=== PATIENT | female | born 1940 | race Caucasian/White ===

== ENCOUNTER → 2019-02-06 09:37 | Outpatient (CLI) | payer MEDICARE, OTHER, SELFPAY ==
--- NOTE | 2019-02-06 09:50 | CA_ITS ---
PROCEDURE: 2-D M-mode and color Doppler study INDICATIONS FOR THE TEST: Chest pain COPD Heart Murmur Tobacco Smoking Palpitations Fatigue Syncope Edema+ Hypertension+Diabetes Mellitus Rheumatic Fever SOB REY Obesity Hyperlipidemia Family History HD Additional History PATIENT INFORMATION HEIGHT: 67 WEIGHT:173 GENDER: Female B/P:134/74 2-D/M-MODE INTERPRETATION: 2-D MEASUREMENTS OBSERVED VALUES IN CMS Right Ventricular Dimension (RVDd) 2.5 Interventricular Septum (Thickness)(IVsd) 1.1 Left Ventricular Internal Dimensions(LVIDd) 4.8 Left Ventricular Posterior Wall (Thickness)(LVPWd) 0.8 Aortic Root 2.6 Aortic Cusp Separation 1.8 Left Atrial Dimensions (LAD) 3.5 2D 1. Left atrium is mildly enlarged, left ventricle is normal size, mild concentric left ventricular hypertrophy, visually estimated ejection fraction 55% with no regional wall motion abnormality. 2. The right atrium and right ventricle are normal size and contractility. 3. The aortic valve is thickened and calcified difficult to display mobility. 4. The mitral and tricuspid valve are grossly normal. 5. The pulmonic valve is poorly visualized 6. No significant pericardial effusion noted. DOPPLER INTERROGATION: Doppler interrogation of the aortic, mitral and tricuspid valvular presence of mild mitral, mild aortic and tricuspid regurgitation, tricuspid regurgitation jet velocity is inadequate for calculation of the right ventricular systolic pressure, grade 1 diastolic dysfunction seen with tissue Doppler evidence of raised left atrial pressure. Inferior vena cava is normal size with normal inspiratory collapse. CONCLUSION: 1. Mildly enlarged left atrium, normal left ventricular size, mild concentric left ventricular hypertrophy, visually estimated ejection fraction 55% with no regional wall motion abnormality, grade 1 diastolic dysfunction seen with tissue Doppler evidence of raised left atrial pressure. Inferior vena cava is normal size with normal inspiratory collapse. 2. Mild aortic, mild mitral and tricuspid regurgitation 3. No significant pericardial effusion noted.
== END ==
PROVIDERS: PCP Internal Medicine; Visit Provider Internal Medicine
DX: R60.1 Generalized edema (principal); I10 Essential (primary) hypertension
CPT/HCPCS: 93306

== ENCOUNTER → 2020-08-20 15:35 | Outpatient (CLI) | payer MEDICARE, OTHER, SELFPAY ==
--- NOTE | 2020-08-20 15:45 | CT_ITS ---
PROCEDURE: CT ABDOMEN PELVIS WO CON CLINICAL INDICATION: ABD PAIN, DIARRHEA There area x1 week COMPARISON: CT ABDPELW CT ABD PELVIS WITH CONTRAST from 10/31/2012 TECHNIQUE: Axial images obtained with sagittal and coronal reformats. All CT scans at the facility use one or more dose reduction, viz: automated exposure control, ma/kV adjustment per patient size (including targeted exams where dose is matched to indication, i.e. head), or iterative reconstruction technique. FINDINGS: LOWER THORAX: No acute finding ABDOMEN & PELVIS: There is no intraperitoneal free air or free fluid. There is a 7 millimeter by 4 millimeter nonobstructing left renal stone. There is an adjacent smaller nonobstructing left renal stone. There are no additional renal, ureteral, or urinary bladder calcifications. There is no right or left hydronephrosis or hydroureter. There is a large gallstone. The remaining solid abdominal organs have a normal unenhanced appearance. Pelvic organs are unremarkable for patient age. There is extensive sigmoid diverticulosis. There is no CT evidence of acute diverticulitis. There is a large amount of soft stool throughout the entire colon. There is no bowel obstruction. There are no distended loops of small bowel. There is no abdominal or pelvic adenopathy. There is scattered atherosclerotic calcification in the abdominal aorta. There is no abdominal aortic aneurysm. There is a moderate lumbar scoliosis. There is grade 1/2 lateral subluxation of L3 on L4. There is extensive lumbar spinal degenerative change and right-sided foraminal narrowing. IMPRESSION: 1. Cholelithiasis, correlate clinically to exclude cholecystitis. 2. Left nonobstructive nephrolithiasis without hydronephrosis or hydroureter. Next number extensive sigmoid diverticulosis without CT evidence of diverticulitis. 3. Large amount of soft stool throughout the entire colon. 4. Skeletal findings as described above. Dictated by: Abby Paul MD 08/20/2020 16:20 Abby Paul MD in [place] 08/20/2020 16:20
[2020-08-20 15:51] LABS: Basophils % 0.5 % (0.1-2.0); Eosinophils # 0.2 K/mm3 (0.0-0.4); Eosinophils % 2.3 % (0.1-12.0); Hematocrit 34.4 % (37.0-47.0); Hemoglobin 10.6 g/dL (12.2-16.2); Lymphocytes # 1.4 K/mm3 (0.7-4.5); Lymphocytes % 16.5 % (10-50); Mean Corpuscular HGB Conc 30.9 g/dL (31.8-35.4); Mean Corpuscular Hemoglobin 24.7 pg (27.0-31.2); Mean Corpuscular Volume 79.8 fl (81-99); Mean Platelet Volume 9.4 fl (7.4-10.4); Monocytes # 0.8 K/mm3 (0.1-1.0); Monocytes % 9.4 % (1.7-9.3); Neutrophils # 6.1 K/mm3 (1.8-7.8); Neutrophils % 71.4 % (37.0-80.0); Platelet Count 251 K/mm3 (142-424); Red Blood Count 4.31 M/mm3 (4.20-5.40); Red Cell Distribution Width 14.7 % (11.5-17.5); White Blood Count 8.6 K/mm3 (4.8-10.8)
[2020-08-20 15:55] LABS: Chloride 106 mmol/L (98-107); Potassium 3.2 mmoL/L (3.5-5.1); Sodium 142 mmol/L (136-145)
[2020-08-20 15:58] LABS: Anion Gap 9.2 mEq/L (5-15); Blood Urea Nitrogen 9 mg/dl (7-17); Calcium 9.6 mg/dl (8.4-10.2); Carbon Dioxide 30 mmol/L (22.0-30.0); Estimated Glomerular Filt Rate 81 ml/min (>60); GFR (African American) 97 ML/MIN (>60); Glucose 124 mg/dl (74-100)
== END ==
PROVIDERS: Visit Provider Internal Medicine
DX: R10.9 Unspecified abdominal pain (principal); R19.7 Diarrhea, unspecified; R50.9 Fever, unspecified
CPT/HCPCS: 36415; 74176; 80048; 85025

== ENCOUNTER → 2020-08-21 11:19 | Outpatient (CLI) | payer MEDICARE, OTHER, SELFPAY ==
[2020-08-21 11:22] LABS: Adenovirus F 40/41, stool Not Detected (NotDetected); Astrovirus Not Detected (NotDetected); Campylobacter Not Detected (NotDetected); Clostridium Difficile A/B, PCR Not Detected (NotDetected); Cryptosporidium Not Detected (NotDetected); Cyclospora Cayetanesis Not Detected (NotDetected); Entamoeba histolytica Not Detected (NotDetected); Enteroaggregative E coli Not Detected (NotDetected); Enteropathogenic E coli Not Detected (NotDetected); Enterotoxigenic E coli Not Detected (NotDetected); Giardia lamblia Not Detected (NotDetected); Norovirus Not Detected (NotDetected); Plesimonas Shigalloides, PCR Not Detected (NotDetected); Rotavirus A Not Detected (NotDetected); Salmonella, PCR Not Detected (NotDetected); Sapovirus Not Detected (NotDetected); Shiga-like toxin E coli Not Detected (NotDetected); Shigella Enterovasive E coli Not Detected (NotDetected); Vibrio Cholerae Not Detected (NotDetected); Vibrio, PCR Not Detected (NotDetected); Yersinia Entercolitica, PCR Not Detected (NotDetected)
== END ==
PROVIDERS: Visit Provider Internal Medicine
DX: R19.7 Diarrhea, unspecified
CPT/HCPCS: 87506

== ENCOUNTER → 2020-10-14 11:00 | Outpatient (CLI) | payer MEDICARE, OTHER, SELFPAY ==
--- NOTE | 2020-10-14 | CA_ITS ---
APPROVED REPORT Strap Buckler Machine: [facility], S Laterality: Bilateral Study Quality: Excellent Indications: Right carotid bruit Risk Factors Hyperlipidemia Smoking Doppler Spectral Velocity Analysis ECA (R) 113.10/11.10 cm/s ECA (L) 138.70/8.70 cm/s dICA (R) 169.90/42.80 cm/s dICA (L) 93.40/18.80 cm/s Car (R) 149.00/64.10 cm/s Car (L) 129.40/33.10 cm/s pICA (R) 68.50/17.10 cm/s pICA (L) 81.60/14.20 cm/s dCCA (R) 78.00/18.00 cm/s dCCA (L) 73.70/15.40 cm/s pCCA (R) 81.40/18.00 cm/s pCCA (L) 91.70/17.10 cm/s Vert (R) 72.00/7.70 cm/s Vert (L) 53.10/11.10 cm/s ICA/CCA 2.30 ICA/CCA 1.41 Findings Duplex evaluation demonstrates stenosis of the right proximal internal carotid artery in the range of 50-69% with PSV =140 cm/sec, EDV <100 cm/sec, and IC/CC Ratio <4.0.Duplex evaluation demonstrates stenosis of the left proximal internal carotid artery in the range of 50-69% with PSV =140 cm/sec, EDV <100 cm/sec, and IC/CC Ratio <4.0. Right Internal carotid artery is extremely tortuous. Duplex evaluation demonstrates antegrade flow of the bilateral Vertebral Arteries. Conclusion Duplex evaluation demonstrates stenosis of the right proximal internal carotid artery in the range of 50-69% with PSV =140 cm/sec, EDV <100 cm/sec, and IC/CC Ratio <4.0.Duplex evaluation demonstrates stenosis of the left proximal internal carotid artery in the range of 50-69% with PSV =140 cm/sec, EDV <100 cm/sec, and IC/CC Ratio <4.0. Right Internal carotid artery is extremely tortuous. Duplex evaluation demonstrates antegrade flow of the bilateral Vertebral Arteries. Electronically signed by : Jose Daniel Connolly MD 10/14/2020 15:21:32
== END ==
PROVIDERS: PCP Internal Medicine; Visit Provider Internal Medicine
DX: R09.89 Other specified symptoms and signs involving the circulatory and respiratory systems (principal)
CPT/HCPCS: 93880

== ENCOUNTER → 2021-04-12 10:40 | Outpatient (CLI) | payer MEDICARE, OTHER, SELFPAY ==
[2021-04-12 11:08] LABS: Basophils # 0.1 K/mm3 (0-0.2); Basophils % 0.7 % (0.1-2.0); Eosinophils # 0.3 K/mm3 (0.0-0.4); Eosinophils % 4.1 % (0.1-12.0); Hematocrit 37.1 % (37.0-47.0); Hemoglobin 11.9 g/dL (12.2-16.2); Lymphocytes # 1.1 K/mm3 (0.7-4.5); Lymphocytes % 14.4 % (10-50); Mean Corpuscular HGB Conc 32.1 g/dL (31.8-35.4); Mean Corpuscular Hemoglobin 28.3 pg (27.0-31.2); Mean Corpuscular Volume 88.1 fl (81-99); Mean Platelet Volume 9.4 fl (7.4-10.4); Monocytes # 0.6 K/mm3 (0.1-1.0); Neutrophils # 5.6 K/mm3 (1.8-7.8); Neutrophils % 72.8 % (37.0-80.0); Platelet Count 190 K/mm3 (142-424); Red Blood Count 4.21 M/mm3 (4.20-5.40); Red Cell Distribution Width 14.7 % (11.5-17.5); White Blood Count 7.6 K/mm3 (4.8-10.8)
[2021-04-12 11:50] LABS: Alanine Aminotransferase 14 U/L (12-78); Albumin Level 3.9 g/dl (3.5-5.0); Albumin/Globulin Ratio 1.4 (1.1-1.8); Alkaline Phosphatase 76 U/L (38-126); Anion Gap 10.2 mEq/L (5-15); Aspartate Amino Transferase 39 U/L (14-36); Bilirubin,Total 0.5 mg/dl (0.2-1.3); Blood Urea Nitrogen 16 mg/dl (7-17); Calcium 9.1 mg/dl (8.4-10.2); Carbon Dioxide 30 mmol/L (22.0-30.0); Chloride 105 mmol/L (98-107); Chol/HDL Ratio 2.5 (1-3.5); Cholesterol 153 mg/dl (140-200); Estimated Glomerular Filt Rate 96 ml/min (>60); GFR (African American) 116 ML/MIN (>60); Globulin 2.8 g/dL (1.3-3.2); Glucose 95 mg/dl (74-100); HDL Cholesterol 62 mg/dl (40-60); Potassium 4.2 mmoL/L (3.5-5.1); Sodium 141 mmol/L (136-145); Total Protein,Serum 6.7 g/dl (6.3-8.2); Triglycerides 88 mg/dl (30-150); VLDL Cholesterol 18 mg/dL (0-40)
[2021-04-12 12:01] LABS: Direct LDL Cholesterol 68.91 mg/dL (100-129)
[2021-04-12 12:21] LABS: Thyroid Stimulating Hormone 2.16 uIU/mL (0.465-4.68)
[2021-04-12 12:39] LABS: Vitamin B12 531 pg/mL (239-931)
== END ==
PROVIDERS: Visit Provider Internal Medicine
DX: I87.2 Venous insufficiency (chronic) (peripheral) (principal); M17.0 Bilateral primary osteoarthritis of knee; D64.9 Anemia, unspecified; E78.5 Hyperlipidemia, unspecified
CPT/HCPCS: 80053; 80061; 82607; 84443; 85025

== ENCOUNTER → 2021-07-04 10:26 | Outpatient (CLI) | payer MEDICARE, OTHER, SELFPAY ==
[2021-07-04 10:31] LABS: Microscopic, Urine URINE MICROSCOPIC (MICROSCOPIC)
--- NOTE | 2021-07-04 10:42 | XR_ITS ---
FINAL REPORT CLINICAL HISTORY: LT LOWER QUAD PAIN, n/v FINDINGS: Chest: A single view of the chest demonstrates no acute cardiopulmonary process. Abdomen: Flat and upright views of the abdomen demonstrates gaseous stool throughout the colon. There is no free air. There is 25? of lumbar scoliosis convex to the right. IMPRESSION: No acute process. Reviewed, Interpreted and Dictated by Pepito Aldana MD Transcribed by Nya Tong Authenticated by Pepito Aldana MD on 07/04/2021 12:06:34 PM [facility]
[2021-07-04 10:45] LABS: Basophils # 0.1 K/mm3 (0-0.2); Basophils % 0.5 % (0.1-2.0); Eosinophils # 0.1 K/mm3 (0.0-0.4); Eosinophils % 1.4 % (0.1-12.0); Hematocrit 34.1 % (37.0-47.0); Lymphocytes # 0.9 K/mm3 (0.7-4.5); Lymphocytes % 9.4 % (10-50); Mean Corpuscular HGB Conc 32.4 g/dL (31.8-35.4); Mean Corpuscular Hemoglobin 27.9 pg (27.0-31.2); Mean Corpuscular Volume 86.2 fl (81-99); Mean Platelet Volume 8.5 fl (7.4-10.4); Monocytes # 0.8 K/mm3 (0.1-1.0); Monocytes % 8.2 % (1.7-9.3); Neutrophils # 7.8 K/mm3 (1.8-7.8); Neutrophils % 80.4 % (37.0-80.0); Platelet Count 265 K/mm3 (142-424); Red Blood Count 3.96 M/mm3 (4.20-5.40); Red Cell Distribution Width 13.9 % (11.5-17.5); White Blood Count 9.7 K/mm3 (4.8-10.8)
[2021-07-04 10:59] LABS: Alanine Aminotransferase 27 U/L (12-78); Albumin/Globulin Ratio 1.2 (1.1-1.8); Alkaline Phosphatase 70 U/L (38-126); Anion Gap 7.2 mEq/L (5-15); Aspartate Amino Transferase 52 U/L (14-36); Bilirubin,Total 0.6 mg/dl (0.2-1.3); Blood Urea Nitrogen 14 mg/dl (7-17); Calcium 9.3 mg/dl (8.4-10.2); Carbon Dioxide 33 mmol/L (22.0-30.0); Chloride 100 mmol/L (98-107); Estimated Glomerular Filt Rate 60 ml/min (>60); GFR (African American) 73 ML/MIN (>60); Globulin 3.3 g/dL (1.3-3.2); Glucose 113 mg/dl (74-100); Potassium 3.2 mmoL/L (3.5-5.1); Sodium 137 mmol/L (136-145); Total Protein,Serum 7.3 g/dl (6.3-8.2)
[2021-07-04 11:03] LABS: Appearance,Urine CLOUDY (Clear); Blood, Urine 3+ (Negative); Color,Urine YELLOW (Yellow); Glucose,Urine (UA) Negative (Negative); Ketones,Urine 1+ (Negative); Leukocyte Esterase,Urine TRACE (Negative); Nitrate,Urine Negative (Negative); PH,Urine 5.5 (5.0-8.5); Protein,Urine 2+ (Negative); Specific Gravity, Urine >= 1.030 (1.005-1.030); Urobilinogen,Urine 0.2 EU/dl (0.2)
[2021-07-04 11:08] LABS: Bilirubin,Urine 1+ (Negative)
[2021-07-04 11:17] LABS: Bacteria,Urine Trace /lpf; Squamous Epithelial Cell,Urine Occasional #/hpf (0-5); WBC,Urine Occasional #/hpf (0-3)
== END ==
PROVIDERS: Visit Provider Internal Medicine
DX: R10.32 Left lower quadrant pain (principal); R11.2 Nausea with vomiting, unspecified
CPT/HCPCS: 36415; 74021; 80053; 81001; 85025

== ENCOUNTER → 2021-07-08 07:37 | Outpatient (CLI) | payer MEDICARE, OTHER, SELFPAY ==
--- NOTE | 2021-07-08 07:40 | CT_ITS ---
FINAL REPORT TECHNIQUE: Thin section axial images were obtained from the lung bases to the pubic symphysis without IV contrast. CLINICAL HISTORY: LLQ PAIN,DIARRHEA FINDINGS: There is left hydronephrosis and hydroureter to the level of 2 distal ureteral stones. The first measuring 4 mm and the second measuring 8 mm. There are nonobstructing left renal stones. There are no right renal or ureteral stones. There is abnormal attenuation surrounding the tail of pancreas. This could be reactive from the adjacent renal inflammation however pancreatitis is not excluded. There is a large gallstone in the gallbladder. The remaining unenhanced solid abdominal organs are unremarkable. There is no evidence of small bowel obstruction. The appendix is normal. There is diverticulosis without diverticulitis. There are mildly prominent left periaortic lymph nodes. Otherwise there is no lymphadenopathy or ascites. No acute osseous abnormality is identified. IMPRESSION: 2 obstructing distal left ureteral stones. Nonobstructing left renal stones. Abnormal attenuation surrounding the tail of the pancreas. Possibly related to adjacent left kidney however mild pancreatitis is not excluded. Gallstone in the gallbladder. Reviewed, Interpreted and Dictated by Hannah Madrigal MD Transcribed by Nya Tong Authenticated by Hannah Madrigal MD on 07/08/2021 09:34:42 AM [facility]
== END ==
PROVIDERS: PCP Internal Medicine; Visit Provider Internal Medicine
DX: R10.32 Left lower quadrant pain (principal); R19.7 Diarrhea, unspecified
CPT/HCPCS: 74176

== ENCOUNTER → 2021-10-11 13:22 | Outpatient (CLI) | payer MEDICARE, OTHER, SELFPAY ==
[2021-10-11 15:08] LABS: Basophils # 0.1 K/mm3 (0-0.2); Basophils % 0.7 % (0.1-2.0); Eosinophils # 0.2 K/mm3 (0.0-0.4); Eosinophils % 2.7 % (0.1-12.0); Hematocrit 37.5 % (37.0-47.0); Lymphocytes # 0.8 K/mm3 (0.7-4.5); Lymphocytes % 12.3 % (10-50); Mean Corpuscular Hemoglobin 27.9 pg (27.0-31.2); Mean Corpuscular Volume 86.9 fl (81-99); Mean Platelet Volume 10.6 fl (7.4-10.4); Monocytes # 0.5 K/mm3 (0.1-1.0); Monocytes % 7.8 % (1.7-9.3); Neutrophils # 4.8 K/mm3 (1.8-7.8); Neutrophils % 76.4 % (37.0-80.0); Platelet Count 180 K/mm3 (142-424); Red Blood Count 4.31 M/mm3 (4.20-5.40); Reticulocyte % (Auto) 0.9 % (0.9-3.2); White Blood Count 6.3 K/mm3 (4.8-10.8)
[2021-10-11 17:27] LABS: Alanine Aminotransferase 16 U/L (12-78); Albumin Level 4.1 g/dl (3.5-5.0); Albumin/Globulin Ratio 1.6 (1.1-1.8); Alkaline Phosphatase 77 U/L (38-126); Aspartate Amino Transferase 35 U/L (14-36); Bilirubin,Total 0.7 mg/dl (0.2-1.3); Blood Urea Nitrogen 15 mg/dl (7-17); Calcium 9.2 mg/dl (8.4-10.2); Carbon Dioxide 28 mmol/L (22.0-30.0); Chloride 105 mmol/L (98-107); Chol/HDL Ratio 2.4 (1-3.5); Cholesterol 130 mg/dl (140-200); Estimated Glomerular Filt Rate 96 ml/min (>60); GFR (African American) 116 ML/MIN (>60); Globulin 2.6 g/dL (1.3-3.2); Glucose 88 mg/dl (74-100); HDL Cholesterol 54 mg/dl (40-60); Sodium 141 mmol/L (136-145); Total Protein,Serum 6.7 g/dl (6.3-8.2); Triglycerides 94 mg/dl (30-150); VLDL Cholesterol 19 mg/dL (0-40)
[2021-10-11 17:39] LABS: Direct LDL Cholesterol 48.54 mg/dL (100-129)
[2021-10-11 18:20] LABS: Vitamin B12 348 pg/mL (239-931)
[2021-10-11 22:19] LABS: 25-OH Vitamin D, Total 26.7 ng/mL (30-100)
== END ==
PROVIDERS: PCP Internal Medicine; Visit Provider Internal Medicine
DX: I87.2 Venous insufficiency (chronic) (peripheral) (principal); E78.5 Hyperlipidemia, unspecified; E55.9 Vitamin D deficiency, unspecified; M17.0 Bilateral primary osteoarthritis of knee; Z85.3 Personal history of malignant neoplasm of breast
CPT/HCPCS: 80053; 80061; 82306; 82607; 85025; 85044

== ENCOUNTER → 2021-10-17 16:20 | Outpatient (CLI) | payer MEDICARE, OTHER, SELFPAY ==
--- NOTE | 2021-10-17 16:23 | MR_ITS ---
PROCEDURE INFORMATION: Exam: MR Lumbar Spine Without Contrast Exam date and time: 10/17/2021 4:29 PM Age: 81 years old Clinical indication: Low back pain TECHNIQUE: Imaging protocol: Multiplanar magnetic resonance images of the lumbar spine without intravenous contrast. COMPARISON: CT ABDOMEN PELVIS WO CON 07/08/2021 7:47 AM FINDINGS: alignment is grossly normal. signal intensity within the bone marrow is normal. conus terminates at the mid aspect of L1. Soft tissues are unremarkable. Severe neural foraminal narrowing L3-L4 L2-L3 and L1-L2. Severe narrowing of the L4-L5 neural foramina on the right Multilevel reactive endplate changes T12-L1: Broad-based annular disc bulge. Central canal and neural foramina normal. L1-L2: Severe narrowing of the central canal secondary to facet hypertrophic changes, ligamentum flavum hypertrophic changes, and a broad-based annular bulge. L2-L3: Moderate degree of central canal narrowing secondary to facet hypertrophic changes, ligamentum flavum hypertrophic changes, and a broad-based annular bulge. L3-L4: Severe narrowing of the central canal secondary to facet hypertrophic changes, ligamentum flavum hypertrophic changes, and a broad-based annular bulge. L4-L5: Disc and or osteophytic complex anteriorly mildly effaces the anterior aspect of the thecal sac. Disc lateralizes to the right greater than left. Small central disc protrusion. Central canal is normal. L5-S1: Central canal and neural foramina are widely patent. IMPRESSION: Rather severe degenerative disc disease including severe narrowing at L1-L2, L3-L4 and moderate narrowing of the central canal L2-L3
== END ==
PROVIDERS: PCP Internal Medicine; Visit Provider Internal Medicine
DX: M54.50 Low back pain, unspecified (principal)
CPT/HCPCS: 72148; 76376

== ENCOUNTER → 2021-10-21 10:49 | Outpatient (CLI) | payer MEDICARE, OTHER, SELFPAY ==
--- NOTE | 2021-10-21 10:52 | CT_ITS ---
FINAL REPORT CLINICAL HISTORY: LOW BACK PAIN,? KIDNEY STONE,BLOOD IN URINE COMPARISON: July 08, 2021 FINDINGS: Axial CT images of the abdomen and pelvis were obtained without intravenous contrast. Coronal reformatted images were also obtained.This study was performed with techniques to keep radiation doses as low as reasonably achievable (ALARA). Individualized dose reduction techniques using automated exposure control or adjustment of mA and/or kV according to the patient's size were employed. Abdomen: There is mild scarring in the lung bases. There is no evidence of right renal stone. There is a less than 3 mm nonobstructing left renal stone. There is no hydronephrosis. There is a large gallstone within the gallbladder. The liver, spleen and pancreas have an unremarkable, unenhanced appearance. No mass or adenopathy is seen. No inflammatory process is identified. There are moderate vascular calcifications. Pelvis: The previously seen distal left ureteral stones are no longer visualized. There is a large amount of retained stool. There is sigmoid colon diverticulosis without evidence of diverticulitis. No mass or abnormal fluid collection is identified. IMPRESSION: A less than 3 mm nonobstructing left renal stone. No ureteral stone, or hydronephrosis. Sigmoid diverticulosis without evidence of diverticulitis. Large gallstone in the gallbladder. Reviewed, Interpreted and Dictated by Henri Gomez III, MD Transcribed by Nya Tong Authenticated by Henri Gomez III, MD on 10/21/2021 12:49:[address] [facility]
== END ==
PROVIDERS: PCP Internal Medicine; Visit Provider Internal Medicine
DX: R31.9 Hematuria, unspecified (principal)
CPT/HCPCS: 74176

== ENCOUNTER → 2022-04-12 13:43 | Outpatient (CLI) | payer MEDICARE, OTHER, SELFPAY ==
[2022-04-12 17:43] LABS: Basophils # 0.1 K/mm3 (0-0.2); Basophils % 0.6 % (0.1-2.0); Eosinophils # 0.2 K/mm3 (0.0-0.4); Eosinophils % 2.4 % (0.1-12.0); Hematocrit 36.3 % (37.0-47.0); Hemoglobin 11.6 g/dL (12.2-16.2); Lymphocytes % 12.9 % (10-50); Mean Corpuscular HGB Conc 31.9 g/dL (31.8-35.4); Mean Corpuscular Volume 87.9 fl (81-99); Mean Platelet Volume 9.9 fl (7.4-10.4); Monocytes # 0.7 K/mm3 (0.1-1.0); Monocytes % 8.2 % (1.7-9.3); Neutrophils # 6.1 K/mm3 (1.8-7.8); Neutrophils % 75.9 % (37.0-80.0); Platelet Count 188 K/mm3 (142-424); Red Blood Count 4.12 M/mm3 (4.20-5.40); Red Cell Distribution Width 14.1 % (11.5-17.5)
[2022-04-12 18:28] LABS: Alanine Aminotransferase 15 U/L (12-78); Albumin Level 3.9 g/dl (3.5-5.0); Albumin/Globulin Ratio 1.5 (1.1-1.8); Alkaline Phosphatase 89 U/L (38-126); Aspartate Amino Transferase 35 U/L (14-36); Bilirubin,Total 0.5 mg/dl (0.2-1.3); Blood Urea Nitrogen 17 mg/dl (7-17); Calcium 8.9 mg/dl (8.4-10.2); Carbon Dioxide 30 mmol/L (22.0-30.0); Chloride 101 mmol/L (98-107); Chol/HDL Ratio 2.3 (1-3.5); Cholesterol 136 mg/dl (140-200); Estimated Glomerular Filt Rate 96 ml/min (>60); GFR (African American) 116 ML/MIN (>60); Globulin 2.6 g/dL (1.3-3.2); Glucose 80 mg/dl (74-100); HDL Cholesterol 59 mg/dl (40-60); Potassium 4.2 mmoL/L (3.5-5.1); Total Protein,Serum 6.5 g/dl (6.3-8.2); Triglycerides 75 mg/dl (30-150); VLDL Cholesterol 15 mg/dL (0-40)
[2022-04-12 18:38] LABS: Direct LDL Cholesterol 59.42 mg/dL (100-129)
[2022-04-12 19:21] LABS: Anion Gap 14.2 mEq/L (5-15); Sodium 141 mmol/L (136-145)
== END ==
PROVIDERS: PCP Internal Medicine; Visit Provider Internal Medicine
DX: E78.5 Hyperlipidemia, unspecified (principal); I87.2 Venous insufficiency (chronic) (peripheral); D64.9 Anemia, unspecified
CPT/HCPCS: 80053; 80061; 85025

== ENCOUNTER 2022-08-26 11:41 | Emergency (ER) | payer MEDICARE, OTHER, SELFPAY ==
[2022-08-26 11:42] VITALS: BP 179/88; PULSE 85; RESP 17; TEMP 37.1; O2SAT 98; BMI 24.3
--- NOTE | 2022-08-26 12:02 | PC.NURSE ---
DR HORN AT BEDSIDE
--- NOTE | 2022-08-26 12:13 | CT_ITS ---
PROCEDURE INFORMATION: Exam: CT Abdomen And Pelvis With Contrast Exam date and time: 08/26/2022 1:05 PM Age: 82 years old Clinical indication: Nausea and vomiting and other: Diarrhea; Additional info: Rlq and R flank pain, diarrhea and vomitnig TECHNIQUE: Imaging protocol: Computed tomography of the abdomen and pelvis with contrast. Radiation optimization: All CT scans at this facility use at least one of these dose optimization techniques: automated exposure control; mA and/or kV adjustment per patient size (includes targeted exams where dose is matched to clinical indication); or iterative reconstruction. Contrast material: ISOVUE; Contrast volume: 75 ml; Contrast route: IV; REPORTING DATA: Count of CT and Cardiac NM exams in prior 12 months: This patient has received [address] and 0 known cardiac nuclear medicine studies in the 12 months prior to the current study. COMPARISON: CT ABDOMEN PELVIS WO CON 10/21/2021 10:52 AM FINDINGS: Lungs: Interstitial and mild airspace disease. Asymmetric elevation of the right hemidiaphragm. Liver: Fatty infiltration of the liver. Gallbladder and bile ducts: Cholelithiasis. Pancreas: Normal. No ductal dilation. Spleen: No splenomegaly. Adrenal glands: Subtle left adrenal nodularity. Kidneys and ureters: Moderate left hydronephrosis without associated ureteral calculus. 1 mm nonobstructing left renal calculus. Stomach and bowel: Questionable wall thickening in the nondistended stomach. Small bowel dilatation without a focal transition zone. Prominent stool and diverticula, without pericolonic inflammation. Appendix: Nonvisualization of the appendix. Intraperitoneal space: No significant intraperitoneal fluid. Vasculature: Vascular calcification and ectasia. Lymph nodes: Subcentimeter lymph nodes. Urinary bladder: Bladder wall thickening, disproportionately involving the anterior bladder wall. Reproductive: Unremarkable as visualized. Bones/joints: Degenerative change, disc bulging, vacuum discs, and scoliosis. Soft tissues: Unremarkable. IMPRESSION: 1. Moderate left hydronephrosis without associated ureteral calculus. 2. 1 mm nonobstructing left renal calculus. 3. Cholelithiasis. 4. Bladder wall thickening, disproportionately involving the anterior bladder wall. 5. Additional findings as described above.
[2022-08-26 12:20] LABS: Basophils % 0.3 % (0.1-2.0); Eosinophils # 0.2 K/mm3 (0.0-0.4); Eosinophils % 1.2 % (0.1-12.0); Hemoglobin 11.5 g/dL (12.2-16.2); Lymphocytes # 0.9 K/mm3 (0.7-4.5); Lymphocytes % 7.1 % (10-50); Mean Corpuscular HGB Conc 32.7 g/dL (31.8-35.4); Mean Corpuscular Hemoglobin 26.5 pg (27.0-31.2); Mean Corpuscular Volume 81.1 fl (81-99); Mean Platelet Volume 9.3 fl (7.4-10.4); Monocytes # 1.6 K/mm3 (0.1-1.0); Monocytes % 12.1 % (1.7-9.3); Neutrophils # 10.2 K/mm3 (1.8-7.8); Neutrophils % 79.4 % (37.0-80.0); Platelet Count 226 K/mm3 (142-424); Red Blood Count 4.31 M/mm3 (4.20-5.40); Red Cell Distribution Width 15.5 % (11.5-17.5); White Blood Count 12.8 K/mm3 (4.8-10.8)
[2022-08-26 12:22] LABS: Chloride 100 mmol/L (98-107); Potassium 3.1 mmoL/L (3.5-5.1); Sodium 136 mmol/L (136-145)
--- NOTE | 2022-08-26 12:24 | HMH.EDGENADL ---
Discharge Plan Disposition Patient Disposition: Home, Self-Care Condition: Good Prescriptions Prescriptions: New cefadroxil 500 mg capsule 500 mg PO BID 10 Days Qty: 20 0RF Adult 50 Plus Probiotic 4 billion cell capsule 4,000 mmu cells PO DAILY Qty: 30 0RF Rx Instructions: administer with a meal No Action atorvastatin [Lipitor] 20 mg Tablet 20 mg PO HS Referrals Follow up/Referrals: Ozzie Garibay MD [Primary Care Provider] - See instructions Clinical Impressions Clinical Impression: Acute pyelonephritis Instructions Patient Instructions: DI for Acute Abdominal Pain Discharge ED Provider: Emmanuel Crook General Adult HPI General Chief complaint: Abdominal Pain Stated complaint: diarrhea,right back side pain, no accident Time Seen by Provider: 08/26/22 11:50 Mode of Arrival: Ambulatory Source of Information: Patient and Relative Limitations: No Limitations Description of Symptoms (Recalled from ER Triage Doc. by RN): PT WITH 2 YEARS OF DIARRHEA. PRESENTS WITH LOWER ABDOMINAL PAIN AND RIGHT SIDED LOW BACK PAIN X 1 WEEK. History of Present Illness HPI narrative: This is an 82-year-old female with history of breast cancer in remission, chronic diarrhea, hyperlipidemia presenting with concern for fever, diarrhea, vomiting. Patient states that she began having diarrhea today, 08/26 that was nonbloody, non-mucousy. She has had associated right-sided flank pain that is mild to moderate in intensity and does not radiate. She has had associated nonbloody, nonbilious vomiting x2 episodes. She took her temperature and it was 101 ?F and because of this, called her daughter to have her brought to the emergency department. Patient denies chest pain, shortness of breath, cough, sore throat, congestion, abdominal pain, dysuria, hematuria, abnormal vaginal discharge or bleeding, night sweats, weight loss. Last bowel movement was today and she is still passing flatus without issue. Per daughter, patient has been complaining of sick symptoms, for about 1 week including fevers, chills, vomiting and diarrhea. Related Data Home Medications Medication Instructions Recorded Confirmed atorvastatin 20 mg tablet (Lipitor) 20 mg PO HS Cholesterol 08/26/22 08/26/22 Previous Rx's Medication Instructions Recorded cefadroxil 500 mg capsule 500 mg PO BID 10 days #20 caps 08/26/22 lactobacillus combination no.9 4 4,000 mmu cells PO DAILY #30 caps 08/26/22 billion cell capsule (Adult 50 Plus Probiotic) Allergies Allergy/AdvReac Type Severity Reaction Status Date / Time Sulfa (Sulfonamide Allergy Mild Verified 08/26/22 12:17 Antibiotics) [SULFA (SULFONAMIDE ANTIBIOTICS)] [facility] Disclaimer: The information contained in this section may have been updated after the patient was seen, as this information can be updated by other users. Social History Smoking Status: Former smoker alcohol intake: never current occupational status: retired Travel in the last 8 weeks: None ROS Obtained: Yes All systems reviewed & no additional complaints except as documented Physical Exam General General appearance: alert and in no apparent distress Head Head exam: atraumatic, normocephalic and normal inspection Eye Eye exam: Present normal appearance, PERRL and EOMI ENT ENT exam: Present normal exam, normal oropharynx, mucous membranes moist, TM's normal bilaterally and normal external ear exam Neck Neck exam: Present normal inspection, full ROM and trachea midline; Absent meningismus or lymphadenopathy Chest Chest inspection: Present normal inspection and symmetric chest wall rise; Absent tenderness Respiratory Respiratory exam: Present normal lung sounds bilaterally; Absent respiratory distress Cardiovascular Cardiovascular exam: Present regular rate and normal rhythm; Absent JVD Abdominal Exam Abdominal exam: Present soft and normal bowel sounds; Absent distention, tenderness, g
[2022-08-26 12:25] LABS: Alanine Aminotransferase 45 U/L (12-78); Albumin Level 3.9 g/dl (3.5-5.0); Albumin/Globulin Ratio 1.1 (1.1-1.8); Alkaline Phosphatase 109 U/L (38-126); Anion Gap 7.1 mEq/L (5-15); Aspartate Amino Transferase 81 U/L (14-36); Bilirubin,Total 0.6 mg/dl (0.2-1.3); Blood Urea Nitrogen 15 mg/dl (7-17); Calcium 8.5 mg/dl (8.4-10.2); Carbon Dioxide 32 mmol/L (22.0-30.0); Creatinine Clearance Estimated 48 mL/min (50-200); Estimated Glomerular Filt Rate 69 ml/min (>60); GFR (African American) 83 ML/MIN (>60); Globulin 3.4 g/dL (1.3-3.2); Glucose 119 mg/dl (74-100); Lipase 76 U/L (23-300); Total Protein,Serum 7.3 g/dl (6.3-8.2)
[2022-08-26 12:30] VITALS: BP 159/68; PULSE 77; RESP 16; O2SAT 96
--- NOTE | 2022-08-26 13:05 | PC.NURSE ---
[address]
[2022-08-26 13:12] LABS: Lactic Acid 0.9 mmol/L (0.7-2.1)
--- NOTE | 2022-08-26 13:25 | PC.NURSE ---
PT RETURNED FROM CT
[2022-08-26 13:31] VITALS: BP 145/55; PULSE 70; O2SAT 97
--- NOTE | 2022-08-26 13:31 | PC.NURSE ---
covid swab sent to lab at this time pt aware a urine specimen is ordered, states unable to urinate at this time
[2022-08-26 13:32] LABS: Coronavirus 19, PCR Not Detected (NotDetected); Influenza A, PCR Not Detected (NotDetected); Influenza B, PCR Not Detected (NotDetected)
[2022-08-26 14:00] VITALS: BP 143/53; PULSE 67; O2SAT 95
[2022-08-26 14:02] LABS: Microscopic, Urine URINE MICROSCOPIC (MICROSCOPIC)
[2022-08-26 14:10] LABS: Appearance,Urine CLOUDY (Clear); Blood, Urine 3+ (Negative); Color,Urine YELLOW (Yellow); Glucose,Urine (UA) Negative (Negative); Ketones,Urine TRACE (Negative); Leukocyte Esterase,Urine 2+ (Negative); Nitrate,Urine POSITIVE (Negative); Protein,Urine TRACE (Negative); Specific Gravity, Urine 1.015 (1.005-1.030); Urobilinogen,Urine 0.2 EU/dl (0.2)
[2022-08-26 14:12] LABS: Bilirubin,Urine 1+ (Negative)
[2022-08-26 14:16] LABS: Bacteria,Urine 3+ /lpf; Squamous Epithelial Cell,Urine Occasional #/hpf (0-5); WBC,Urine 50-100 #/hpf (0-3)
[2022-08-26 14:31] VITALS: BP 139/48; PULSE 65; O2SAT 96
[2022-08-26 14:50] VITALS: BP 139/48; PULSE 63; RESP 18; TEMP 36.9; O2SAT 97
== END 2022-08-26 14:50 | disposition home or self-care (01) ==
PROVIDERS: Emergency Provider Emergency Medicine; PCP Internal Medicine
DX: N10 Acute pyelonephritis (principal); E78.5 Hyperlipidemia, unspecified; R19.15 Other abnormal bowel sounds; Z85.3 Personal history of malignant neoplasm of breast; Z87.891 Personal history of nicotine dependence; Z20.822 Contact with and (suspected) exposure to COVID-19
CPT/HCPCS: 74177; 80053; 81001; 83605; 83690; 85025; 87086; 87186; 96361; 96374; 96375; 99285; C9803; Q9967; U0003; U0005

== ENCOUNTER → 2022-09-08 12:06 | Outpatient (CLI) | payer MEDICARE, OTHER, SELFPAY | PROVIDERS: PCP Internal Medicine; Visit Provider Internal Medicine | DX: N39.0 Urinary tract infection, site not specified (principal); B96.29 Other Escherichia coli [E. coli] as the cause of diseases classified elsewhere | CPT/HCPCS: 87086; 87088; 87186 ==

== ENCOUNTER → 2022-10-09 13:40 | Outpatient (CLI) | payer MEDICARE, OTHER, SELFPAY ==
--- NOTE | 2022-10-09 | US_ITS ---
FINAL REPORT TECHNIQUE: Ultrasound images of the kidneys and bladder were obtained. CLINICAL HISTORY: .UTI FINDINGS: The right kidney measures 11.1 cm in length. It is normal in echogenicity. There is no hydronephrosis. The left kidney measures 11.1 cm in length. It is normal in echogenicity. There is mild left hydronephrosis. IMPRESSION: Mild left hydronephrosis. Otherwise, unremarkable exam. Reviewed, Interpreted and Dictated by Henri Gomez III, MD Transcribed by Gabrielle Carlton Authenticated and . [facility]
--- NOTE | 2022-10-09 | US_ITS ---
FINAL REPORT CLINICAL HISTORY: .UTI FINDINGS: Limited ultrasound imaging of the urinary bladder was obtained. The urinary bladder is unremarkable. Bladder volume is 43 mL. Ureteral jets are noted bilaterally. IMPRESSION: Unremarkable ultrasound of the urinary bladder. Reviewed, Interpreted and Dictated by Henri Gomez III, MD Transcribed by Gabrielle Carlton Authenticated and . [facility]
== END ==
PROVIDERS: PCP Internal Medicine; Visit Provider Internal Medicine
DX: N39.0 Urinary tract infection, site not specified (principal)
CPT/HCPCS: 76770; 76857

== ENCOUNTER → 2022-10-11 12:31 | Outpatient (CLI) | payer MEDICARE, OTHER, SELFPAY ==
[2022-10-11 14:15] LABS: Basophils # 0.1 K/mm3 (0-0.2); Basophils % 0.5 % (0.1-2.0); Eosinophils # 0.2 K/mm3 (0.0-0.4); Hematocrit 35.2 % (37.0-47.0); Hemoglobin 10.8 g/dL (12.2-16.2); Lymphocytes % 8.7 % (10-50); Mean Corpuscular HGB Conc 30.8 g/dL (31.8-35.4); Mean Corpuscular Hemoglobin 25.3 pg (27.0-31.2); Mean Corpuscular Volume 82.1 fl (81-99); Monocytes # 1.1 K/mm3 (0.1-1.0); Monocytes % 10.1 % (1.7-9.3); Neutrophils # 8.9 K/mm3 (1.8-7.8); Neutrophils % 78.6 % (37.0-80.0); Platelet Count 242 K/mm3 (142-424); Red Blood Count 4.29 M/mm3 (4.20-5.40); Red Cell Distribution Width 16.2 % (11.5-17.5); White Blood Count 11.3 K/mm3 (4.8-10.8)
[2022-10-11 15:15] LABS: Alanine Aminotransferase 11 U/L (12-78); Albumin Level 3.8 g/dl (3.5-5.0); Albumin/Globulin Ratio 1.2 (1.1-1.8); Alkaline Phosphatase 92 U/L (38-126); Anion Gap 10.8 mEq/L (5-15); Aspartate Amino Transferase 26 U/L (14-36); Bilirubin,Total 0.5 mg/dl (0.2-1.3); Blood Urea Nitrogen 15 mg/dl (7-17); Calcium 8.6 mg/dl (8.4-10.2); Carbon Dioxide 26 mmol/L (22.0-30.0); Chloride 103 mmol/L (98-107); Chol/HDL Ratio 2.9 (1-3.5); Cholesterol 122 mg/dl (140-200); Estimated Glomerular Filt Rate 80 ml/min (>60); GFR (African American) 97 ML/MIN (>60); Globulin 3.1 g/dL (1.3-3.2); Glucose 82 mg/dl (74-100); HDL Cholesterol 42 mg/dl (40-60); Potassium 3.8 mmoL/L (3.5-5.1); Sodium 136 mmol/L (136-145); Total Protein,Serum 6.9 g/dl (6.3-8.2); Triglycerides 83 mg/dl (30-150); VLDL Cholesterol 17 mg/dL (0-40)
[2022-10-11 15:26] LABS: Direct LDL Cholesterol 60.59 mg/dL (100-129)
[2022-10-13 17:27] LABS: Iron 31 ug/dL (37-170)
[2022-10-13 17:36] LABS: Total Iron Binding Capacity 324 ug/dL (265-497)
== END ==
PROVIDERS: PCP Internal Medicine; Visit Provider Internal Medicine
DX: D64.9 Anemia, unspecified (principal); E78.5 Hyperlipidemia, unspecified; M15.0 Primary generalized (osteo)arthritis; I87.2 Venous insufficiency (chronic) (peripheral); N13.30 Unspecified hydronephrosis; Z85.41 Personal history of malignant neoplasm of cervix uteri; Z85.44 Personal history of malignant neoplasm of other female genital organs
CPT/HCPCS: 80053; 80061; 83540; 83550; 85025

== ENCOUNTER → 2022-11-24 14:22 | Outpatient (CLI) | payer MEDICARE, OTHER, SELFPAY | PROVIDERS: PCP Internal Medicine; Visit Provider Internal Medicine | DX: N39.0 Urinary tract infection, site not specified (principal); B96.29 Other Escherichia coli [E. coli] as the cause of diseases classified elsewhere | CPT/HCPCS: 87086; 87088; 87186 ==

== ENCOUNTER → 2023-01-29 16:38 | Outpatient (CLI) | payer MEDICARE, OTHER, SELFPAY | PROVIDERS: PCP Internal Medicine; Visit Provider Internal Medicine | DX: N39.0 Urinary tract infection, site not specified (principal); B96.29 Other Escherichia coli [E. coli] as the cause of diseases classified elsewhere | CPT/HCPCS: 87086; 87088; 87186 ==

== ENCOUNTER → 2023-03-14 14:14 | Outpatient (CLI) | payer MEDICARE, OTHER, SELFPAY ==
--- NOTE | 2023-03-14 14:20 | XR_ITS ---
FINAL REPORT CLINICAL HISTORY: SHOULDER PAIN FINDINGS: Left shoulder Three views were obtained. There is no acute fracture or dislocation. There is mild AC joint and glenohumeral joint degenerative change. No soft tissue abnormality is identified. IMPRESSION: Mild degenerative changes. Reviewed, Interpreted and Dictated by Henri Gomez III, MD Transcribed by yN Allison Authenticated and [facility]
== END ==
PROVIDERS: PCP Internal Medicine; Visit Provider Internal Medicine
DX: M25.512 Pain in left shoulder (principal)
CPT/HCPCS: 73030

== ENCOUNTER 2023-04-07 11:19 | Emergency (ER) | payer MEDICARE, OTHER, SELFPAY ==
[2023-04-07 11:20] VITALS: BP 189/102; PULSE 92; RESP 19; TEMP 36.8; O2SAT 97; BMI 24.2
--- NOTE | 2023-04-07 11:22 | HMH.EDGENADL ---
Discharge Plan Disposition Patient Disposition: Home, Self-Care Condition: Good Prescriptions Prescriptions: New acetaminophen 500 mg capsule 500 mg PO Q6H PRN (Reason: pain) Qty: 20 0RF ibuprofen 400 mg tablet 400 mg PO Q6H PRN (Reason: pain) Qty: 20 0RF Rx Instructions: Do not take while you are taking diclofenac No Action gemfibrozil [Lopid] 600 mg Tablet 600 mg PO DAILY cholecalciferol (vitamin D3) [Vitamin D3] 50 mcg (2,000 unit) Capsule 50 mcg PO DAILY atorvastatin 10 mg tablet 10 mg PO HS famotidine 20 mg tablet 20 mg PO DAILY diclofenac sodium 75 mg tablet,delayed release (DR/EC) 75 mg PO BID Referrals Follow up/Referrals: Ozzie Garibay MD [Primary Care Provider] - See instructions Gino Delgado DO [Staff Physician] - See instructions (Right medial malleolus fracture) Activity Restrictions/Add. Instructions Additional Instructions/Restrictions: Please follow-up with your primary care provider. Please return to the emergency department if you develop any new or worsening symptoms or become concerned for your health. You have been given Tylenol, ibuprofen prescriptions. If you are taking the ibuprofen, do not take your diclofenac. Additionally, you have been given follow-up with orthopedic surgery, please follow-up with them in clinic. Clinical Impressions Clinical Impression: Acute pain of right knee Fall from standing Qualifiers: Encounter type: initial encounter Qualified Code(s): W19.XXXA - Unspecified fall, initial encounter Fracture of medial malleolus Qualifiers: Encounter type: initial encounter Fracture type: closed Fracture alignment: nondisplaced Laterality: right Qualified Code(s): S82.54XA - Nondisplaced fracture of medial malleolus of right tibia, initial encounter for closed fracture Discharge ED Provider: Scooter Ma I General Adult HPI General Chief complaint: Fall Stated complaint: [id number] hit head,r foot home fall Time Seen by Provider: 04/07/23 11:22 History of Present Illness HPI narrative: Patient is an 83-year-old female with history of breast cancer in remission, HLD presenting to the emergency department after a fall. History was conducted with the patient at bedside. Patient reports that she was feeding her cats, was going back outside and walking down the steps, was going to grab her walking cane when she tripped and fell down the steps, believe that she tripped down 4-6 steps. She does believe that she hit her head but she did not lose consciousness. Patient does not take any blood thinners. Patient was able to ambulate following this fall, reports that this happened earlier this morning. She has had swelling of the right ankle, right knee as well as some scattered abrasions of the extremities. Denies any chest pain, shortness of breath, difficulty breathing, dizziness, lightheadedness, paresthesias, focal weakness. Patient reports that prior to this, had otherwise been in her normal state of health. Related Data Home Medications Medication Instructions Recorded Confirmed atorvastatin 10 mg tablet 10 mg PO HS Cholesterol 04/07/23 04/07/23 cholecalciferol (vitamin D3) 50 50 mcg PO DAILY Supplement 04/07/23 04/07/23 mcg (2,000 unit) capsule (Vitamin D3) diclofenac sodium 75 mg 75 mg PO BID Arthritis 04/07/23 04/07/23 tablet,delayed release famotidine 20 mg tablet 20 mg PO DAILY gerd 04/07/23 04/07/23 gemfibrozil 600 mg tablet (Lopid) 600 mg PO DAILY cholesterol/BP 04/07/23 04/07/23 Previous Rx's Medication Instructions Recorded acetaminophen 500 mg capsule 500 mg PO Q6H PRN pain #20 caps 04/07/23 ibuprofen 400 mg tablet 400 mg PO Q6H PRN pain #20 tabs 04/07/23 Allergies Allergy/AdvReac Type Severity Reaction Status Date / Time Sulfa (Sulfonamide Allergy Severe facial Verified 04/07/23 11:42 Antibiotics) swelling [SULFA (SULFONAMIDE ANTIBIOTICS)] PFSH PFSH Disc
--- NOTE | 2023-04-07 11:28 | CT_ITS ---
PROCEDURE INFORMATION: Exam: CT Head Without Contrast Exam date and time: 04/07/2023 12:00 PM Age: 83 years old Clinical indication: Injury or trauma; Fall; Wound, open; Head, generalized; Without residual foreign body; Additional info: Fall from standing TECHNIQUE: Imaging protocol: Computed tomography of the head without contrast. Radiation optimization: All CT scans at this facility use at least one of these dose optimization techniques: automated exposure control; mA and/or kV adjustment per patient size (includes targeted exams where dose is matched to clinical indication); or iterative reconstruction. REPORTING DATA: Count of CT and Cardiac NM exams in prior 12 months: This patient has received [address] and 0 known cardiac nuclear medicine studies in the 12 months prior to the current study. COMPARISON: US CA CAROTID DUPLEX BI 10/14/2020 11:14 AM FINDINGS: Brain: Within the left parieto-occipital sulcus there is focal widening with fluid measuring 15 x 17 x 24 mm likely representing an arachnoid cyst. There may be and 18 x 11 x 16 mm arachnoid cyst within the left parafalcine posterior frontal region near the vertex. There is no evidence for mass effect, midline shift, acute hemorrhage, extra-axial fluid collection or acute lobar infarct. Cerebral ventricles: No ventriculomegaly. Paranasal sinuses: Visualized sinuses are unremarkable. No fluid levels. Mastoid air cells: Visualized mastoid air cells are well aerated. Orbital cavities: The patient is post bilateral cataract surgery. Bones/joints: Unremarkable. No acute fracture. Soft tissues: Unremarkable. IMPRESSION: No acute intracranial process.
--- NOTE | 2023-04-07 11:28 | CT_ITS ---
PROCEDURE INFORMATION: Exam: CT Cervical Spine Without Contrast Exam date and time: 04/07/2023 12:00 PM Age: 83 years old Clinical indication: Pain and injury or trauma; Fall; Sprain or strain, cervical ligaments; Neck pain; Additional info: Fall from standing TECHNIQUE: Imaging protocol: Computed tomography of the cervical spine without contrast. Radiation optimization: All CT scans at this facility use at least one of these dose optimization techniques: automated exposure control; mA and/or kV adjustment per patient size (includes targeted exams where dose is matched to clinical indication); or iterative reconstruction. REPORTING DATA: Count of CT and Cardiac NM exams in prior 12 months: This patient has received [address] and 0 known cardiac nuclear medicine studies in the 12 months prior to the current study. COMPARISON: US CA CAROTID DUPLEX BI 10/14/2020 11:14 AM FINDINGS: Bones/joints: There is no evidence for acute cervical fracture. Overall bone mineralization is within normal limits. There is multilevel cervical spondylosis worst at C4-C5, C5-C6 and C6-C7 with disc osteophyte, facet arthropathy and uncovertebral spurring. There is degenerative stepwise anterior positioning of C7 relative to T1, T1 relative to T2 and T2 relative to T3 measuring 3-4 mm at each level. Lungs: Lung apices are normal. Soft tissues: Unremarkable. IMPRESSION: No evidence for acute cervical fracture.
--- NOTE | 2023-04-07 11:43 | XR_ITS ---
PROCEDURE INFORMATION: Exam: XR Right Tibia and Fibula Exam date and time: 04/07/2023 12:24 PM Age: 83 years old Clinical indication: Pain and injury or trauma; Fall; Blunt trauma; Lower leg; Right; Additional info: Fall from standing TECHNIQUE: Imaging protocol: Radiologic exam of the right tibia and fibula. Views: 2 views. COMPARISON: VENOUS LOWER EXT MARK 11/20/2016 3:31 PM FINDINGS: Bones/joints: The bones are osteopenic. Degenerative change is incidentally noted about the right knee. There is no evidence for acute fracture or dislocation. Soft tissues: Normal. IMPRESSION: Osteopenia and degenerative change in the right tibia and fibula.
--- NOTE | 2023-04-07 11:43 | XR_ITS ---
PROCEDURE INFORMATION: Exam: XR Right Knee Exam date and time: 04/07/2023 12:24 PM Age: 83 years old Clinical indication: Pain and injury or trauma; Fall; Blunt trauma; Knee; Right; Additional info: Fall from standing TECHNIQUE: Imaging protocol: Radiologic exam of the right knee. Views: 3 views. COMPARISON: CR [id number] [id number]-RT 02/23/2017 2:25 PM FINDINGS: Bones/joints: The bones are osteopenic. There is no evidence for acute fracture. Osteoarthritis is noted worst in the patellofemoral compartment with narrowing, endplate sclerosis and osteophytosis. Soft tissues: Normal. IMPRESSION: Osteopenia and degenerative change in the right knee.
--- NOTE | 2023-04-07 11:43 | XR_ITS ---
PROCEDURE INFORMATION: Exam: XR Right Ankle Exam date and time: 04/07/2023 12:24 PM Age: 83 years old Clinical indication: Pain and injury or trauma; Fall; Blunt trauma; Ankle; Right; Additional info: Fall from standing TECHNIQUE: Imaging protocol: Radiologic exam of the right ankle. Views: 3 or more views. COMPARISON: VENOUS LOWER EXT MARK 11/20/2016 3:31 PM FINDINGS: Bones/joints: The bones are osteopenic. There is suspected to be a nondisplaced fracture of the medial malleolus. Soft tissues: There is overlying medial soft tissue swelling. IMPRESSION: Osteopenia in the right ankle. Suspect a fracture of the medial malleolus.
--- NOTE | 2023-04-07 11:56 | PC.NURSE ---
Pt gone to RAD via wheelchair
--- NOTE | 2023-04-07 12:14 | PC.NURSE ---
Pt returned from RAD
--- NOTE | 2023-04-07 12:19 | PC.NURSE ---
Pt ambulatory to bathroom and back to bed
[2023-04-07 12:31] VITALS: BP 187/79; PULSE 74; O2SAT 99
--- NOTE | 2023-04-07 12:38 | PC.NURSE ---
Dr. Toure at BS to update pt on results and POC
--- NOTE | 2023-04-07 13:00 | PC.NURSE ---
pt concerned about the bulkiness and weight of the CAM boot. S/W regarding alternative to CAM boot. States she would need to doa short leg ortho-glass splint. Pt elected to choose CAM boot at this time.
--- NOTE | 2023-04-07 13:12 | PC.NURSE ---
CAM boot placed on pt right foot/leg. Pt wounds cleaned with hibiclens and sterile water, and bandages applied.
--- NOTE | 2023-04-07 13:15 | PC.NURSE ---
Pt/visitor concerned about pt BP. Manual BP obtained: 180/92.
[2023-04-07 13:24] VITALS: BP 180/92; PULSE 79; O2SAT 98
[2023-04-07 13:32] VITALS: BP 206/97; PULSE 73; RESP 16; TEMP 36.8; O2SAT 98
== END 2023-04-07 13:35 | disposition home or self-care (01) ==
PROVIDERS: Emergency Provider Emergency Medicine; PCP Internal Medicine
DX: S82.54XA Nondisplaced fracture of medial malleolus of right tibia, initial encounter for closed fracture (principal); S00.03XA Contusion of scalp, initial encounter; K21.9 Gastro-esophageal reflux disease without esophagitis; E78.5 Hyperlipidemia, unspecified; E55.9 Vitamin D deficiency, unspecified; M19.09 Primary osteoarthritis, other specified site; Z87.891 Personal history of nicotine dependence; W10.8XXA Fall (on) (from) other stairs and steps, initial encounter
CPT/HCPCS: 70450; 72125; 73562; 73590; 73610; 99285

== ENCOUNTER → 2023-04-13 12:46 | Outpatient (CLI) | payer MEDICARE, OTHER, SELFPAY ==
[2023-04-13 14:33] LABS: Basophils % 0.3 % (0.1-2.0); Eosinophils # 0.2 K/mm3 (0.0-0.4); Eosinophils % 2.5 % (0.1-12.0); Hematocrit 35.2 % (37.0-47.0); Hemoglobin 11.4 g/dL (12.2-16.2); Lymphocytes # 1.2 K/mm3 (0.7-4.5); Lymphocytes % 15.6 % (10-50); Mean Corpuscular HGB Conc 32.4 g/dL (31.8-35.4); Mean Corpuscular Hemoglobin 27.8 pg (27.0-31.2); Mean Corpuscular Volume 85.7 fl (81-99); Mean Platelet Volume 10.3 fl (7.4-10.4); Monocytes # 0.7 K/mm3 (0.1-1.0); Monocytes % 9.2 % (1.7-9.3); Neutrophils # 5.6 K/mm3 (1.8-7.8); Neutrophils % 72.4 % (37.0-80.0); Platelet Count 171 K/mm3 (142-424); Red Blood Count 4.11 M/mm3 (4.20-5.40); Red Cell Distribution Width 17.5 % (11.5-17.5); White Blood Count 7.8 K/mm3 (4.8-10.8)
[2023-04-13 15:00] LABS: Alanine Aminotransferase 17 U/L (12-78); Albumin Level 4.3 g/dl (3.5-5.0); Albumin/Globulin Ratio 1.3 (1.1-1.8); Alkaline Phosphatase 80 U/L (38-126); Anion Gap 11.4 mEq/L (5-15); Aspartate Amino Transferase 34 U/L (14-36); Bilirubin,Total 0.7 mg/dl (0.2-1.3); Blood Urea Nitrogen 14 mg/dl (7-17); Calcium 9.3 mg/dl (8.4-10.2); Carbon Dioxide 31 mmol/L (22.0-30.0); Chloride 102 mmol/L (98-107); Chol/HDL Ratio 1.9 (1-3.5); Cholesterol 136 mg/dl (140-200); Estimated Glomerular Filt Rate 69 ml/min (>60); GFR (African American) 83 ML/MIN (>60); Globulin 3.4 g/dL (1.3-3.2); Glucose 91 mg/dl (74-100); HDL Cholesterol 73 mg/dl (40-60); Potassium 4.4 mmoL/L (3.5-5.1); Sodium 140 mmol/L (136-145); Total Protein,Serum 7.7 g/dl (6.3-8.2); Triglycerides 66 mg/dl (30-150); VLDL Cholesterol 13 mg/dL (0-40)
== END ==
PROVIDERS: PCP Internal Medicine; Visit Provider Internal Medicine
DX: E78.5 Hyperlipidemia, unspecified (principal); M15.0 Primary generalized (osteo)arthritis; I87.2 Venous insufficiency (chronic) (peripheral); Z85.3 Personal history of malignant neoplasm of breast; Z85.41 Personal history of malignant neoplasm of cervix uteri; Z85.44 Personal history of malignant neoplasm of other female genital organs; Z87.891 Personal history of nicotine dependence
CPT/HCPCS: 80053; 80061; 85025

== ENCOUNTER 2023-10-12 12:24 | Outpatient (CLI) | payer MEDICARE, OTHER, SELFPAY ==
[2023-10-12 14:40] LABS: Basophils # 0.1 K/mm3 (0-0.2); Basophils % 0.7 % (0.1-2.0); Eosinophils # 0.2 K/mm3 (0.0-0.4); Eosinophils % 1.9 % (0.1-12.0); Hematocrit 33.3 % (37.0-47.0); Hemoglobin 10.3 g/dL (12.2-16.2); Lymphocytes # 0.9 K/mm3 (0.7-4.5); Lymphocytes % 11.1 % (10-50); Mean Corpuscular HGB Conc 30.8 g/dL (31.8-35.4); Mean Corpuscular Volume 87.7 fl (81-99); Monocytes # 0.7 K/mm3 (0.1-1.0); Monocytes % 9.4 % (1.7-9.3); Neutrophils # 6.1 K/mm3 (1.8-7.8); Platelet Count 189 K/mm3 (142-424); White Blood Count 7.9 K/mm3 (4.8-10.8)
[2023-10-12 15:59] LABS: Chloride 104 mmol/L (98-107); Sodium 140 mmol/L (136-145)
[2023-10-12 16:00] LABS: Potassium 3.7 mmoL/L (3.5-5.1)
[2023-10-12 16:02] LABS: Alanine Aminotransferase 17 U/L (12-78); Albumin Level 3.9 g/dl (3.5-5.0); Albumin/Globulin Ratio 1.4 (1.1-1.8); Alkaline Phosphatase 78 U/L (38-126); Anion Gap 9.7 mEq/L (5-15); Aspartate Amino Transferase 37 U/L (14-36); Bilirubin,Total 0.6 mg/dl (0.2-1.3); Blood Urea Nitrogen 18 mg/dl (7-17); Carbon Dioxide 30 mmol/L (22.0-30.0); Cholesterol 143 mg/dl (140-200); Estimated Glomerular Filt Rate 69 ml/min (>60); GFR (African American) 83 ML/MIN (>60); Globulin 2.7 g/dL (1.3-3.2); Total Protein,Serum 6.6 g/dl (6.3-8.2); Triglycerides 81 mg/dl (30-150); VLDL Cholesterol 16 mg/dL (0-40)
[2023-10-12 16:03] LABS: Calcium 9.2 mg/dl (8.4-10.2); Chol/HDL Ratio 2.8 (1-3.5); Glucose 91 mg/dl (74-100); HDL Cholesterol 52 mg/dl (40-60)
[2023-10-12 16:14] LABS: Direct LDL Cholesterol 56.95 mg/dL (100-129)
[2023-10-12 16:34] LABS: Thyroid Stimulating Hormone 2.01 uIU/mL (0.465-4.68)
[2023-10-17 13:15] LABS: Vitamin B12 472 pg/mL (239-931)
[2023-10-17 21:32] LABS: Iron 47 ug/dL (37-170)
[2023-10-17 21:41] LABS: Total Iron Binding Capacity 387 ug/dL (265-497)
== END 2023-10-12 23:59 | disposition home or self-care (01) ==
LOC: LAB.DROPOF 12:25
PROVIDERS: PCP Internal Medicine; Visit Provider Internal Medicine
DX: D64.9 Anemia, unspecified (principal); E78.5 Hyperlipidemia, unspecified; M15.0 Primary generalized (osteo)arthritis; R68.89 Other general symptoms and signs; Z68.23 Body mass index [BMI] 23.0-23.9, adult; Z85.44 Personal history of malignant neoplasm of other female genital organs; Z85.3 Personal history of malignant neoplasm of breast; Z85.41 Personal history of malignant neoplasm of cervix uteri
CPT/HCPCS: 80053; 80061; 82607; 83540; 83550; 84443; 85025

== ENCOUNTER 2024-04-10 11:18 | Outpatient (CLI) | payer MEDICARE, OTHER, SELFPAY ==
[2024-04-10 11:20] LABS: Basophils # 0.1 K/mm3 (0-0.2); Basophils % 0.5 % (0.1-2.0); Eosinophils # 0.2 K/mm3 (0.0-0.4); Eosinophils % 2.6 % (0.1-12.0); Hematocrit 34.7 % (37.0-47.0); Lymphocytes # 0.8 K/mm3 (0.7-4.5); Lymphocytes % 9.6 % (10-50); Mean Corpuscular HGB Conc 31.7 g/dL (31.8-35.4); Mean Corpuscular Hemoglobin 26.7 pg (27.0-31.2); Mean Corpuscular Volume 84.1 fl (81-99); Mean Platelet Volume 9.5 fl (7.4-10.4); Monocytes # 0.6 K/mm3 (0.1-1.0); Monocytes % 7.4 % (1.7-9.3); Neutrophils # 6.6 K/mm3 (1.8-7.8); Neutrophils % 79.8 % (37.0-80.0); Platelet Count 171 K/mm3 (142-424); Red Blood Count 4.13 M/mm3 (4.20-5.40); Red Cell Distribution Width 15.7 % (11.5-17.5); Reticulocyte % (Auto) 1.6 % (0.9-3.2); White Blood Count 8.3 K/mm3 (4.8-10.8)
[2024-04-10 11:45] LABS: Alanine Aminotransferase 15 U/L (12-78); Albumin/Globulin Ratio 1.5 (1.1-1.8); Alkaline Phosphatase 87 U/L (38-126); Aspartate Amino Transferase 33 U/L (14-36); Bilirubin,Total 0.6 mg/dl (0.2-1.3); Blood Urea Nitrogen 15 mg/dl (7-17); Calcium 9.3 mg/dl (8.4-10.2); Carbon Dioxide 29 mmol/L (22.0-30.0); Chloride 107 mmol/L (98-107); Chol/HDL Ratio 2.1 (1-3.5); Cholesterol 132 mg/dl (140-200); Estimated Glomerular Filt Rate 68 ml/min (>60); GFR (African American) 83 ML/MIN (>60); Globulin 2.7 g/dL (1.3-3.2); Glucose 95 mg/dl (74-100); HDL Cholesterol 63 mg/dl (40-60); Sodium 138 mmol/L (136-145); Total Protein,Serum 6.7 g/dl (6.3-8.2); Triglycerides 83 mg/dl (30-150); VLDL Cholesterol 17 mg/dL (0-40)
[2024-04-10 11:56] LABS: Direct LDL Cholesterol 45.99 mg/dL (100-129)
[2024-04-10 13:22] LABS: Ferritin 11.8 ng/ml (11.1-264)
[2024-04-10 13:48] LABS: Anion Gap 5.8 mEq/L (5-15); Potassium 3.8 mmoL/L (3.5-5.1)
== END 2024-04-10 23:59 | disposition home or self-care (01) ==
LOC: LAB.DROPOF 11:19
PROVIDERS: PCP Internal Medicine; Visit Provider Internal Medicine
DX: E78.5 Hyperlipidemia, unspecified (principal); D64.9 Anemia, unspecified; I10 Essential (primary) hypertension
CPT/HCPCS: 80053; 80061; 82728; 85025; 85044

== ENCOUNTER 2024-05-15 17:14 | Outpatient (CLI) | payer MEDICARE, OTHER, SELFPAY ==
[2024-05-15 17:06] LABS: Anion Gap 13.9 mEq/L (5-15); Blood Urea Nitrogen 16 mg/dl (7-17); Calcium 9.2 mg/dl (8.4-10.2); Carbon Dioxide 27 mmol/L (22.0-30.0); Chloride 103 mmol/L (98-107); Estimated Glomerular Filt Rate 60 ml/min (>60); GFR (African American) 72 ML/MIN (>60); Glucose 84 mg/dl (74-100); Potassium 3.9 mmoL/L (3.5-5.1); Sodium 140 mmol/L (136-145)
== END 2024-05-15 23:59 | disposition home or self-care (01) ==
LOC: LAB.DROPOF 17:16
PROVIDERS: PCP Internal Medicine; Visit Provider Internal Medicine
DX: I10 Essential (primary) hypertension (principal)
CPT/HCPCS: 80048

== ENCOUNTER 2024-05-19 16:58 | Outpatient (CLI) | payer MEDICARE, OTHER, SELFPAY | END 2024-05-19 23:59 | disposition home or self-care (01) | LOC: LAB.DROPOF 16:59 | PROVIDERS: PCP Internal Medicine; Visit Provider Internal Medicine | DX: A09 Infectious gastroenteritis and colitis, unspecified (principal) ==

== ENCOUNTER 2024-08-11 08:57 | Day surgery (SDC) | payer MEDICARE, OTHER, SELFPAY ==
[2024-08-08 09:30] VITALS: BMI 22.6
[2024-08-11 10:10] VITALS: BP 183/68; PULSE 72; RESP 16; TEMP 37.1; O2SAT 100
[2024-08-11] MEDS: LACTATED RINGERS 1000ML 1,000 ML 50 ML IV (10:22)
--- NOTE | 2024-08-11 10:37 | P.HP_ITS ---
History of Present Illness *Admission Date: 08/11/24 *Reason for visit:: Change in bowel habits *History of present illness: Mrs. Aguayo is an 84-year-old female who is here for change in bowel habits. The examination is deemed medically necessary for [default value]. The patient has been seen, interviewed and examined prior to the procedure by both myself and the anesthesia provider. [facility] Disclaimer: The information contained in this section may have been updated after the patient was seen, as this information can be updated by other users. Medical History Hx of radiation therapy Urinary tract infection History of COVID-19 Breast cancer GERD (gastroesophageal reflux disease) Vitamin D deficiency Arthritis High cholesterol Surgical History History of surgery H/O lumpectomy Hx of colonoscopy Family History Other COPD (chronic obstructive pulmonary disease) Diabetes Social History (Updated 08/11/24 @ 10:40 by Darnell Michael CRNA) Smoking Status: Former smoker alcohol intake: never substance use type: denies use current occupational status: retired Travel in the last 8 weeks: None caffeine: Yes Have you lived/traveled outside [place] in past 30 days?: No Contact w/someone who lives/traveled outside US past 30 days?: No Exposure to someone with infectious disease in past 14 days?: No Do you have a fever (greater than 100.4 F or 38 C)?: No Have you tested positive for COVID-19: Yes Exposed to someone with COVID-19 in past 14 days?: No Do you have a sore throat?: No Do you have a cough?: No Do you have any weakness?: No Are you experiencing any nausea/vomitting?: No Do you have any diarrhea?: No Are you experiencing any unusual bleeding?: No Do you have any muscle aches/pain?: No Do you have any abdominal pain?: No Are you experiencing loss of taste or smell?: No Other Medical History Have you received the Pneumonia Vaccine: Yes Review of Systems Review of Systems Review of systems (narrative): Negative *Cardiovascular Comments: Negative *Gastrointestinal Comments: Negative *Genitourinary Comments: Negative *Musculoskeletal Comments: Negative *Neurologic Comments: Negative Meds Home Medications and Allergies Home Medications ?Medication ?Instructions ?Recorded ?Confirmed ?Type acetaminophen 500 mg capsule 500 mg PO Q6H PRN pain #20 caps 04/07/23 08/11/24 Rx diclofenac sodium 75 mg 75 mg PO BID Arthritis 04/07/23 08/11/24 History tablet,delayed release ibuprofen 400 mg tablet 400 mg PO Q6H PRN pain #20 tabs 04/07/23 08/11/24 Rx atorvastatin 10 mg tablet 10 mg PO HS Cholesterol #90 tabs 02/26/24 08/11/24 Rx hydrochlorothiazide 12.5 mg tablet 12.5 mg PO DAILY #90 tabs 04/10/24 08/11/24 Rx triamcinolone acetonide 0.1 % 1 applic topical TID PRN rash #80 04/10/24 08/11/24 Rx topical cream grams terbinafine HCl 1 % topical cream 1 applic topical BID Apply to rash 05/15/24 08/11/24 Rx (Antifungal (terbinafine)) on back #30 grams diphenoxylate-atropine 2.5 1 tab PO HS PRN . 05/28/24 08/11/24 History mg-0.025 mg tablet (Lomotil) gemfibrozil 600 mg tablet (Lopid) 600 mg PO DAILY cholesterol/BP #90 05/28/24 08/11/24 Rx tabs sodium,potassium,mag sulfates 17.5 See Rx Instructions PO .COMPLEX 07/30/24 08/11/24 Rx gram-3.13 gram-1.6 gram oral soln #354 mL (Suprep Bowel Prep Kit) cholecalciferol (vitamin D3) 50 2,000 unit PO DAILY 08/08/24 08/11/24 History mcg (2,000 unit) capsule famotidine 20 mg tablet 20 mg PO DAILY 08/08/24 08/11/24 History jougzsgbmpjv-qhnxtxvl-drgvuu tablet 1 tab PO DAILY 08/08/24 08/11/24 History New Prescriptions to Start Prescriptions: Allergies Allergy/AdvReac Type Severity Reaction Status Date / Time Sulfa (Sulfonamide Allergy Severe facial Verified 08/11/24 10:05 Antibiotics) (SULFA swelling (SULFONAMIDE ANTIBIOTICS)) Exam Data for Last 24 hours Vital signs and Labs for Last 24 Hours: Temp Pulse Resp BP Pulse Ox O2 Del Method 98.8 F 72 16 183/68 H 100 Room Air 08/11/24 10:10 08/11/24 10:10 08/11/24 10:10 08/11/24 10:10 08/11/24 10:10 08/11/24 10:10 I & O for Last 24 hours: Intake & Output 08/08/24 08/09/24 08/10/24 08/11/24 23:59 23:59 23:59 23:59 Weight 140 lb *Routine HEENT Exam Head: Present normocephalic Eye: Present EOMI and PERRL ENT: Present mucous membranes moist *Routine Neck Exam Neck: Present supple *Routine Respiratory Exam Respiratory: Present CTA bilaterally *Routine Cardiovascular Exam Cardiovascular: Present RRR *Routine Abdominal Exam Abdominal: Present soft and normoactive bowel sounds; Absent tenderness *Routine Rectal Exam Rectal:: deferred *Routine Genitalia Exam Genitalia:: deferred *Routine Extremities Exam Extremities: Absent cyanosis, clubbing or edema *Routine Skin Exam Skin: Present warm; Absent rash *Routine Neurological Exam Neurological: Present alert and oriented X3 Assessment and Plan *Assessment and plan (1) Diarrhea: Status: Acute Category: Medical Code(s): R19.7 - Diarrhea, unspecified (2) Incontinence of feces: Status: Acute Category: Medical Code(s): R15.9 - Full incontinence of feces (3) Fecal urgency: Status: Acute Category: Medical Code(s): R15.2 - Fecal urgency (4) Change in bowel habits: Status: Acute Category: Medical Code(s): R19.4 - Change in bowel habit Plan A/P: 1. Diarrhea with bowel urgency and fecal incontinence is the preprocedural diagnosis. The patient will be anesthetized/sedated using MAC sedation. The patient has been seen and examined. Cardiac and lung assessment prior to the examination is stable. Proceed with planned colonoscopy
--- NOTE | 2024-08-11 10:38 | P.PNANES_ITS ---
[facility] Disclaimer: The information contained in this section may have been updated after the patient was seen, as this information can be updated by other users. Medical History Hx of radiation therapy Urinary tract infection History of COVID-19 Breast cancer GERD (gastroesophageal reflux disease) Vitamin D deficiency Arthritis High cholesterol Surgical History History of surgery H/O lumpectomy Hx of colonoscopy Family History Other COPD (chronic obstructive pulmonary disease) Diabetes Social History Smoking Status: Former smoker alcohol intake: never substance use type: denies use current occupational status: retired Travel in the last 8 weeks: None caffeine: Yes [facility] Anesthesia Checklist Patient Identification Patient Identification: Arm Band Structural Data Admitted From: Home Planned Operative Procedure/s: Colonoscopy Consent for Planned Operative Procedure(s) Verified: Yes Verified Documents: Surgical Consent and History and Physical NPO Status Verified Time NPO: 00:00 Additional verifications Anesthesia Reactions: No Airway Assessment Mallampati Score:: Class II C-Spine Mobility Assessed: Yes TMJ Mobility Assessed: Yes Dentition: Dentures-good fit (upper dentures + lower partial removed) Neurological Assessment Level of Consciousness: Awake, Alert and Appropriate Anesthesia Plan Anesthesia Risk discussed: Yes Anesthesia Plan: Verified ASA Class: II Anesthesia Type: MAC
[2024-08-11 11:35] VITALS: O2SAT 98
--- NOTE | 2024-08-11 11:57 | HMH.PROCNOTE ---
[facility] Procedure Note Date: 08/11/24 Time: 11:57 Procedure Note:: Colonoscopy Procedure Report: Colonoscopy with cold snare polypectomy and cold biopsies Endoscopist: Rinku Figueroa II, MD Referring physician: Ozzie Garibay MD Date of Procedure: August 11, 2024 Equipment: Olympus 190 variable stiffness pediatric colonoscope Sedation: MAC sedation Indication: Ms. Aguayo is an 84-year-old female who is here for diagnostic colonoscopy secondary to diarrhea that is intermittent. She has had this for the last 2 to 3 years. She will have fecal urgency and intermittent frequency with fecal incontinence. This was occurring once or twice a week. She has been taking Benefiber twice daily for a couple of months without improvement. She does take Lomotil which may help but then she will develop constipation. Her last colonoscopy was about 10 years ago. The patient has never had gallbladder surgery. She does get some occasional urinary urgency with urinary incontinence. The patient reports a 35 pound weight loss in the last couple of years. She reports no rectal bleeding, abdominal pain or family history of colon cancer. She reports no gassiness or bloating. She has had no mucus with her bowel movements. She did have pelvic radiation (David Arellano MD) sometime ago. Procedure: Prior to the procedure, a history and physical exam was performed, and patient's medications and allergies were reviewed. The risks, benefits and alternatives of the sedation and procedure were discussed with the patient. All questions were answered and informed consent was obtained. The patient was brought to the procedure room. Patient identification and proposed procedure were verified by the physician and the nurse. The patient was placed in a left lateral decubitus position and the scope was passed under direct vision. Throughout the procedure, the patient's blood pressure, pulse, and oxygen saturations were monitored continuously. The colonoscopy was accomplished without difficulty. The patient tolerated the procedure well. Findings: On digital rectal examination there was normal to slightly diminished rectal tone. There were no external hemorrhoids. The colonoscope was introduced through the anal canal to the rectum and advanced to the cecum. The ileocecal valve and appendiceal orifice were identified. The scope was advanced a short distance into the ileum which appeared grossly normal. The scope was then withdrawn into the colon. There was a single 8 to 9 mm polyp in the cecum with a mucous (probable serrated adenoma) which was removed via cold snare polypectomy. The remaining cecum, ascending and transverse colon and mucosa were grossly normal. Random cold biopsies were taken from both the right and left colon to rule out microscopic colitis. There were scattered diverticuli throughout the descending and sigmoid colon (LEFT colon). The rectum itself was normal but there was a smaller rectal vault. Upon retroflexion within the rectum there were grade 1 internal hemorrhoids. The preparation was excellent throughout with [place] Preparation Score of 9. The cecal time was 12 minutes. Impression: 1. 8 to 9 mm cecal polyp 2. Left-sided diverticulosis 3. Grade 1 internal hemorrhoids Plan: The patient is developing bowel control difficulties as well as bladder control difficulties intermittently. Both bowel function and bladder function are a delicate balance between the nerves and muscles. The nerves that arise from the sacral spine are very closely tied to bowel and bladder evacuation. This sacral nervous system allows you to recognize when your rectum and bladder are full and allows you to correctly contract muscles and hold on to stool and urine appropriately before or until you get to the bathroom. It also allows your bowel and bladder to evacuate fully. When this balance is upset there is incorrect communication between the brain and the nervous system. This can result in the inability to control the passage of liquid and/or solid stool, involuntary leakage and sometimes loss of bowel control. Initially conservative therapy such as dietary measures, fiber bulk, antidiarrheals and anti-spasmodic are utilized. However, when this is not providing the relief and affecting [id number], we do consider sacral neuromodulation with PNE trial for InterStim. Presently, I am going to recommend improved fiber bulk with FiberCon 2 tablets twice daily. I would consider adding colestipol nightly.
[2024-08-11 12:00] VITALS: BP 108/46; PULSE 58; RESP 16; TEMP 36.3; O2SAT 100
--- NOTE | 2024-08-11 12:07 | ECG_ITS ---
APPROVED REPORT Exam: Resting ECG HR:66 bpm ECG Measurements Heart Rate 66 AXES DC 209 P 94 QRSd 155 QRS -18 QT 442 T 32 QTc 456 Conclusion SINUS RHYTHM Borderline LAD RIGHT BUNDLE BRANCH BLOCK [120+ ms QRS DURATION, UPRIGHT V1, 40+ ms S IN I/aVL/V4/V5/V6] MODERATE T-WAVE ABNORMALITY, CONSIDER ANTEROLATERAL ISCHEMIA [-0.1+ mV T-WAVE IN V3-V6] ABNORMAL ECG UNCONFIRMED REPORT Electronically signed by : Eren Grimes MD 08/12/2024 15:30:44
[2024-08-11 12:10] VITALS: BP 139/60; PULSE 68; RESP 16; O2SAT 98
[2024-08-11 12:20] VITALS: BP 152/72; PULSE 57; RESP 16; O2SAT 99
[2024-08-11 12:30] VITALS: BP 161/82; PULSE 67; RESP 16; O2SAT 99
== END 2024-08-11 12:42 | disposition home or self-care (01) ==
PROVIDERS: PCP Internal Medicine; Visit Provider Internal Medicine Gastroenterology
PROC: 0DJD8ZZ Inspection of Lower Intestinal Tract, Via Natural or Artificial Opening Endoscopic (ICD-10-PCS; CPT 45378; principal; 2024-08-11 10:30)
DX: R19.7 Diarrhea, unspecified (principal); R15.9 Full incontinence of feces; R15.2 Fecal urgency; R19.4 Change in bowel habit; K63.5 Polyp of colon; K57.30 Diverticulosis of large intestine without perforation or abscess without bleeding; K64.0 First degree hemorrhoids
CPT/HCPCS: 45380; 45385; 93005; J7120

== ENCOUNTER 2024-08-28 16:27 | Outpatient (CLI) | payer MEDICARE, OTHER, SELFPAY ==
--- NOTE | 2024-08-28 16:33 | XR_ITS ---
PROCEDURE INFORMATION: Exam: XR Lumbosacral Spine Exam date and time: 08/28/2024 4:40 PM Age: 84 years old Clinical indication: Low back pain; Additional info: Left sciatica TECHNIQUE: Imaging protocol: Radiologic exam of the lumbosacral spine. Views: 2 or 3 views. COMPARISON: MR LUMBAR SPINE WO CON 10/17/2021 4:29 PM FINDINGS: Bones/joints: Advanced multilevel severe degenerative disc disease noted at the L1-L2 through L5-S1 levels. Vertebral body heights intact. Associated mild dextroscoliosis of the mid to upper lumbar spine. No acute fracture identified. Soft tissues: Unremarkable. IMPRESSION: Advanced degenerative changes. No acute abnormality.
--- NOTE | 2024-08-28 16:33 | XR_ITS ---
PROCEDURE INFORMATION: Exam: XR Pelvis Exam date and time: 08/28/2024 4:36 PM Age: 84 years old Clinical indication: Pelvic pain; Additional info: Left hip pain TECHNIQUE: Imaging protocol: Radiologic exam of the pelvis. Views: 1 or 2 view. COMPARISON: CT ABDOMEN PELVIS W CON 08/26/2022 1:05 PM FINDINGS: Bones/joints: Unremarkable. No acute fracture. Soft tissues: Unremarkable. IMPRESSION: No acute findings.
== END 2024-08-28 23:59 | disposition home or self-care (01) ==
LOC: RAD 16:29
PROVIDERS: PCP Internal Medicine; Visit Provider Internal Medicine
DX: M54.32 Sciatica, left side (principal); M25.552 Pain in left hip
CPT/HCPCS: 72100; 72170

== ENCOUNTER 2024-10-14 09:47 | Outpatient (CLI) | payer MEDICARE, OTHER, SELFPAY ==
--- NOTE | 2024-10-14 09:49 | XR_ITS ---
FINAL REPORT CLINICAL HISTORY: Chronic mid back pain FINDINGS: AP, lateral, and swimmer''s views of the thoracic spine were obtained. There is no prior exam for comparison. There is no acute fracture or malalignment. There is multilevel degenerative disc disease. Vertebral body height is preserved. Paraspinal soft tissues are within normal limits. IMPRESSION: Multilevel degenerative disc disease. Reviewed, Interpreted and Dictated by Hannah Madrigal MD Transcribed by Ny Allison Authenticated and [facility]
[2024-10-14 17:42] LABS: Basophils # 0.1 K/mm3 (0-0.2); Eosinophils # 0.3 K/mm3 (0.0-0.4); Hematocrit 30.5 % (37.0-47.0); Hemoglobin 9.6 g/dL (12.2-16.2); Lymphocytes # 0.8 K/mm3 (0.7-4.5); Lymphocytes % 10.4 % (10-50); Mean Corpuscular HGB Conc 31.5 g/dL (31.8-35.4); Mean Corpuscular Hemoglobin 26.4 pg (27.0-31.2); Mean Corpuscular Volume 83.8 fl (81-99); Mean Platelet Volume 12.8 fl (7.4-10.4); Monocytes % 13.4 % (1.7-9.3); Neutrophils # 5.2 K/mm3 (1.8-7.8); Neutrophils % 70.9 % (37.0-80.0); Nucleated Red Blood Cells # 0 10^3/uL; Nucleated Red Blood Cells % 0 %; Platelet Count 192 K/mm3 (142-424); Red Blood Count 3.64 M/mm3 (4.20-5.40); Red Cell Distribution Width 16.2 % (11.5-17.5); Red Cell Distribution Width-SD 49.3 fL; White Blood Count 7.3 K/mm3 (4.8-10.8)
[2024-10-14 19:15] LABS: Alanine Aminotransferase 13 U/L (12-78); Albumin Level 3.8 g/dl (3.5-5.0); Albumin/Globulin Ratio 1.3 (1.1-1.8); Alkaline Phosphatase 77 U/L (38-126); Anion Gap 11.6 mEq/L (5-15); Aspartate Amino Transferase 33 U/L (14-36); Bilirubin,Total 0.5 mg/dl (0.2-1.3); Blood Urea Nitrogen 16 mg/dl (7-17); Calcium 8.8 mg/dl (8.4-10.2); Carbon Dioxide 31 mmol/L (22.0-30.0); Chloride 101 mmol/L (98-107); Chol/HDL Ratio 2.4 (1-3.5); Cholesterol 136 mg/dl (140-200); Estimated Glomerular Filt Rate 53 ml/min (>60); GFR (African American) 64 ML/MIN (>60); Globulin 2.9 g/dL (1.3-3.2); Glucose 80 mg/dl (74-100); HDL Cholesterol 57 mg/dl (40-60); Potassium 3.6 mmoL/L (3.5-5.1); Sodium 140 mmol/L (136-145); Total Protein,Serum 6.7 g/dl (6.3-8.2); Triglycerides 88 mg/dl (30-150); VLDL Cholesterol 18 mg/dL (0-40)
[2024-10-14 19:22] LABS: Iron 64 ug/dL (37-170)
[2024-10-14 19:27] LABS: Direct LDL Cholesterol 45.44 mg/dL (100-129)
[2024-10-14 19:35] LABS: Total Iron Binding Capacity 421 ug/dL (265-497)
[2024-10-14 20:00] LABS: Vitamin B12 578 pg/mL (239-931)
== END 2024-10-14 23:59 | disposition home or self-care (01) ==
LOC: RAD 09:47
PROVIDERS: PCP Internal Medicine; Visit Provider Internal Medicine
DX: M54.6 Pain in thoracic spine (principal); I10 Essential (primary) hypertension; E78.5 Hyperlipidemia, unspecified; D64.9 Anemia, unspecified; Z85.3 Personal history of malignant neoplasm of breast
CPT/HCPCS: 72072; 80053; 80061; 82607; 83540; 83550; 85025

== ENCOUNTER 2024-11-26 13:12 | Outpatient (CLI) | payer MEDICARE, OTHER, SELFPAY ==
--- OUTSIDE RECORDS SUMMARY | 2024-11-26 13:20 | XMS_ITS | Data Portability ---
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 She has recovered well from her surgery. I reviewed the national conference of cancer network guidelines that recommend adjuvant radiation for local control of disease. I explained that radiation does not offer a survival benefit but it does reduce the risk of local recurrence of DCIS 50% of which can be invasive at the time of diagnosis of recurrence. I discussed the course of adjuvant radiation in addition to the potential acute side effects and chronic complications of radiation. 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 I explained that the side effects are quite different and much better tolerated. I again reviewed the side effects. At this time she would like to decline adjuvant radiation in light of the fact that he does not offer any survival benefit and states that she will continue with her annual mammograms with regards to monitoring for local recurrence. She was given my card and asked to call with any further questions or concerns or should she change her mind. [email or web address] Not available 09/07/2016 14:02:12 Plan of Treatment Reminders Order Date Submit Date Provider Last Modified By Organization Details Last Modified Time Details Appointments None record ed. Lab None record ed. Referral None record ed. Procedures None record ed. Surgeries None record ed. Imaging None record ed. Medication Orders None record ed. Patient TargetsNo targets recorded. Patient InstructionsNo instructions recorded. Reason for Referral None Reported. Problems Name Problem SNOMED Code Status Onset Date Resolution Date Notes Provider Name and Address Organization Details Recorded Time Ductal carcinoma in situ of left breast 991329458928 9104 Active 2016 RICK FIGUEROA MD [address] [place], [address], [facility] 7 14:00:27 Estrogen receptor positive tumor 333707923 Active 2016 RICK FIGUEROA MD [address] [place], [place], [address], [facility] 7 14:00:28 Problem Notes None recorded. Procedures Surgical History Date Name Laterality Status Provider Name and Address Organization Details Recorded Time Lumpectomy completed [facility] 09/07/2016 13:16:47 Xcapsl ctrc rmvl cplx wo ecp completed [facility] 09/07/2016 13:17:21 Vulvectomy simple complete completed [facility] 09/07/2016 13:17:55 Unlisted procedure breast completed [facility] 09/07/2016 13:18:49 Imaging Results None recorded. Procedure Notes None recorded. Medical Equipment None Reported. Allergies Allergen ID Allergen Name Allergen Category Reaction Reaction Severity Criticality Documentation Date Start Date Code Code System Note Provider Name and Address Organization Details Recorded Time 664613 Substance with sulfonami de structure and antibacte rial mechanism of action (substanc e) medicatio n Not available Not available Not available 09/07/2016 40985 8003 SNOMED [facility] 13:09:43 Medications Name Sig Start Date Stop Date Status Note LastModified by Organization Details LastModified Time amoxicilli n 500 mg capsule Take 1 capsule every 12 hours by oral route. active post op head congestion Not Available Not Available Not Available atorvastat in 10 mg tablet Take 1 tablet every day by oral route at bedtime. active Not Available Not Available No t Available hydrocodon e 5 mg-acetami nophen 325 mg tablet Take 1 tablet every 6 hours by oral route. active Not Available Not Available No t Available Citracal 950 mg effervesce nt tablet Take 1 tablet twice a day by oral route. active Not Available Not Available No t Available gemfibrozi l 600 mg tablet Take 1 tablet every day by oral route. active Not Available Not Available No t Available Fish Oil 1 tab po q d active Not Available Not Available No t Available Aspir-81 1 tab po q d active Not Available Not Available No t Available Osteo Bi-Flex 1 tab po q d active Not Available Not Available No t Available Centrum Silver 0.4 mg-300 mcg-250 mcg tablet Take 1 tablet every day by oral route. active Not Available Not Available No t Available Vitals Date Recorded Body height Body weight Body mass index (BMI) Body temperature Heart rate Oxygen saturation Oxygen saturation in Arterial blood by Pulse oximetry Respiratory rate Systolic blood pressure Diastolic blood pressure Provider Name and Address Organization Details Last Updated DateTime 7 170.18 cm 60658.8 1 g 28.5 kg/m2 97.4 [degF] 71 /min 98 % 98 % 18 /min 118 mm[Hg] 64 mm[Hg] Brenda Madrigal [facility] 7 13:37:48 Social History Question Answer Notes LastModified by Organizat ion Details LastModified Time Tobacco Smoking Status Former Smoker Brenda Madrigal [facility] 09/07/2016 13:14:48 When Did You Quit Smoking? 16+yearssin celastcigar ette Quit 1984 [email or web address] Information not available 09/07/2016 How Much Tobacco Do You Smoke? 1 PPD [email or web address] Information not available 09/07/2016 Sex: Unknown Functional Status None recorded. Mental Status None recorded. Family History Relationship Description Onset Age of this Age Resolved Age Notes LastModified by Organization Details LastModified Time Unspecified Relation Malignant tumor of breast 2 mat. cousin s [email or web address] Not available 09/07/2016 13:39:34 Unspecified Relation Family history of malignant neoplasm cousin with pancre atic cancer [email or web address] Not available 09/07/2016 13:40:39 Maternal Aunt Family history of malignant neoplasm ovaria n cancer [email or web address] Not available 09/07/2016 13:41:13 Medical History Condition Response Breast Cancer Cancer Previous Radiation Therapy? Y Gynecological History Statement/Question Response # of Pregnancies 0 Age at Menarche 12 Obstetrics History GPAL:G 0 P 0 0 0 0 Past Encounters Encounter ID Performer Location Encounter Start Date Encounter Closed Date Diagnosis/Indication Diagnosis SNOMED-CT Code Diagnosis ICD10 Code Diagnosis Note [id number] DEEPIKA WATSON MD HEM/[facility] [address],[facility] [address] [place] [address] 07/27/2016 12:03:02 07/27/2016 12:58:21 [id number] PATRICE KANG JR, MD GENERAL SURGERY [address] [place] [address] 07/27/2016 13:55:06 07/31/2016 13:11:01 [id number] PATRICE KANG JR, MD SURGERY SCHEDULE [address] [place] [address] 08/11/2016 09:55:09 08/11/2016 09:57:56 [id number] PATRICE KANG JR, [place] [address] 08/24/2016 11:47:06 08/24/2016 13:26:25 [id number] DEEPIKA WATSON MD HEM/[facility] [address],[facility] [address] [place] [address] 6 09/07/2016 11:50:00 09/07/2016 12:51:55 [id number] RICK CARBAJAL MD [facility] [place] [address] [place], [place] [address] 09/07/2016 13:15:18 09/08/2016 12:36:49 Ductal carcinoma in situ of left breast [id number] 581617 D05.12 Estrogen r eceptor positive tumor 806267325 Z17.0 [id number] DEEPIKA WATSON MD HEM/[facility] [address],[facility] [address] 6 10/12/2016 13:12:42 10/12/2016 14:54:08 [id number] DEEPIKA WATSON MD HEM/[facility] [place] [facility] [address],[place] [address] 6 12/07/2016 10:38:27 12/07/2016 11:38:56 [id number] DEEPIKA WATSON MD HEM/[facility] [facility] [address],[place] [address] [place] [address] 06/27/2017 10:59:25 06/27/2017 11:37:54 [id number] DEEPIKA WATSON MD HEM/[facility] [facility] [address],[place] [address] [place] [address] 12/26/2017 10:48:36 12/26/2017 12:36:29 [id number] DEEPIKA WATSON MD HEM/[facility] [facility] [address],[place] [address] [place] [address] 06/21/2018 11:39:38 06/21/2018 12:14:48 [id number] DEEPIKA WATSON MD HEM/ONC [place] [facility] [address] [place] [address] 07/03/2019 12:23:13 07/03/2019 13:23:47 Health Concerns Section Related Observation LastModified by Organization Detai ls LastModified Time None Recorded Concern Status LastModified by Organization Details LastModified Time None Recorded Advance Directives Directive None Recorded Payers Insurance Date Sequence Insurance Name Policy Number Policy Cariln Covered Member ID Carlin Member ID Guarantor Name 01/15/2024 2 [employer] (MEDICARE SUPPLEMENT) Maty Aguayo [id number] Maty Aguayo 01/15/2024 2 [employer] (PPO) [id number] Maty Aguayo [id number] Maty Aguayo 01/15/2024 1 [place] Maty Aguayo [id number] Maty Ghada Aguayo 01/15/2024 2 [employer] (MEDICARE SUPPLEMENT) Maty R Olivier [id number] [place] R Olivier 01/15/2024 3 [employer] (MEDICARE SUPPLEMENT) Maty Ghada Aguayo [id number] Maty R Olivier 01/15/2024 2 [employer] (MEDICARE SUPPLEMENT) [id number] Maty Aguayo [id number] Maty Aguayo 01/15/2024 2 [employer] (MEDICARE SUPPLEMENT) PLAN 5 Maty Aguayo [id number] Maty Aguayo Notes Date Note Type Note Provider Name and Address Organization Details Recorded Time 7 text/html Maty is a 76 year old woman who was found to have an abnormality on screening mammogram, which led to the following subsequent workup and surgery:EXAM DATE: 06/16/2016 EXAM: SCREENING MAMMOGRAM INDICATION: Routine screening. PROCEDURE: Digital mammograms were performed. The current study was evaluated with a Computer Aided Detection (CAD) system. COMPARISON: This was compared with previous mammograms dated 06/15/2015, 06/11/2014, 06/09/2013 FINDINGS: The breasts are heterogeneously dense. This may lower the sensitivity of mammography. The right breast is negative. On the left, there is a new 5 mm cluster of microcalcifications in the upper outer quadrant at middle depth. This is located 7 cm from the nipple on the craniocaudal view. IMPRESSION: BI-RADS category 0, Incomplete. Needs additional imaging evaluation. Indeterminate group of microcalcifications in the left breast. Recommend further evaluation with mediolateral and magnified images. EXAM DATE: 06/16/2016 EXAM: LT DIAG CALLBACK INDICATION: This is a 76-year-old woman who is recalled for further evaluation of clustered calcifications in the left breast. PROCEDURE: Mediolateral and magnified images of the left breast. COMPARISON: This is compared with screening mammograms from the same day and older mammograms dated June 15, 2015, June 11, 2014, June 09, 2013 and June 06, 2012. FINDINGS: Magnified images were performed in the area of concern and demonstrate an 8 mm group of amorphous microcalcifications developing in the lateral breast around the 2 to 3:00 position. There is no associated mass or architectural distortion. IMPRESSION: BI-RADS category 4, Suspicious. A new cluster of amorphous microcalcifications in the lateral left breast is suspicious. Recommend further evaluation with stereotactic guided core needle biopsy to rule out malignancy. EXAM DATE: 07/27/2016 EXAM: MR MARK BREAST W/WO CONTRAST HISTORY: This is a 76-year-old woman who was recently diagnosed with left breast cancer. She is referred for staging MRI of the breasts prior to treatment. PROCEDURE: MRI of the breasts. COMPARISON: This is compared with previous mammograms dated July 05, 2016, June 16, 2016, June 15, 2015, June 11, 2014 and June 09, 2013. TECHNIQUE: MRI of the breasts was performed with standard departmental protocol including imaging before and after administration of 16 cc of Magnevist intravenous gadolinium contrast according to the seismic computer's weight-based algorithm for contrast dosage. 4 cc of contrast from the single-use vial was discarded. Maximum intensity projection images and 3-D reformatted images were created for further evaluation. Additionally dynamic contrast enhancement was evaluated with the help of [employer] postprocessing software. FINDINGS: After administration of intravenous gadolinium contrast there is minimal physiologic background parenchymal enhancement throughout the breasts. The biopsy site in the upper outer left breast is identified with a biopsy marker in expected position. There is an associated 12 mm hematoma. There is moderate nonmasslike enhancement immediately surrounding the biopsy site that may represent residual disease or reactive changes from the recent core biopsy procedure. The total extent of nonmasslike enhancement in this area spans 19 mm. There is no other mass or suspicious pattern of enhancement in the left breast. There is no evidence of left axillary lymphadenopathy. No lymph nodes are visible along the internal mammary vessels. On the right, there is focal rapid enhancement in a linear pattern in the upper breast around the 12:00 position at middle depth spanning 10 x 7 x 3 mm. This demonstrates some contrast washout on delayed sequences. There is associated high signal on the STIR sequence in this area. IMPRESSION: LEFT BREAST: BI-RADS category 6, Known Biopsy-Proven Malignancy. There is a small amount of nonmasslike enhancement around the biopsy site in the lateral left breast where ductal carcinoma in situ was confirmed after recent core needle biopsy. This may represent residual disease or reactive changes from the recent procedure. RIGHT BREAST: BI-RADS category 4, Suspicious. Focal rapid enhancement and contrast washout in a linear pattern in the upper right breast is suspicious. Further evaluation of this area is recommended with targeted breast ultrasound. 07/05/16: MG stereotactic breast biopsy left at the 2 o'clock position: -Intermediate grade ductal carcinoma in situ (DCIS), cribriform and micropapillary types with microcalcifications and focal necrosis. -DCIS measures 0.5 cm in greatest linear dimension within the biopsy. -ER: Positive. Strong staining in greater than 90% of tumor cells. -NM: Positive. Strong staining in greater than 90% of tumor cells. 08/11/16: A) Left axillary sentinel node: Reactive hyperplasia, no tumor seen, one lymph node. B) Left breast lumpectomy: Biopsy site with few surrounding ducts showing papillary/cribriform ductal carcinoma in situ and atypical ductal hyperplasia, see microscopic. C) Biopsy cavity: Scattered ducts showing clear such performed ductal carcinoma in situ and atypical ductal hyperplasia, see microscopic. She has discussed hormone therapy with Dr. Watson. She is here to discuss the role of adjuvant RT in her care. RICK ONEIL MD [address], [place], [address], [facility] 09/07/2016 14:02:42 OBGyn Episode No OBEpisode recorded.
--- OUTSIDE RECORDS SUMMARY | 2024-11-26 13:20 | XMS_ITS | Data Portability ---
Author Organization [facility] Address [address] [place] [address] Care Team Providers Care Stamp Classifier Name Role Phone DEEPIKA WATSON Hematology/Oncology Unavailable FAITH GARIBAY Primary Care Provider Assessment Encounter Date Assessment Date Assessment LastModified by Organization Details LastModified Time 07/03/2019 07/03/2019 This is a 79-year-old female, now three years out from an early stage ER positive DCIS. She is on no specific adjuvant therapy. She says that she does not wish to continue to follow with oncology, but she will continue to getting her mammograms done here within the [facility]. I think that is agreeable and we have scheduled her mammogram for next year. She can follow with her primary care provider, Dr. Garibay, who can likely do her breast exams at that time. She seems very satisfied with this as moving forward. [id number] Not available 07/05/2019 02:56:39 Plan of Treatment Reminders Order Date Submit Date Provider Last Modified By Organization Details Last Modified Time Details Appointments None record ed. Lab None record ed. Referral None record ed. Procedures None record ed. Surgeries None record ed. Imaging None record ed. Medication Orders None record ed. Patient TargetsNo targets recorded. Patient InstructionsNo instructions recorded. Reason for Referral None Reported. Results Created Date Observation Date Name Description Value Unit Range Abnormal Flag Note LastModifiedBy Organization Detail LastModifiedTime 06/27/20 19 06/27/2019 MAMMO , scree juan, tomos ynthe sis, bilat eral, w/ CAD [facility] [address] [place] [address], [place] [address] Rain t Name: MATY saravia : 940 Age: 79 years Rain saravia 1 Orderi ng Provid er: MAR WATSON EXAM DATE: 2018 EXAM: MG SCREEN ING RANDOLPH MAMMOG CHEMA INDICA TION: Screen ing. Histor y of breast cancer treate d with breast conser ving therap y. PROCED URE: Multis lice imagin g of both breast s was perfor med in standa rd projec tions using Hologi c Seleni a Dimens ions tomosy nthesi s equipm ent (3D mammog jocelyn) . 2D images were create d from the 3D datase t using C-View softwa re. The study was read with the assist ance of Comput er Aided Detect ion (CAD) softwa re. COMPAR BRIANNA: This was compar ed with previo us mammog makenzie dated , , FINDIN GS: The breast s are hetero geneou sly dense. This may lower the sensit ivity of mammog jocelyn. There is no mass or cluste r of calcif icatio ns. There is stable scarri ng in the left breast . There is no suspic ious change . IMPRES HARLAN: BI-RAD S catego ry 2, Benign . There is no eviden ce of malign du. Screen ing mammog makenzie are recomm ended in one year. Result s were mailed or given to the rain saravia. Interp reted By: Ayo briscoe MD Electr onical ly Signed By: Ayo briscoe MD on 2018 11:[address] Radiology [facility] [address] [place], [address], 06/30/2019 08:13:51 Result Notes None recorded. Problems Name Problem SNOMED Code Status Onset Date Resolution Date Notes Provider Name and Address Organization Details Recorded Time History of malignant neoplasm of breast 570252540 Active 020 DEEPIKA WATSON MD [address] [place], [address], [facility] 0 13:22:37 Problem Notes None recorded. Medical Equipment None Reported. Allergies No known drug allergies Medications Name Sig Start Date Stop Date Status Note LastModified by Organization Details LastModified Time aspirin 81 mg capsule Take 1 capsule every day by oral route. active Not Available Not Available No t Available ibuprofen 800 mg tablet Take 1 tablet every day by oral route. active Not Available Not Available No t Available gemfibrozil 600 mg tablet Take 1 tablet twice a day by oral route. active Not Available Not Available No t Available Lipitor 10 mg tablet Take 1 tablet every day by oral route. active Not Available Not Available No t Available Vitals Date Recorded Body weight Body mass index (BMI) Body height Heart rate Oxygen saturation Oxygen saturation in Arterial blood by Pulse oximetry Body temperature Systolic blood pressure Diastolic blood pressure Provider Name and Address Organization Details Last Updated DateTime 0 [address]456.6 2 g 29.3 kg/m2 167.64 cm 81 /min 98 % 98 % 98.2 [degF] 142 mm[Hg] 90 mm[Hg] Senia Nemesio [facility] 0 12:39:03 Social History Question Answer Notes LastModified by [employer] Details LastModified Time Tobacco Smoking Status Former Smoker Senia Herr [facility] 07/03/2019 12:37:07 How Much Tobacco Do You Chew? None Information not available 07/03/2019 Live Alone Or With Others? Alone Information not available 07/03/2019 Marital Status Informatio n not available 07/03/2019 What Was The Date Of Your Most Recent Tobacco Screening? 07/03/2019 Information not available 07/03/2019 How Much Tobacco Do You Smoke? 1 PPD Information not available 07/03/2019 Sex: Unknown Functional Status Question Answer Note LastModified by [employer] Details LastModified Time What is your level of alcohol consumption? None Information not available 07/03/2019 Do you or have you ever used smokeless tobacco? Never used smokeless tobacco Information not available 07/03/2019 Do you or have you ever used e-cigarettes or vape? Never used electronic cigarettes Information not available 07/03/2019 Mental Status None recorded. Family History Nothing Reported. Medical History No medical history recorded. Gynecological HistoryNo gynecological history recorded. Obstetrics History GPAL:G 0 P 0 0 0 0 Immunizations Vaccine Type Date Status Note Provider Nam e and Address Organization Details Recorded Time Influenza, split virus, quadrivalent, preservative 9 completed Senia Matthewsjuan carlos [facility] 07/03/2019 12:36:42 pneumococcal, unspecified formulation 9 completed Senia Matthewsjuan carlos [facility] 07/03/2019 12:36:50 zoster, unspecified formulation 9 completed Senia Matthewsjuan carlos [facility] 07/03/2019 12:36:59 Past Encounters Encounter ID Performer Location Encounter Start Date Encounter Closed Date Diagnosis/Indication Diagnosis SNOMED-CT Code Diagnosis ICD10 Code Diagnosis Note [id number] DEEPIKA WATSON MD [facility] [address],[facility] [address] [place], [place] [id number] 07/27/2016 12:03:02 07/27/2016 12:58:21 [id number] PATRICE KANG JR, MD GENERAL SURGERY [place] [id number] 1 07/27/2016 13:55:06 07/31/2016 13:11:01 [id number] PATRICE KANG JR, MD SURGERY SCHEDULE [address] [place] [address] 08/11/2016 09:55:09 08/11/2016 09:57:56 [id number] PATRICE KANG JR, MD GENERAL SURGERY [address] [address] 08/24/2016 11:47:06 08/24/2016 13:26:25 [id number] DEEPIKA WATSON MD [facility] [address],[facility] [address] [place] [address] 09/07/2016 11:50:00 09/07/2016 12:51:55 [id number] RICK CARBAJAL MD RADIATION THERAPY [place] [address] [place] [address] 09/07/2016 13:15:18 09/08/2016 12:36:49 [id number] DEEPIKA WATSON MD [facility] [address],[facility] [address] 6 10/12/2016 13:12:42 10/12/2016 14:54:08 [id number] DEEPIKA WATSON MD [facility] [address] [address] [place] [address] 12/07/2016 10:38:27 12/07/2016 11:38:56 [id number] DEEPIKA WATSON MD [facility] [address] [address] [place] [address] 06/27/2017 10:59:25 06/27/2017 11:37:54 [id number] DEEPIKA WATSON MD [facility] [address] [address] [place] [address] 12/26/2017 10:48:36 12/26/2017 12:36:29 [id number] DEEPIKA WATSON MD [facility] [address] [address] [place] [address] 06/21/2018 11:39:38 06/21/2018 12:14:48 [id number] DEEPIKA WATSON MD [facility] [address] [place] [address] 07/03/2019 12:23:13 07/03/2019 13:23:47 History of malignant neoplasm of breast 549020310 Z85.3 Health Concerns Section Related Observation LastModified by Organization Detai ls LastModified Time None Recorded Concern Status LastModified by Organization Details LastModified Time None Recorded Advance Directives Directive None Recorded Payers Insurance Date Sequence Insurance Name Policy Number Policy Carlin Covered Member ID Carlin Member ID Guarantor Name 01/15/2024 2 [employer] (MEDICARE SUPPLEMENT) Maty Aguayo [id number] Maty Aguayo 01/15/2024 2 [employer] (PPO) [id number] Maty Aguayo [id number] Maty Aguayo 01/15/2024 1 [place] Maty Aguayo [id number] Maty Aguayo 01/15/2024 2 [employer] (MEDICARE SUPPLEMENT) Maty Aguayo [id number] Maty Aguayo 01/15/2024 2 [employer] (MEDICARE SUPPLEMENT) [id number] Maty Aguayo [id number] Maty Aguayo 01/15/2024 2 [employer] (MEDICARE SUPPLEMENT) PLAN 5 Maty Aguayo [id number] Maty Aguayo 01/15/2024 3 [employer] (MEDICARE SUPPLEMENT) Maty Aguayo [id number] Maty Aguayo Notes Date Note Type Note Provider Name and Address Organization Details Recorded Time 0 text/html HPIReported bypatient.Advanced Directives / [employer] AuthorizationsAdvanced Directives? NO Dischargedischarge disposition stable INTERVAL HISTORY: This is a 79-year-old female diagnosed with DCIS in July 2016. It was on the left and she had a partial mastectomy. Given the small area of disease, we did not recommend radiation. We discussed possibly tamoxifen and she elected not to do this and she has been off all therapy and doing well. She had a mammogram done today that is unremarkable. On today's discussion, the patient was very agitated with me. She did not get the letter saying that we had moved. She also had said that she had a recent friend who took tamoxifen and she had and was just very unhappy with her follow up today. DEEPIKA WATSON MD [facility] [place], [address], [facility] 07/07/2019 08:01:31 OBGyn Episode No OBEpisode recorded.
--- OUTSIDE RECORDS SUMMARY | 2024-11-26 13:21 | XMS_ITS | Data Portability ---
Author Organization BRITTA Cohen LUCAS CLOSED Address [address] [place] [address] Care Team Providers Care Nitrocellulose Maker Name Role Phone EMLII FAITH E Primary Care Provider DEEPIKA WATSON Hematology/Oncology Assessment Encounter Date Assessment Date Assessment LastModified by Organization Details LastModified Time 10/12/2016 10/12/2016 This is a 76-year-old with the above history of a small area of DCIS. She does not wish to move forward with radiation oncology. We have had a lengthy discussion about the risks, benefits of drug tamoxifen. I discussed the side effect profile, etc. She has talked to multiple friends, family members and at this point, I was a bit undecided, but at this point, she says that we will go ahead and write the prescription. She will try the medication. I will see her back in two months. I told her that if she has any specific difficulties with it, she is to stop and call us. She says that she will try. Given her family history, there is also some preventative aspect. I think it would be reasonable for her to try this, but if she has significant difficulty, then I suggest that we stop. [id number] Not available 10/13/2016 13:05:25 12/07/2016 12/07/2016 This is a 76-year-old female with small area of DCIS. Did not wish to pursue radiation at this point. She and I had a long discussion about the risks, benefits of tamoxifen which we had previously and given the fact that she has had significant arthritis that she feels is directly appreciable to the tamoxifen, so we just recommended to just discontinue this. We will see her back in 6 months. We will repeat labs, exam, and mammogram at that time. [email or web address] Not available 12/08/2016 16:18:42 06/27/2017 06/27/2017 This is a 77-year-old female with a history of ER positive DCIS, status post partial mastectomy, no evidence of recurrent disease at this point in time by exam or mammogram. At this point, we will plan to just see her back in 6 months with no labs and just do physical exam and then probably space her further out. She did not wish to do radiation or pursue tamoxifen, which is reasonable. [email or web address] Not available 06/28/2017 04:49:06 12/26/2017 12/26/2017 This is a 77-year-old female status post partial mastectomy, no radiation, no hormonal therapy. We plan on seeing her back in 6 months. I would like to go ahead and get a CBC and CMP and a mammogram the same day we see her. If she continues to do well from that standpoint, we will just see her on a yearly basis and follow up for a full 5 years. [email or web address] Not available 12/27/2017 12:16:06 06/21/2018 06/21/2018 This is a 78-year-old female, now almost two years out from DCIS. At this point, we will just simply see her back now in other year. We will repeat just a mammogram and breast exam at that time, no laboratory studies and just probably continue to monitor for full five years out. [email or web address] Not available 07/05/2018 10:59:12 Plan of Treatment Reminders Order Date Submit Date Provider Last Modified By Organization Details Last Modified Time Details Appointments None recorded. Lab None recorded. Referral None recorded. Procedures None recorded. Surgeries None recorded. Imaging None recorded. Medication Orders tamoxifen 20 mg tablet 2016 017 [facility], [address], [address], [place], [address], 7 11:30:53 Patient TargetsNo targets recorded. Patient InstructionsNo instructions recorded. Reason for Referral None Reported. Results Created Date Observation Date Name Description Value Unit Range Abnormal Flag Note LastModifiedBy Organization Detail LastModifiedTime 06/20/20 17 06/20/2017 CBC w/ auto diff white blood cells 7.1 K/uL 3.8-10 .8 normal Not Available [facility] [address] [place] [address], [phone], 06/20/2017 10:56:04 06/20/20 17 06/20/2017 CBC w/ auto diff red blood cells 4.26 M/uL 3.80-5 .20 normal Not Available [facility] [address] [place] [address], [phone], 06/20/2017 10:56:04 06/20/20 17 06/20/2017 CBC w/ auto diff hemoglobin 11.9 g/dL 12.0-1 6.0 low Not Available [facility] [address] [place] [address], [phone], 06/20/2017 10:56:04 06/20/20 17 06/20/2017 CBC w/ auto diff hematocrit 35.6 % 35.0-4 7.0 normal Not Available [facility] [address] [place] [address], [phone], 06/20/2017 10:56:04 06/20/20 17 06/20/2017 CBC w/ auto diff MCV 84 fL 80-100 normal Not Available [facility] [address] [place] [address], [phone], 06/20/2017 10:56:04 06/20/20 17 06/20/2017 CBC w/ auto diff MCH 28 pg 26-35 normal Not Available [facility] [address] [place] [address], [address], 06/20/2017 10:56:04 06/20/20 17 06/20/2017 CBC w/ auto diff MCHC 33 g/dL 32-36 normal Not Available [facility] [address] [place] [address], [address], 06/20/2017 10:56:04 06/20/20 17 06/20/2017 CBC w/ auto diff RDW 14.8 % 11.0-1 5.0 normal Not Available [facility] [address] [place] [address], [phone], 06/20/2017 10:56:04 06/20/20 17 06/20/2017 CBC w/ auto diff MPV 9.2 fL 6.2-10 .5 normal Not Available [facility] [address] [place] [address], [address], 06/20/2017 10:56:04 06/20/20 17 06/20/2017 CBC w/ auto diff platelet count 165 K/uL 130-40 0 normal Not Available [facility] [address] [place] [address], [address], 06/20/2017 10:56:04 06/20/20 17 06/20/2017 CBC w/ auto diff neutrophil,a bsolute 5.2 K/uL 1.6-8. 4 normal Not Available [facility] [address] [place] [address], [address], 06/20/2017 10:56:04 06/20/20 17 06/20/2017 CBC w/ auto diff lymphocyte,a bsolute 0.9 K/uL 0.4-5. 1 normal Not Available [facility] [address] [place] [address], [address], 06/20/2017 10:56:04 06/20/20 17 06/20/2017 CBC w/ auto diff monocyte,abs olute 0.7 K/uL 0.0-1. 2 normal Not Available [facility] [address] [place] [address], [phone], 06/20/2017 10:56:04 06/20/20 17 06/20/2017 CBC w/ auto diff eosinophil,a bsolute 0.2 K/uL 0.0-0. 8 normal Not Available [facility] [address] [place] [address], [phone], 06/20/2017 10:56:04 06/20/20 17 06/20/2017 CBC w/ auto diff basophil,abs olute 0.1 K/uL 0.0-0. 3 normal Not Available [facility] [address] [place] [address], [address], 06/20/2017 10:56:04 06/20/20 17 06/20/2017 CBC w/ auto diff % neutrophils 72.3 % 42.0-7 8.0 normal Not Available [facility] [address] [place] [address], [address], 06/20/2017 10:56:04 06/20/20 17 06/20/2017 CBC w/ auto diff % lymphocytes 13.2 % 11.0-4 7.0 normal Not Available [facility] [address] [place] [address], [address], 06/20/2017 10:56:04 06/20/20 17 06/20/2017 CBC w/ auto diff % monocytes 10.4 % 0.0-11 .0 normal Not Available [facility] [address] [place] [address], [phone], 06/20/2017 10:56:04 06/20/20 17 06/20/2017 CBC w/ auto diff % eosinophils 3.3 % 0.0-7. 0 normal Not Available [facility] [address] [place] [address], [address], 06/20/2017 10:56:04 06/20/20 17 06/20/2017 CBC w/ auto diff % basophils 0.8 % 0.0-3. 0 normal Not Available [facility] [address] [place] [address], [phone], 06/20/2017 10:56:04 06/20/20 17 06/20/2017 CBC w/ auto diff nucleated red cells 0.0 % 0.0-0. 9 normal Not Available [facility] [address] [place] [address], [address], 06/20/2017 10:56:04 06/20/20 17 06/20/2017 CBC w/ auto diff nucleated RBCs, absolute 0.00 K/uL not estab. normal Not Available [facility] [address] [place], [address], 06/20/2017 10:56:04 06/20/20 17 06/20/2017 CMP, serum or plasm a glucose 117 mg/dL 74-100 high Not Available [facility] [address] [place] [address], [address], 06/20/2017 11:23:49 06/20/20 17 06/20/2017 CMP, serum or plasm a blood urea nitrogen 18 mg/dL 6-20 normal Not Available [facility] [address] [place] [address], [address], 06/20/2017 11:23:49 06/20/20 17 06/20/2017 CMP, serum or plasm a creatinine 0.79 mg/dL 0.50-0 .95 normal Not Available [facility] [address] [place] [address], [address], 06/20/2017 11:23:49 06/20/20 17 06/20/2017 CMP, serum or plasm a BUN/creatini ne ratio 23 (calc ) 10-20 high Not Available [facility] [address] [place] [address], [address], 06/20/2017 11:23:49 06/20/20 17 06/20/2017 CMP, serum or plasm a GFR 83 >= 60 normal Not Available [facility] [address] [place] [address], [address], 06/20/2017 11:23:49 06/20/20 17 06/20/2017 CMP, serum or plasm a GFR non- 72 >= 60 normal NOT E NEW calcu latio n for GFR is based on the Natio nal Kidne y Found ation CKD-E PI equat ion and allow s for repor ting GFR value s great er than 60 mL/mi n/1.7 3 m2. This calcu latio n has not been valid ated for patie nts less than 18 yrs., pregn ant women and Hispa nics. Chron ic kidne y disea se is defin ed as kidne y damag e or GFR less than 60 mL/mi n/1.7 3 m2 for 3 month s or longe r. . Not Available [facility] [address] [place] [address], [address], 06/20/2017 11:23:49 06/20/20 17 06/20/2017 CMP, serum or plasm a sodium 143 mmol/ L 136-14 5 normal Not Available [facility] [address] [place] [address], [phone], 06/20/2017 11:23:49 06/20/20 17 06/20/2017 CMP, serum or plasm a potassium 4.0 mmol/ L 3.4-5. 0 normal Not Available [facility] [address] [place] [address], [address], 06/20/2017 11:23:49 06/20/20 17 06/20/2017 CMP, serum or plasm a chloride 103 mmol/ L 98-107 normal Not Available [facility] [address] [place] [address], [address], 06/20/2017 11:23:49 06/20/20 17 06/20/2017 CMP, serum or plasm a carbon dioxide 28 mmol/ L 20-32 normal Not Available [facility] [address] [place] [address], [address], 06/20/2017 11:23:49 06/20/20 17 06/20/2017 CMP, serum or plasm a anion gap 12 (calc ) 7-25 normal Not Available [facility] [address] [place] [address], [address], 06/20/2017 11:23:49 06/20/20 17 06/20/2017 CMP, serum or plasm a calcium 9.5 mg/dL 8.6-10 .2 normal Not Available [facility] [address] [place], [address], 06/20/2017 11:23:49 06/20/20 17 06/20/2017 CMP, serum or plasm a total protein 7.5 g/dL 6.4-8. 3 normal Not Available [facility] [address] [place] [address], [address], 06/20/2017 11:23:49 06/20/20 17 06/20/2017 CMP, serum or plasm a albumin 4.3 g/dL 3.5-5. 2 normal Not Available [facility] [address] [place] [address], [address], 06/20/2017 11:23:49 06/20/20 17 06/20/2017 CMP, serum or plasm a globulin 3.2 g/dL_ (calc ) 1.5-4. 5 normal Not Available [facility] [address] [place] [address], [address], 06/20/2017 11:23:49 06/20/20 17 06/20/2017 CMP, serum or plasm a albumin/glob ulin ratio 1.3 (calc ) 1.1-2. 5 normal Not Available [facility] [address] [place] [address], [address], 06/20/2017 11:23:49 06/20/20 17 06/20/2017 CMP, serum or plasm a bilirubin, total 0.4 mg/dL 0.1-1. 2 normal Not Available [facility] [address] [place] [address], [address], 06/20/2017 11:23:49 06/20/20 17 06/20/2017 CMP, serum or plasm a alkaline phosphatase 65 U/L 35-105 normal Not Available [facility] [address] [place] [address], [address], 06/20/2017 11:23:49 06/20/20 17 06/20/2017 CMP, serum or plasm a AST 27 U/L 0-32 normal Not Available [facility] [address] [place], [address], 06/20/2017 11:23:49 06/20/20 17 06/20/2017 CMP, serum or plasm a ALT 16 U/L 0-33 normal Not Available [facility] [address] [place] [address], [phone], 06/20/2017 11:23:49 06/20/20 17 06/20/2017 MAMMO , scree juan, tomos ynthe sis, bilat eral, w/ CAD [facility] [address] [place] [address] Rain saravia Name: MATY saravia : 940 Age: 77 years Patijason saravia 1 Orderi ng Provid er: MAR WATSON EXAM DATE: 2016 EXAM: MG SCREEN ING RANDOLPH MAMMOG CHEMA [...] ed with previo us mammog makenzie dated 2015, 2014, 2013 FINDIN GS: The breast s are hetero geneou sly dense. This may lower the sensit ivity of mammog jocelyn. There is no suspic ious mass or cluste r of calcif icatio ns. No jade ectura l distor tion. Lumpec franck scarri ng sequel a outer left breast . IMPRES HARLAN: BI-RAD S catego ry 2, Benign . There is no eviden ce of malign du. Screen ing mammog makenzie are recomm ended in one year. Result s were mailed or given to the rain saravia. Interp reted By: Patrice Mora MD Electr onical ly Signed By: Patrice Mora MD on 2016 10:23 AM [facility] [address] [place] [address], [phone], 06/20/2017 10:34:00 06/20/20 17 06/20/2017 MAMMO , scree juan, tomos ynthe sis, bilat eral, w/ CAD [facility] [address] [place] [address] Rain saravia Name: MATY saravia : 940 Age: 77 years Rain saravia 1 Orderi ng Provid er: MAR WATSON EXAM DATE: 2016 EXAM: MG SCREEN ING RANDOLPH MAMMOG CHEMA [...] ed with previo us mammog makenzie dated 2015, 2014, 2013 FINDIN GS: The breast s are hetero geneou sly dense. This may lower the sensit ivity of mammog jocelyn. There is no suspic ious mass or cluste r of calcif icatio ns. No jade ectura l distor tion. Lumpec franck scarri ng sequel a outer left breast . IMPRES HARLAN: BI-RAD S catego ry 2, Benign . There is no eviden ce of malign du. Screen ing mammog makenzie are recomm ended in one year. Result s were mailed or given to the lunajason manjitLauri Interp reted By: Patrice Mora MD Electr onical ly Signed By: Patrice Mora MD on 2016 10:23 AM [facility] [address], [phone], 06/20/2017 10:34:00 06/21/20 18 06/21/2018 MAMMO , scree juan, tomos ynthe sis, bilat eral, w/ CAD [address] [address] Patijason saravia Name: MATY saravia : 940 Age: 78 years Patijason t 1 Orderi ng Provid er: MAR Johansen CAMP EXAM DATE: 2017 EXAM: MG SCREEN ING RANDOLPH MAMMOG CHEMA [...] ivity of mammog jocelyn. There is no suspic ious mass or cluste r of calcif icatio ns. No jade ectura l distor tion. Bilate ral areas of nodula r asymme try, stable patter n IMPRES HARLAN: BI-RAD S catego ry 2, Benign . There is no eviden ce of malign du. Screen ing mammog makenzie are recomm ended in one year. Result s were mailed or given to the patien t. Interp reted By: Patrice Mora MD Electr onical ly Signed By: Patrice Mora MD on 2017 11:20 AM [facility] [address], [phone], 06/21/2018 11:42:25 06/27/20 19 06/27/2019 MAMMO , scree juan, tomos ynthe sis, bilat eral, w/ CAD [address] [place] [address] Rain saravia Name: MATY saravia : 940 Age: 79 years Rain saravia 1 Orderi ng Provid er: MAR Johansen CAMP EXAM DATE: 2018 EXAM: MG SCREEN ING [...] Ayo briscoe MD on 2018 11:11 AM [email or web address] [facility] [address] [place] [address], [address], 11/12/2019 02:38:19 08/25/1908/25/2020 MAMMO , scree juan, tomos ynthe sis, bilat eral, w/ CAD [address] [address] Rain saravia Name: MATY saravia : 940 Age: 80 years Rain saravia 1 Orderi ng Provid er: FAITH MOCK JR EXAM DATE: 2020 EXAM: MG SCREEN ING RANDOLPH MAMMOG CHEMA [...] ivity of mammog jocelyn. There is no suspic ious mass or cluste r of calcif icatio ns. No jade ectura l distor tion. Lumpec franck sequel a left breast . Severa l benign coarse calcif icatio ns noted in the breast s bilate rally. IMPRES HARLAN: BI-RAD S catego ry 2, Benign . There is no eviden ce of malign du. Screen ing mammog makenzie are recomm ended in one year. Result s were mailed or given to the rain saravia. Interp reted By: Patrice Mora MD Electr onical ly Signed By: Patrice Mora MD on 11:33 AM [email or web address] [facility] [address] [place] [address], [phone], 08/25/2020 11:53:32 11/18/19 22 11/17/2021 MAMMO , scree juan, tomos ynthe sis, bilat eral, w/ CAD [address] [address] Rain saravia Name: MATY saravia : 940 Age: 81 years Rain saravia 1 Orderi ng Provid er: FAITH MOCK JR EXAM DATE: 2021 EXAM: MG SCREEN ING RANDOLPH MAMMOG CHEMA [...] ed with previo us mammog makenzie dated 2020, 2018, 2017 FINDIN GS: The breast s are hetero geneou sly dense. This may lower the sensit ivity of mammog jocelyn. There is no suspic ious mass or cluste r of calcif icatio ns. No jade ectura l distor tion. Again noted is scarri ng in the left breast IMPRES HARLAN: BI-RAD S catego ry 2, Benign . There is no eviden ce of malign du. Screen ing mammog makenzie are recomm ended in one year. Result s were mailed or given to the rain saravia. Interp reted By: Patrice Mora MD Electr onical ly Signed By: Patrice Mora MD on 022 1:22 PM [email or web address] [facility] [address], [phone], 11/17/2021 13:31:45 12/16/19 23 12/15/2022 MAMMO , scree juan, tomos ynthe sis, bilat eral, w/ CAD [address] [address] Rain saravia Name: MATY saravia : 940 Age: 82 years Rain saravia 1 Orderi ng Provid er: FAITH MOCK JR EXAM DATE: 2022 EXAM: MG SCREEN ING RANDOLPH MAMMOG CHEMA INDICA TION: Routin e screen ing. PROCED URE: Multis lice imagin g of [...] ed with previo us mammog makenzie dated 2, 1, FINDIN GS: The breast s are hetero geneou sly dense. This may lower the sensit ivity of mammog jocelyn. There is no suspic ious mass or cluste r of calcif icatio ns. No jade ectura l distor tion. There is stable scarri ng in the left breast . There is no suspic ious change . Scatte red areas of nodula r asymme try are noted. The patter n is unchan ged. IMPRES HARLAN: BI-RAD S catego ry 2, Benign . There is no eviden ce of malign du. Screen ing mammog makenzie are recomm ended in one year. Result s were mailed or given to the rain saravia. Interp reted By: Patrice Mora MD Electr onical ly Signed By: Patrice Mora MD on 023 1:02 PM [email or web address] [facility] [address] [place] [address], [phone], 12/15/2022 14:26:37 01/15/20 24 01/15/2024 MAMMO , scree juan, tomos ynthe sis, bilat eral, w/ CAD [address] [place] [address] Rain saravia Name: MATY saravia : 940 Age: 83 years Rain saravia 1 Orderi ng Provid er: FAITH MOCK JR EXAM DATE: 2023 EXAM: MG SCREEN ING RANDOLPH MAMMOG CHEMA [...] ed with previo us mammog makenzie dated 2022, 2021, 2020 FINDIN GS: The breast s are hetero geneou sly dense. This may lower the sensit ivity of mammog jocelyn. There is no suspic ious mass or cluste r of calcif icatio ns. No jade ectura l distor tion. There is stable scarri ng in the left breast . Surgic al clips are noted in the left axilla . There is no suspic ious change . A nodula r tissue s in the retroa reolar region bilate rally, grossl y unchan ged IMPRES HARLAN: BI-RAD S catego ry 2, Benign . There is no eviden ce of malign du. Screen ing mammog makenzie are recomm ended in one year. Result s were mailed or given to the rain saravia. Interp reted By: Patrice Mora MD Electr onical ly Signed By: Patrice Mora MD on 024 1:46 PM [email or web address] [facility] [address] [place] [address], [place], [address], 01/15/2024 16:31:21 Result Notes None recorded. 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 Procedures Surgical History Date Name Laterality Status Provider Name and Address Organization Details Recorded Time Breast Surgery completed Iris Faulkner [facility] 07/27/2016 15:10:54 Eye Surgery completed Iris Carrillo [facility] 07/27/2016 15:12:42 [facility] Phys[facility] Surgery completed Iris Carrillo [facility] 07/27/2016 15:13:04 Imaging Results None recorded. Procedure Notes None recorded. Medical Equipment None Reported. Allergies Allergen ID Allergen Name Allergen Category Reaction Reaction Severity Criticality Documentation Date Start Date Code Code System Note Provider Name and Address Organization Details Recorded Time [id number] Substance with sulfonami de structure and antibacte rial mechanism of action (substanc e) medicatio n Not available Not available Not available 05/26/20162005 23837 8003 SNOMED Comme nt: SHRAVAN ORBIT AL EDEMA ;Crea scott By: Tyrell Simmons ;Wojciech chavez Date: 2005 1:02: 23 PM; Not Available [facility] 6 04:16:55 Medications Name Sig Start Date Stop Date Status Note LastModified by Organization Details LastModified Time amoxicill in 500 mg capsule post op head congesti on 06/27 completed Not Available Not Available Not Available furosemid e 40 mg tablet active Not Available Not Available Not Available atorvasta tin 10 mg tablet Every night at bedtime active Not Available Not Available No t Available ibuprofen 800 mg tablet active Not Available Not Available Not Available hydrocodo ne 5 mg-acetam inophen 325 mg tablet Take 1 tablet every 6 hours by oral route as needed. 06/27 completed Not Available Not Available Not Available Citracal 950 mg effervesc ent tablet Two times a day active Duration : 10 days;Maximo quency: daily Medicati on Descript ion: calcium citrate; Route:or al; refills: 0; Quantity :14 tablet Not Available Not Available Not Available lidocaine -prilocai ne 2.5 %-2.5 % topical cream Apply 1 applicat ion by topical route for 1 day. 08/24 completed Not Available Not Available Not Available potassium chloride ER 20 mEq tablet,ex tended release(p art/cryst ) active Not Available Not Available Not Available famotidin e 20 mg tablet 06/27 completed Not Available Not Available Not Available gemfibroz il 600 mg tablet Daily active Not Available Not Available Not Available cephalexi n 500 mg capsule active Not Available Not Available Not Available omeprazol e 20 mg capsule,d elayed release 07/27 completed Not Available Not Available Not Available aspirin 81 mg tablet Daily active Duration : 30 days;Maximo quency: daily;Me dication Descript ion: aspirin; Dosage:1 ; refills: 0; Quantity :30 Not Available Not Available Not Available tamoxifen 20 mg tablet Take 1 tablet every day by oral route. 12/07 completed Not Available Not Available Not Available naproxen 500 mg tablet 07/27 completed Not Available Not Available Not Available Fish Oil Daily active Frequenc y: daily;Me dication Descript ion: omega-3 polyunsa turated fatty acids; Dosage:1 ; Route:or al; refills: 0 Not Available Not Available Not Available Osteo Bi-Flex Daily active Frequenc y: daily;Me dication Descript ion: miscella neous; Dosage:1 ; refills: 0 Not Available Not Available Not Available Centrum Silver 0.4 mg-300 mcg-250 mcg tablet Daily active Duration : 10 days;Maximo quency: daily;Me dication Descript ion: multivit peter with minerals ; Dosage:1 ; Route:or al; refills: 0; Quantity :30 tablet Not Available Not Available Not Available Vitals Date Recorded Body height Body weight Body mass index (BMI) Heart rate Body temperature Systolic blood pressure Diastolic blood pressure Provider Name and Address Organization Details Last Updated DateTime 7 170.18 cm 25625.4 g 28.7 kg/m2 71 /min 97.1 [degF] 152 mm[Hg] 63 mm[Hg] Charline [facility] 7 14:15:58 Date Recorded Body height Body weight Body mass index (BMI) Body temperature Heart rate Systolic blood pressure Diastolic blood pressure Provider Name and Address Organization Details Last Updated DateTime 7 170.18 cm 16919.4 g 28.7 kg/m2 97 [degF] 69 /min 135 mm[Hg] 68 mm[Hg] Charline Roberson [facility] 7 11:12:21 Date Recorded Body height Body mass index (BMI) Body weight Heart rate Systolic blood pressure Diastolic blood pressure Provider Name and Address Organization Details Last Updated DateTime 8 170.18 cm 28.2 kg/m2 79927.3 3 g 76 /min 169 mm[Hg] 75 mm[Hg] Simi Romero [facility] 8 12:09:00 Date Recorded Body height Body temperature Body mass index (BMI) Body weight Heart rate Systolic blood pressure Diastolic blood pressure Provider Name and Address Organization Details Last Updated DateTime 8 170.18 cm 97.4 [degF] 28 kg/m2 05887.2 4 g 66 /min 158 mm[Hg] 66 mm[Hg] Esau Drew [facility] 8 11:50:58 Date Recorded Body height Body mass index (BMI) Body weight Body temperature Heart rate Systolic blood pressure Diastolic blood pressure Provider Name and Address Organization Details Last Updated DateTime 7 170.18 cm 28.5 kg/m2 98148.8 1 g 98.2 [degF] 77 /min 162 mm[Hg] 72 mm[Hg] Stephanie Cho [facility] 7 11:16:53 Social History Question Answer Notes LastModified by Organizat ion Details LastModified Time Tobacco Smoking Status Former Smoker quit 1983 Iris Faulkner [facility] 07/27/2016 15:10:34 What Was The Date Of Your Most Recent Tobacco Screening? 06/21/2018 Information not available 08/19/2019 How Much Tobacco Do You Smoke? 1 PPD Information not available 07/27/2016 Has Tobacco Cessation Counseling Been Provided? No [email or web address] Information not available 06/27/2017 Sex: Unknown Functional Status None recorded. Mental Status None recorded. Family History Relationship Description Onset Age of this Age Resolved Age Notes LastModified by Organization Details LastModified Time Unspecified Relation Malignant tumor of breast 40 matern al cousin x1 Not available 07/27/2016 15:30:29 Unspecified Relation Malignant tumor of breast matern al cousin x2 Not available 07/27/2016 15:30:23 Unspecified Relation Neoplasm of pancreas cousin - deceas ed Not available 07/27/2016 15:31:09 Maternal Aunt Neoplasm of ovary she is alive and doing well at age 91 Not available 07/27/2016 15:31:49 Medical History Condition Response Other Y Gynecological HistoryNo gynecological history recorded. Obstetrics History GPAL:G 0 P 0 0 0 0 Past Encounters Encounter ID Performer Location Encounter Start Date Encounter Closed Date Diagnosis/Indication Diagnosis SNOMED-CT Code Diagnosis ICD10 Code Diagnosis Note [id number] DEEPIKA WATSON MD HEM/ONC [place] CLOSED [address],[facility] [address] [place] [address] 07/27/2016 12:03:02 07/27/2016 12:58:21 Ductal carcinoma in situ of breast 112227145 D05.12 [id number] PATRICE KANG JR, MD GENERAL SURGERY [address] [address] 07/27/2016 13:55:06 07/31/2016 13:11:01 Ductal carcinoma in situ of breast 754972595 D05.12 she chooses left needle localized lumpectomy and sentinel lymph node biopsy. I told her there is a 1% chance of catastroph ic complicati on, 5% chance of positive margin requiring second surgery, less than 5% chance of long-term arm swelling. [id number] PATRICE KANG JR, MD SURGERY SCHEDULE [address] [place] [address] 08/11/2016 09:55:09 08/11/2016 09:57:56 [id number] PATRICE KANG JR, MD GENERAL SURGERY [address] [address] 08/24/2016 11:47:06 08/24/2016 13:26:25 Ductal carcinoma in situ of breast 940477667 D05.12 she will follow-up with Dr. Watson for adjuvant hormonal therapy and radiation therapy. She can follow up with me as needed. [id number] DEEPIKA WATSON MD HEM/ONC KOH[place] CLOSED [address] [place] [address] 09/07/2016 11:50:00 09/07/2016 12:51:55 Ductal carcinoma in situ of breast [id number] D05.12 [id number] RICK CARBAJAL MD RADIATION THERAPY [facility] [address] [place] [address] 09/07/2016 13:15:18 09/08/2016 12:36:49 [id number] DEEPIKA WATSON MD HEM/ONC [place] CLOSED [address] [place] [address] 10/12/2016 13:12:42 10/12/2016 14:54:08 Ductal carcinoma in situ of breast 556842593 D05.12 [id number] DEEPIKA WATSON MD HEM/ONC [place] CLOSED [address] [place] [address] 12/07/2016 10:38:27 12/07/2016 11:38:56 Ductal carcinoma in situ of breast [id number] D05.12 [id number] DEEPIKA WATSON MD HEM/ONC [place] CLOSED [address] [place] [address] 06/27/2017 10:59:25 06/27/2017 11:37:54 Ductal carcinoma in situ of breast [id number] D05.12 [id number] DEEPIKA WATSON MD HEM/ONC [place] CLOSED [address] [place] [address] 12/26/2017 10:48:36 12/26/2017 12:36:29 Ductal carcinoma in situ of breast [id number] D05.12 [id number] DEEPIKA WATSON MD HEM/ONC [place] CLOSED [address] [place] [address] 06/21/2018 11:39:38 06/21/2018 12:14:48 Ductal carcinoma in situ of breast [id number] D05.12 [id number] DEEPIKA WATSON MD HEM/ONC SB CLOSED [address] [place] [address] 07/03/2019 12:23:13 07/03/2019 13:23:47 Health Concerns Section Related Observation LastModified by Organization Detai ls LastModified Time None Recorded Concern Status LastModified by Organization Details LastModified Time None Recorded Advance Directives Directive None Recorded Payers Insurance Date Sequence Insurance Name Policy Number Policy Carlin Covered Member ID Carlin Member ID Guarantor Name 01/15/2024 2 AARP (MEDICARE SUPPLEMENT) Maty R Olivier [id number] Maty R Olivier 01/15/2024 2 [employer] (PPO) [id number] Osceola R Olivier [id number] Maty R Olivier 01/15/2024 1 [place] Osceola R Olivier [id number] Osceola R Olivier 01/15/2024 2 AARP (MEDICARE SUPPLEMENT) Osceola R Olivier [id number] Osceola R Olivier 01/15/2024 3 AARP (MEDICARE SUPPLEMENT) Maty R Olivier [id number] Osceola R Olivier 01/15/2024 2 [employer] (MEDICARE SUPPLEMENT) [id number] Osceola C Olivier [id number] Osceola R Olivier 01/15/2024 2 AARP (MEDICARE SUPPLEMENT) PLAN 5 Osceola R Olivier [id number] Maty R Olivier Notes Date Note Type Note Provider Name and Address Organization Details Recorded Time 10/12/2016 text/html INTERVAL HISTORY : 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 She underwent partial mastectomy for this. Fortunately, there was no evidence of any invasive component and only a small amount of low grade ER positive DCIS was seen. She has recovered from surgery and here today for discussion of the agent tamoxifen. DEEPIKA WATSON MD [address] [place] [address], [address], [facility] 10/16/2016 09:44:13 12/07/2016 text/html This is a 76-year-old female with a small area of DCIS. We had a lengthy discussion about risks, benefits moving forward with the patient. She is very aware. She did not wish to do radiation and we had a discussion of the drug tamoxifen. She eventually has now taken tamoxifen now for several months. She says that she has had few hot flashes but has done otherwise well, but she does report that she has really had significant arthralgia and arthritis in her knees that are out of proportion where they had been prior to beginning the tamoxifen. She says she really has a lot of knee pain and has to use a cane to kind of get around and that has been a significant change moving forward. DEEPIKA WATSON MD [address] [place], [address], [facility] 12/12/2016 14:05:02 06/27/2017 text/html This is a 77-year-old female, originally seen by me in July 2016. She had an abnormal mammogram with small area of DCIS. She underwent a partial mastectomy. Given the fact that it is a very small area, she declined radiation as well as tamoxifen. She returns today doing well. She had recently adopted a cat and 3 kittens and says that has been keeping her very active. She had a mammogram done last week that is a BI-RADS 2, just a 1-year followup. Her recent laboratory studies, CBC and CMP done last week are unremarkable. Clinically, she is doing well. DEEPIKA WATSON MD [address] [place], [address], [facility] 06/28/2017 08:17:52 12/26/2017 text/html INTERVAL HISTORY : This is a 77-year-old female originally seen by me in July of 2016. She had abnormal mammogram, small area of DCIS. She had a partial mastectomy. Given the fact that it is a small area, she did not wish any form of radiation which is reasonable. Also, we discussed the use of tamoxifen and she elected to not do tamoxifen as well. She just returns today in followup of her breast exam. She has no new changes in the breast and no problems to report today. DEEPIKA WATSON MD [address] [place], [address], [facility] 12/28/2017 13:42:59 06/21/2018 text/html A 78-year-old female diagnosed with DCIS in July 2016, partial mastectomy. Given her small area, we did not recommend radiation. We also discussed tamoxifen. She elected not to do tamoxifen, which I think is reasonable. She follows up today. She has had a recent mammogram today that is BIRADs 2. CBC and CMP are largely unremarkable. Clinically, she states she is doing well. DEEPIKA WATSON MD [address] [facility] [place], [address], [facility] 07/05/2018 18:27:16 OBGyn Episode No OBEpisode recorded.
[2024-11-28 10:35] LABS: Occult Blood,Stool Negative (Negative)
== END 2024-11-26 23:59 | disposition home or self-care (01) ==
LOC: LAB.DROPOF 13:18
PROVIDERS: PCP Internal Medicine; Visit Provider Internal Medicine
DX: D64.9 Anemia, unspecified (principal)
CPT/HCPCS: 82272; G0328

== ENCOUNTER 2025-02-16 15:50 | Outpatient (CLI) | payer MEDICARE, OTHER, SELFPAY ==
[2025-02-16 16:04] LABS: Hemoglobin 7.4 g/dL (12.2-16.2); Immature Granulocytes % 0.9 %; Mean Corpuscular HGB Conc 31.4 g/dL (31.8-35.4); Mean Corpuscular Hemoglobin 23.9 pg (27.0-31.2); Mean Corpuscular Volume 76.4 fl (81-99); Nucleated Red Blood Cells % 0 %; Platelet Count 486 K/mm3 (142-424); Red Blood Count 3.09 M/mm3 (4.20-5.40); Red Cell Distribution Width-SD 46.4 fL; White Blood Count 15.8 K/mm3 (4.8-10.8)
[2025-02-16 16:15] LABS: Hematocrit 23.6 % (37.0-47.0)
[2025-02-16 16:16] LABS: Chloride 107 mmol/L (98-107)
[2025-02-16 16:17] LABS: Albumin Level 3.6 g/dl (3.5-5.0); Potassium 4.5 mmoL/L (3.5-5.1); Sodium 139 mmol/L (136-145)
[2025-02-16 16:19] LABS: Blood Urea Nitrogen 20 mg/dl (7-17); Creatinine,Serum 1.10 mg/dl (0.52-1.04); Estimated Glomerular Filt Rate 47 ml/min (>60); GFR (African American) 57 ML/MIN (>60)
[2025-02-16 16:20] LABS: Alanine Aminotransferase 20 U/L (12-78); Albumin/Globulin Ratio 1.2 (1.1-1.8); Alkaline Phosphatase 110 U/L (38-126); Anion Gap 14.5 mEq/L (5-15); Aspartate Amino Transferase 29 U/L (14-36); Bilirubin,Total 0.4 mg/dl (0.2-1.3); Calcium 9.3 mg/dl (8.4-10.2); Carbon Dioxide 22 mmol/L (22.0-30.0); Globulin 3.1 g/dL (1.3-3.2); Glucose 121 mg/dl (74-100); Total Protein,Serum 6.7 g/dl (6.3-8.2)
[2025-02-16 17:19] LABS: Thyroid Stimulating Hormone 1.20 uIU/mL (0.465-4.68)
[2025-02-16 20:49] LABS: Free T4 (Free Thyroxine) 1.24 ng/dl (0.78-2.19)
--- OUTSIDE RECORDS SUMMARY | 2025-02-18 09:39 | XMS_ITS | Encounter Summary ---
Author Organization [facility] Address [address] [place] [address] Care Team Providers Care County Home Demonstrator Name Role Phone Ozzie Garibay MD Primary Care Provider [phone] Encounter Details Date Type Department Care Team (Late st Contact Info) Description 02/07/2013 Conversion Encounter [facility] HISTORICAL CONV [address] [place] [address] Interface, See Report Social History Tobacco Use Types Packs/Day Years Used Date Smoking Tobacco: Never Assessed Comments Unknown Sex and Gender Information Value Date Recorded Sex Assigned at Female 10/26/2024 3:36 PM EDT Legal Sex Female 10:07 AM EDT Gender Identity Not on file Sexual Orientation Not on file documented as of this encounter Progress Notes * Interface, See Report - 02/07/2013 12:00 AM EDT [facility] [address] [place], [place] [id number] Patient: MATY AGUAYO. 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 PT. C/O PAIN AT PREVIOUS DRAIN SITE AND STILL HAS DAILY BLEEDING FROM INCISION SITE. CONCERNED ABOUT HARDLESION WITHIN THE VAGINA PRESENT SINCE SURGERY. AMBULATING AND VOIDING WITHOUT DIFFICULTY. Past medical history: Medical: VULVAR CANCER; HYPERLIPIDEMIA, ARTHRITIS, H/O CATARACTS Surgical: VULVAR EXCISION; CATARACT SURGERY, TEETH PULLED, CX PROCEDURE(UNSURE WHAT) FOR ABNORMAL PAP Health maintenance: Mammogram: 06/2012 Colonoscopy: Never Pap smear: 12/2011 Tumor Marker: CT Scan: 11/01/12 BMD: Never Ultrasound: Review of systems: Constitutional: No change in weight, no excessive fatigue Psychiatric: No history of anxiety, depression, bipolar disorder, or insomnia Respiratory: No shortness of breath, cough, asthma, wheezing Cardiovascular: +HYERLIPIDEMIA. No angina, orthopnea, edema, hypertension, murmur Gastrointestinal: No constipation or diarrhea, no reflux, nausea, or vomiting Genitourinary: No dysuria, hematuria, urgency, or frequency Neurologic: No numbness, weakness, syncope, seizures, or headaches Gynecologic: +H/O VULVAR CA. No abnormal bleeding, vaginal discharge, pelvic pain, of h/o abnml papsmears LMP: P: 0 Vag Deliveries: 0 C-sec: 0 Misc: 0 Additional notes: +ARTHRITIS; +DENTURES; +H/O CATARACTS Medications: Medication Reconciliation for the patient has been reviewed in the EMR. Physical exam: Constitutional: Weight 175.6 Height BP 148/72 Pulse Temp Neurological/Psychiatric: HEENT: Neck: Respiratory: Cardiovascular: Breasts: Gastrointestinal: Lymphatic: Extremities: Gynecologic: External Genitalia: WELL HEALING LESION OF RIGHT LABIA. MILD ERYTHEMA. Vagina: 2CM HEALING LESION ON LOWER 1/3 VAGINA. SCAR TISSUE APPROXIMATELY 2 CM DIAMETER PALPATED ONR VAGINA. MINIMAL TTP. Cervix: Uterus: Ovaries: Parametria: Smooth. Rectovaginal: Hemoccult: Procedure note: Assessment: 73 Y/O POST-OP 2 MONTHS S/P MODIFIED RADICAL VULVECTOMY. WELL HEALING VULVA/VAGINA. Plan: 1) CT CHEST/ABDOMEN/PELVIS 2) CONSULT RADIATION ONCOLOGY FOR RADIATION THERAPY WILL SCHEDULE Approved by: Brigid Zhong 02/07/2013, 12:28 PM cc: documented in this encounter Plan of Treatment Upcoming Encounters Date Type Department Care Team (Late st Contact Info) Description 10/28/2025 1:30 PM EDT Office Visit [facility] GYNECOLOGIC ONCOLOGY [address] [place], [place] [id number] Cyndi De La Rosa APRN [address] [place] [address] documented as of this encounter Visit Diagnoses Not on filedocumented in this encounter Care Teams County Home Demonstrator Relationship Specialty Start Date End Date Ozzie Garibay MD [address] [facility] [address] [place] [address] PCP - General Internal Medicine 04/02/18 documented as of this encounter
--- OUTSIDE RECORDS SUMMARY | 2025-02-18 09:39 | XMS_ITS | Encounter Summary ---
Author Organization [facility] Address [address] [place] [address] Care Team Providers Care Insulation Packer Name Role Phone Ozzie Garibay MD Primary Care Provider [phone] Encounter Details Date Type Department Care Team (Late st Contact Info) Description 12/23/2012 Conversion Encounter [facility] HISTORICAL CONV [address] [place] [address] Interface, See Report Social History Tobacco Use Types Packs/Day Years Used Date Smoking Tobacco: Never Assessed Comments Unknown Sex and Gender Information Value Date Recorded Sex Assigned at Female 10/26/2024 3:36 PM EDT Legal Sex Female 10:07 AM EDT Gender Identity Not on file Sexual Orientation Not on file documented as of this encounter Consult Notes * Interface, See Report - 12/23/2012 12:00 AM EDT [facility] [address] [place], [place] [phone] Patient: MATY AGUAYO. MR #: : 1940 Date of Visit: 12/23/2012 Attending Physician: Brigid Zhong Dictated By: BRIGID ZHONG Referring Physician: NOLVIA COOMBS Diagnosis: PERINEAL MASS Allergies: SULFA History of present illness: CYSTIC APPEARING LESION IN THE RIGHT SIDE OF THE PERINEUM ANTERIOR TO THE ANUS AND TO THE RIGHT LATERAL REGION OF THE VAGINA SEEN ON CT SCAN 10/31/2012 HAS NEVER HAD A COLONOSCOPY OR BMD. H/O ABNORMAL PAP, HAD AN OUTPT PROCEDURE FOR IT. F/U PAPS HAVE ALL BEEN NEGATIVE SINCE.OCC BLOOD WITH WIPING Past family and/or social history: Family history: MAUNT-OVARIAN CANCER> 50, MCOUSIN X2- BREAST CANCER IN THEIR 50'S, MCOUSIN-PANCREATIC CANCER IN HER 70'S, JUST FINISHED CHEMO AND RADIATION AT . DAD- DIABETES. Social history: Tobacco Y N quit PPD ETOH Y N # Drinks Marital Status Occupation RETIRED Past medical history: Medical: HYPERLIPIDEMIA, ARTHRITIS , H/O CATARACTS Surgical: CATARACT SURGERY, TEETH PULLED, CX PROCEDURE(UNSURE WHAT) FOR ABNORMAL PAP Health maintenance: Mammogram: 06/01/12 Colonoscopy: Pap smear: 12/31/11 Tumor Marker: CT Scan: 10/31/12BMD: Review of systems: Constitutional: No change in weight, no excessive fatigue. Psychiatric: No history of anxiety, depression, bipolar disorder, or insomnia. Eyes: + H/O CATARACTS. Vision unchanged Ears, Nose, Mouth, Throat: + DENTURES, PARTIALS. Hearing normal, no swallowing difficulties, no sore throat Endocrine: No history of diabetes, thyroid disease, heat/cold intolerance Lymphatic: No enlarged lymph nodes Respiratory: No shortness of breath, cough, asthma, wheezing Cardiovascular: +HYPERLIPIDEMIA . No angina, orthopnea, edema, hypertension, murmur Gastrointestinal: No constipation or diarrhea, no reflux, nausea, or vomiting Genitourinary: No dysuria, hematuria, urgency, or frequency Neurologic: No numbness, weakness, syncope, seizures, or headaches Musculoskeletal: +ARTHRITIS. No muscle weakness, or joint pain Integumentary: No new skin lesions Gynecologic: + H/O ABN PAP. No abnormal bleeding, vaginal discharge, pelvic pain LMP: P: 0 Vag Deliveries: 0 C-sec: 0 Misc: 0 Hematologic: NEGATIVE Medications: Medication Reconciliation for the patient has been reviewed in the EMR. Physical exam: Constitutional: Weight 177 [place] 65 [place] [address] Pulse Temp Neurological/Psychiatric: HEENT: Neck: Respiratory: Cardiovascular: Breasts: Gastrointestinal: ;GROIN NEGATIVE Lymphatic: Extremities: Skin: Gynecologic: External Genitalia: ; MASS PALPABLE SUBCUTANEOUS,SUB VAGINAL MUCOSA,NODULAR UNDER UNDER DISTAL RECTUM R ANT AT 10 O'CLOCK; DIMENSIONS 4.5-5X4.OX3.5 CM Vagina: ; VERY NARROW Cervix: Uterus: ; SMALL POST MENOPAUSAL Ovaries: Parametria: Smooth. Rectovaginal: SEE ABOVE ; APPROX. 1.0 CM EXTENSION OF MASS JUST PROXIMAL TO SPHINTER AT ABOUT 10 O'CLO0CK Hemoccult: Procedure note: Assessment: SUBCUTANEOUS, SUBMUCOSAL HARD IRREGULAR MASS R VULVAR, PERINEAL ,PARA VAGINAL MASS NEOPLASTIC CHARACTER Plan: COLONOSCOPY EXCISION 23HR PATIENT COUNCILED EXTENSIVELY RE. MALIGNANT POTENTIAL PROPOSED SURGERY RISKS BENEFITS PT HAS NOT HAD COLONOSCOPY;SINCE LESION IS VERY TIGHT SUBMUCOSALLY THINK WOULD BE INDICATED Approved by: , cc: NOLVIA COOMBS JERRY documented in this encounter Plan of Treatment Upcoming Encounters Date Type Department Care Team (Late st Contact Info) Description 10/28/2025 1:30 PM EDT Office Visit [facility] GYNECOLOGIC ONCOLOGY [address] [facility] [address] [place] [address] Cynid De La Rosa APRN [address] [facility] [address] [place], [place] [id number] documented as of this encounter Visit Diagnoses Not on filedocumented in this encounter Care Teams Insulation Packer Relationship Specialty Start Date End Date Ozzie Garibay MD [address] [facility] [address] [facility] [address] [place] [address] PCP - General Internal Medicine 04/02/18 documented as of this encounter
--- OUTSIDE RECORDS SUMMARY | 2025-02-18 09:39 | XMS_ITS | Clinical Summary ---
Author Organization [facility] Address [address] [place] [address] Care Team Providers Care Chief Technician X Ray Name Role Phone Ozzie Garibay MD Primary Care Provider [phone] Allergies Active Allergy Reactions Criticality Noted Date Comments Sulfa Antibiotics Swelling High 12/21/2015 Medications gemfibrozil (LOPID) 600 MG tablet Take 1 tablet by mouth 2 (Two) Times a Day. Active atorvastatin (LIPITOR) 10 MG tablet Take 1 tablet by mouth Daily. Active Glucosamine-Cho ndroitin (OSTEO BI-FLEX REGULAR STRENGTH PO) Take 1 capsule by mouth daily. Active Furosemide (LASIX PO) Take by mouth As Needed. Active diclofenac (VOLTAREN) 75 MG EC tablet 04/12/2022 Active BABY ASPIRIN PO Take by mouth. 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 Vulvar cancer 02/09/2016 Cancer Staging:Clinical stage from 01/03/2013:Stage III(T3, N0, M0) - Signed by Nori Ibanez APRN on 02/09/2016 Well female exam with routine gynecological exam 02/09/2016 Family History Medical History Relation Name Comments Cancer Cousin breast; pancrea tic Diabetes Father Cancer Maternal Aunt ovarian Relation Name Status Comments Cousin Father Maternal Aunt Social History Tobacco Use Types Packs/Day Years Used Date Smoking Tobacco: Former Tobacco Cessation:Counseling Given: Not Answered Alcohol Use Standard Drinks/Week Comments No 0 (1 standard drink = 0.6 oz pur e alcohol) PHQ-2 Answer Date Recorded Retired PHQ-9: Brief Depression Severity Measure Score 0 03/27/2023 PHQ-2 Answer Date Recorded Retired PHQ-9: Brief Depression Severity Measure Score 0 10/15/2023 Comments No Sex and Gender Information Value Date Recorded Sex Assigned at Female 10/26/2024 3:36 PM EDT Legal Sex Female 10:07 AM EDT Gender Identity Not on file Sexual Orientation Not on file Occupation Industry Job Start Date Job End Date retired Not on file Not on file Not on file Last Filed Vital Signs Vital Sign Reading Time Taken Comments Blood Pressure 150/78 10/27/2024 12:58 PM EDT Pulse 86 10/27/2024 12:58 PM EDT Temperature 36.5 C (97.7 F) 10/27/2024 12:58 PM EDT Respiratory Rate 17 10/27/2024 12:58 PM EDT Oxygen Saturation 98% 10/27/2024 12:58 PM EDT Inhaled Oxygen Concentration - - Weight 65.1 kg (143 lb 9.6 oz) 10/27/2024 12:58 PM EDT Height 162.6 cm (5' 4.02 ) 10/27/2024 12:58 PM E DT Body Mass Index 24.64 10/27/2024 12:58 PM EDT Plan of Treatment Upcoming Encounters Date Type Department Care Team (Late st Contact Info) Description 10/28/2025 1:30 PM EDT Office Visit [facility] GYNECOLOGIC ONCOLOGY [address] [facility] [address] [place] [address] Cyndi De La Rosa, TELETYPESETTER OPERATOR [address] [facility] [address] [place], [place] [id number] Health Maintenance Due Date Last Done Comments DXA SCAN 1940 TDAP/TD VACCINES (1 - Tdap) 01/23/1959 COLOGUARD 01/23/1985 COLON CANCER SCREENING 5 YEA R SIGMOIDOSCOPY 01/23/1985 CT COLONOGRAPHY 01/23/1985 FIT Testing (1 year) 01/23/1985 ZOSTER VACCINE (1 of 2) 01/23/1990 06/01/2019 RSV Vaccine - Adults (1 - 1- dose 75+ series) 01/23/2015 FECAL OCCULT BLOOD TEST 02/08/2017 02/09/2016 ANNUAL WELLNESS VISIT 02/26/2017 COLONOSCOPY 07/02/2017 07/02/2012 COLORECTAL CANCER SCREENING 07/02/2017 Pneumococcal Vaccine 50+ (2 of 2 - PCV) 06/16/2021 06/16/2020, 06/01/2019 COVID-19 Vaccine (4 - 2023-2 5 season) 2024 05/11/2021, 09/01/2020, 08/04/2020 INFLUENZA VACCINE 04/01/2025 04/14/2024, 05/02/2019 MAMMOGRAM 01/14/2026 01/15/2024, 12/30, 12/15/2022, Additional history exists Procedures Procedure Name Priority Date/Time Associated Diagnosis Comments POCT OCCULT BLOOD STOOL Routine 02/09/2016 1:49 PM EDT Well female exam with routine gynecological exam from Last 3 Months or Most Recently Relevant to Health Maintenance Results * POCT occult blood stool (02/09/2016 1:49 PM EDT) Fecal Occult Blood Normal [facility] Stool 02/09/2016 1:49 PM EDT Nori Ibanez APRN POINT OF CARE TEST ORDERABLE S Final Result [facility]
[address] [place] [address], from Last 3 Months or Most Recently Relevant to Health Maintenance Insurance MEDICARE A & B [facility] Care Teams Chief Technician X Ray Relationship Specialty Start Date End Date Ozzie Garibay MD [address] [facility] [place] [facility] [address] [place] [address] PCP - General Internal Medicine 04/02/18
--- OUTSIDE RECORDS SUMMARY | 2025-02-18 09:39 | XMS_ITS | Encounter Summary ---
Author Organization [facility]: [address] Address [address] [place] [address] Care Team Providers Care Loss Prevention Agent Name Role Phone Ozzie Garibay MD Primary Care Provider [phone] Encounter Details Date Type Department Care Team (Late st Contact Info) Description 01/10/2013 Conversion Encounter [facility] HISTORICAL CONV [address] [place] [address] Interface, See Report Social History Tobacco Use Types Packs/Day Years Used Date Smoking Tobacco: Never Assessed Comments Unknown Sex and Gender Information Value Date Recorded Sex Assigned at Female 10/26/2024 3:36 PM EDT Legal Sex Female 10:07 AM EDT Gender Identity Not on file Sexual Orientation Not on file documented as of this encounter Progress Notes * Interface, See Report - 2013 12:00 AM EDT MILLER DISTILLERY-Oncology Services [address] [place], [place] [id number] Patient: MATY AGUAYO. 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 NO OTHER PROBLEMS. NOTED SOME INCREASE IN VAG DRAINAGE Past medical history: Medical: VULVAR CANCER; HYPERLIPIDEMIA, ARTHRITIS, H/O CATARACTS Surgical: VULVAR EXCISION; CATARACT SURGERY, TEETH PULLED, CX PROCEDURE(UNSURE WHAT) FOR ABNORMAL PAP Health maintenance: Mammogram: 06/2012 Colonoscopy: Pap smear: 12/31/11 Tumor Marker: CT Scan: 11/01/12 BMD: Ultrasound: Review of systems: Constitutional: No change in weight, no excessive fatigue Psychiatric: No history of anxiety, depression, bipolar disorder, or insomnia Respiratory: No shortness of breath, cough, asthma, wheezing Cardiovascular: +HYPERLIPIDEMIA. No angina, orthopnea, edema, hypertension, murmur Gastrointestinal: No constipation or diarrhea, no reflux, nausea, or vomiting Genitourinary: No dysuria, hematuria, urgency, or frequency Neurologic: No numbness, weakness, syncope, seizures, or headaches Gynecologic: +VULVAR CA. No abnormal bleeding, vaginal discharge, pelvic pain, of h/o abnml pap smears LMP: P: 0 Vag Deliveries: 0 C-sec: 0 Misc: 0 Additional notes: +ARTHRITIS; +DENTURES; +H/O CATARACTS Medications: Medication Reconciliation for the patient has been reviewed in the EMR. Physical exam: Constitutional: Weight 174.4 Height BP 138/80 Pulse Temp Neurological/Psychiatric: HEENT: Neck: Respiratory: Cardiovascular: Breasts: Gastrointestinal: Lymphatic: Extremities: Gynecologic: External Genitalia: Vagina: ;SMALL DISRUPTION OF INCISION SITE JUST INSIDE VAG ON RT Cervix: Uterus: Ovaries: Parametria: Rectovaginal: Hemoccult: Procedure note: Assessment: SMALL WOUND DEHISCENCE AT SUB PUBIC EXCISION SITE OVERALL SATISFACTORY POST OP RECOVERY ST 2 VULVAR CA Plan: RT 2WKS ?? ST H2O2 IRRIGATION EVENTUAL RADIATION Approved by: Priscilla Chen 2013, 11:13 AM cc: * Interface, See Report - 01/10/2013 12:00 AM EDT MILLER DISTILLERY-Oncology Services [address] [place], [place] [id number] Patient: MATY AGUAYO MR #: : 1940 Date of Visit: 01/10/2013 Attending Physician: Tejal Hilliard Dictated By: TEJAL HILLIARD Referring Physician: NOLVIA COOMBS Diagnosis: VULVAR CANCER Allergies: SULFA History of present illness: 72 yo with newly dx VULVAR CA; POST-OP: VULVAR EXC 01/03/13. PT. DENIESANY PAIN AND IS AFEBRILE. VERY LITTLE DRAINAGE TO GEORGES DRAIN BUT IT WILL NOT STAY COMPRESSED. SMALL AMOUNT OF DRAINAGE FROM INCISION SITE. Bowel and bladder habits have returned to baseline. No leakingof urine or stool. Past medical history: Medical: VULVAR CANCER; HYPERLIPIDEMIA, ARTHRITIS, H/O CATARACTS Surgical: VULVAR EXCISION; CATARACT SURGERY, TEETH PULLED, CX PROCEDURE(UNSURE WHAT) FOR ABNORMAL PAP Health maintenance: Mammogram: Colonoscopy: Pap smear: 12/31/11 Tumor Marker: CT Scan: BMD: Review of systems: Constitutional: No change in weight, no excessive fatigue Psychiatric: No history of anxiety, depression, bipolar disorder, or insomnia Respiratory: No shortness of breath, cough, asthma, wheezing Cardiovascular: +HYPERLIPIDEMIA. No angina, orthopnea, edema, hypertension, murmur Gastrointestinal: No constipation or diarrhea, no reflux, nausea, or vomiting Genitourinary: No dysuria, hematuria, urgency, or frequency Neurologic: No numbness, weakness, syncope, seizures, or headaches Gynecologic: +VULVAR CA. No abnormal bleeding, vaginal discharge, pelvic pain, of h/o abnml pap smears LMP: P: 0 Vag Deliveries: 0 C-sec: 0 Misc: 0 Additional notes: +ARTHRITIS; +DENTURES; +H/O CATARACTS Medications: Medication Reconciliation for the patient has been reviewed in the EMR. Physical exam: Constitutional: Weight 175 Height BP 140/74 Pulse Temp Neurological/Psychiatric: HEENT: Neck: Respiratory: Cardiovascular: Breasts: Gastrointestinal: Lymphatic: right GEORGES partially out - no suction. removed s/difficulty. Ecchymosis around drain site. Extremities: Gynecologic: External Genitalia: Well healing right lateral incision Vagina: ; rectocele, well healing vaginal margin, sutures intact Cervix: Uterus: Ovaries: Parametria: Smooth. Rectovaginal: Hemoccult: Procedure note: Assessment: 72 yo with newly dx Stage IB vulvar cancer (T1B,NX,M0) who presents for post op follow up - incisions healing well, GEORGES removed Plan: Plan for Radiation after completely healed discussed with patient Possiblity of chemo (CDDP?) briefly discussed, but I will leave this to Dr. Zhong for further consideration of pros/cons Rad Onc consult for EBRT after follow up Approved by: Tejal Hilliard 01/10/2013, 12:44 PM cc: documented in this encounter Plan of Treatment Upcoming Encounters Date Type Department Care Team (Late st Contact Info) Description 10/28/2025 1:30 PM EDT Office Visit [facility] GYNECOLOGIC ONCOLOGY [address] [place] [address] Cyndi De La Rosa, SOMMELIER [address] [facility] [address] [place], [place] [address] documented as of this encounter Visit Diagnoses Not on filedocumented in this encounter Care Teams Loss Prevention Agent Relationship Specialty Start Date End Date Ozzie Garibay MD [address] [facility] [address] [place] [address] PCP - General Internal Medicine 04/02/18 documented as of this encounter
--- OUTSIDE RECORDS SUMMARY | 2025-02-18 09:39 | XMS_ITS | Encounter Summary ---
Author Organization [facility] Address [address] [place] [address] Care Team Providers Care Evening Sitter Name Role Phone Ozzie Garibay MD Primary Care Provider [phone] Encounter Details Date Type Department Care Team (Late st Contact Info) Description 05/19/[address] [facility] HISTORICAL CONV [address] [place] [address] Interface, See Report Social History Tobacco Use Types Packs/Day Years Used Date Smoking Tobacco: Never Assessed Comments Unknown Sex and Gender Information Value Date Recorded Sex Assigned at Female 10/26/2024 3:36 PM EDT Legal Sex Female 10:07 AM EDT Gender Identity Not on file Sexual Orientation Not on file documented as of this encounter Progress Notes * Interface, See Report - 05/19/2013 12:00 AM EST COMPANY DRIVER-Oncology Services [address] [place], [place] [address] Patient: MATY AGUAYO MR #: [id number] : 1940 Date of Visit: 05/19/2013 Referring Physician: NOLVIA COOMBS Dictated By: David Arellano MD 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 PT. DENIES ANY CURRENT COMPANY DRIVER PROBLEMS. PT /'S WHAT THE BULGE IS IN VAG. STATES STILL HAS SORENESS Past medical history: Medical: VULVAR CANCER; HYPERLIPIDEMIA, [...] +H/O CATARACTS Medications: Medication Reconciliation for the luna ent has been reviewed in the EMR. Physical exam: Constitutional: Weight 174 Height BP 132/68 Pulse Temp Neurological/Psychiatric: HEENT: Neck: Respiratory: Cardiovascular: Breasts: Gastrointestinal: ; GROINS B9 Lymphatic: Extremities: Gynecologic: External Genitalia: ;RT EXCISION SITE HEALED; NO SUBCUT TISS OVER BONE; NO CUTANEOUS LESION; INTEGUMENT INTACT Vagina: ; GR 2 RECTOCOEL; MORE PRONOUNCED ON RT AT EXCISION SITE Cervix: Uterus: Ovaries: Parametria: Smooth. Rectovaginal: Hemoccult: Procedure note: Assessment: JOHN AT 3M AFTER COMPLETION OF THERAPY MULTIPLE /'S RE ALTERED ANATOMY ( ACTUALLY NO CHANGE; RECTOCOEL WAS THERE PREOP JUST UNDER LABIA) ?'S RE NUMBNESS; EXPLAINED SOME MAY RESOLVE WITH TIME Plan: PAP IN 3M 3M Electronically Signed By: David Arellano MD cc: documented in this encounter Plan of Treatment Upcoming Encounters Date Type Department Care Team (Late st Contact Info) Description 10/28/2025 1:30 PM EDT Office Visit [facility] GYNECOLOGIC ONCOLOGY [address] [facility] [address] [place] [address] Cyndi De La Rosa, SECURITY ROVER [address] [place] [address] documented as of this encounter Visit Diagnoses Not on filedocumented in this encounter Care Teams Evening Sitter Relationship Specialty Start Date End Date Ozzie Garibay MD [address]10 [facility] [address] [place] [address] PCP - General Internal Medicine 04/02/18 documented as of this encounter
--- OUTSIDE RECORDS SUMMARY | 2025-02-18 09:39 | XMS_ITS | Clinical Summary ---
Author Organization [facility] Address [address] [place] [address] Care Team Providers Care Document Review Specialist Name Role Phone Unavailable Primary Care Provider Unavailabl e Social History Tobacco Use Types Packs/Day Years Used Date Smoking Tobacco: Never Assessed Comments Unknown Sex and Gender Information Value Date Recorded Sex Assigned at Not on file Legal Sex Female 6:47 PM EDT Gender Identity Not on file Sexual Orientation Not on file Plan of Treatment Not on file
== END 2025-02-16 23:59 | disposition home or self-care (01) ==
LOC: LAB.DROPOF 02-18 09:37
PROVIDERS: PCP Internal Medicine; Visit Provider Internal Medicine
DX: I48.91 Unspecified atrial fibrillation (principal); I48.92 Unspecified atrial flutter; I10 Essential (primary) hypertension; R60.9 Edema, unspecified; D64.9 Anemia, unspecified
CPT/HCPCS: 80053; 84439; 84443; 85025

== ENCOUNTER 2025-02-19 10:24 | Outpatient (CLI) | payer MEDICARE, OTHER, SELFPAY ==
[2025-02-19 17:53] LABS: Hematocrit 23.5 % (37.0-47.0); Hemoglobin 7.4 g/dL (12.2-16.2)
[2025-02-19 19:00] LABS: Chloride 104 mmol/L (98-107); Potassium 4.4 mmoL/L (3.5-5.1); Sodium 141 mmol/L (136-145)
[2025-02-19 19:01] LABS: Anion Gap 17.4 mEq/L (5-15); Blood Urea Nitrogen 33 mg/dl (7-17); Carbon Dioxide 24 mmol/L (22.0-30.0); Creatinine,Serum 1.30 mg/dl (0.52-1.04); Estimated Glomerular Filt Rate 39 ml/min (>60); GFR (African American) 47 ML/MIN (>60)
[2025-02-19 19:02] LABS: Calcium 9.1 mg/dl (8.4-10.2); Glucose 100 mg/dl (74-100)
--- OUTSIDE RECORDS SUMMARY | 2025-02-23 11:06 | XMS_ITS | Encounter Summary ---
[facility] Organization [facility] Address [address] [place] [address] Care Team Providers Care Aed Trainer Name Role Phone Ozzie Garibay MD Primary Care Provider Encounter Details Date Type Department Care Team (Late st Contact Info) Description 02/07/2013 Conversion Encounter [facility] HISTORICAL CONV [address] [place] [address] Interface, See Report Social History [...] See Report - 02/07/2013 12:00 AM EDT PLUG ASSEMBLER-Oncology Services [address] [place], [place] [address] Patient: MATY AGUAYO. MR #: : 1940 [...] PM EDT Office Visit [facility] GYNECOLOGIC ONCOLOGY [address] [place], [place] [address] Cyndi De La Rosa APRN [address] [place] [address] documented as of this encounter Visit Diagnoses Not on filedocumented in this encounter Care Teams Aed Trainer Relationship Specialty Start Date End Date Ozzie Garibay MD [address] [facility] [address] [place] [address] PCP - General Internal Medicine 04/02/18 documented as of this encounter
--- OUTSIDE RECORDS SUMMARY | 2025-02-23 11:06 | XMS_ITS | Encounter Summary ---
[facility] Address [address] [place] [address] Care Team Providers Care Policewoman Name Role Phone Ozzie Garibay MD Primary Care Provider [phone] Encounter Details Date Type Department Care Team (Late st Contact Info) Description 05/19/2013 Conversion Encounter [facility] HISTORICAL CONV [address] [place] [address] Interface, See Report Social History [...] See Report - 05/19/2013 12:00 AM EST CONTENT EDITOR-Oncology Services [address] [place], [place] [address] Patient: MATY AGUAYO MR #: [id number] : 1940 Date of Visit: 05/19/2013 Referring Physician: NOLVIA COOMBS Dictated By: David Arellano MD 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 PT. DENIES ANY CURRENT CONTENT EDITOR PROBLEMS. PT /'S WHAT THE BULGE IS [...] Description 10/28/2025 1:30 PM EDT Office Visit [facility] GYNECOLOGIC ONCOLOGY [address] [facility] [address] [place] [address] Cyndi De La Rosa, CONFERENCE SPECIALIST [address] [place] [address] documented as of this encounter Visit Diagnoses Not on filedocumented in this encounter Care Teams Policewoman Relationship Specialty Start Date End Date Ozzie Garibay MD [address] [facility] [address] [place] [address] PCP - General Internal Medicine 04/02/18 documented as of this encounter
--- OUTSIDE RECORDS SUMMARY | 2025-02-23 11:06 | XMS_ITS | Encounter Summary ---
Author [facility] Address [address] [place] [address] Care Team Providers Care Computer Hardware Developer Name Role Phone Ozzie Garibay MD Primary Care Provider [phone] Encounter Details Date Type Department Care Team (Late st Contact Info) Description 01/10/2013 Conversion Encounter [facility] HISTORICAL CONV [address] [place] [address] Interface, See Report Social History [...] See Report - 2013 12:00 AM EDT HEADING MACHINE OPERATOR-Oncology Services [address] [place], [place] [address] Patient: MATY AGUAYO. MR #: : 1940 [...] See Report - 01/10/2013 12:00 AM EDT HEADING MACHINE OPERATOR-Oncology Services [address] [place], [place] [address] Patient: MATY AGUAYO MR #: : 1940 [...] Description 10/28/2025 1:30 PM EDT Office Visit [facility] GYNECOLOGIC ONCOLOGY [address] [place] [address] Cyndi De La Rosa, SENIOR TRAINER [address] [facility] [address] [place], [place] [address] documented as of this encounter Visit Diagnoses Not on filedocumented in this encounter Care Teams Computer Hardware Developer Relationship Specialty Start Date End Date Ozzie Garibay MD [address] [facility] [address] [place] [address] PCP - General Internal Medicine 04/02/18 documented as of this encounter
--- OUTSIDE RECORDS SUMMARY | 2025-02-23 11:06 | XMS_ITS | Encounter Summary ---
[facility] Address [address] [place] [address] Care Team Providers Care Can Coverer Name Role Phone Ozzie Garibay MD Primary Care Provider [phone] Encounter Details Date Type Department Care Team (Late st Contact Info) Description 12/23/2012 Conversion Encounter [facility] HISTORICAL CONV [address] [place] [address] Interface, See Report Social History [...] See Report - 12/23/2012 12:00 AM EDT TOPPER PRESS OPERATOR-Oncology Services [address] [place], [place] [address] Patient: MATY AGUAYO. MR #: : 1940 [...] exam: Constitutional: Weight 177 [place] [address] Pulse Temp Neurological/Psychiatric: HEENT: Neck: Respiratory: Cardiovascular: [...] 10/28/2025 1:30 PM EDT Office Visit [facility] GYNECOLOGIC ONCOLOGY [address] [facility] [address] [place] [address] Cyndi De La Rosa APRN [address] [facility] [address] [place], [place] [address] documented as of this encounter Visit Diagnoses Not on filedocumented in this encounter Care Teams Can Coverer Relationship Specialty Start Date End Date Ozzie Garibay MD 1210 [facility] [address] [facility] [address] [place] [address] PCP - General Internal Medicine 04/02/18 documented as of this encounter
--- OUTSIDE RECORDS SUMMARY | 2025-02-23 11:07 | XMS_ITS | Clinical Summary ---
Author Organization [facility] Address [address] [place] [address] Care Team Providers Care Elevator Erector Helper Name Role Phone Unavailable Primary Care Provider [...]
--- OUTSIDE RECORDS SUMMARY | 2025-02-23 11:07 | XMS_ITS | Clinical Summary ---
Author Organization [facility] Address [address] [place] [address] Care Team Providers Care Septic Tank Cleaner Name Role Phone Ozzie Garibay MD Primary Care Provider [phone] Allergies Active Allergy Reactions Criticality Noted Date [...] Description 10/28/2025 1:30 PM EDT Office Visit [facility] GYNECOLOG[facility] ONCOLOGY [address] [facility] [address] [place] [address] Cyndi De La Rosa, GUN MECHANIC [address] [facility] [address] [place], [place] [id number] Health Maintenance Due Date Last Done Comments [...] 1:49 PM EDT) Fecal Occult Blood Normal [facility] Stool 02/09/2016 1:49 PM EDT Nori Ibanez APRN POINT OF CARE TEST ORDERABLE S Final Result [facility]
[address] [place] [address], from Last 3 Months or Most Recently Relevant to Health Maintenance Insurance MEDICARE A & B [facility] CARE [facility] Care Teams Septic Tank Cleaner Relationship Specialty Start Date End Date Ozzie Garibay MD [address]10 [facility] [address] [place] [address] PCP - General Internal Medicine 04/02/18
== END 2025-02-19 23:59 ==
LOC: LAB.DROPOF 02-23 10:25
PROVIDERS: PCP Internal Medicine; Visit Provider Internal Medicine
DX: I50.9 Heart failure, unspecified (principal); R60.9 Edema, unspecified; D50.9 Iron deficiency anemia, unspecified
CPT/HCPCS: 80048; 85014; 85018

== ENCOUNTER 2025-02-24 14:17 | Outpatient (CLI) | payer MEDICARE, OTHER, SELFPAY ==
--- OUTSIDE RECORDS SUMMARY | 2025-02-24 14:34 | XMS_ITS | Encounter Summary ---
[facility] [address] [place] [address] Care Team Providers Care Wig Stylist Name Role Phone Ozzie Garibay MD Primary Care Provider [phone] Encounter Details Date Type Department Care Team (Late st Contact Info) Description 02/07/2013 Conversion Encounter [facility] HISTORICAL CONV [address] [place] [address] Interface, See Report Social History [...] See Report - 02/07/2013 12:00 AM EDT UNIT CONTROL CLERK-Oncology Services [address] [place], [place] [address] Patient: MATY AGUAYO. MR #: : 1940 [...] Description 10/28/2025 1:30 PM EDT Office Visit [facility] GYNECOLOGIC ONCOLOGY [address] [place], [place] [address] Cyndi De La Rosa APRN [address] [place] [address] documented as of this encounter Visit Diagnoses Not on filedocumented in this encounter Care Teams Wig Stylist Relationship Specialty Start Date End Date Ozzie Garibay MD 1210 [facility] [address] [place] [address] PCP - General Internal Medicine 04/02/18 documented as of this encounter
--- OUTSIDE RECORDS SUMMARY | 2025-02-24 14:34 | XMS_ITS | Encounter Summary ---
[facility] Address [address] [place] [address] Care Team Providers Care Electrocardiograph Repairer Name Role Phone Ozzie Garibay MD Primary Care Provider [phone] Encounter Details Date Type Department Care Team (Late st Contact Info) Description 01/10/2013 Conversion Encounter [facility] HISTORICAL CONV [address] [place] [address] Interface, See Report Social History [...] See Report - 2013 12:00 AM EDT SYSTEM SUPPORT ADMINISTRATOR-Oncology Services [address] [place], [place] [address] Patient: MATY AGUAYO. MR #: : 1940 [...] See Report - 01/10/2013 12:00 AM EDT SYSTEM SUPPORT ADMINISTRATOR-Oncology Services [address] [place], [place] [address] Patient: MATY AGUAYO MR #: : 1940 [...] Description 10/28/2025 1:30 PM EDT Office Visit [facility] GYNECOLOGIC ONCOLOGY [address] [place] [address] Cyndi De La Rosa, NONDESTRUCTIVE TESTER [address] [facility] [address] [place], [place] [address] documented as of this encounter Visit Diagnoses Not on filedocumented in this encounter Care Teams Electrocardiograph Repairer Relationship Specialty Start Date End Date Ozzie Garibay MD 1210 [facility] [address] [place] [address] PCP - General Internal Medicine 04/02/18 documented as of this encounter
--- OUTSIDE RECORDS SUMMARY | 2025-02-24 14:34 | XMS_ITS | Clinical Summary ---
Author Organization [facility] Address [address] [place] [address] Care Team Providers Care Brim Presser Name Role Phone Unavailable Primary Care Provider [...]
--- OUTSIDE RECORDS SUMMARY | 2025-02-24 14:34 | XMS_ITS | Encounter Summary ---
[facility] Address [address] [place] [address] Care Team Providers Care Product/Device Technologist Name Role Phone Ozzie Garibay MD Primary Care Provider [phone] Encounter Details Date Type Department Care Team (Late st Contact Info) Description 12/23/2012 Conversion Encounter [facility] HISTORICAL CONV [address] [place] [address] Interface, See Report Social History [...] See Report - 12/23/2012 12:00 AM EDT FUR SCRAPER-Oncology Services [address] [place], [place] [address] Patient: MATY AGUAYO. MR #: : 1940 [...] exam: Constitutional: Weight 177 [place] [address] Pulse Temp Neurological/Psychiatric: HEENT: Neck: Respiratory: Cardiovascular: [...] Description 10/28/2025 1:30 PM EDT Office Visit [facility] GYNECOLOGIC ONCOLOGY [address] [facility] [address] [place] [address] Cyndi De La Rosa APRN [address] [facility] [address] [place], [place] [address] documented as of this encounter Visit Diagnoses Not on filedocumented in this encounter Care Teams Product/Device Technologist Relationship Specialty Start Date End Date Ozzie Garibay MD 1210 [facility] [address] [facility] [address] [place] [address] PCP - General Internal Medicine 04/02/18 documented as of this encounter
--- OUTSIDE RECORDS SUMMARY | 2025-02-24 14:34 | XMS_ITS | Clinical Summary ---
Author Organization [facility] Address [address] [place] [address] Care Team Providers Care Microwave Radio Technician Name Role Phone Ozzie Garibay MD Primary Care Provider [phone] Allergies Active Allergy Reactions Criticality Noted Date [...] 10/28/2025 1:30 PM EDT Office Visit [facility] GYNECOLOGIC ONCOLOGY [address] [facility] [address] [place] [address] Cyndi De La Rosa, TURKEY FARMER [address] [facility] [address] [place], [place] [address] Health Maintenance Due Date Last Done Comments [...] 1:49 PM EDT) Fecal Occult Blood Normal [facility] Stool 02/09/2016 1:49 PM EDT Nori Ibanez APRN POINT OF CARE TEST ORDERABLE S Final Result [facility]
[address] [place] [address], from Last 3 Months or Most Recently Relevant to Health Maintenance Insurance MEDICARE A & B [facility] C[facility] Care Teams Microwave Radio Technician Relationship Specialty Start Date End Date Ozzie Garibay MD 1210 [facility] [address] [place] [address] PCP - General Internal Medicine 04/02/18
--- OUTSIDE RECORDS SUMMARY | 2025-02-24 14:34 | XMS_ITS | Encounter Summary ---
[facility] Address [address] [place] [address] Care Team Providers Care Rn Patient Care Name Role Phone Ozzie Garibay MD Primary Care Provider [phone] Encounter Details Date Type Department Care Team (Late st Contact Info) Description 05/19/2013 Conversion Encounter [facility] HISTORICAL CONV [address] [place] [address] Interface, See Report Social History [...] See Report - 05/19/2013 12:00 AM EST AUTOMOTIVE MANUFACTURER-Oncology Services [address] [place], [place] [address] Patient: MATY AGAUYO MR #: [id number] : 1940 Date of Visit: 05/19/2013 Referring Physician: NOLVIA COOMBS Dictated By: David Arellano MD 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 PT. DENIES ANY CURRENT AUTOMOTIVE MANUFACTURER PROBLEMS. PT /'S WHAT THE BULGE IS [...] Description 10/28/2025 1:30 PM EDT Office Visit [facility] GYNECOLOGIC ONCOLOGY [address] [facility] [address] [place] [address] Cyndi De La Rosa, RECRUITMENT COORDINATOR [address] [place] [address] documented as of this encounter Visit Diagnoses Not on filedocumented in this encounter Care Teams Rn Patient Care Relationship Specialty Start Date End Date Ozzie Garibay MD [address] [facility] [address] [place] [address] PCP - General Internal Medicine 04/02/18 documented as of this encounter
[2025-02-24 15:22] LABS: Hematocrit 25.6 % (37.0-47.0); Hemoglobin 7.7 g/dL (12.2-16.2); Immature Granulocytes % 0.4 %; Mean Corpuscular HGB Conc 30.1 g/dL (31.8-35.4); Mean Corpuscular Hemoglobin 22.4 pg (27.0-31.2); Mean Corpuscular Volume 74.4 fl (81-99); Nucleated Red Blood Cells % 0 %; Platelet Count 396 K/mm3 (142-424); Red Blood Count 3.44 M/mm3 (4.20-5.40); Red Cell Distribution Width-SD 46.0 fL; White Blood Count 11.9 K/mm3 (4.8-10.8)
[2025-02-24 16:10] LABS: Iron 27 ug/dL (37-170)
[2025-02-24 16:15] LABS: Alanine Aminotransferase 14 U/L (12-78); Albumin Level 4.0 g/dl (3.5-5.0); Alkaline Phosphatase 105 U/L (38-126); Anion Gap 17.4 mEq/L (5-15); Aspartate Amino Transferase 28 U/L (14-36); Bilirubin,Direct 0.3 mg/dl (0.0-0.4); Bilirubin,Indirect 0.4 mg/dL (0.0-0.9); Bilirubin,Total 0.7 mg/dl (0.2-1.3); Bilirubin,Unconjugated 0.4 mg/dL (0.0-1.1); Blood Urea Nitrogen 33 mg/dl (7-17); Calcium 9.5 mg/dl (8.4-10.2); Carbon Dioxide 30 mmol/L (22.0-30.0); Chloride 95 mmol/L (98-107); Cholesterol 113 mg/dl (140-200); Creatinine,Serum 1.40 mg/dl (0.52-1.04); Estimated Glomerular Filt Rate 36 ml/min (>60); GFR (African American) 43 ML/MIN (>60); Glucose 108 mg/dl (74-100); HDL Cholesterol 35 mg/dl (40-60); Magnesium 1.9 mg/dl (1.6-2.3); Potassium 3.4 mmoL/L (3.5-5.1); Sodium 139 mmol/L (136-145); Total Protein,Serum 7.2 g/dl (6.3-8.2); Triglycerides 68 mg/dl (30-150)
[2025-02-24 16:20] LABS: Total Iron Binding Capacity 361 ug/dL (265-497)
[2025-02-24 16:34] LABS: Free T4 (Free Thyroxine) 1.46 ng/dl (0.78-2.19)
[2025-02-24 16:47] LABS: Thyroid Stimulating Hormone 1.10 uIU/mL (0.465-4.68)
[2025-02-25 13:52] LABS: NT Pro Brain Natriuretic Pep. 2610 pg/mL (0-450)
== END 2025-02-24 23:59 | disposition home or self-care (01) ==
LOC: LAB 14:18
PROVIDERS: Physician Assistant; PCP Internal Medicine; Visit Provider Internal Medicine
DX: I11.0 Hypertensive heart disease with heart failure (principal); D50.9 Iron deficiency anemia, unspecified; R60.9 Edema, unspecified; I50.9 Heart failure, unspecified; I48.91 Unspecified atrial fibrillation; E78.5 Hyperlipidemia, unspecified
CPT/HCPCS: 36415; 80048; 80061; 80076; 83540; 83550; 83735; 83880; 84439; 84443; 85025; 93270

== ENCOUNTER 2025-02-26 08:15 | Outpatient (CLI) | payer MEDICARE, OTHER, SELFPAY ==
--- NOTE | 2025-02-26 08:22 | XR_ITS ---
FINAL REPORT CLINICAL HISTORY: dyspnea, FINDINGS: PA and lateral views of the chest were obtained. There is no prior exam for comparison. The heart is mildly enlarged. The mediastinum is unremarkable. The lungs are hyperinflated. There is no pleural effusion or pneumothorax. No acute osseous abnormality is identified. IMPRESSION: Cardiomegaly. Reviewed, Interpreted and Dictated by Hannah Madrigal MD Transcribed by Ny Allison Authenticated and . [facility]
--- OUTSIDE RECORDS SUMMARY | 2025-02-26 08:32 | XMS_ITS | Encounter Summary ---
[facility] Address [address] [place] [address] Care Team Providers Care Beader Tender Name Role Phone Ozzie Garibay MD Primary Care Provider [phone] Encounter Details Date Type Department Care Team (Late st Contact Info) Description 01/10/2013 Conversion Encounter [facility] HISTORICAL CONV [address] [place] [address] Interface, See Report Social History [...] See Report - 2013 12:00 AM EDT PROGRAM MANAGER TRANSPORTATION-Oncology Services [address] [place], [place] [address] Patient: MATY AGUAYO. MR #: : 1940 [...] See Report - 01/10/2013 12:00 AM EDT PROGRAM MANAGER TRANSPORTATION-Oncology Services [address] [place], [place] [address] Patient: MATY AGUAYO MR #: : 1940 [...] Description 10/28/2025 1:30 PM EDT Office Visit [facility] GYNECOLOGIC ONCOLOGY [address] [place] [address] Cyndi De La Rosa, PARER [address] [facility] [address] [place], [place] [address] documented as of this encounter Visit Diagnoses Not on filedocumented in this encounter Care Teams Beader Tender Relationship Specialty Start Date End Date Ozzie Garibay MD 1210 [facility] [address] [place] [address] PCP - General Internal Medicine 04/02/18 documented as of this encounter
--- OUTSIDE RECORDS SUMMARY | 2025-02-26 08:32 | XMS_ITS | Clinical Summary ---
Author Organization [facility] Address [address] [place] [address] Care Team Providers Care Addictions Recovery Specialist Name Role Phone Ozzie Garibay MD Primary Care Provider [phone] Allergies Active Allergy Reactions Criticality Noted Date [...] Description 10/28/2025 1:30 PM EDT Office Visit [facility] GYNECOLOGIC ONCOLOGY [address] [facility] [address] [place] [address] Cyndi De La Rosa, MODULAR HOME CREW MEMBER [address] [facility] [address] [place], [place] [address] Health Maintenance Due Date Last Done Comments [...] 1:49 PM EDT) Fecal Occult Blood Normal [facility] Stool 02/09/2016 1:49 PM EDT Nori Ibanez APRN POINT OF CARE TEST ORDERABLE S Final Result [facility]
[address] [place] [address], from Last 3 Months or Most Recently Relevant to Health Maintenance Insurance MEDICARE A & B [facility] Care Teams Addictions Recovery Specialist Relationship Specialty Start Date End Date Ozzie Garibay MD 1210 [facility] [address] [place] [address] PCP - General Internal Medicine 04/02/18
--- OUTSIDE RECORDS SUMMARY | 2025-02-26 08:32 | XMS_ITS | Encounter Summary ---
[facility] Address [address] [place] [address] Care Team Providers Care Manager Pacu Name Role Phone Ozzie Garibay MD Primary Care Provider [phone] Encounter Details Date Type Department Care Team (Late st Contact Info) Description 12/23/2012 Conversion Encounter [facility] HISTORICAL CONV [address] [place] [address] Interface, See Report Social History [...] See Report - 12/23/2012 12:00 AM EDT CRYPTOZOOLOGIST-Oncology Services [address] [place], [place] [address] Patient: MATY AGUAYO. MR #: : 1940 [...] exam: Constitutional: Weight 177 Height 65 [place] [address] Pulse Temp Neurological/Psychiatric: HEENT: Neck: Respiratory: Cardiovascular: [...] Visit [facility] GYNECOLOGIC ONCOLOGY [address] [facility] [address] [place] [address] Cyndi De La Rosa APRN [address] [facility] [address] [place], [place] [address] documented as of this encounter Visit Diagnoses Not on filedocumented in this encounter Care Teams Manager Pacu Relationship Specialty Start Date End Date Ozzie Garibay MD 1210 [facility] [address] [facility] [address] [place] [address] PCP - General Internal Medicine 04/02/18 documented as of this encounter
--- OUTSIDE RECORDS SUMMARY | 2025-02-26 08:32 | XMS_ITS | Encounter Summary ---
[facility] Address [address] [place] [address] Care Team Providers Care Medical Front Desk Coordinator Name Role Phone Ozzie Garibay MD Primary Care Provider [phone] Encounter Details Date Type Department Care Team (Late st Contact Info) Description 02/07/2013 Conversion Encounter [facility] HISTORICAL CONV [address] [place] [address] Interface, See Report Social History [...] See Report - 02/07/2013 12:00 AM EDT BRIDGE CONSTRUCTION INSPECTOR-Oncology Services [address] [place], [place] [address] Patient: MATY AGUAYO. MR #: : 1940 [...] 1:30 PM EDT Office Visit [facility] GYNECOLOGIC ONCOLOGY [address] [place], [place] [id number] Cyndi De La Rosa APRN [address] [place] [address] documented as of this encounter Visit Diagnoses Not on filedocumented in this encounter Care Teams Medical Front Desk Coordinator Relationship Specialty Start Date End Date Ozzie Garibay MD 1210 [facility] [address] [place] [address] PCP - General Internal Medicine 04/02/18 documented as of this encounter
--- OUTSIDE RECORDS SUMMARY | 2025-02-26 08:32 | XMS_ITS | Clinical Summary ---
Author Organization Healthcare Address [address] [place] [address] Care Team Providers Care Barrel Plater Name Role Phone Unavailable Primary Care Provider [...]
--- OUTSIDE RECORDS SUMMARY | 2025-02-26 08:32 | XMS_ITS | Encounter Summary ---
[facility] [address] [place] [address] Care Team Providers Care Special Events Director Name Role Phone Ozzie Garibay MD Primary Care Provider [phone] Encounter Details Date Type Department Care Team (Late st Contact Info) Description 05/19/[address] 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 PT. DENIES ANY CURRENT SPECTROGRAPHER PROBLEMS. PT /'S WHAT THE BULGE IS [...] [facility] GYNECOLOGIC ONCOLOGY [address] [facility] [address] [place] [address] Cyndi De La Rosa, POWER GENERATING PLANT OPERATOR [address] [place] [address] documented as of this encounter Visit Diagnoses Not on filedocumented in this encounter Care Teams Special Events Director Relationship Specialty Start Date End Date Ozzie Garibay MD [address]10 [facility] [address] [place] [address] PCP - General Internal Medicine 04/02/18 documented as of this encounter
== END 2025-02-26 23:59 | disposition home or self-care (01) ==
LOC: RAD 08:17
PROVIDERS: PCP Internal Medicine; Visit Provider Physician Assistant
DX: I51.7 Cardiomegaly (principal); D50.9 Iron deficiency anemia, unspecified
CPT/HCPCS: 71046

== ENCOUNTER 2025-03-04 14:20 | Outpatient (CLI) | payer MEDICARE, OTHER, SELFPAY ==
[2025-03-04 18:10] LABS: Hematocrit 24.5 % (37.0-47.0); Hemoglobin 7.1 g/dL (12.2-16.2); Immature Granulocytes % 0.4 %; Mean Corpuscular HGB Conc 29.0 g/dL (31.8-35.4); Mean Corpuscular Hemoglobin 21.6 pg (27.0-31.2); Mean Corpuscular Volume 74.5 fl (81-99); Nucleated Red Blood Cells % 0 %; Platelet Count 291 K/mm3 (142-424); Red Blood Count 3.29 M/mm3 (4.20-5.40); Red Cell Distribution Width-SD 46.6 fL; White Blood Count 10.1 K/mm3 (4.8-10.8)
--- OUTSIDE RECORDS SUMMARY | 2025-03-06 09:22 | XMS_ITS | Clinical Summary ---
Author Organization [facility] Address [address] [place] [address] Care Team Providers Care Procurement Buyer Name Role Phone Ozzie Garibay MD Primary Care Provider [phone] Allergies Active Allergy Reactions Criticality Noted Date [...] Description 10/28/2025 1:30 PM EDT Office Visit [facility] GYNECOLOGIC ONCOLOGY [address] [facility] [address] [place] [address] Cyndi De La Rosa, FINANCIAL SALES ADVISOR [address] [facility] [address] [place], [place] [address] Health Maintenance Due Date Last Done Comments [...] 1:49 PM EDT) Fecal Occult Blood Normal [facility] Stool 02/09/2016 1:49 PM EDT Nori Ibanez APRN POINT OF CARE TEST ORDERABLE S Final Result [facility]
[address] [place] [address], from Last 3 Months or Most Recently Relevant to Health Maintenance Insurance MEDICARE A & B [facility] Care Teams Procurement Buyer Relationship Specialty Start Date End Date Ozzie Garibay MD [address] [place] [address] [address] [place] [address] PCP - General Internal Medicine 04/02/18
--- OUTSIDE RECORDS SUMMARY | 2025-03-06 09:22 | XMS_ITS | Encounter Summary ---
[facility] [address] [place] [address] Care Team Providers Care Sourcing Associate Name Role Phone Ozzie Garibay MD Primary Care Provider [phone] Encounter Details Date Type Department Care Team (Late st Contact Info) Description 02/07/2013 Conversion Encounter [facility] HISTORICAL CONV [address] [place] [address] Interface, See Report Social History [...] See Report - 02/07/2013 12:00 AM EDT ADVERTISING JOB TITLES-Oncology Services [address] [place], [place] [address] Patient: MATY AGUAYO. MR #: : 1940 [...] 1:30 PM EDT Office Visit [facility] GYNECOLOGIC ONCOLOGY [address] [place], [place] [address] Cyndi De La Rosa APRN [address] [place] [address] documented as of this encounter Visit Diagnoses Not on filedocumented in this encounter Care Teams Sourcing Associate Relationship Specialty Start Date End Date Ozzie Garibay MD 1210 [facility] [address] [place] [address] PCP - General Internal Medicine 04/02/18 documented as of this encounter
--- OUTSIDE RECORDS SUMMARY | 2025-03-06 09:22 | XMS_ITS | Encounter Summary ---
[facility] Organization [facility] Address [address] [place] [address] Care Team Providers Care Laborer Filter Plant Name Role Phone Ozzie Garibay MD Primary Care Provider [phone] Encounter Details Date Type Department Care Team (Late st Contact Info) Description 05/19/2013 Conversion Encounter [facility] HISTORICAL CONV [address] [place] [address] Interface, See Report Social History [...] See Report - 05/19/2013 12:00 AM EST SUSTAINABLE DESIGN CONSULTANT-Oncology Services [address] [place], [place] [address] Patient: MATY AGUAYO MR #: [id number] : 1940 Date of Visit: 05/19/2013 Referring Physician: NOLVIA COOMBS Dictated By: David Arellano MD 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 PT. DENIES ANY CURRENT SUSTAINABLE DESIGN CONSULTANT PROBLEMS. PT /'S WHAT THE BULGE IS [...] Description 10/28/2025 1:30 PM EDT Office Visit [facility] GYNECOLOGIC ONCOLOGY [address] [facility] [address] [place] [address] Cyndi De La Rosa, FELT CHECKER [address] [place] [address] documented as of this encounter Visit Diagnoses Not on filedocumented in this encounter Care Teams Laborer Filter Plant Relationship Specialty Start Date End Date Ozzie Garibay MD [address] [facility] [address] [place] [address] PCP - General Internal Medicine 04/02/18 documented as of this encounter
--- OUTSIDE RECORDS SUMMARY | 2025-03-06 09:22 | XMS_ITS | Encounter Summary ---
[facility] Address [address] [place] [address] Care Team Providers Care Bowling Alley Manager Name Role Phone Ozzie Garibay MD Primary Care Provider [phone] Encounter Details Date Type Department Care Team (Late st Contact Info) Description 01/10/2013 Conversion Encounter [facility] HISTORICAL CONV [address] [place] [address] Interface, See Report Social History [...] See Report - 2013 12:00 AM EDT TARIFF INSPECTOR-Oncology Services [address] [place], [place] [address] Patient: MATY AGUAYO. MR #: : 1940 [...] See Report - 01/10/2013 12:00 AM EDT TARIFF INSPECTOR-Oncology Services [address] [place], [place] [address] Patient: MATY AGUAYO MR #: : 1940 [...] 1:30 PM EDT Office Visit [facility] GYNECOLOGIC ONCOLOGY [address] [place] [address] Cyndi De La Rosa, VARIETY SAW OPERATOR 1700 [facility] [address] [place], [place] [address] documented as of this encounter Visit Diagnoses Not on filedocumented in this encounter Care Teams Bowling Alley Manager Relationship Specialty Start Date End Date Ozzie Garibay MD 1210 [facility] [address] [place] [address] PCP - General Internal Medicine 04/02/18 documented as of this encounter
--- OUTSIDE RECORDS SUMMARY | 2025-03-06 09:22 | XMS_ITS | Encounter Summary ---
[facility] Address [address] [place] [address] Care Team Providers Care Welfare Eligibility Worker Name Role Phone Ozzie Garibay MD Primary Care Provider Encounter Details Date Type Department Care Team (Late st Contact Info) Description 12/23/2012 Conversion Encounter [facility] HISTORICAL CONV [address] [place] [address] Interface, See Report Social History [...] See Report - 12/23/2012 12:00 AM EDT HEALTH SCIENCE SPECIALIST-Oncology Services [address] [place], [place] [address] Patient: MATY AGUAYO MR #: : 1940 [...] exam: Constitutional: Weight 177 [place] 65 [place] [address] Pulse Temp Neurological/Psychiatric: HEENT: Neck: Respiratory: Cardiovascular: [...] Description 10/28/2025 1:30 PM EDT Office Visit [facility] GYNECOLOGIC ONCOLOGY [address] [facility] [address] [place] [address] Cyndi De La Rosa APRN 1700 [facility] [address] [place], [place] [address] documented as of this encounter Visit Diagnoses Not on filedocumented in this encounter Care Teams Welfare Eligibility Worker Relationship Specialty Start Date End Date Ozzie Garibay MD 1210 [facility] [address] [place] [address] PCP - General Internal Medicine 04/02/18 documented as of this encounter
--- OUTSIDE RECORDS SUMMARY | 2025-03-06 09:22 | XMS_ITS | Clinical Summary ---
Author Organization Healthcare Address [address] [place] [address] Care Team Providers Care Integrated Marketing Specialist Name Role Phone Unavailable Primary Care [...]
== END 2025-03-04 23:59 ==
LOC: LAB.DROPOF 03-06 09:20
PROVIDERS: PCP Internal Medicine; Visit Provider Internal Medicine
DX: D64.9 Anemia, unspecified (principal)
CPT/HCPCS: 85025

== ENCOUNTER 2025-03-05 11:48 | Outpatient (CLI) | payer MEDICARE, OTHER, SELFPAY ==
--- NOTE | 2025-03-05 | CA_ITS ---
APPROVED REPORT Exam: Pharmacologic Technologist: Imelda Street Ht: 5 ft 6 in Wt: 139 lbs BSA: 1.71 m2 HR: 68 bpm BP: 152/40 mmHg Rhythm: NSR Medical History Medications: Tylenol, Atorvastatin, Bisoprolol Fumarate, Vitamin D3, Lomotil, Lasix, Lopid, Percocet, Lorsartan-HCTZ, Pantoprazole, Ferres, Potassium Chloride ER, Terbinafine. Stress Test Details Test: Lexiscan Reason for pharmacologic stress test: physical limitation. HR Resting HR: 68 bpm Max Heart Rate (APMHR): 135 bpm Max HR Achieved: 75 bpm Target HR (85% APMHR): 115 bpm % of APMHR: 56 Recovery HR: 71 bpm BP Resting BP: 152.0/40.0 mmHg Max BP: 152.0/40.0 mmHg Recovery BP: 142.0/57.0 mmHg ECG Resting ECG: NSR, 1st degree AVB, PACs, PVCs Stress ECG Conclusion Symptoms: None. Arrhythmias/Ectopy: PVC ST-T Changes: less than 0.5mm upsloping ST segment changes. Conclusion: Nondiagnostic ECG/Lexiscan. Electronically signed by : Lorena De Guzman MD 03/06/2025 23:29:19
--- OUTSIDE RECORDS SUMMARY | 2025-03-05 11:51 | XMS_ITS | Encounter Summary ---
[facility] Address [address] [place] [address] Care Team Providers Care Cryptologic Technician Technical Name Role Phone Ozzie Garibay MD Primary Care Provider [phone] Encounter Details Date Type Department Care Team (Late st Contact Info) Description 02/07/2013 Conversion Encounter [facility] HISTORICAL CONV [address] [place] [address] Interface, See Report Social History [...] See Report - 02/07/2013 12:00 AM EDT TINSMITH APPRENTICE-Oncology Services [address] [place], [place] [address] Patient: MATY AGUAYO. MR #: : 1940 [...] Description 10/28/2025 1:30 PM EDT Office Visit [facility] GYNECOLOGIC ONCOLOGY [address] [place], [place] [address] Cyndi De La Rosa APRN [address] [place] [address] documented as of this encounter Visit Diagnoses Not on filedocumented in this encounter Care Teams Cryptologic Technician Technical Relationship Specialty Start Date End Date Ozzie Garibay MD 1210 [facility] [address] [place] [address] PCP - General Internal Medicine 04/02/18 documented as of this encounter
--- OUTSIDE RECORDS SUMMARY | 2025-03-05 11:51 | XMS_ITS | Encounter Summary ---
[facility] Address [address] [place] [address] Care Team Providers Care Supervisor Powder And Primer Canning Name Role Phone Ozzie Garibay MD Primary Care Provider [phone] Encounter Details Date Type Department Care Team (Late st Contact Info) Description 01/10/[address] [facility] HISTORICAL CONV [address] [place] [address] Interface, See Report Social History [...] See Report - 2013 12:00 AM EDT RECEIVING AND PROCESSING SUPERVISOR-Oncology Services [address] [place], [place] [address] Patient: MATY AGUAYO. MR #: : 1940 [...] See Report - 01/10/2013 12:00 AM EDT RECEIVING AND PROCESSING SUPERVISOR-Oncology Services [address] [place], [place] [address] Patient: MATY AGUAYO MR #: : 1940 [...] Description 10/28/2025 1:30 PM EDT Office Visit [facility] GYNECOLOGIC ONCOLOGY [address] [place] [address] Cyndi De La Rosa, VP COMPLIANCE [address] [facility] [address] [place], [place] [address] documented as of this encounter Visit Diagnoses Not on filedocumented in this encounter Care Teams Supervisor Powder And Primer Canning Relationship Specialty Start Date End Date Ozzie Garibay MD 1210 [facility] [address] [place] [address] PCP - General Internal Medicine 04/02/18 documented as of this encounter
--- OUTSIDE RECORDS SUMMARY | 2025-03-05 11:51 | XMS_ITS | Encounter Summary ---
[facility] Address [address] [place] [address] Care Team Providers Care Etch Operator Semiconductor Wafers Name Role Phone Ozzie Garibay MD Primary Care Provider [phone] Encounter Details Date Type Department Care Team (Late st Contact Info) Description 12/23/2012 Conversion Encounter [facility] HISTORICAL CONV [address] [place] [address] Interface, See Report Social History [...] See Report - 12/23/2012 12:00 AM EDT INTEGRITY CONSULTANT-Oncology Services [address] [place], [place] [address] Patient: MATY AGUAYO MR #: : 1940 [...] exam: Constitutional: Weight 177 [place] 65 [place] [address] Pulse Temp Neurological/Psychiatric: HEENT: Neck: Respiratory: Cardiovascular: [...] [facility] GYNECOLOGIC ONCOLOGY [address] [facility] [address] [place] [address] Cyndi De La Rosa APRN 1700 [facility] [address] [place], [place] [address] documented as of this encounter Visit Diagnoses Not on filedocumented in this encounter Care Teams Etch Operator Semiconductor Wafers Relationship Specialty Start Date End Date Ozzie Garibay MD 1210 [facility] [address] [place] [address] PCP - General Internal Medicine 04/02/18 documented as of this encounter
--- OUTSIDE RECORDS SUMMARY | 2025-03-05 11:51 | XMS_ITS | Clinical Summary ---
Author Organization [facility] Address [address] [place] [address] Care Team Providers Care Blunger Loader Name Role Phone Unavailable Primary Care Provider [...]
--- OUTSIDE RECORDS SUMMARY | 2025-03-05 11:51 | XMS_ITS | Clinical Summary ---
Author Organization [facility] Address [address] [place] [address] Care Team Providers Care Stave Block Splitter Name Role Phone Ozzie Garibay MD Primary Care Provider [phone] Allergies Active Allergy Reactions Criticality Noted Date [...] Office Visit [facility] GYNECOLOGIC ONCOLOGY [address] [facility] [address] [place] [address] Cyndi De La Rosa, TRIAL JUDGE [address] [facility] [address] [place], [place] [address] Health Maintenance Due Date Last Done Comments [...] 06/16/2021 06/16/2020, 06/01/2019 COVID-19 Vaccine (4 - 2024-2 6 season) 2025 05/11/2021, 09/01/2020, 08/04/2020 INFLUENZA VACCINE 04/01/2025 04/14/2024, [...] 1:49 PM EDT) Fecal Occult Blood Normal [facility] Stool 02/09/2016 1:49 PM EDT Nori Ibanez APRN POINT OF CARE TEST ORDERABLE S Final Result [facility]
[address] [place] [address], from Last 3 Months or Most Recently Relevant to Health Maintenance Insurance MEDICARE A & B [facility] [facility] OPTIONS [facility] Care Teams Stave Block Splitter Relationship Specialty Start Date End Date Ozzie Garibay MD [address] [place] [address] [address] [place] [address] PCP - General Internal Medicine 04/02/18
--- OUTSIDE RECORDS SUMMARY | 2025-03-05 11:51 | XMS_ITS | Encounter Summary ---
[facility] Address [address] [place] [address] Care Team Providers Care Horse Groomer Name Role Phone Ozzie Garibay MD Primary Care Provider [phone] Encounter Details Date Type Department Care Team (Late st Contact Info) Description 05/19/2013 Conversion Encounter [facility] HISTORICAL CONV [address] [place] [address] Interface, See Report Social History [...] See Report - 05/19/2013 12:00 AM EST INGOT WEIGHER-Oncology Services [address] [place], [place] [address] Patient: MATY AGUAYO MR #: [id number] : 1940 Date of Visit: 05/19/2013 Referring Physician: NOLVIA COOMBS Dictated By: David Arellano MD 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 PT. DENIES ANY CURRENT INGOT WEIGHER PROBLEMS. PT /'S WHAT THE BULGE IS [...] Description 10/28/2025 1:30 PM EDT Office Visit [facility] GYNECOLOGIC ONCOLOGY [address] [facility] [address] [place] [address] Cyndi De La Rosa, CABLE TENDER [address] [place] [address] documented as of this encounter Visit Diagnoses Not on filedocumented in this encounter Care Teams Horse Groomer Relationship Specialty Start Date End Date Ozzie Garibay MD 1210 [facility] [address] [place] [address] PCP - General Internal Medicine 04/02/18 documented as of this encounter
--- NOTE | 2025-03-05 13:00 | NM_ITS ---
APPROVED REPORT Exam: Nuclear Stress Test Indication: htn, hyperlipidemia, sob Patient Location: Outpatient Stress Tech: Imelda Crowell [place] Tech:Stephanie Chapman JASONSmith RT(R)(N) Ht: 5 ft 5 in Wt: 142 lbs Bra Size: c HR: 66 bpm BP: 152/40 mmHg BSA: 1.71 m2 TID: 1.08 BMI: 23.6 History: htn, hyperlipidemia, sob Procedure: Patient received 0.4 mg of intravenous Lexiscan, resting heart rate 66 bpm, resting blood pressure 152/40 mmHg, with Lexiscan maximum heart rate achieved was 73 bpm which is % of the maximum predicted heart rate and blood pressure was 138/57 mmHg. With Lexiscan, patient denied any complaint of chest pain. Cardiac Stress and Resting SPECT Images: Cardiac Stress and Resting SPECT images were obtained using technetium 99m Myoview 30.8 mCi stress and 10.47 mCi at rest. Resting and stress imaging in supine and prone positions demonstrate a medium sized, moderate, partially reversible perfusion defect in the basal to mid inferior LV wall. Gated imaging demonstrates normal global LV systolic function. LVEF estimated at 59%. Conclusion: Medium sized, moderate, partially reversible perfusion defect in the basal to mid inferior LV wall. Findings are suggestive of partial reversible ischemia. Gated imaging demonstrates normal global LV systolic function. LVEF estimated at 59%. Electronically signed by : Lorena De Guzman MD 03/06/2025 23:23:55
[2025-03-05] MEDS: ISOTOPE MYOVIEW (PER STUDY) 1 DOSE IV (13:28)
[2025-03-05] MEDS: SODIUM CHLORIDE 0.9% 10ML SYR (RAD ONLY) 10 ML IV ×2 (13:28)
--- NOTE | 2025-03-05 13:30 | CA_ITS ---
APPROVED REPORT EXAM: Comprehensive 2D, Doppler, and color-flow Echocardiogram Mold Forms Builder: Carolyn Muhammad RDCS Ht: 127 ft 6 in Wt: 139lbs BSA: 16.74 BP: 127/36 mmHg Indications: SOA AF 2D Dimensions LA Volume 82.30 mL LA Volume Index 4.91 mL/m2 (M/F) 16-34 M-Mode Dimensions RVDd 2.49 cm (0.9-2.6) LA Diam 3.90 cm (1.9-4.0) LVDd 5.18 cm (3.5-5.7) LVDs 3.46 cm (3.5-5.7) IVSd 0.71 cm (0.6-1.1) PWd 1.01 cm (0.6-1.1) EF (Teich) 61.40% FS 33.20% EDV (Teich) 128.40 mL ESV (Teich) 49.50 mL LV Diastology E Decel Time 210 (160-240 msec) E/A Ratio 1.9 Aortic Valve AI PHT 600.00 ms Mitral Valve MV E Max Jh. 134.0 (40-130 cm/s) MV A Velocity 72.0 (40-130 cm/s) E/A Ratio 1.86 MV PHT 62.0 ms Tricuspid Valve TR P. Velocity 323.00 cm/s RAP Estimate 10.00 mmHg RVSP 51.70 mmHg Left Ventricle The left ventricle is normal size. Left ventricular systolic function is normal. The left ventricular ejection fraction is within the normal range. There is increased left ventricular wall thickness. There is normal LV segmental wall motion. The left ventricular diastolic function is indeterminate. LVEF is 60%. Right Ventricle The right ventricle is normal size. The right ventricular systolic function is normal. Atria The left atrium is severely dilated. The right atrium is severely dilated. There is no color Doppler evidence of interatrial shunt. Aortic Valve The aortic valve is mildly thickened. There is no hemodynamically significant aortic valvular stenosis. Mild aortic regurgitation is present. Mitral Valve The mitral valve is mildly thickened. No evidence of mitral valve stenosis. Moderate mitral regurgitation is present. Tricuspid Valve The tricuspid valve leaflets are thin and pliable. Moderate tricuspid regurgitation. RVSP is 40-45 mmHg. Pulmonic Valve The pulmonary valve is grossly normal in structure. Mild pulmonic valve regurgitation is present. Great Vessels The aortic root is normal in size. IVC is normal in size and collapses >50% with inspiration. Pericardium There is no pericardial effusion. Other Information Study Quality: Fair Conclusion Normal biventricular systolic function. Severe biatrial dilation. Moderate MR, moderate TR. Mild AI, mild PI. Electronically signed by : Lorena De Guzman MD 03/07/2025 01:04:51
[2025-03-05 13:42] VITALS: BP 152/40; PULSE 68; RESP 14
== END 2025-03-05 23:59 | disposition home or self-care (01) ==
LOC: RAD 11:49
PROVIDERS: PCP Internal Medicine; Visit Provider Internal Medicine
DX: I08.8 Other rheumatic multiple valve diseases (principal); I44.0 Atrioventricular block, first degree; I49.1 Atrial premature depolarization; I49.3 Ventricular premature depolarization; I11.0 Hypertensive heart disease with heart failure; I50.9 Heart failure, unspecified; E78.5 Hyperlipidemia, unspecified; I48.91 Unspecified atrial fibrillation; R06.00 Dyspnea, unspecified
CPT/HCPCS: 78452; 93017; 93018; 93306; A9502; J2785

== ENCOUNTER 2025-03-18 12:03 | Outpatient (CLI) | payer MEDICARE, OTHER, SELFPAY ==
--- OUTSIDE RECORDS SUMMARY | 2025-03-18 12:06 | XMS_ITS | Encounter Summary ---
[facility] Address [address] [place] [address] Care Team Providers Care Emergency Medical Technician/Driver Name Role Phone Ozzie Garbiay MD Primary Care Provider [phone] Encounter Details Date Type Department Care Team (Late st Contact Info) Description 01/10/2013 Conversion Encounter [facility] HISTORICAL CONV [address] [place] [address] Interface, See Report Social History [...] See Report - 2013 12:00 AM EDT INSTRUMENT ASSEMBLER-Oncology Services [address] [place], [place] [address] Patient: MATY AGUAYO. MR #: : 1940 [...] See Report - 01/10/2013 12:00 AM EDT INSTRUMENT ASSEMBLER-Oncology Services [address] [place], [place] [address] Patient: MATY AGUAYO MR #: : 1940 [...] Office Visit [facility] GYNECOLOGIC ONCOLOGY [address] [place] [address] Cyndi De La Rosa, BILLING REPRESENTATIVE 1700 [facility] [address] [place], [place] [address] documented as of this encounter Visit Diagnoses Not on filedocumented in this encounter Care Teams Emergency Medical Technician/Driver Relationship Specialty Start Date End Date Ozzie Garibay MD 1210 [facility] [address] [place] [address] PCP - General Internal Medicine 04/02/18 documented as of this encounter
--- OUTSIDE RECORDS SUMMARY | 2025-03-18 12:06 | XMS_ITS | Encounter Summary ---
[facility] Address [address] [place] [address] Care Team Providers Care Embedded Case Manager Name Role Phone Ozzie Garibay MD Primary Care Provider [phone] Encounter Details Date Type Department Care Team (Late st Contact Info) Description 02/07/2013 Conversion Encounter [facility] HISTORICAL CONV [address] [place] [address] Interface, See Report Social History [...] See Report - 02/07/2013 12:00 AM EDT CAGE/VAULT SUPERVISOR-Oncology Services [address] [place], [place] [address] Patient: MATY AGUAYO. MR #: : 1940 [...] Description 10/28/2025 1:30 PM EDT Office Visit [facility] GYNECOLOGIC ONCOLOGY [address] [place], [place] [address] Cyndi De La Rosa APRN [address] [place] [address] documented as of this encounter Visit Diagnoses Not on filedocumented in this encounter Care Teams Embedded Case Manager Relationship Specialty Start Date End Date Ozzie Garibay MD 1210 [facility] [address] [place] [address] PCP - General Internal Medicine 04/02/18 documented as of this encounter
--- OUTSIDE RECORDS SUMMARY | 2025-03-18 12:06 | XMS_ITS | Encounter Summary ---
[facility] Address [address] [place] [address] Care Team Providers Care Dampener Name Role Phone Ozzie Garibay MD Primary Care Provider [phone] Encounter Details Date Type Department Care Team (Late st Contact Info) Description 12/23/2012 Conversion Encounter [facility] HISTORICAL CONV [address] [place] [address] Interface, See Report Social History [...] See Report - 12/23/2012 12:00 AM EDT REGIONAL SALES LEADER-Oncology Services [address] [place], [place] [address] Patient: MATY AGUAYO MR #: : 1940 [...] exam: Constitutional: Weight 177 [place] [address] Pulse Temp Neurological/Psychiatric: HEENT: Neck: Respiratory: Cardiovascular: [...] Description 10/28/2025 1:30 PM EDT Office Visit [facility] GYNECOLOGIC ONCOLOGY [address] [facility] [address] [place] [address] Cyndi De La Rosa APRN [address] [facility] [address] [place], [place] [address] documented as of this encounter Visit Diagnoses Not on filedocumented in this encounter Care Teams Dampener Relationship Specialty Start Date End Date Ozzie Garibay MD 1210 [facility] [address] [facility] [address] [place] [address] PCP - General Internal Medicine 04/02/18 documented as of this encounter
--- OUTSIDE RECORDS SUMMARY | 2025-03-18 12:06 | XMS_ITS | Clinical Summary ---
Author Organization [facility] Address [address] [place] [address] Care Team Providers Care Mva Still Operator Name Role Phone Ozzie Garibay MD Primary Care Provider [phone] Allergies Active Allergy Reactions Criticality Noted Date [...] Description 10/28/2025 1:30 PM EDT Office Visit [facility] GYNECOLOGIC ONCOLOGY [address] [facility] [address] [place] [address] Cyndi De La Rosa, FELLER HAND [address] [facility] [address] [place], [place] [address] Health Maintenance Due Date Last Done Comments [...] EDT) Fecal Occult Blood Normal [facility] Stool 02/09/2016 1:49 PM EDT Nori Ibanez APRN POINT OF CARE TEST ORDERABLE S Final Result [facility]
[address] [place] [address], from Last 3 Months or Most Recently Relevant to Health Maintenance Insurance MEDICARE A & B [facility] [employer] [facility] Care Teams Mva Still Operator Relationship Specialty Start Date End Date Ozzie Garibay MD [address] [place] [address] [address] [place] [address] PCP - General Internal Medicine 04/02/18
--- OUTSIDE RECORDS SUMMARY | 2025-03-18 12:06 | XMS_ITS | Clinical Summary ---
Author Organization Healthcare Address [address] [place] [address] Care Team Providers Care Director Long Term Care Name Role Phone Unavailable Primary Care Provider [...]
--- OUTSIDE RECORDS SUMMARY | 2025-03-18 12:06 | XMS_ITS | Encounter Summary ---
[facility] Address [address] [place] [address] Care Team Providers Care Plant Maintenance Manager Name Role Phone Ozzie Garibay MD Primary Care Provider [phone] Encounter Details Date Type Department Care Team (Late st Contact Info) Description 05/19/2013 Conversion Encounter [facility] HISTORICAL CONV [address] [place] [address] Interface, See Report Social [...] See Report - 05/19/2013 12:00 AM EST NETWORK SYSTEMS ENGINEER-Oncology Services [address] [place], [place] [address] Patient: MATY AGUAYO MR #: [id number] : 1940 Date of Visit: 05/19/2013 Referring Physician: NOLVIA COOMBS Dictated By: David Arellano MD 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 PT. DENIES ANY CURRENT NETWORK SYSTEMS ENGINEER PROBLEMS. PT /'S WHAT THE BULGE IS [...] [facility] GYNECOLOGIC ONCOLOGY [address] [facility] [address] [place] [address] Cyndi De La Rosa, TIP CUTTER [address] [place] [address] documented as of this encounter Visit Diagnoses Not on filedocumented in this encounter Care Teams Plant Maintenance Manager Relationship Specialty Start Date End Date Ozzie Garibay MD 1210 [facility] [address] [place] [address] PCP - General Internal Medicine 04/02/18 documented as of this encounter
[2025-03-18 12:34] LABS: Hematocrit 26.2 % (37.0-47.0); Hemoglobin 8.0 g/dL (12.2-16.2); Immature Granulocytes % 0.4 %; Mean Corpuscular HGB Conc 30.5 g/dL (31.8-35.4); Mean Corpuscular Hemoglobin 22.0 pg (27.0-31.2); Mean Corpuscular Volume 72.2 fl (81-99); Nucleated Red Blood Cells % 0 %; Platelet Count 295 K/mm3 (142-424); Red Blood Count 3.63 M/mm3 (4.20-5.40); Red Cell Distribution Width-SD 45.9 fL; White Blood Count 9.6 K/mm3 (4.8-10.8)
[2025-03-18 13:22] LABS: Anion Gap 12.7 mEq/L (5-15); Blood Urea Nitrogen 21 mg/dl (7-17); Calcium 9.3 mg/dl (8.4-10.2); Carbon Dioxide 30 mmol/L (22.0-30.0); Chloride 100 mmol/L (98-107); Creatinine,Serum 1.00 mg/dl (0.52-1.04); Estimated Glomerular Filt Rate 53 ml/min (>60); GFR (African American) 64 ML/MIN (>60); Glucose 106 mg/dl (74-100); Potassium 3.7 mmoL/L (3.5-5.1); Sodium 139 mmol/L (136-145)
== END 2025-03-18 23:59 | disposition home or self-care (01) ==
LOC: LAB 12:04
PROVIDERS: PCP Internal Medicine; Visit Provider Internal Medicine
DX: E78.5 Hyperlipidemia, unspecified (principal); I10 Essential (primary) hypertension
CPT/HCPCS: 36415; 80048; 85025

== ENCOUNTER 2025-04-02 14:10 | Outpatient (CLI) | payer MEDICARE, OTHER, SELFPAY ==
[2025-04-02 17:31] LABS: Anion Gap 16.9 mEq/L (5-15); Blood Urea Nitrogen 34 mg/dl (7-17); Calcium 9.3 mg/dl (8.4-10.2); Carbon Dioxide 26 mmol/L (22.0-30.0); Chloride 97 mmol/L (98-107); Creatinine,Serum 1.50 mg/dl (0.52-1.04); Estimated Glomerular Filt Rate 33 ml/min (>60); GFR (African American) 40 ML/MIN (>60); Glucose 100 mg/dl (74-100); Hematocrit 26.8 % (37.0-47.0); Hemoglobin 8.2 g/dL (12.2-16.2); Immature Granulocytes % 0.3 %; Mean Corpuscular HGB Conc 30.6 g/dL (31.8-35.4); Mean Corpuscular Hemoglobin 21.8 pg (27.0-31.2); Mean Corpuscular Volume 71.3 fl (81-99); Nucleated Red Blood Cells % 0 %; Platelet Count 249 K/mm3 (142-424); Potassium 3.9 mmoL/L (3.5-5.1); Red Blood Count 3.76 M/mm3 (4.20-5.40); Red Cell Distribution Width-SD 46.2 fL; Sodium 136 mmol/L (136-145); White Blood Count 7.5 K/mm3 (4.8-10.8)
--- OUTSIDE RECORDS SUMMARY | 2025-04-03 11:09 | XMS_ITS | Encounter Summary ---
[facility] Address [address] [place] [address] Care Team Providers Care Acid Dipper Name Role Phone Ozzie Garibay MD Primary Care Provider [phone] Encounter Details Date Type Department Care Team (Late st Contact Info) Description 01/10/2013 Conversion Encounter [facility] HISTORICAL CONV [address] [place] [address] Interface, See Report Social History [...] See Report - 2013 12:00 AM EDT PRESALES ENGINEER-Oncology Services [address] [place], [place] [address] Patient: MATY AGUAYO. MR #: : 1940 [...] See Report - 01/10/2013 12:00 AM EDT PRESALES ENGINEER-Oncology Services [address] [place], [place] [address] Patient: MATY AGUAYO MR #: : 1940 [...] [facility] GYNECOLOGIC ONCOLOGY [address] [place] [address] Cyndi De La Rosa, PLANT TECHNICIAN/CONTROL ROOM OPERATOR [address] [facility] [address] [place], [place] [address] documented as of this encounter Visit Diagnoses Not on filedocumented in this encounter Care Teams Acid Dipper Relationship Specialty Start Date End Date Ozzie Garibay MD 1210 [facility] [address] [place] [address] PCP - General Internal Medicine 04/02/18 documented as of this encounter
--- OUTSIDE RECORDS SUMMARY | 2025-04-03 11:09 | XMS_ITS | Encounter Summary ---
Author [facility] Address [address] [place] [address] Care Team Providers Care Spotter Driver Name Role Phone Ozzie Garibay MD Primary Care Provider [phone] Encounter Details Date Type Department Care Team (Late st Contact Info) Description 12/23/2012 Conversion Encounter [facility] HISTORICAL CONV [address] [place] [address] Interface, See Report Social History [...] See Report - 12/23/2012 12:00 AM EDT GRE TUTOR-Oncology Services [address] [place], [place] [address] Patient: MATY AGUAYO. MR #: : 1940 Date of Visit: 12/23/2012 Attending Physician: Brigid Zhong Dictated By: BRIGID ZHONG Referring Physician: NOLIVA COOMBS Diagnosis: PERINEAL MASS Allergies: SULFA History [...] exam: Constitutional: Weight 177 [place] [address] Pulse Temp Neurological/Psychiatric: HEENT: Neck: Respiratory: Cardiovascular: [...] 1:30 PM EDT Office Visit [facility] GYNECOLOGIC ONCOLOGY [address] [facility] [address] [place] [address] Cyndi De La Rosa APRN 1700 [facility] [address] [place], [place] [address] documented as of this encounter Visit Diagnoses Not on filedocumented in this encounter Care Teams Spotter Driver Relationship Specialty Start Date End Date Ozzie Garibay MD 1210 [facility] [address] [facility] [address] [place] [address] PCP - General Internal Medicine 04/02/18 documented as of this encounter
--- OUTSIDE RECORDS SUMMARY | 2025-04-03 11:09 | XMS_ITS | Encounter Summary ---
[facility] Address [address] [place] [address] Care Team Providers Care Corrections Officer Name Role Phone Ozzie Garibay MD Primary Care Provider [phone] Encounter Details Date Type Department Care Team (Late st Contact Info) Description 02/07/2013 Conversion Encounter [facility] HISTORICAL CONV [address] [place] [address] Interface, See Report Social History [...] See Report - 02/07/2013 12:00 AM EDT ORCHARDIST-Oncology Services [address] [place], [place] [address] Patient: MATY AGUAYO. MR #: : 1940 [...] [facility] GYNECOLOGIC ONCOLOGY [address] [place], [place] [address] Cyndi De La Rosa APRN [address] [place] [address] documented as of this encounter Visit Diagnoses Not on filedocumented in this encounter Care Teams Corrections Officer Relationship Specialty Start Date End Date Ozzie Garibay MD 1210 [facility] [address] [place] [address] PCP - General Internal Medicine 04/02/18 documented as of this encounter
--- OUTSIDE RECORDS SUMMARY | 2025-04-03 11:09 | XMS_ITS | Clinical Summary ---
Author Organization [facility] Address [address] [place] [address] Care Team Providers Care [employer] Lieutenant Name Role Phone Ozzie Garibay MD Primary Care Provider [phone] Allergies Active Allergy Reactions Criticality Noted Date [...] Description 10/28/2025 1:30 PM EDT Office Visit [facility] GYNEC[facility] ONCOLOGY [address] [facility] [address] [place] [address] Cyndi De La Rosa, INSPECTOR PROCESS 1700 [facility] [address] [place], [place] [address] Health Maintenance Due Date Last Done Comments [...] of 2 - PCV) 06/16/2021 06/16/2020, 06/01/2019 INFLUENZA VACCINE 01/30/2025 04/14/2024, 05/02/2019 COVID-19 Vaccine (4 - 2024-2 6 season) 2025 05/11/2021, 09/01/2020, 08/04/2020 MAMMOGRAM 01/14/2026 01/15/2024, 12/30, 12/15/2022, Additional history exists Procedures Procedure Name Priority Date/Time Associated Diagnosis Comments POCT OCCULT BLOOD STOOL Routine 02/09/2016 1:49 PM EDT Well female exam with routine gynecological exam from Last 3 Months or Most Recently Relevant to Health Maintenance Results * POCT occult blood stool (02/09/2016 1:49 PM EDT) Fecal Occult Blood Normal [facility] Stool 02/09/2016 1:49 PM EDT Nori Ibanez APRN POINT OF CARE TEST ORDERABLE S Final Result [facility]
[address] [place] [address], from Last 3 Months or Most Recently Relevant to Health Maintenance Insurance MEDICARE A & B AAR HE[employer] CARE OPTIONS [facility] Care Teams [employer] Lieutenant Relationship Specialty Start Date End Date Ozzie Garibay MD [address] [place] [address] [address] [place] [address] PCP - General Internal Medicine 04/02/18
--- OUTSIDE RECORDS SUMMARY | 2025-04-03 11:09 | XMS_ITS | Encounter Summary ---
[facility] Address [address] [place] [address] Care Team Providers Care Injection Press Operator Name Role Phone Ozzie Garibay MD Primary Care Provider [phone] Encounter Details Date Type Department Care Team (Late st Contact Info) Description 05/19/2013 Conversion Encounter [facility] HISTORICAL CONV [address] [place] [address] Interface, See Report Social History [...] See Report - 05/19/2013 12:00 AM EST PROPERTY CLAIM REP-Oncology Services [address] [place], [place] [address] Patient: MATY AGUAYO MR #: [id number] : 1940 Date of Visit: 05/19/2013 Referring Physician: NOLVIA COOMBS Dictated By: David Arellano MD 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 PT. DENIES ANY CURRENT PROPERTY CLAIM REP PROBLEMS. PT /'S WHAT THE BULGE IS [...] Description 10/28/2025 1:30 PM EDT Office Visit [facility] GYNECOLOGIC ONCOLOGY [address] [facility] [address] [place] [address] Cyndi De La Rosa, LOTTERY SALES CLERK [address] [place] [address] documented as of this encounter Visit Diagnoses Not on filedocumented in this encounter Care Teams Injection Press Operator Relationship Specialty Start Date End Date Ozzie Garibay MD 1210 [facility] [address] [place] [address] PCP - General Internal Medicine 04/02/18 documented as of this encounter
== END 2025-04-02 23:59 ==
LOC: LAB.DROPOF 04-03 11:06
PROVIDERS: PCP Internal Medicine; Visit Provider Internal Medicine
DX: D50.9 Iron deficiency anemia, unspecified (principal); R60.9 Edema, unspecified; I10 Essential (primary) hypertension
CPT/HCPCS: 80048; 85025

== ENCOUNTER 2025-04-08 07:50 | Outpatient (CLI) | payer MEDICARE, OTHER, SELFPAY ==
--- OUTSIDE RECORDS SUMMARY | 2025-04-08 07:52 | XMS_ITS | Encounter Summary ---
Author Organization [facility] Address [address] [place] [address] Care Team Providers Care Vehicle Maintenance Technician Name Role Phone Ozzie Garibay MD Primary Care Provider [phone] Encounter Details Date Type Department Care Team (Late st Contact Info) Description 01/10/2013 Conversion Encounter [facility] HISTORICAL CONV [address] [place] [address] Interface, See Report Social History [...] See Report - 2013 12:00 AM EDT LIFE INSURANCE SALES-Oncology Services [address] [place], [place] [address] Patient: MATY AGUAYO. MR #: : 1940 [...] See Report - 01/10/2013 12:00 AM EDT LIFE INSURANCE SALES-Oncology Services [address] [place], [place] [address] Patient: MATY AGUAYO MR #: : 1940 [...] Description 10/28/2025 1:30 PM EDT Office Visit [facility] GYNECOLOGIC ONCOLOGY [address] [place] [address] Cyndi De La Rosa, RETAIL AGENT 1700 [facility] [address] [place], [place] [address] documented as of this encounter Visit Diagnoses Not on filedocumented in this encounter Care Teams Vehicle Maintenance Technician Relationship Specialty Start Date End Date Ozzie Garibay MD 1210 [facility] [address] [place] [address] PCP - General Internal Medicine 04/02/18 documented as of this encounter
--- OUTSIDE RECORDS SUMMARY | 2025-04-08 07:52 | XMS_ITS | Encounter Summary ---
[facility] [address] [place] [address] Care Team Providers Care Anode Machine Operator Name Role Phone Ozzie Garibay MD Primary Care Provider [phone] Encounter Details Date Type Department Care Team (Late st Contact Info) Description 12/23/2012 Conversion Encounter [facility] HISTORICAL CONV [address] [place] [address] Interface, See Report Social History [...] See Report - 12/23/2012 12:00 AM EDT FOLDER GLUER OPERATOR-Oncology Services [address] [place], [place] [address] Patient: MATY AGUAYO. MR #: : 1940 [...] exam: Constitutional: Weight 177 Height 65 [place] [address] Pulse Temp Neurological/Psychiatric: HEENT: Neck: Respiratory: Cardiovascular: [...] [facility] GYNECOLOGIC ONCOLOGY [address] [facility] [address] [place] [address] Cyndi De La Rosa APRN 1700 [facility] [address] [place], [place] [address] documented as of this encounter Visit Diagnoses Not on filedocumented in this encounter Care Teams Anode Machine Operator Relationship Specialty Start Date End Date Ozzie Garibay MD 1210 [facility] [address] [facility] [address] [place] [address] PCP - General Internal Medicine 04/02/18 documented as of this encounter
--- OUTSIDE RECORDS SUMMARY | 2025-04-08 07:52 | XMS_ITS | Clinical Summary ---
Author Organization Healthcare Address [address] [place] [address] Care Team Providers Care Facilities Officer Name Role Phone Unavailable Primary Care Provider [...]
--- OUTSIDE RECORDS SUMMARY | 2025-04-08 07:52 | XMS_ITS | Encounter Summary ---
[facility] Address [address] [place] [address] Care Team Providers Care Legal Intern Name Role Phone Ozzie Garibay MD Primary Care Provider [phone] Encounter Details Date Type Department Care Team (Late st Contact Info) Description 02/07/2013 Conversion Encounter [facility] HISTORICAL CONV [address] [place] [address] Interface, See Report Social History [...] See Report - 02/07/2013 12:00 AM EDT CORE OVEN TENDER-Oncology Services [address] [place], [place] [address] Patient: MATY AGUAYO. MR #: : 1940 [...] [facility] GYNECOLOG[facility] ONCOLOGY [address] [place], [place] [address] Cyndi De La Rosa APRN [address] [place] [address] documented as of this encounter Visit Diagnoses Not on filedocumented in this encounter Care Teams Legal Intern Relationship Specialty Start Date End Date Ozzie Garibay MD 1210 [facility] [address] [place] [address] PCP - General Internal Medicine 04/02/18 documented as of this encounter
--- OUTSIDE RECORDS SUMMARY | 2025-04-08 07:52 | XMS_ITS | Clinical Summary ---
Author Organization [facility] Address [address] [place] [address] Care Team Providers Care Systems Navigator Name Role Phone Ozzie Garibay MD Primary Care Provider [phone] Allergies Active Allergy Reactions Criticality Noted Date [...] Description 10/28/2025 1:30 PM EDT Office Visit [facility] GYN[facility] ONCOLOGY [address] [facility] [address] [place] [address] Cyndi De La Rosa, STOCK TRACER [address] [facility] [address] [place], [place] [address] Health Maintenance Due Date Last Done Comments [...] 1:49 PM EDT) Fecal Occult Blood Normal [facility] Stool 02/09/2016 1:49 PM EDT Nori Ibanez APRN POINT OF CARE TEST ORDERABLE S Final Result [facility]
[address] [place] [address], from Last 3 Months or Most Recently Relevant to Health Maintenance Insurance MEDICARE A & B [employer] [facility] Care Teams Systems Navigator Relationship Specialty Start Date End Date Ozzie Garibay MD [address] [place] [address] [address] [place] [address] PCP - General Internal Medicine 04/02/18
--- OUTSIDE RECORDS SUMMARY | 2025-04-08 07:52 | XMS_ITS | Encounter Summary ---
[facility] Organization [facility] Address [address] [place] [address] Care Team Providers Care Demolition Worker Name Role Phone Ozzie Garibay MD Primary Care Provider [phone] Encounter Details Date Type Department Care Team (Late st Contact Info) Description 05/19/2013 Conversion Encounter [facility] HISTORICAL CONV [address] [place] [address] Interface, See Report Social History [...] See Report - 05/19/2013 12:00 AM EST CAMPGROUND MANAGER-Oncology Services [address] [place], [place] [address] Patient: MATY AGUAYO MR #: [id number] : 1940 Date of Visit: 05/19/2013 Referring Physician: NOLVIA COOMBS Dictated By: David Arellano MD 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 PT. DENIES ANY CURRENT CAMPGROUND MANAGER PROBLEMS. PT /'S WHAT THE BULGE IS [...] Description 10/28/2025 1:30 PM EDT Office Visit [facility] GYNECOLOGIC ONCOLOGY [address] [facility] [address] [place] [address] Cyndi De La Rosa, BROKER [address] [place] [address] documented as of this encounter Visit Diagnoses Not on filedocumented in this encounter Care Teams Demolition Worker Relationship Specialty Start Date End Date Ozzie Garibay MD [address] [facility] [address] [place] [address] PCP - General Internal Medicine 04/02/18 documented as of this encounter
--- NOTE | 2025-04-08 08:00 | MR_ITS ---
FINAL REPORT TECHNIQUE: Multiplanar and multisequence MR imaging was obtained through the thoracic spine. CLINICAL HISTORY: increasing mid back pain history of breast, cervical, and vulvar cancer FINDINGS: There is prominent kyphosis. Anterolisthesis is seen of several levels of the upper thoracic spine which is likely degenerative. Alignment is otherwise normal. Vertebral body height is preserved. There is a T2 hyperintense lesion in upper thoracic vertebral body which is not well-seen on T1-weighted imaging. No T1 hypointensity is seen as would be expected for metastasis. Findings may represent atypical hemangioma. There is no bone marrow edema or pathologic marrow replacement. Signal intensity within the substance of the spinal cord is normal. No acute paraspinal abnormality. There is multilevel disc space narrowing and disc desiccation. Annular disc bulges are seen at multiple levels. There is central canal stenosis at L1-2. IMPRESSION: No acute abnormality. Multilevel degenerative disc disease. 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 [facility]
== END 2025-04-08 23:59 | disposition home or self-care (01) ==
LOC: RAD 07:51
PROVIDERS: PCP Internal Medicine; Visit Provider Internal Medicine
DX: M51.34 Other intervertebral disc degeneration, thoracic region (principal); R93.7 Abnormal findings on diagnostic imaging of other parts of musculoskeletal system; Z85.3 Personal history of malignant neoplasm of breast; Z85.41 Personal history of malignant neoplasm of cervix uteri; Z85.44 Personal history of malignant neoplasm of other female genital organs
CPT/HCPCS: 72146

== ENCOUNTER 2025-05-04 17:08 | Outpatient (CLI) | payer MEDICARE, OTHER, SELFPAY ==
--- OUTSIDE RECORDS SUMMARY | 2025-05-04 17:10 | XMS_ITS | Encounter Summary ---
[facility] Organization [facility] Address [address] [place] [address] Care Team Providers Care Returned Telephone Equipment Appraiser Name Role Phone Ozzie Garibay MD Primary Care Provider [phone] Encounter Details Date Type Department Care Team (Late st Contact Info) Description 01/10/2013 Conversion Encounter [facility] HISTORICAL CONV [address] [place] [address] Interface, See Report Social History [...] See Report - 2013 12:00 AM EDT INTERNAL SALES-Oncology Services [address] [place], [place] [address] Patient: MATY AGUAYO. MR #: : 1940 [...] See Report - 01/10/2013 12:00 AM EDT INTERNAL SALES-Oncology Services [address] [place], [place] [address] Patient: MATY AGUAYO MR #: : 1940 [...] Description 10/28/2025 1:30 PM EDT Office Visit [facility] GYNECOLOGIC ONCOLOGY [address] [place] [address] Cyndi De La Rosa, SECOND COOK AND BAKER [address] [facility] [address] [place], [place] [address] documented as of this encounter Visit Diagnoses Not on filedocumented in this encounter Care Teams Returned Telephone Equipment Appraiser Relationship Specialty Start Date End Date Ozzie Garibay MD [address] [facility] [address] [place] [address] PCP - General Internal Medicine 04/02/18 documented as of this encounter
--- OUTSIDE RECORDS SUMMARY | 2025-05-04 17:10 | XMS_ITS | Encounter Summary ---
[facility] Organization [facility] Address [address] [place] [address] Care Team Providers Care Wet Pan Mixer Name Role Phone Ozzie Garibay MD Primary Care Provider [phone] Encounter Details Date Type Department Care Team (Late st Contact Info) Description 02/07/2013 Conversion Encounter [facility] HISTORICAL CONV [address] [place] [address] Interface, See Report Social [...] See Report - 02/07/2013 12:00 AM EDT DISTRICT MANAGER PRIMARY CARE SALES-Oncology Services [address] [place], [place] [address] Patient: MATY AGUAYO. MR #: : 1940 [...] Visit [facility] GYNECOLOGIC ONCOLOGY [address] [place], [place] [phone] Cyndi De La Rosa APRN [address] [place] [address] documented as of this encounter Visit Diagnoses Not on filedocumented in this encounter Care Teams Wet Pan Mixer Relationship Specialty Start Date End Date Ozzie Garibay MD [address] [facility] [address] [place] [address] PCP - General Internal Medicine 04/02/18 documented as of this encounter
--- OUTSIDE RECORDS SUMMARY | 2025-05-04 17:10 | XMS_ITS | Clinical Summary ---
Author Organization [facility] Address [address] [place] [address] Care Team Providers Care Telehealth Nurse Educator Name Role Phone Unavailable Primary Care Provider Unavailabl e Encounters Date Type Department Care Team Description 04/13/2025 Ancillary Procedure [facility] at [address] [address] Ozzie Garibay MD from Last 3 Months Social History Tobacco Use Types Packs/Day Years Used Date Smoking Tobacco: Never Assessed Comments Unknown Sex and Gender Information Value Date Recorded Sex Assigned at Not on file Legal Sex Female 6:47 PM EDT Gender Identity Not on file Sexual Orientation Not on file Plan of Treatment Not on file Procedures Procedure Name Priority Date/Time Associated Diagnosis Comments MAMMOGRAPHY BREAST SCREENING TOMOSYNTHESIS BILATERAL 04/13/2025 11:00 AM EDT from Last 3 Months Results * Mammography Breast Screening Tomosynthesis Bilateral (04/13/2025 11:00 AM EDT) Anatomical Region Laterality Modality Breast Bilateral Mammography 04/13/2025 11:0 0 AM EDT Narrative 04/13/2025 2:49 PM EDT [facility] [address] [place] [address] Patient Name: MATY AGUAYO Patient : 1940 Age: 85 years Patient Ordering Provider: OZZIE GARIBAY JR EXAM DATE: 04/13/2025 EXAM: MG SCREENING RANDOLPH MAMMOGRAM INDICATION: Screening. History of breast cancer treated with breast conservation surgery PROCEDURE: 2D and multislice imaging of both breasts was performed in standard projections using [employer] tomosynthesis equipment (3D mammography). The study was read with the assistance of Computer Aided Detection (CAD) software. COMPARISON: This was compared with previous mammograms dated back to 08/25/2020. DENSITY: The breasts are heterogeneously dense, which may obscure small masses. FINDINGS: The bilateral fibroglandular pattern is stable in appearance including postoperative changes in the left breast. There are bilateral scattered benign-appearing calcifications. No new mass, suspicious calcifications, or nonsurgical areas of architectural distortion are seen in either breast. IMPRESSION: Benign bilateral mammographic findings.. BI-RADS Category 2, Benign finding, routine follow-up. The patient has been entered into an automated reminder system. RECOMMENDATION: Yearly mammogram, yearly clinical breast exam, and encourage self breast awareness. The standard false negative rate of mammography is between 10% and 25%. Complex patterns or increased breast density will markedly elevate the false negative rate of mammography. If there is a palpable area of concern, biopsy should be considered regardless of imaging findings. A letter, in lay terminology, with the results of this exam will be mailed to the patient. Interpreted By: Didi Bautista MD Procedure Note Didi Bautista MD - 04/13/2025 [place] [address] Patient Name: MATY AGUAYO Patient : 1940 Age: 85 years Patient Ordering Provider: OZZIE GARIBAY JR EXAM DATE: 04/13/2025 EXAM: MG SCREENING RANDOLPH MAMMOGRAM INDICATION: Screening. History of breast cancer treated with breast conservation surgery PROCEDURE: 2D and multislice imaging of both breasts was performed in standard projections using [employer] tomosynthesis equipment (3D mammography). The study was read with the assistance of Computer Aided Detection (CAD) software. COMPARISON: This was compared with previous mammograms dated back to 08/25/2020. DENSITY: The breasts are heterogeneously dense, which may obscure small masses. FINDINGS: The bilateral fibroglandular pattern is stable in appearance including postoperative changes in the left breast. There are bilateral scattered benign-appearing calcifications. No new mass, suspicious calcifications, or nonsurgical areas of architectural distortion are seen in either breast. IMPRESSION: Benign bilateral mammographic findings.. BI-RADS Category 2, Benign finding, routine follow-up. The patient has been entered into an automated reminder system. RECOMMENDATION: Yearly mammogram, yearly clinical breast exam, and encourage self breast awareness. The standard false negative rate of mammography is between 10% and 25%. Complex patterns or increased breast density will markedly elevate the false negative rate of mammography. If there is a palpable area of concern, biopsy should be considered regardless of imaging findings. A letter, in lay terminology, with the results of this exam will be mailed to the patient. Interpreted By: Didi Bautista MD Ozzie Garibay MD IMG BI PROCEDURES Final Result from Last 3 Months
--- OUTSIDE RECORDS SUMMARY | 2025-05-04 17:10 | XMS_ITS | Encounter Summary ---
[facility] Address [address] [place] [address] Care Team Providers Care Wire Stripping Machine Operator Name Role Phone Ozzie Garibay MD Primary Care Provider [phone] Encounter Details Date Type Department Care Team (Late st Contact Info) Description 05/19/[address] 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 PT. DENIES ANY CURRENT OIL SEAL ASSEMBLER PROBLEMS. PT /'S WHAT THE BULGE IS [...] [facility] G[facility] [address] [facility] [address] [place] [address] Cyndi De La Rosa, ELECTRICAL MANUFACTURING ENGINEER [address] [place] [address] documented as of this encounter Visit Diagnoses Not on filedocumented in this encounter Care Teams Wire Stripping Machine Operator Relationship Specialty Start Date End Date Ozzie Garibay MD [address] [facility] [address] [place] [address] PCP - General Internal Medicine 04/02/18 documented as of this encounter
--- OUTSIDE RECORDS SUMMARY | 2025-05-04 17:10 | XMS_ITS | Encounter Summary ---
[facility] Address [address] [place] [address] Care Team Providers Care Hearing Dog Trainer Name Role Phone Ozzie Garibay MD Primary Care Provider [phone] Encounter Details Date Type Department Care Team (Late st Contact Info) Description 12/23/2012 Conversion Encounter [facility] HISTORICAL CONV [address] [place] [address] Interface, See Report Social History [...] See Report - 12/23/2012 12:00 AM EDT EDUCATIONAL AUDIOLOGIST-Oncology Services [address] [place], [place] [address] Patient: MATY AGUAYO. MR #: : 1940 [...] exam: Constitutional: Weight 177 [place] 65 [place] [address] Pulse Temp Neurological/Psychiatric: HEENT: Neck: Respiratory: Cardiovascular: [...] [facility] GYNECOLOGIC ONCOLOGY [address] [facility] [address] [place] [address] Cyndi De La Rosa APRN [address] [facility] [address] [place], [place] [address] documented as of this encounter Visit Diagnoses Not on filedocumented in this encounter Care Teams Hearing Dog Trainer Relationship Specialty Start Date End Date Ozzie Garibay MD [address] [facility] [address] [place] [address] PCP - General Internal Medicine 04/02/18 documented as of this encounter
--- OUTSIDE RECORDS SUMMARY | 2025-05-04 17:10 | XMS_ITS | Encounter Summary ---
Author Organization [facility] Address [address] [place] [address] Care Team Providers Care Automatic Pattern Edger Name Role Phone Unavailable Primary Care Provider Unavailabl e Encounter Details Date Type Department Care Team (Late st Contact Info) Description 04/13/2025 Ancillary Procedure [facility] at [facility] [address] [place] [address] Ozzie Garibay MD [address] [place] [id number] Social History Tobacco Use Types Packs/Day Years Used Date Smoking Tobacco: Never Assessed Comments Unknown Sex and Gender Information Value Date Recorded Sex Assigned at Not on file Legal Sex Female 6:47 PM EDT Gender Identity Not on file Sexual Orientation Not on file documented as of this encounter Plan of Treatment Not on file documented as of this encounter Procedures Procedure Name Priority Date/Time Associated Diagnosis Comments MAMMOGRAPHY BREAST SCREENING TOMOSYNTHESIS BILATERAL 04/13/2025 11:00 AM EDT documented in this encounter Results * Mammography Breast Screening Tomosynthesis Bilateral (04/13/2025 11:00 AM EDT) Anatomical Region Laterality Modality Breast Bilateral Mammography 04/13/2025 11:0 0 AM EDT Narrative 04/13/2025 2:49 PM EDT [facility] [address] [place] [address] Patient Name: MATY AGUAYO Patient : 1940 Age: 85 years Patient Ordering Provider: OZZIE GARIBAY JR EXAM DATE: 04/13/2025 EXAM: MG SCREENING RANDOLPH MAMMOGRAM INDICATION: Screening. History of breast cancer treated with breast conservation surgery PROCEDURE: 2D and multislice imaging of both breasts was performed in standard projections using [employer] tomosynthesis equipment (3D mammography). The study [...] Procedure Note Didi Bautista MD - 04/13/2025 [place] [id number] Patient Name: MATY AGUAYO Patient : 1940 Age: 85 years Patient Ordering Provider: OZZIE GARIBAY JR EXAM DATE: 04/13/2025 EXAM: MG SCREENING RANDOLPH MAMMOGRAM INDICATION: Screening. History of breast cancer treated with breast conservation surgery PROCEDURE: 2D and multislice imaging of both breasts was performed in standard projections using [employer] tomosynthesis equipment (3D mammography). The study [...] Garibay MD IMG BI PROCEDURES Final Result documented in this encounter Visit Diagnoses Not on filedocumented in this encounter
--- OUTSIDE RECORDS SUMMARY | 2025-05-04 17:10 | XMS_ITS | Clinical Summary ---
Author Organization [facility] Address [address] [place] [address] Care Team Providers Care Wallboard Worker Name Role Phone Ozzie Garibay MD Primary Care Provider [phone] Allergies Active Allergy Reactions Criticality Noted Date [...] EDT Office Visit [facility] GYN[facility] ONCOLOGY [address] [facility] [address] [place] [address] Cyndi De La Rosa, LOZENGE MAKER HELPER [address] [facility] [address] [place], [place] [id number] Health Maintenance Due Date Last Done Comments [...] COLONOSCOPY 07/02/2017 07/02/2012 COLORECTAL CANCER SCREENING 07/02/2017 COVID-19 Vaccine (3 - Modern a risk series) 06/08/2021 05/11/2021, 09/01/2020, 08/04/2020 Pneumococcal Vaccine 50+ (2 of 2 - PCV) 06/16/2021 06/16/2020, 06/01/2019 INFLUENZA VACCINE 01/30/2025 04/14/2024, 05/02/2019 MAMMOGRAM 01/14/2026 01/15/2024, 12/30, 12/15/2022, Additional history exists Procedures Procedure Name Priority Date/Time Associated Diagnosis Comments POCT OCCULT BLOOD STOOL Routine 02/09/2016 1:49 PM EDT Well female exam with routine gynecological exam from Last 3 Months or Most Recently Relevant to Health Maintenance Results * POCT occult blood stool (02/09/2016 1:49 PM EDT) Fecal Occult Blood Normal [facility] Stool 02/09/2016 1:49 PM EDT us Nori Ibanez APRN POINT OF CARE TEST ORDERABLE S Final Result [facility]
[address] [place] [id number], [place] [phone] from Last 3 Months or Most Recently Relevant to Health Maintenance Insurance MEDICARE A & B [employer] [facility] [facility] Care Teams Wallboard Worker Relationship Specialty Start Date End Date Ozzie Garibay MD [address] [facility] [address] [place] [address] PCP - General Internal Medicine 04/02/18
[2025-05-04 18:49] LABS: Hematocrit 25.9 % (37.0-47.0); Hemoglobin 7.7 g/dL (12.2-16.2); Immature Granulocytes % 0.3 %; Mean Corpuscular HGB Conc 29.7 g/dL (31.8-35.4); Mean Corpuscular Hemoglobin 21.0 pg (27.0-31.2); Mean Corpuscular Volume 70.6 fl (81-99); Nucleated Red Blood Cells % 0 %; Platelet Count 218 K/mm3 (142-424); Red Blood Count 3.67 M/mm3 (4.20-5.40); Red Cell Distribution Width-SD 49.2 fL; White Blood Count 6.9 K/mm3 (4.8-10.8)
== END 2025-05-04 23:59 | disposition home or self-care (01) ==
LOC: LAB.DROPOF 17:09
PROVIDERS: PCP Internal Medicine; Visit Provider Internal Medicine
DX: D50.9 Iron deficiency anemia, unspecified (principal)
CPT/HCPCS: 85025

== ENCOUNTER 2025-05-11 13:22 | Outpatient (CLI) | payer MEDICARE, OTHER, SELFPAY ==
--- OUTSIDE RECORDS SUMMARY | 2025-05-11 13:26 | XMS_ITS | Data Portability ---
Author Organization [facility], [facility] Address [address] [place] [address] Care Team Providers Care Harvest Supervisor Name Role DEEPIKA Recio Hematology/Oncology Unavailable FAITH GARIBAY Primary Care Provider [...] getting her mammograms done here within the [facility]. I think that is agreeable and we [...] tomos ynthe sis, bilat eral, w/ CAD [address] [address] Rain saravia Name: MATY saravia : [phone] [...] Ayo briscoe MD on 2018 11:[address] Radiology [address], [address], 06/30/2019 08:13:51 Result Notes None recorded. Problems Name Problem SNOMED Code Status Onset Date Resolution Date Notes Provider Name and Address Organization Details Recorded Time History of malignant neoplasm of breast 967354719 Active 020 DEEPIKA WATSON MD [address] [place] [address], [id number], [facility] 0 13:22:37 Problem Notes None recorded. [...] blood by Pulse oximetry Body temperature Systolic And Diastolic Provider Name and Address Organization Details Last Updated DateTime 0 53088.6 2 g 29.3 kg/m2 167.64 cm 81 /min 98 % 98 % 98.2 [degF] 142/90 mm[Hg] Senia Nemesio [facility] 0 12:39:03 Social History Question Answer Notes LastModified by Hoseanna Details LastModified Time Tobacco Smoking Status Former Smoker Senia Batjuan carlos [facility] 07/03/2019 12:37:07 How Much Tobacco Do You [...] Functional Status Question Answer Note LastModified by Hoseanna Details LastModified Time What is your level [...] quadrivalent, preservative 9 completed Senia Matthewsjuan carlos [facility] 07/03/2019 12:36:42 pneumococcal, unspecified formulation 9 completed Senia Matthewsjuan carlos [facility] 07/03/2019 12:36:50 zoster, unspecified formulation 9 completed Senia Matthewsjuan carlos [facility] 07/03/2019 12:36:59 Past Encounters Encounter ID Performer Location Encounter Start Date Encounter Closed Date Diagnosis/Indication Diagnosis SNOMED-CT Code Diagnosis ICD10 Code Diagnosis IMO Codes Diagnosis Note [id number] DEEPIKA WATSON MD [facility] [address],[facility] [address] [place], [place] [id number] 6 07/27/2016 12:03:02 07/27/2016 12:58:21 [id number] PATRICE KANG JR, MD GENERAL SURGERY [address] [place] [address] 07/27/2016 13:55:06 07/31/2016 13:11:01 [id number] PATRICE KANG JR, MD SURGERY SCHEDULE [address] [place], [place] [address] 08/11/2016 09:55:09 08/11/2016 09:57:56 [id number] PATRICE KANG JR[place] [address] 08/24/2016 11:47:06 08/24/2016 13:26:25 [id number] DEEPIKA WATSON MD [facility] [address],[facility] [address] [place], [place] [id number] 6 09/07/2016 11:50:00 09/07/2016 12:51:55 [id number] RICK CARBAJAL MD RADIATION THERAPY [place] [address] [place] [address] 09/07/2016 13:15:18 09/08/2016 12:36:49 [id number] DEEPIKA WATSON MD [facility] [address],[facility] [address] [place], [place] [id number] 6 10/12/2016 13:12:42 10/12/2016 14:54:08 [id number] DEEPIKA WATSON MD [facility] [address] [place] [address] 12/07/2016 10:38:27 12/07/2016 11:38:56 [id number] DEEPIKA WATSON MD [facility] [place] [facility] [address] [place] [address] 06/27/2017 10:59:25 06/27/2017 11:37:54 [id number] DEEPIKA WATSON MD [facility] [place] [facility] [address] [place] [address] 12/26/2017 10:48:36 12/26/2017 12:36:29 [id number] DEEPIKA WATSON MD [facility] [place] [facility] [address] [place] [address] 06/21/2018 11:39:38 06/21/2018 12:14:48 [id number] DEEPIKA WATSON MD HEM/ONC [place] [facility] [address] [place] [address] 07/03/2019 12:23:13 07/03/2019 13:23:47 History of malignant neoplasm of breast 201257061 Z85.3 Health Concerns Section Related Observation LastModified by Organization Detai ls LastModified Time None Recorded Concern Status LastModified by Organization Details LastModified Time None Recorded Advance Directives Directive None Recorded Payers Insurance Date Sequence Insurance Name Policy Number Policy Carlin Covered Member ID Carlin Member ID Guarantor Name 01/15/2024 2 AARP (MEDICARE SUPPLEMENT) Maty Aguayo [id number] Maty Aguayo 01/15/2024 2 [employer] (PPO) [id number] Maty Aguayo [id number] Maty Aguayo 04/13/2025 1 [place] Maty Aguayo [id number] Maty Aguayo 01/15/2024 2 AARP (MEDICARE SUPPLEMENT) Maty Aguayo [id number] Maty Aguayo 04/10/2025 3 AARP (MEDICARE SUPPLEMENT) Maty Aguayo [id number] Maty Aguayo 04/13/2025 2 [employer] (MEDICARE SUPPLEMENT) [id number] Maty Aguayo [id number] Maty Aguayo 01/15/2024 2 AARP (MEDICARE SUPPLEMENT) PLAN 5 Maty Aguayo [id number] Maty Aguayo 04/13/2025 2 [employer] Maty Aguayo [id number] Maty Aguayo Notes Date Note Type Note Provider Name and Address Organization Details Recorded Time 07/03/2019 text/html [place] HPIReported b y PatientVisit DetailsFor advanced directives / biobank authorizations, patient reportsadvanced directives? no. For discharge, patient reportsdischarge disposition stable. INTERVAL HISTORY: This is a 79-year-old female [...] her follow up today. DEEPIKA WATSON MD [address] [place] [address], [address], [facility] 07/07/2019 08:01:31 OBGyn Episode No OBEpisode recorded.
--- OUTSIDE RECORDS SUMMARY | 2025-05-11 13:26 | XMS_ITS | Encounter Summary ---
[facility] Organization [facility] Address [address] [place] [address] Care Team Providers Care Youth Career Specialist Name Role Phone Ozzie Garibay MD Primary Care Provider [phone] Encounter Details Date Type Department Care Team (Late st Contact Info) Description 01/10/2013 Conversion Encounter [facility] HISTORICAL CONV [address] [place] [address] Interface, See Report Social History [...] See Report - 2013 12:00 AM EDT EQUIPMENT ENGINEER-Oncology [facility] [address] [place], [place] [phone] Patient: MATY AGUAYO. MR #: : 1940 [...] See Report - 01/10/2013 12:00 AM EDT [facility] [address] [place], [place] [phone] Patient: MATY AGUAYO MR #: : 1940 [...] [facility] GYNECOLOGIC ONCOLOGY [address] [place] [address] Cyndi De La Rosa, SOLE STITCHER HAND [address] [facility] [address] [place], [place] [id number] documented as of this encounter Visit Diagnoses Not on filedocumented in this encounter Care Teams Youth Career Specialist Relationship Specialty Start Date End Date Ozzie Garibay MD [address] [facility] [address] [place] [address] PCP - General Internal Medicine 04/02/18 documented as of this encounter
--- OUTSIDE RECORDS SUMMARY | 2025-05-11 13:26 | XMS_ITS | Data Portability ---
Author Organization [facility], RADIATION THERAPY [place] Address [address] [facility] [address] [place] [address] Care Team Providers Care Client Account Representative Name Role Phone DEEPIKA WATSON Referring Provider PATRICE KANG JR General Surgeon [...] Ductal carcinoma in situ of left breast [id number] 9104 Active [address] [facility], [place], [address], [facility] 7 14:00:27 Estrogen receptor positive tumor 602920599 Active [address] [facility], [place], [address], [facility] 14:00:28 Problem Notes None recorded. Procedures Surgical History Date Name Laterality Status Provider Name and Address Organization Details Recorded Time Lumpectomy completed [facility] 09/07/2016 13:16:47 Xcapsl ctrc rmvl cplx wo ecp completed [facility] 09/07/2016 13:17:21 Vulvectomy simple complete completed [facility] 09/07/2016 13:17:55 Unlisted procedure breast completed [facility] 09/07/2016 13:18:49 Imaging Results None recorded. Procedure Notes None recorded. Medical Equipment None Reported. Allergies Allergen ID Allergen Name Allergen Category Reaction Reaction Severity Criticality Documentation Date Start Date Code Code System Note Provider Name and Address Organization Details Recorded Time 823912 Substance with sulfonami de structure and antibacte rial mechanism of action (substanc e) medicatio n Not available Not available Not available 09/07/2016 12972 8003 SNOMED [facility] 13:09:43 Medications Name Sig Start Date Stop [...] blood by Pulse oximetry Respiratory rate Systolic And Diastolic Provider Name and Address Organization Details Last Updated DateTime 7 170.18 cm 46088.8 1 g 28.5 kg/m2 97.4 [degF] 71 /min 98 % 98 % 18 /min 118/64 mm[Hg] Brenda Madrigal [facility] 7 13:37:48 Social History Question Answer Notes LastModified by Organizat ion Details LastModified Time Tobacco Smoking Status Former Smoker Brenda Madrigal [facility] 09/07/2016 13:14:48 When Did You Quit Smoking? 16+yearssin celastcigar ette Quit 1984 [email or web address] Information not available 09/07/2016 How Much Tobacco Do You Smoke? 1 PPD [email or web address] Information not available 09/07/2016 Sex: Unknown Functional Status None recorded. Mental Status None recorded. Family History Relationship Description Onset Age of this Age Resolved Age Notes LastModified by Organization Details LastModified Time Unspecified Relation Malignant neoplasm of breast 2 mat. cousin s [email or web address] Not available 09/07/2016 13:39:34 Unspecified Relation Family history of malignant neoplasm cousin with pancre atic cancer [email or web address] Not available 09/07/2016 13:40:39 Maternal Aunt Family history of malignant neoplasm ovaria n cancer [email or web address] Not available 09/07/2016 13:41:13 Medical History Condition Response Previous Radiation Therapy? Y Cancer Breast Cancer Gynecological History Statement/Question Response # of Pregnancies 0 Age at Menarche 12 Obstetrics History GPAL:G 0 P 0 0 0 0 Past Encounters Encounter ID Performer Location Encounter Start Date Encounter Closed Date Diagnosis/Indication Diagnosis SNOMED-CT Code Diagnosis ICD10 Code Diagnosis IMO Codes Diagnosis Note [id number] DEEPIKA WATSON MD [facility] [address],[place] [address] [place], [place] [id number] 07/27/2016 12:03:02 07/27/2016 12:58:21 [id number] PATRICE KANG JR, MD GENERAL SURGERY [address] 1 07/27/2016 13:55:06 07/31/2016 13:11:01 [id number] PATRICE KANG JR, MD SURGERY SCHEDULE [address] [place] [address] 08/11/2016 09:55:09 08/11/2016 09:57:56 [id number] PATRICE KANG JR, MD GENERAL SURGERY [address] 1 08/24/2016 11:47:06 08/24/2016 13:26:25 [id number] DEEPIKA WATSON MD [facility] [facility] [address],[place] [address] 09/07/2016 11:50:00 09/07/2016 12:51:55 [id number] RICK CARBAJAL MD RADIATION THERAPY [place] [address],[facility] [address] [place] [address] 6 09/07/2016 13:15:18 09/08/2016 12:36:49 Ductal carcinoma in situ of left breast 3734069543 107452 D05.12 Estrogen r eceptor positive tumor 140299495 Z17.0 [id number] DEEPIKA WATSON MD [facility] [place] [facility] [address],[place] [address] [place] [address] 6 10/12/2016 13:12:42 10/12/2016 14:54:08 [id number] DEEPIKA WATSON MD [facility] [place] [facility] [address] [address] 6 12/07/2016 10:38:27 12/07/2016 11:38:56 [id number] DEEPIKA WATSON MD [facility] [place] [facility] [address] [place] [address] 06/27/2017 10:59:25 06/27/2017 11:37:54 [id number] DEEPIKA WATSON MD [facility] [place] [facility] [address] [place] [address] 12/26/2017 10:48:36 12/26/2017 12:36:29 [id number] DEEPIKA WATSON MD [facility] [place] [facility] [address] [place] [address] 06/21/2018 11:39:38 06/21/2018 12:14:48 [id number] DEEPIKA WATSON MD HEM/ONC [facility] [address] [place] [address] 07/03/2019 12:23:13 07/03/2019 13:23:47 Health Concerns Section Related Observation LastModified by Organization Detai ls LastModified Time None Recorded Concern Status LastModified by Organization Details LastModified Time None Recorded Advance Directives Directive None Recorded Payers Insurance Date Sequence Insurance Name Policy Number Policy Carlin Covered Member ID Carlin Member ID Guarantor Name 01/15/2024 2 AARP (MEDICARE SUPPLEMENT) Brewster R Olivier [id number] Maty R Olivier 01/15/2024 2 [employer] (PPO) [id number] Brewsterdelisa Aguayo [id number] Maty R Olivier 04/13/2025 1 [place] Maty R Olivier [id number] Brewster R Olivier 01/15/2024 2 AARP (MEDICARE SUPPLEMENT) Maty R Olivier [id number] Maty R Olivier 04/10/2025 3 AARP (MEDICARE SUPPLEMENT) Maty R Olivier [id number] Brewster R Olivier 04/13/2025 2 [employer] (MEDICARE SUPPLEMENT) [id number] Maty C Olivier [id number] Maty R Olivier 01/15/2024 2 AARP (MEDICARE SUPPLEMENT) PLAN 5 Brewster R Olivier [id number] Maty Aguayo 04/13/2025 2 [facility] Maty Aguayo [id number] Maty Aguayo Notes Date Note Type Note Provider Name and Address Organization Details Recorded Time 7 text/html Maty is a 76 year old woman who was found to have an abnormality on screening mammogram, which led to the following subsequent workup and surgery:EXAM DATE: 06/16/2016 EXAM: MG SCREENING MAMMOGRAM INDICATION: Routine screening. PROCEDURE: Digital [...] out malignancy. EXAM DATE: 07/27/2016 EXAM: MR FLORES BREAST W/WO CONTRAST HISTORY: This is a [...] Magnevist intravenous gadolinium contrast according to the hydraulic tester's weight-based algorithm for contrast dosage. 4 cc of contrast from the single-use vial was discarded. Maximum intensity projection images and 3-D reformatted images were created for further evaluation. Additionally dynamic contrast enhancement was evaluated with the help of Pinshape postprocessing software. FINDINGS: After administration of intravenous [...] in greater than 90% of tumor cells. -ID: Positive. Strong staining in greater than 90% [...] RT in her care. RICK ONEIL MD [address], [place], [address], [facility] 09/07/2016 14:02:42 OBGyn Episode No OBEpisode recorded.
--- OUTSIDE RECORDS SUMMARY | 2025-05-11 13:26 | XMS_ITS | Clinical Summary ---
Author Organization Healthcare Address [address] [place] [address] Care Team Providers Care Emergency Department Rn Name Role Phone Unavailable Primary Care Provider Unavailabl e Encounters Date Type Department Care Team Description 04/13/2025 Ancillary Procedure [facility] at [address] [address] Ozzie Garibay MD from Last 3 Months [...] AM EDT Narrative 04/13/2025 2:49 PM EDT [facility] [address] [place] [address] Patient Name: MATY AGUAYO Patient : 1940 Age: 85 years Patient Ordering Provider: OZZIE GARIBAY JR EXAM DATE: 04/13/2025 EXAM: MG SCREENING RANDOLPH MAMMOGRAM INDICATION: Screening. History of breast cancer treated with breast conservation surgery PROCEDURE: 2D and multislice imaging of both breasts was performed in standard projections using [employer] tomosynthesis equipment (3D mammography). The study [...] Procedure Note Didi Bautista MD - 04/13/2025 [place] [address] Patient Name: MATY AGUAYO Patient : 1940 Age: 85 years Patient Ordering Provider: OZZIE GARIBAY JR EXAM DATE: 04/13/2025 EXAM: MG SCREENING RANDOLPH MAMMOGRAM INDICATION: Screening. History of breast cancer treated with breast conservation surgery PROCEDURE: 2D and multislice imaging of both breasts was performed in standard projections using [employer] tomosynthesis equipment (3D mammography). The study [...]
--- OUTSIDE RECORDS SUMMARY | 2025-05-11 13:26 | XMS_ITS | Data Portability ---
Author Organization JUVENAL BRITTA Cormier [place] CLOSED Address [address] [facility] [address] [place] [address] Care Team Providers Care Cook Italian Style Food Name Role Phone FAITH MOCK Primary Care Provider DEEPIKA WATSON Hematology/Oncology Assessment [...] difficulty, then I suggest that we stop. [id number] Not available 10/13/2016 13:05:25 12/07/2016 12/07/2016 [...] Orders tamoxifen 20 mg tablet 2016 017 [facility] [address], [address], 7 11:30:53 Patient TargetsNo targets recorded. Patient InstructionsNo instructions recorded. Reason for Referral None Reported. Results Created Date Observation Date Name Description Value Unit Range Abnormal Flag Note LastModifiedBy Organization Detail LastModifiedTime 06/20/20 17 06/20/2017 CBC w/ auto diff white blood cells 7.1 K/uL 3.8-10 .8 normal Not Available [facility] [address] [place] [address], [address], 06/20/2017 10:56:04 06/20/20 17 06/20/2017 CBC w/ auto diff red blood cells 4.26 M/uL 3.80-5 .20 normal Not Available [facility] [address] [place] [address], [address], 06/20/2017 10:56:04 06/20/20 17 06/20/2017 CBC w/ auto diff hemoglobin 11.9 g/dL 12.0-1 6.0 low Not Available [facility] [address] [place] [address], [address], 06/20/2017 10:56:04 06/20/20 17 06/20/2017 CBC w/ auto diff hematocrit 35.6 % 35.0-4 7.0 normal Not Available [facility] [address] [place] [address], [address], 06/20/2017 10:56:04 06/20/20 17 06/20/2017 CBC w/ auto diff MCV 84 fL 80-100 normal Not Available [facility] [address] [place] [address], [address], 06/20/2017 10:56:04 06/20/20 17 06/20/2017 CBC w/ auto diff MCH 28 pg 26-35 normal Not Available [facility] [address] [place] [address], [address], 06/20/2017 10:56:04 06/20/20 17 06/20/2017 CBC w/ auto diff MCHC 33 g/dL 32-36 normal Not Available [facility] [address] [place] [address], [address], 06/20/2017 10:56:04 06/20/20 17 06/20/2017 CBC w/ auto diff RDW 14.8 % 11.0-1 5.0 normal Not Available [facility] [address] [place] [address], [address], 06/20/2017 10:56:04 06/20/20 17 06/20/2017 CBC w/ auto diff MPV 9.2 fL 6.2-10 .5 normal Not Available [facility] [address] [place] [address], [address], 06/20/2017 10:56:04 06/20/20 17 06/20/2017 CBC w/ auto diff platelet count 165 K/uL 130-40 0 normal Not Available [facility] [address] [place] [address], [address], 06/20/2017 10:56:04 06/20/20 17 06/20/2017 CBC w/ auto diff neutrophil,a bsolute 5.2 K/uL 1.6-8. 4 normal Not Available [facility] [address] [place] [address], [address], 06/20/2017 10:56:04 06/20/20 17 06/20/2017 CBC w/ auto diff lymphocyte,a bsolute 0.9 K/uL 0.4-5. 1 normal Not Available [facility] [address] [place] [address], [address], 06/20/2017 10:56:04 06/20/20 17 06/20/2017 CBC w/ auto diff monocyte,abs olute 0.7 K/uL 0.0-1. 2 normal Not Available [facility] [address] [place] [address], [address], 06/20/2017 10:56:04 06/20/20 17 06/20/2017 CBC w/ auto diff eosinophil,a bsolute 0.2 K/uL 0.0-0. 8 normal Not Available [facility] [address] [place] [address], [address], 06/20/2017 10:56:04 06/20/20 17 06/20/2017 CBC w/ auto diff basophil,abs olute 0.1 K/uL 0.0-0. 3 normal Not Available [facility] [address] [place] [address], [address], 06/20/2017 10:56:04 06/20/20 17 06/20/2017 CBC w/ auto diff % neutrophils 72.3 % 42.0-7 8.0 normal Not Available [facility] [address] [place] [address], [address], 06/20/2017 10:56:04 06/20/20 17 06/20/2017 CBC w/ auto diff % lymphocytes 13.2 % 11.0-4 7.0 normal Not Available [facility] [address] [place] [address], [address], 06/20/2017 10:56:04 06/20/20 17 06/20/2017 CBC w/ auto diff % monocytes 10.4 % 0.0-11 .0 normal Not Available [facility] [address] [place] [address], [address], 06/20/2017 10:56:04 06/20/20 17 06/20/2017 CBC w/ auto diff % eosinophils 3.3 % 0.0-7. 0 normal Not Available [facility] [address] [place] [address], [address], 06/20/2017 10:56:04 06/20/20 17 06/20/2017 CBC w/ auto diff % basophils 0.8 % 0.0-3. 0 normal Not Available [facility] [address] [place] [address], [address], 06/20/2017 10:56:04 06/20/20 17 06/20/2017 CBC w/ auto diff nucleated red cells 0.0 % 0.0-0. 9 normal Not Available [facility] [address] [place] [address], [address], 06/20/2017 10:56:04 06/20/20 17 06/20/2017 CBC w/ auto diff nucleated RBCs, absolute 0.00 K/uL not estab. normal Not Available [facility] [address] [place], [address], 06/20/2017 10:56:04 06/20/20 17 06/20/2017 CMP, serum or plasm a glucose 117 mg/dL 74-100 high Not Available [facility] [address] [place] [address], [address], 06/20/2017 11:23:49 06/20/20 17 06/20/2017 CMP, serum or plasm a blood urea nitrogen 18 mg/dL 6-20 normal Not Available [facility] [address] [place] [address], [address], 06/20/2017 11:23:49 06/20/20 17 06/20/2017 CMP, serum or plasm a creatinine 0.79 mg/dL 0.50-0 .95 normal Not Available [facility] [address] [place] [address], [address], 06/20/2017 11:23:49 06/20/20 17 06/20/2017 CMP, serum or plasm a BUN/creatini ne ratio 23 (calc ) 10-20 high Not Available [facility] [address] [place] [address], [address], 06/20/2017 11:23:49 06/20/20 17 06/20/2017 CMP, serum or plasm a GFR 83 >= 60 normal Not Available [facility] [address] [place], [address], 06/20/2017 11:23:49 06/20/20 17 06/20/2017 CMP, serum [...] ant women and Hispa nics. Chron ic consuelo greer se is defin ed as kidne y saminaag e or GFR less than 60 mL/mi n/1.7 3 m2 for 3 month s or longe r. . Not Available [facility] [address] [place] [address], [address], 06/20/2017 11:23:49 06/20/20 17 06/20/2017 CMP, serum or plasm a sodium 143 mmol/ L 136-14 5 normal Not Available [facility] [address] [place] [address], [address], 06/20/2017 11:23:49 06/20/20 17 06/20/2017 CMP, serum or plasm a potassium 4.0 mmol/ L 3.4-5. 0 normal Not Available [facility] [address] [place] [address], [address], 06/20/2017 11:23:49 06/20/20 17 06/20/2017 CMP, serum or plasm a chloride 103 mmol/ L 98-107 normal Not Available [facility] [address] [place] [address], [address], 06/20/2017 11:23:49 06/20/20 17 06/20/2017 CMP, serum or plasm a carbon dioxide 28 mmol/ L 20-32 normal Not Available [facility] [address] [place] [address], [address], 06/20/2017 11:23:49 06/20/20 17 06/20/2017 CMP, serum or plasm a anion gap 12 (calc ) 7-25 normal Not Available [facility] [address] [place] [address], [address], 06/20/2017 11:23:49 06/20/20 17 06/20/2017 CMP, serum or plasm a calcium 9.5 mg/dL 8.6-10 .2 normal Not Available [facility] [address] [place], [address], 06/20/2017 11:23:49 06/20/20 17 06/20/2017 CMP, serum or plasm a total protein 7.5 g/dL 6.4-8. 3 normal Not Available [facility] [address] [place] [address], [address], 06/20/2017 11:23:49 06/20/20 17 06/20/2017 CMP, serum or plasm a albumin 4.3 g/dL 3.5-5. 2 normal Not Available [facility] [address] [place] [address], [address], 06/20/2017 11:23:49 06/20/20 17 06/20/2017 CMP, serum or plasm a globulin 3.2 g/dL_ (calc ) 1.5-4. 5 normal Not Available [facility] [address] [place] [address], [address], 06/20/2017 11:23:49 06/20/20 17 06/20/2017 CMP, serum or plasm a albumin/glob ulin ratio 1.3 (calc ) 1.1-2. 5 normal Not Available [facility] [address] [place] [address], [address], 06/20/2017 11:23:49 06/20/20 17 06/20/2017 CMP, serum or plasm a bilirubin, total 0.4 mg/dL 0.1-1. 2 normal Not Available [facility] [address] [place] [address], [address], 06/20/2017 11:23:49 06/20/20 17 06/20/2017 CMP, serum or plasm a alkaline phosphatase 65 U/L 35-105 normal Not Available [facility] [address] [place] [address], [address], 06/20/2017 11:23:49 06/20/20 17 06/20/2017 CMP, serum or plasm a AST 27 U/L 0-32 normal Not Available [facility] [address] [place] [address], [address], 06/20/2017 11:23:49 06/20/20 17 06/20/2017 CMP, serum or plasm a ALT 16 U/L 0-33 normal Not Available [facility] [address] [place] [address], [address], 06/20/2017 11:23:49 06/20/20 17 06/20/2017 MAMMO , scree juan, tomos ynthe sis, bilat eral, w/ CAD Formerly [facility] [address] [place] [address] Rain saravia Name: MATY saravia : [birth year] Age: 77 years Patijason t 1 Orderi ng Provid er: MAR WATSON [...] Patrice Mora MD on 2016 10:23 AM [facility] [address] [place] [address], [address], 06/20/2017 10:34:00 06/20/20 17 06/20/2017 MAMMO , scree juan, tomos ynthe sis, bilat eral, w/ CAD [place] [address] [place] [address] Rain saravia Name: MATY saravia : [birth year] [...] were mailed or given to the rain lee Interp reted By: Patrice Mora MD Electr onical ly Signed By: Patrice Mora MD on 2016 10:23 AM [facility] [address], [address], 06/20/2017 10:34:00 06/21/20 18 06/21/2018 MAMMO , scree juan, tomos ynthe sis, bilat eral, w/ CAD [address] [address] Patijason saravia Name: MATY saravia : [birth year]40 Age: 78 years Patijason t 1 Orderi ng Provid er: MAR WATSON EXAM DATE: 2017 EXAM: MG SCREEN ING [...] Patrice Mora MD on 2017 11:20 AM [facility] [address], [place], [address], 06/21/2018 11:42:25 06/27/20 19 06/27/2019 MAMMO , scree juan, tomos ynthe sis, bilat eral, w/ CAD [address] [address] Rain saravia Name: MATY saravia : [birth year] [...] MD Electr onical ly Signed By: Ayo brisoce MD on 2018 11:11 AM [email or web address] [facility] [address], [address], 11/12/2019 02:38:19 08/25/19 21 08/25/2020 MAMMO , scree juan, tomos ynthe sis, bilat eral, w/ [place] [address] Rain saravia Name: MATY saravia : [birth year] [...] By: Patrice Mora MD on 11:33 AM [email or web address] [facility] [address] [place] [address], [address], 08/25/2020 11:53:32 11/18/19 22 11/17/2021 MAMMO ariela, tomos ynthe sis, bilat eral, w/ CAD [address] [address] Rain saravia Name: MATY saravia : 940 Age: 81 years Patijason saravia 1 Orderi ng Provid er: FAITH [...] Patrice Mora MD on 022 1:22 PM [email or web address] [facility] [address], [address], 11/17/2021 13:31:45 12/16/19 23 12/15/2022 MAMMO , scree juan, tomos ynthe sis, bilat eral, w/ CAD [address] [address] Rain saravia Name: MATY saravia : [birth year]40 Age: 82 years Rain saravia 1 Orderi ng Provid er: FAITH E EMILI GARCIA EXAM DATE: 2022 EXAM: MG SCREEN ING [...] Patrice Mora MD on 023 1:02 PM [email or web address] [facility] [address] [place] [address], [address], 12/15/2022 14:26:37 01/15/20 24 01/15/2024 MAMMO , scree juan, tomos ynthe sis, bilat eral, w/ CAD [place] [facility] [address] [facility] [place] [address] Rain saravia Name: MATY saravia : [birth year] [...] Patrice Mora MD on 024 1:46 PM [email or web address] [facility] [address] [place], [address], 01/15/2024 16:31:21 10/13/20 25 04/13/2025 MAMMO , scree juan, tomos ynthe sis, bilat eral, w/ CAD [facility] [address] [place] [address] [place] [address] Rain saravia Name: MATY saravia : 940 Age: 85 years Patijason saravia 1 Orderi ng Provid er: FAITH MOCK JR EXAM DATE: 2024 EXAM: MG SCREEN ING RANDOLPH MAMMOG CHEMA INDICA TION: Screen ing. Histor y of breast cancer treate d with breast conser vation surger y PROCED URE: 2D and multis lice imagin g of both breast s was perfor med in standa rd projec tions using Hologi c Seleni a Dimens ions tomosy nthesi s equipm ent (3D mammog jocelyn) . The study was read with the assist ance of Comput er Aided Detect ion (CAD) softwa re. COMPAR BRIANNA: This was compar ed with previo us mammog makenzie dated back to 021. DENSIT Y: The breast s are hetero geneou sly dense, which may obscur e small masses . FINDIN GS: The bilate ral fibrog landul ar patter n is stable in appear ance includ ing postop erativ e change s in the left breast . There are bilate ral scatte red benign -appea ring calcif icatio ns. No new mass, suspic ious calcif icatio ns, or nonsur gical areas of jade ectura l distor tion are seen in either breast . IMPRES HARLAN: Benign bilate ral mammog raphic findin gs.. BI-RAD S Catego ry 2, Benign findin g, routin e follow -up. The patien t has been entere d into an automa scott [employer] er system . RECOMM ENDATI ON: Yearly mammog chema, yearly clinic al breast exam, and encour age self breast awaren ess. The standa rd false negati ve rate of mammog jocelyn is betwee n 10% and 25%. Comple x patter ns or increa sed breast densit y will marked ly elevat e the false negati ve rate of mammog jocelyn. If there is a palpab le area of concer n, biopsy should be consid ered regard less of pabloin g estrada gs. A letter , in lay termin ology, with the result s of this exam will be mailed to the rain Rg reted By: Eunice jiang MD Electr onical ly Signed By: Eunice jiang MD on 2024 2:49 PM [email or web address] [facility] [address], [address], 04/13/2025 15:04:23 Result Notes Documentation Provider Name and Address Organization Details Recorded Time Mammo, Screening, Tomosynthesis, Bilateral, W/ Cad : [address] [address] Patient Name: MATY AGUAYO Patient : 1940 Age: 77 years Patient Ordering Provider: DEEPIKA WATSON EXAM DATE: 06/20/2017 EXAM: MG SCREENING RANDOLPH MAMMOGRAM INDICATION: Screening. History of breast cancer treated with breast conserving therapy. PROCEDURE: Multislice imaging of both breasts was performed in standard projections using [employer] tomosynthesis equipment (3D mammography). 2D images were created from the 3D dataset using C-View software. The study was read with the assistance of Computer Aided Detection (CAD) software. COMPARISON: This was compared with previous mammograms dated 06/16/2016, 06/15/2015, 06/11/2014 FINDINGS: The breasts are heterogeneously dense. This may lower the sensitivity of mammography. There is no suspicious mass or cluster of calcifications. No architectural distortion. Lumpectomy scarring sequela outer left breast. IMPRESSION: BI-RADS category 2, Benign. There is no evidence of malignancy. Screening mammograms are recommended in one year. Results were mailed or given to the patient. Interpreted By: Patrice Mora MD IKA WATSON MD [address] [place] [address], [phone], [facility] 06/20/2017 10:34:00 Mammo, Screening, Tomosynthesis, Bilateral, W/ Cad : [address] [address] Patient Name: MATY AGUAYO Patient : 1940 Age: 77 years Patient Ordering Provider: DEEPIKA WATSON EXAM DATE: 06/20/2017 EXAM: MG SCREENING RANDOLHP MAMMOGRAM INDICATION: Screening. History of breast cancer treated with breast conserving therapy. PROCEDURE: Multislice imaging of both breasts was performed in standard projections using [employer] tomosynthesis equipment (3D mammography). 2D images were created from the 3D dataset using C-View software. The study was read with the assistance of Computer Aided Detection (CAD) software. COMPARISON: This was compared with previous mammograms dated 06/16/2016, 06/15/2015, 06/11/2014 FINDINGS: The breasts are heterogeneously dense. This may lower the sensitivity of mammography. There is no suspicious mass or cluster of calcifications. No architectural distortion. Lumpectomy scarring sequela outer left breast. IMPRESSION: BI-RADS category 2, Benign. There is no evidence of malignancy. Screening mammograms are recommended in one year. Results were mailed or given to the patient. Interpreted By: Patrice Mora MD IKA WATSON MD [address] [place] [address], [phone] 06/20/2017 10:34:00 Mammo, Screening, Tomosynthesis, Bilateral, W/ Cad : [address] [address] Patient Name: MATY AGUAYO Patient : 1940 Age: 78 years Patient Ordering Provider: DEEPIKA WATSON EXAM DATE: 06/21/2018 EXAM: MG SCREENING RANDOLPH MAMMOGRAM INDICATION: Screening. History of breast cancer treated with breast conserving therapy. PROCEDURE: Multislice imaging of both breasts was performed in standard projections using [employer] tomosynthesis equipment (3D mammography). 2D images were created from the 3D dataset using C-View software. The study was read with the assistance of Computer Aided Detection (CAD) software. COMPARISON: This was compared with previous mammograms dated 06/20/17, 06/16/16, 06/15/15 FINDINGS: The breasts are heterogeneously dense. This may lower the sensitivity of mammography. There is no suspicious mass or cluster of calcifications. No architectural distortion. Bilateral areas of nodular asymmetry, stable pattern IMPRESSION: BI-RADS category 2, Benign. There is no evidence of malignancy. Screening mammograms are recommended in one year. Results were mailed or given to the patient. Interpreted By: Patrice Mora MD IKA WATSON MD [address] [place] [address], [id number] [place] [address] 06/21/2018 11:42:25 Mammo, Screening, Tomosynthesis, Bilateral, W/ Cad : [place] [address] Patient Name: MATY AGUAYO Patient : 1940 Age: 79 years Patient Ordering Provider: DEEPIKA WATSON EXAM DATE: 06/27/2019 EXAM: MG SCREENING RANDOLPH MAMMOGRAM INDICATION: Screening. History of breast cancer treated with breast conserving therapy. PROCEDURE: Multislice imaging of both breasts was performed in standard projections using [employer] tomosynthesis equipment (3D mammography). 2D images were created from the 3D dataset using C-View software. The study was read with the assistance of Computer Aided Detection (CAD) software. COMPARISON: This was compared with previous mammograms dated 06/21/18, 06/20/17, 06/16/16 FINDINGS: The breasts are heterogeneously dense. This may lower the sensitivity of mammography. There is no mass or cluster of calcifications. There is stable scarring in the left breast. There is no suspicious change. IMPRESSION: BI-RADS category 2, Benign. There is no evidence of malignancy. Screening mammograms are recommended in one year. Results were mailed or given to the patient. Interpreted By: Ayo Crain MD Not Available [facility] 11/12/2019 02:38:24 Mammo, Screening, Tomosynthesis, Bilateral, W/ Cad : [address] [address] Patient Name: MATY AGUAYO Patient : 1940 Age: 80 years Patient Ordering Provider: FAITH MOCK JR EXAM DATE: 08/25/2020 EXAM: SCREENING RANDOLPH MAMMOGRAM INDICATION: Screening. History of breast cancer treated with breast conserving therapy. PROCEDURE: Multislice imaging of both breasts was performed in standard projections using [employer] tomosynthesis equipment (3D mammography). 2D images were created from the 3D dataset using C-View software. The study was read with the assistance of Computer Aided Detection (CAD) software. COMPARISON: This was compared with previous mammograms dated 06/27/19, 06/21/18, 06/20/17 FINDINGS: The breasts are heterogeneously dense. This may lower the sensitivity of mammography. There is no suspicious mass or cluster of calcifications. No architectural distortion. Lumpectomy sequela left breast. Several benign coarse calcifications noted in the breasts bilaterally. IMPRESSION: BI-RADS category 2, Benign. There is no evidence of malignancy. Screening mammograms are recommended in one year. Results were mailed or given to the patient. Interpreted By: Patrice Mora MD Kate Kramer [facility] 08/25/2020 11:53:32 Mammo, Screening, Tomosynthesis, Bilateral, W/ Cad : [facility] [address] [place] [address] Patient Name: MATY GAUAYO Patient : 1940 Age: 81 years Patient Ordering Provider: FAITH MOCK JR EXAM DATE: 11/17/2021 EXAM: SCREENING RANDOLPH MAMMOGRAM INDICATION: Screening. History of breast cancer treated with breast conserving therapy. PROCEDURE: Multislice imaging of both breasts was performed in standard projections using [employer] tomosynthesis equipment (3D mammography). 2D images were created from the 3D dataset using C-View software. The study was read with the assistance of Computer Aided Detection (CAD) software. COMPARISON: This was compared with previous mammograms dated 08/25/2020, 06/27/2019, 06/21/2018 FINDINGS: The breasts are heterogeneously dense. This may lower the sensitivity of mammography. There is no suspicious mass or cluster of calcifications. No architectural distortion. Again noted is scarring in the left breast IMPRESSION: BI-RADS category 2, Benign. There is no evidence of malignancy. Screening mammograms are recommended in one year. Results were mailed or given to the patient. Interpreted By: Patrice Mora MD Kate Kramer [facility] 11/17/2021 13:31:45 Mammo, Screening, Tomosynthesis, Bilateral, W/ Cad : [place] [address] Patient Name: MATY AGUAYO Patient : 1940 Age: 82 years Patient Ordering Provider: FAITH MOCK JR EXAM DATE: 12/15/2022 EXAM: MG SCREENING RANDOLPH MAMMOGRAM INDICATION: Routine screening. PROCEDURE: Multislice imaging of both breasts was performed in standard projections using [employer] tomosynthesis equipment (3D mammography). 2D images were created from the 3D dataset using C-View software. The study was read with the assistance of Computer Aided Detection (CAD) software. COMPARISON: This was compared with previous mammograms dated 11/17/21, 08/25/20, 06/27/19 FINDINGS: The breasts are heterogeneously dense. This may lower the sensitivity of mammography. There is no suspicious mass or cluster of calcifications. No architectural distortion. There is stable scarring in the left breast. There is no suspicious change. Scattered areas of nodular asymmetry are noted. The pattern is unchanged. IMPRESSION: BI-RADS category 2, Benign. There is no evidence of malignancy. Screening mammograms are recommended in one year. Results were mailed or given to the patient. Interpreted By: Patrice Mora MD Huong Emili [facility] 12/15/2022 14:26:37 Mammo, Screening, Tomosynthesis, Bilateral, W/ Cad : [place] [address] Patient Name: MATY AGUAYO Patient : 1940 Age: 83 years Patient Ordering Provider: FAITH MOCK JR EXAM DATE: 01/15/2024 EXAM: MG SCREENING RANDOLPH MAMMOGRAM INDICATION: Screening. History of breast cancer treated with breast conserving therapy. PROCEDURE: Multislice imaging of both breasts was performed in standard projections using [employer] tomosynthesis equipment (3D mammography). 2D images were created from the 3D dataset using C-View software. The study was read with the assistance of Computer Aided Detection (CAD) software. COMPARISON: This was compared with previous mammograms dated 12/15/2022, 11/17/2021, 08/25/2020 FINDINGS: The breasts are heterogeneously dense. This may lower the sensitivity of mammography. There is no suspicious mass or cluster of calcifications. No architectural distortion. There is stable scarring in the left breast. Surgical clips are noted in the left axilla. There is no suspicious change. A nodular tissues in the retroareolar region bilaterally, grossly unchanged IMPRESSION: BI-RADS category 2, Benign. There is no evidence of malignancy. Screening mammograms are recommended in one year. Results were mailed or given to the patient. Interpreted By: Patrice Mora MD Maral Regalado [facility] 01/15/2024 16:31:21 Mammo, Screening, Tomosynthesis, Bilateral, W/ Cad : [address] [address] Patient Name: MATY AGUAYO Patient : 1940 Age: 85 years Patient Ordering Provider: FAITH MOCK JR EXAM DATE: 04/13/2025 EXAM: SCREENING RANDOLPH MAMMOGRAM INDICATION: Screening. History of breast cancer treated with breast conservation surgery PROCEDURE: 2D and multislice imaging of both breasts was performed in standard projections using [employer] tomosynthesis equipment (3D mammography). The [...] the patient. 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 Procedure Notes None recorded. Medical Equipment None Reported. Allergies Allergen ID Allergen Name Allergen Category Reaction Reaction Severity Criticality Documentation Date Start Date Code Code System Note Provider Name and Address Organization Details Recorded Time 467575 Substance with sulfonami de structure and antibacte rial mechanism of action (substanc e) medicatio n Not available Not available Not available 05/26/20162005 41619 8003 SNOMED Comme nt: SHRAVAN ORBIT AL EDEMA ;Crea scott By: Tyrell chavez Date: 2005 1:02: 23 PM; Not Available [facility] 6 04:16:55 Medications Name Sig Start Date [...] index (BMI) Heart rate Body temperature Systolic And Diastolic Provider Name and Address Organization Details Last Updated DateTime 7 170.18 cm 94158.4 g 28.7 kg/m2 71 /min 97.1 [degF] 152/63 mm[Hg] [facility] 7 14:15:58 Date Recorded Pain severity - 0-10 verbal numeric rating [Score] - Reported Provider Name and Address Organization Details Last Updated DateTime 10/12/2016 0 Not Available [facility] 8 10:17:46 Date Recorded Body height Body weight Body mass index (BMI) Body temperature Heart rate Systolic And Diastolic Provider Name and Address Organization Details Last Updated DateTime 7 170.18 cm 29003.4 g 28.7 kg/m2 97 [degF] 69 /min 135/68 mm[Hg] [facility] 7 11:12:21 Date Recorded Pain severity - 0-10 verbal numeric rating [Score] - Reported Provider Name and Address Organization Details Last Updated DateTime 12/07/2016 0 Not Available [facility] 8 10:23:06 Date Recorded Body height Body mass index (BMI) Body weight Heart rate Systolic And Diastolic Provider Name and Address Organization Details Last Updated DateTime 12/26/2017 170.18 cm 28.2 kg/m2 60569.33 g 76 /min 169/75 mm[Hg] Simi Heather [facility] 12/26/2017 12:09:00 Date Recorded Body height Body temperature Body mass index (BMI) Body weight Heart rate Systolic And Diastolic Provider Name and Address Organization Details Last Updated DateTime 8 170.18 cm 97.4 [degF] 28 kg/m2 05814.2 4 g 66 /min 158/66 mm[Hg] Esau Drew [facility] 8 11:50:58 Date Recorded Body height Body mass index (BMI) Body weight Body temperature Heart rate Systolic And Diastolic Provider Name and Address Organization Details Last Updated DateTime 7 170.18 cm 28.5 kg/m2 06113.8 1 g 98.2 [degF] 77 /min 162/72 mm[Hg] Stephanie Tammie [facility] 7 11:16:53 Date Recorded Pain severity - 0-10 verbal numeric rating [Score] - Reported Provider Name and Address Organization Details Last Updated DateTime 06/27/2017 0 Not Available [facility] 8 10:43:03 Social History Question Answer Notes LastModified by Organizat ion Details LastModified Time Tobacco Smoking Status Former Smoker quit 1983 Iris Faulkner [facility] 07/27/2016 15:10:34 What Was The Date [...] Time Unspecified Relation Malignant neoplasm of breast 40 matern al cousin x1 Not available 07/27/2016 15:30:29 Unspecified Relation Malignant neoplasm of breast matern al cousin x2 Not [...] ICD10 Code Diagnosis IMO Codes Diagnosis Note [id number] DEEPIKA WATSON MD HEM/ONC [facility] CLOSED [address] [place] [address] 07/27/2016 12:03:02 07/27/2016 12:58:21 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 I told her there is a 1% chance of catastroph ic complicati on, 5% chance of positive margin requiring second surgery, less than 5% chance of long-term arm swelling. [id number] PATRICE KANG JR, MD SURGERY SCHEDULE [address] [place] [address] 08/11/2016 09:55:09 08/11/2016 09:57:56 [id number] PATRICE KANG JR, MD GENERAL SURGERY [address] [address] 08/24/2016 11:47:06 08/24/2016 13:26:25 Ductal carcinoma in situ of breast 695853365 D05.12 she will follow-up with Dr. Watson for adjuvant hormonal therapy and radiation therapy. She can follow up with me as needed. [id number] DEEPIKA WATSON MD HEM/ONC [facility] CLOSED [address] 6 09/07/2016 11:50:00 09/07/2016 12:51:55 Ductal carcinoma in situ of breast 884767034 D05.12 [id number] RICK CARBAJAL MD RADIATION THERAPY [place] [address],[facility] [address] [place] [address] 09/07/2016 13:15:18 09/08/2016 12:36:49 [id number] DEEPIKA WATSON MD HEM/ONC [facility] CLOSED [address],[place] [address] 6 10/12/2016 13:12:42 10/12/2016 14:54:08 Ductal carcinoma in situ of breast 144281940 D05.12 [id number] DEEPIKA WATSON MD HEM/ONC [facility] CL[facility] [address] [place] [address] 12/07/2016 10:38:27 12/07/2016 11:38:56 Ductal carcinoma in situ of breast 656823385 D05.12 [id number] DEEPIKA WATSON MD HEM/ONC [facility] [address] [place] [address] 06/27/2017 10:59:25 06/27/2017 11:37:54 Ductal carcinoma in situ of breast 265500068 D05.12 [id number] DEEPIKA WATSON MD HEM/ONC [facility] CLOS[facility] [address] [place] [address] 12/26/2017 10:48:36 12/26/2017 12:36:29 Ductal carcinoma in situ of breast 944877209 D05.12 [id number] DEEPIKA WATSON MD HEM/ONC [facility] CL[facility] [address] [place] [address] 06/21/2018 11:39:38 06/21/2018 12:14:48 Ductal carcinoma in situ of breast 631556197 D05.12 [id number] DEEPIKA WATSON MD HEM/ONC SB CLOSED [address] [place] [address] 07/03/2019 12:23:13 07/03/2019 13:23:47 Health Concerns Section Related Observation LastModified by Organization Detai ls LastModified Time None Recorded Concern Status LastModified by Organization Details LastModified Time None Recorded Advance Directives Directive None Recorded Payers Insurance Date Sequence Insurance Name Policy Number Policy Carlin Covered Member ID Carlin Member ID Guarantor Name 01/15/2024 2 AARP (MEDICARE SUPPLEMENT) Maty Aguayo [id number] Maty Aguayo 01/15/2024 2 [employer] (PPO) [id number] Maty Aguayo [id number] Maty Aguayo 04/13/2025 1 [place] Maty Aguayo [id number] Maty Aguayo 01/15/2024 2 AARP (MEDICARE SUPPLEMENT) Maty Aguayo [id number] Maty Aguayo 04/10/2025 3 AARP (MEDICARE SUPPLEMENT) Maty Aguayo [id number] Maty Aguayo 04/13/2025 2 [employer] (MEDICARE SUPPLEMENT) [id number] Maty Aguayo [id number] Maty Aguayo 01/15/2024 2 AARP (MEDICARE SUPPLEMENT) PLAN 5 Maty Aguayo [id number] Maty Aguayo 04/13/2025 2 [facility] Maty Aguayo [id number] Maty Aguayo Notes Date Note Type Note Provider Name and Address Organization Details Recorded Time 10/12/2016 text/html INTERVAL HISTORY: 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 She underwent partial mastectomy for this. Fortunately, there was no evidence of any invasive component and only a small amount of low grade ER positive DCIS was seen. She has recovered from surgery and here today for discussion of the agent tamoxifen. DEEPIKA WATSON MD [address] [place] [address], [address], [facility] 10/16/2016 09:44:13 12/07/2016 text/html [...] significant change moving forward. DEEPIKA WATSON MD [address] [place] [address], [address], [facility] 12/12/2016 14:05:02 06/27/2017 text/html [...] doing well. DEEPIKA WATSON MD [address] [place], [address], [facility] 06/28/2017 08:17:52 12/26/2017 text/html ROS as noted in the HPI INTERVAL HISTORY: This is a 77-year-old female originally seen [...] report today. DEEPIKA WATSON MD [address] [place], [address], [facility] 12/28/2017 13:42:59 06/21/2018 text/html [...] doing well. DEEPIKA WATSON MD [address] [place], [address], [facility] 07/05/2018 18:27:16 OBGyn Episode No OBEpisode recorded.
--- OUTSIDE RECORDS SUMMARY | 2025-05-11 13:26 | XMS_ITS | Encounter Summary ---
[facility] Address [address] [place] [address] Care Team Providers Care Biomedical Engineering Technologist Name Role Phone Ozzie Garibay MD Primary Care Provider [phone] Encounter Details Date Type Department Care Team (Late st Contact Info) Description 02/07/2013 Conversion Encounter [facility] HIST[facility] CONV [address] [place] [address] Interface, See Report Social History [...] See Report - 02/07/2013 12:00 AM EDT PIPE TESTING TECHNICIAN-Oncology Services [address] [place], [place] [address] Patient: MATY AGUAYO. MR #: : 1940 [...] 10/28/2025 1:30 PM EDT Office Visit [facility] GYNECOLOGIC ONCOLOGY [address] [place], [place] [id number] Cyndi De La Rosa APRN [address] [place] [address] documented as of this encounter Visit Diagnoses Not on filedocumented in this encounter Care Teams Biomedical Engineering Technologist Relationship Specialty Start Date End Date Ozzie Garibay MD [address] [facility] [address] [place] [address] PCP - General Internal Medicine 04/02/18 documented as of this encounter
--- OUTSIDE RECORDS SUMMARY | 2025-05-11 13:26 | XMS_ITS | Encounter Summary ---
[facility] Organization [facility] Address [address] [place] [address] Care Team Providers Care Dye Beck Reel Operator Name Role Phone Ozzie Garibay MD Primary Care Provider [phone] Encounter Details Date Type Department Care Team (Late st Contact Info) Description 05/19/2013 Conversion Encounter [facility] HISTORICAL CONV [address] [place] [address] Interface, See Report Social History [...] See Report - 05/19/2013 12:00 AM EST AERIAL SPRAYER-Oncology Services [address] [place], [place] [address] Patient: MATY AGUAYO MR #: [id number] : 1940 Date of Visit: 05/19/2013 Referring Physician: NOLVIA COOMBS Dictated By: David Arellano MD 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 PT. DENIES ANY CURRENT AERIAL SPRAYER PROBLEMS. PT /'S WHAT THE BULGE IS [...] 1:30 PM EDT Office Visit [facility] GYNECOLOGIC ONCOLOGY [address] [facility] [address] [place] [address] Cyndi De La Rosa, CHILDREN'S MINISTER [address] [place] [address] documented as of this encounter Visit Diagnoses Not on filedocumented in this encounter Care Teams Dye Beck Reel Operator Relationship Specialty Start Date End Date Ozzie Garibay MD [address] [facility] [address] [place] [address] PCP - General Internal Medicine 04/02/18 documented as of this encounter
--- OUTSIDE RECORDS SUMMARY | 2025-05-11 13:26 | XMS_ITS | Encounter Summary ---
Author Organization Healthcare Address [address] [place] [address] Care Team Providers Care Deputy Probation Officer Name Role Phone Unavailable Primary Care Provider Unavailabl e Encounter Details Date Type Department Care Team (Late st Contact Info) Description 04/13/2025 Ancillary Procedure [facility] [address] [place] [address] Ozzie Garibay MD [address] [place] [id number] Social History Tobacco Use Types Packs/Day Years [...] AM EDT Narrative 04/13/2025 2:49 PM EDT [facility] [address] [place] [address] Patient Name: MATY AGUAYO Patient : 1940 Age: 85 years Patient Ordering Provider: OZZIE GARIBAY JR EXAM DATE: 04/13/2025 EXAM: MG SCREENING RANDOLPH MAMMOGRAM INDICATION: Screening. History of breast cancer treated with breast conservation surgery PROCEDURE: 2D and multislice imaging of both breasts was performed in standard projections using [employer] tomosynthesis equipment (3D mammography). The [...] Procedure Note Didi Bautista MD - 04/13/2025 [place] [id number] Patient Name: MATY AGUAYO Patient : 1940 Age: 85 years Patient Ordering Provider: OZZIE GARIBAY JR EXAM DATE: 04/13/2025 EXAM: MG SCREENING RANDOLPH MAMMOGRAM INDICATION: Screening. History of breast cancer treated with breast conservation surgery PROCEDURE: 2D and multislice imaging of both breasts was performed in standard projections using [employer] tomosynthesis equipment (3D mammography). The [...]
--- OUTSIDE RECORDS SUMMARY | 2025-05-11 13:26 | XMS_ITS | Encounter Summary ---
Author Organization [facility] Address [address] [place] [address] Care Team Providers Care Machine Tool Mechanic Name Role Phone Ozzie Garibay MD Primary Care Provider [phone] Encounter Details Date Type Department Care Team (Late st Contact Info) Description 12/23/2012 Conversion Encounter [facility] HISTORICAL CONV [address] [place] [address] Interface, See Report Social History [...] See Report - 12/23/2012 12:00 AM EDT SUCTION DREDGE DUMPING SUPERVISOR-Oncology Services [address] [place], [place] [address] Patient: MATY AGUAYO MR #: : 1940 [...] exam: Constitutional: Weight 177 [place] 65 [place] [address] Pulse Temp Neurological/Psychiatric: HEENT: Neck: Respiratory: Cardiovascular: [...] Description 10/28/2025 1:30 PM EDT Office Visit [facility] GYNECOLOGIC ONCOLOGY [address] [facility] [address] [place] [address] Cyndi De La Rosa APRN [address] [facility] [address] [place], [place] [address] documented as of this encounter Visit Diagnoses Not on filedocumented in this encounter Care Teams Machine Tool Mechanic Relationship Specialty Start Date End Date Ozzie Garibay MD 12[address] [facility] [address] [place] [address] PCP - General Internal Medicine 04/02/18 documented as of this encounter
--- OUTSIDE RECORDS SUMMARY | 2025-05-11 13:26 | XMS_ITS | Clinical Summary ---
Author Organization [facility] Address [address] [place] [address] Care Team Providers Care Wire Spooler Name Role Phone Ozzie Garibay MD Primary Care Provider [phone] Allergies Active Allergy Reactions Criticality Noted Date [...] Description 10/28/2025 1:30 PM EDT Office Visit [facility] GYNECOLOGIC ONCOLOGY [address] [facility] [address] [place] [address] yCndi De La Rosa, DIRECTOR OF WORKFORCE DEVELOPMENT [address] [facility] [address] [place], [place] [address] Health Maintenance Due Date Last Done Comments [...] 1:49 PM EDT) Fecal Occult Blood Normal [facility] Stool 02/09/2016 1:49 PM EDT us Nori Ibanez APRN POINT OF CARE TEST ORDERABLE S Final Result [facility]
[address] [place] [id number], [place] [phone] from Last 3 Months or Most Recently Relevant to Health Maintenance Insurance MEDICARE A & B [employer] [facility] Care Teams Wire Spooler Relationship Specialty Start Date End Date Ozzie Garibay MD [address] [facility] [address] [place] [address] PCP - General Internal Medicine 04/02/18
[2025-05-11] MEDS: SODIUM CHLORIDE 0.9% 10ML FLUSH SYRINGE 10 ML IV (13:34)
[2025-05-11] MEDS: IRON SUCROSE COMPLEX 200 MG in 0.9 % SODIUM CHLORIDE 100 ML 220 MG IV (13:34)
[2025-05-11 13:38] VITALS: BP 146/79; PULSE 80; RESP 14; TEMP 36.6; O2SAT 98
[2025-05-11 14:10] VITALS: BP 134/75; PULSE 75; RESP 14; O2SAT 97
== END 2025-05-11 23:59 | disposition home or self-care (01) ==
LOC: INF 13:23
PROVIDERS: PCP Internal Medicine; Visit Provider Internal Medicine
DX: D50.9 Iron deficiency anemia, unspecified (principal)
CPT/HCPCS: 96365; J1756

== ENCOUNTER 2025-05-13 13:10 | Outpatient (CLI) | payer MEDICARE, OTHER, SELFPAY ==
[2025-05-13 13:30] VITALS: BP 137/73; PULSE 80; RESP 17; O2SAT 100
[2025-05-13] MEDS: IRON SUCROSE COMPLEX 200 MG in 0.9 % SODIUM CHLORIDE 100 ML 220 MG IV (13:30)
--- OUTSIDE RECORDS SUMMARY | 2025-05-13 13:31 | XMS_ITS | Encounter Summary ---
Author Organization Healthcare Address [address] [place] [address] Care Team Providers Care Home Office Claims Examiner Name Role Phone Unavailable Primary Care Provider Unavailabl e Encounter Details Date Type Department Care Team (Late st Contact Info) Description 04/13/2025 Ancillary Procedure [facility] [address] [place] [address] Ozzie Garibay MD [address] [place] [phone] Social History Tobacco Use Types Packs/Day Years [...] AM EDT Narrative 04/13/2025 2:49 PM EDT [facility] [address] [place] [address] Patient Name: MATY AGUAYO Patient : 1940 Age: 85 years Patient Ordering Provider: OZZIE GARIBAY JR EXAM DATE: 04/13/2025 EXAM: MG SCREENING RANDOLPH MAMMOGRAM INDICATION: Screening. History of breast cancer treated with breast conservation surgery PROCEDURE: 2D and multislice imaging of both breasts was performed in standard projections using [employer] tomosynthesis equipment (3D mammography). The [...] Procedure Note Didi Bautista MD - 04/13/2025 [place] [id number] Patient Name: MATY AGUAYO Patient : 1940 Age: 85 years Patient Ordering Provider: OZZIE GARIBAY JR EXAM DATE: 04/13/2025 EXAM: MG SCREENING RANDOLPH MAMMOGRAM INDICATION: Screening. History of breast cancer treated with breast conservation surgery PROCEDURE: 2D and multislice imaging of both breasts was performed in standard projections using [employer] tomosynthesis equipment (3D mammography). The [...]
--- OUTSIDE RECORDS SUMMARY | 2025-05-13 13:31 | XMS_ITS | Data Portability ---
Author Organization [facility] Address [address] [place] [address] Care Team Providers Care Guest Service Host Name Role DEEPIKA Recio Hematology/Oncology Unavailable FAITH [...] getting her mammograms done here within the [facility]. I think that is agreeable and we [...] tomos ynthe sis, bilat eral, w/ CAD [address] [address] Rain saravia Name: MATY saravia : [phone] [...] Ayo briscoe MD on 2018 11:[address] Radiology [address], [address], 06/30/2019 08:13:51 Result Notes None recorded. Problems Name Problem SNOMED Code Status Onset Date Resolution Date Notes Provider Name and Address Organization Details Recorded Time History of malignant neoplasm of breast 440634045 Active 020 DEEPIKA WATSON MD [address] [place] [address], [address], [facility] 0 13:22:37 Problem Notes None recorded. Medical [...] Address Organization Details Last Updated DateTime 0 [address].6 2 g 29.3 kg/m2 167.64 cm 81 /min 98 % 98 % 98.2 [degF] 142/90 mm[Hg] Senia Nemesio [facility] 0 12:39:03 Social History Question Answer Notes LastModified by [employer] Details LastModified Time Tobacco Smoking Status Former Smoker Senia Batjuan carlos [facility] 07/03/2019 12:37:07 How Much Tobacco Do [...] Functional Status Question Answer Note LastModified by [employer] Details LastModified Time What is your level [...] quadrivalent, preservative 9 completed Senia Matthewsjuan carlos [facility] 07/03/2019 12:36:42 pneumococcal, unspecified formulation 9 completed Senia Matthewsjuan carlos [facility] 07/03/2019 12:36:50 zoster, unspecified formulation 9 completed Senia Matthewsjuan carlos [facility] 07/03/2019 12:36:59 Past Encounters Encounter ID Performer Location Encounter Start Date Encounter Closed Date Diagnosis/Indication Diagnosis SNOMED-CT Code Diagnosis ICD10 Code Diagnosis IMO Codes Diagnosis Note [id number] DEEPIKA WATSON MD HEM/ONC [facility] CLOSED [address],[facility] [address] [place], [place] [address] 07/27/2016 12:03:02 07/27/2016 12:58:21 [id number] PATRICE KANG JR, MD GENERAL SURGERY SB [address] [place] [address] 07/27/2016 13:55:06 07/31/2016 13:11:01 [id number] PATRICE KANG JR, MD SURGERY SCHEDULE [address] [place], [place] [address] 08/11/2016 09:55:09 08/11/2016 09:57:56 [id number] PATRICE KANG JR, [place] [address] 08/24/2016 11:47:06 08/24/2016 13:26:25 [id number] DEEPIKA WATSON MD HEM/ONC [facility] CLOSED [address],[facility] [address] [place], [place] [address] 6 09/07/2016 11:50:00 09/07/2016 12:51:55 [id number] RICK CARBAJAL MD RADIATION THERAPY [facility] [address] [place] [address] 09/07/2016 13:15:18 09/08/2016 12:36:49 [id number] DEEPIKA WATSON MD HEM/ONC [facility] CLOSED [address],[facility] [address] [place], [place] [id number] 6 10/12/2016 13:12:42 10/12/2016 14:54:08 [id number] DEEPIKA WATSON MD HEM/ONC [facility] CLOSED [address] [place] [address] 12/07/2016 10:38:27 12/07/2016 11:38:56 [id number] DEEPIKA WATSON MD HEM/ONC [facility] CLOSED [address] [place] [address] 06/27/2017 10:59:25 06/27/2017 11:37:54 [id number] DEEPIKA AWTSON MD HEM/ONC [facility] CLOSED [address] [place] [address] 12/26/2017 10:48:36 12/26/2017 12:36:29 [id number] DEEPIKA WATSON MD HEM/ONC [facility] CLOSED [address] [place] [address] 06/21/2018 11:39:38 06/21/2018 12:14:48 [id number] DEEPIKA WATSON MD HEM/ONC SB CLOSED [address] [place] [address] 07/03/2019 12:23:13 07/03/2019 13:23:47 History of malignant neoplasm of breast 239195487 Z85.3 Health Concerns Section Related Observation LastModified by Organization Detai ls LastModified Time None Recorded Concern Status LastModified by Organization Details LastModified Time None Recorded Advance Directives Directive None Recorded Payers Insurance Date Sequence Insurance Name Policy Number Policy Carlin Covered Member ID Carlin Member ID Guarantor Name 01/15/2024 2 AARP (MEDICARE SUPPLEMENT) Maty Aguayo [id number] Maty Aguayo 01/15/2024 2 [employer] (PPO) [id number] Maty Aguayo [id number] Maty Aguayo 04/13/2025 1 [place] Maty Aguayo [id number] Maty Aguayo 01/15/2024 2 AARP (MEDICARE SUPPLEMENT) Maty Aguayo [id number] Maty Aguayo 04/10/2025 3 [employer]ARP (MEDICARE SUPPLEMENT) Maty Aguayo [id number] Maty Aguayo 04/13/2025 2 [employer] (MEDICARE SUPPLEMENT) [id number] Maty Aguayo [id number] Maty Aguayo 01/15/2024 2 AARP (MEDICARE SUPPLEMENT) PLAN 5 Maty Aguayo [id number] Maty Aguayo 04/13/2025 2 [employer] Maty Aguayo [id number] Maty Aguayo Notes Date Note Type Note [...] her follow up today. DEEPIKA WATSON MD [address] [place] [address], [address], [facility] 07/07/2019 08:01:31 OBGyn Episode No OBEpisode recorded.
--- OUTSIDE RECORDS SUMMARY | 2025-05-13 13:32 | XMS_ITS | Clinical Summary ---
Author Organization Healthcare Address [address] [place] [address] Care Team Providers Care Refrigeration Technician Name Role Phone Unavailable Primary Care Provider Unavailabl e Encounters Date Type Department Care Team Description 04/13/2025 Ancillary Procedure [facility] at [address] [phone] Ozzie Garibay MD from Last 3 Months [...] AM EDT Narrative 04/13/2025 2:49 PM EDT [facility] [address] [place] [address] Patient Name: MATY AGUAYO Patient : 1940 Age: 85 years Patient Ordering Provider: OZZIE GARIBAY JR EXAM DATE: 04/13/2025 EXAM: MG SCREENING RANDOLPH MAMMOGRAM INDICATION: Screening. History of breast cancer treated with breast conservation surgery PROCEDURE: 2D and multislice imaging of both breasts was performed in standard projections using [employer] tomosynthesis equipment (3D mammography). The study [...] Procedure Note Didi Bautista MD - 04/13/2025 [place] [address] Patient Name: MATY AGUAYO Patient : 1940 Age: 85 years Patient Ordering Provider: OZZIE GARIBAY JR EXAM DATE: 04/13/2025 EXAM: MG SCREENING RANDOLPH MAMMOGRAM INDICATION: Screening. History of breast cancer treated with breast conservation surgery PROCEDURE: 2D and multislice imaging of both breasts was performed in standard projections using [employer] tomosynthesis equipment (3D mammography). The study [...]
--- OUTSIDE RECORDS SUMMARY | 2025-05-13 13:32 | XMS_ITS | Encounter Summary ---
[facility] Address [address] [place] [address] Care Team Providers Care Surveyor Mine Name Role Phone Ozzie Garibay MD Primary Care Provider [phone] Encounter Details Date Type Department Care Team (Late st Contact Info) Description 05/19/2013 Conversion Encounter [facility] HISTORICAL CONV [address] [place] [address] Interface, See Report Social History [...] See Report - 05/19/2013 12:00 AM EST CUSTOMER ASSISTANCE ASSOCIATE-Oncology Services [address] [place], [place] [address] Patient: MATY AGUAYO MR #: [id number] : 1940 Date of Visit: 05/19/2013 Referring Physician: NOLVIA COOMBS Dictated By: David Arellano MD 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 PT. DENIES ANY CURRENT CUSTOMER ASSISTANCE ASSOCIATE PROBLEMS. PT /'S WHAT THE BULGE IS [...] +H/O CATARACTS Medications: Medication Reconciliation for the ulna ent has been reviewed in the EMR. [...] 1:30 PM EDT Office Visit [facility] GYNECOLOGIC ONCOLOGY [address] [facility] [address] [place] [address] Cyndi De La Rosa, FRETTED INSTRUMENT REPAIRER [address] [place] [address] documented as of this encounter Visit Diagnoses Not on filedocumented in this encounter Care Teams Surveyor Mine Relationship Specialty Start Date End Date Ozzie Garibay MD [address] [facility] [address] [place] [address] PCP - General Internal Medicine 04/02/18 documented as of this encounter
--- OUTSIDE RECORDS SUMMARY | 2025-05-13 13:32 | XMS_ITS | Encounter Summary ---
Author Organization [facility] Address [address] [place] [address] Care Team Providers Care Carbon Coater Machine Operator Name Role Phone Ozzie Garibay MD Primary Care Provider [phone] Encounter Details Date Type Department Care Team (Late st Contact Info) Description 12/23/2012 Conversion Encounter [facility] HISTORICAL CONV [address] [place] [address] Interface, See Report Social History [...] See Report - 12/23/2012 12:00 AM EDT SNOWBOARDING INSTRUCTOR-Oncology Services [address] [place], [place] [address] Patient: MATY AGUAYO MR #: : 1940 [...] exam: Constitutional: Weight 177 Height 65 BP [address] Pulse Temp Neurological/Psychiatric: HEENT: Neck: Respiratory: Cardiovascular: [...] [facility] GYNECOLOGIC ONCOLOGY [address] [facility] [address] [place] [address] Cyndi De La Rosa APRN [address] [facility] [address] [place], [place] [id number] documented as of this encounter Visit Diagnoses Not on filedocumented in this encounter Care Teams Carbon Coater Machine Operator Relationship Specialty Start Date End Date Ozzie Garibay MD [address] [facility] [address] [place] [address] PCP - General Internal Medicine 04/02/18 documented as of this encounter
--- OUTSIDE RECORDS SUMMARY | 2025-05-13 13:32 | XMS_ITS | Clinical Summary ---
Author Organization [facility] Address [address] [place] [address] Care Team Providers Care Casting Repairer Name Role Phone Ozzie Garibay MD Primary Care Provider [phone] Allergies Active Allergy Reactions Criticality Noted Date [...] EDT Office Visit [facility] GYNECOLOGIC ONCOLOGY [address] [facility] [address] [place] [address] Cyndi De La Rosa, LACING PRESSER [address] [facility] [address] [place], [place] [address] Health Maintenance Due Date Last Done Comments [...] 1:49 PM EDT) Fecal Occult Blood Normal [facility] Stool 02/09/2016 1:49 PM EDT us Nori Ibanez APRN POINT OF CARE TEST ORDERABLE S Final Result [facility]
[address] [place] [id number], [place] [phone] from Last 3 Months or Most Recently Relevant to Health Maintenance Insurance MEDICARE A & B [employer] [facility] Care Teams Casting Repairer Relationship Specialty Start Date End Date Ozzie Garibay MD [address] [facility] [address] [place] [address] PCP - General Internal Medicine 04/02/18
--- OUTSIDE RECORDS SUMMARY | 2025-05-13 13:32 | XMS_ITS | Data Portability ---
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 Procedures Surgical History Date Name Laterality Status Provider Name and Address Organization Details Recorded Time Lumpectomy completed [facility] 09/07/2016 13:16:47 Xcapsl ctrc rmvl cplx wo ecp completed [facility] 09/07/2016 13:17:21 Vulvectomy simple complete completed [facility] 09/07/2016 13:17:55 Unlisted procedure breast completed [facility] 09/07/2016 13:18:49 Imaging Results None recorded. Procedure Notes None recorded. Medical Equipment None Reported. Allergies Allergen ID Allergen Name Allergen Category Reaction Reaction Severity Criticality Documentation Date Start Date Code Code System Note Provider Name and Address Organization Details Recorded Time 128953 Substance with sulfonami de structure and antibacte rial mechanism of action (substanc e) medicatio n Not available Not available Not available 09/07/[address] [facility] 13:09:43 Medications Name Sig Start Date [...] Details Last Updated DateTime 7 170.18 cm 71241.8 1 g 28.5 kg/m2 97.4 [degF] 71 /min 98 % 98 % 18 /min 118/64 mm[Hg] Brenda Madrigal [facility] 7 13:37:48 Social History Question Answer Notes LastModified by Organizat ion Details LastModified Time Tobacco Smoking Status Former Smoker Brenda Madrigal [facility] 09/07/2016 13:14:48 When Did You Quit Smoking? 16+yearssin celastcigar ette Quit 1984 [email or web address] Information not available 09/07/2016 How Much Tobacco Do You Smoke? 1 PPD [email or web address] Information not available 09/07/2016 Sex: Unknown Functional Status None recorded. Mental Status None recorded. Family History Relationship Description Onset Age of this Age Resolved Age Notes LastModified by Organization Details LastModified Time Unspecified Relation Malignant neoplasm of breast 2 mat. cousin s [email or web address] Not available 09/07/2016 13:39:34 Unspecified Relation Family history of malignant neoplasm cousin with pancre atic cancer [email or web address] Not available 09/07/2016 13:40:39 Maternal Aunt Family history of malignant neoplasm ovaria n cancer Not available 09/07/2016 13:41:13 Medical History Condition Response Breast Cancer Cancer Previous Radiation Therapy? Y Gynecological History Statement/Question Response # of Pregnancies 0 Age at Menarche 12 Obstetrics History GPAL:G 0 P 0 0 0 0 Past Encounters Encounter ID Performer Location Encounter Start Date Encounter Closed Date Diagnosis/Indication Diagnosis SNOMED-CT Code Diagnosis ICD10 Code Diagnosis IMO Codes Diagnosis Note [id number] DEEPIKA WATSON MD HEM/ONC [facility] CLOSED [address],[facility] [address] [place], [place] [address] 6 07/27/2016 12:03:02 07/27/2016 12:58:21 [id number] PATRICE KANG JR, MD GENERAL SURGERY [address] 1 07/27/2016 13:55:06 07/31/2016 13:11:01 [id number] PATRICE KANG JR, MD SURGERY SCHEDULE [address] [place] [address] 08/11/2016 09:55:09 08/11/2016 09:57:56 [id number] PATRICE KANG JR, MD GENERAL SURGERY [address] 1 08/24/2016 11:47:06 08/24/2016 13:26:25 [id number] DEEPIKA WATSON MD HEM/ONC [facility] CLOSED [address],[place] [address] 09/07/2016 11:50:00 09/07/2016 12:51:55 [id number] RICK CARBAJAL MD RADIATION THERAPY DRESSER [address],[facility] [address] [place] [address] 09/07/2016 13:15:18 09/08/2016 12:36:49 Ductal carcinoma in situ of left breast 1205930875 105751 D05.12 Estrogen r eceptor positive tumor 893831766 Z17.0 [id number] DEEPIKA WATSON MD HEM/ONC [facility] CLOSED [address],[facility] [address] [place] [address] 6 10/12/2016 13:12:42 10/12/2016 14:54:08 [id number] DEEPIKA WATSON MD HEM/ONC [place] CLOSED [address],[facility] [address] [place] [address] 12/07/2016 10:38:27 12/07/2016 11:38:56 [id number] DEEPIKA WATSON MD HEM/ONC [facility] CLOSED [address] [place] [address] 06/27/2017 10:59:25 06/27/2017 11:37:54 [id number] DEEPIKA WATSON MD HEM/ONC [facility] CLOSED [address] [place] [address] 12/26/2017 10:48:36 12/26/2017 12:36:29 [id number] DEEPIKA WATSON MD HEM/ONC [facility] CLOSED [address] [place] [address] 06/21/2018 11:39:38 06/21/2018 12:14:48 [id number] DEEPIKA WATSON MD HEM/ONC SB CLOSED [address] [place] [address] 07/03/2019 12:23:13 07/03/2019 13:23:47 Health Concerns Section Related Observation LastModified by Organization Detai ls LastModified Time None Recorded Concern Status LastModified by Organization Details LastModified Time None Recorded Advance Directives Directive None Recorded Payers Insurance Date Sequence Insurance Name Policy Number Policy Carlin Covered Member ID Carlin Member ID Guarantor Name 01/15/2024 2 AARP (MEDICARE SUPPLEMENT) Friend R Olivier [id number] Maty R Olivier 01/15/2024 2 [employer] (PPO) [id number] Frienddelisa Aguayo [id number] Maty R Olivier 04/13/2025 1 [place] Maty R Olivier [id number] Friend R Olivier 01/15/2024 2 [employer] (MEDICARE SUPPLEMENT) Maty R Olivier [id number] Maty R Olivier 04/10/2025 3 [employer] (MEDICARE SUPPLEMENT) Maty R Olivier [id number] Friend R Olivier 04/13/2025 2 [employer] (MEDICARE SUPPLEMENT) [id number] Maty C Olivier [id number] Maty R Olivier 01/15/2024 2 [employer] (MEDICARE SUPPLEMENT) PLAN 5 Friend R Olivier [id number] Maty Aguayo 04/13/2025 2 [facility] Maty Aguayo [id number] Maty Aguayo Notes Date Note Type Note [...] Magnevist intravenous gadolinium contrast according to the animal husbandry worker's weight-based algorithm for contrast dosage. 4 cc of contrast from the single-use vial was discarded. Maximum intensity projection images and 3-D reformatted images were created for further evaluation. Additionally dynamic contrast enhancement was evaluated with the help of adjust postprocessing software. FINDINGS: After administration of intravenous [...] in greater than 90% of tumor cells. -TN: Positive. Strong staining in greater than 90% [...] RT in her care. RICK ONEIL MD [address], [place], [address], [facility] 09/07/2016 14:02:42 OBGyn Episode No OBEpisode recorded.
--- OUTSIDE RECORDS SUMMARY | 2025-05-13 13:32 | XMS_ITS | Encounter Summary ---
[facility] Address [address] [place] [address] Care Team Providers Care Manufacturer Agent Name Role Phone Ozzie Garibay MD Primary Care Provider [phone] Encounter Details Date Type Department Care Team (Late st Contact Info) Description 01/10/2013 Conversion Encounter [facility] HISTORICAL CONV [address] [place] [address] Interface, See Report Social History [...] See Report - 2013 12:00 AM EDT FARM DEMONSTRATOR-Oncology Services [address] [place], [place] [address] Patient: MATY AGUAYO. MR #: : 1940 [...] See Report - 01/10/2013 12:00 AM EDT FARM DEMONSTRATOR-Oncology Services [address] [place], [place] [address] Patient: MATY AGUAYO MR #: : 1940 [...] Description 10/28/2025 1:30 PM EDT Office Visit [facility] GYNECOLOGIC ONCOLOGY [address] [place] [address] Cyndi De La Rosa, MOBILE APPLICATION TESTER [address] [facility] [address] [place], [place] [address] documented as of this encounter Visit Diagnoses Not on filedocumented in this encounter Care Teams Manufacturer Agent Relationship Specialty Start Date End Date Ozzie Garibay MD [address] [facility] [address] [place] [address] PCP - General Internal Medicine 04/02/18 documented as of this encounter
--- OUTSIDE RECORDS SUMMARY | 2025-05-13 13:32 | XMS_ITS | Encounter Summary ---
[facility] Address [address] [place] [address] Care Team Providers Care Photographers' Model Name Role Phone Ozzie Garibay MD Primary Care Provider [phone] Encounter Details Date Type Department Care Team (Late st Contact Info) Description 02/07/2013 Conversion Encounter [facility] HISTORICAL CONV [address] [place] [address] Interface, See Report Social History [...] See Report - 02/07/2013 12:00 AM EDT CHARGE HISTOTECHNOLOGIST-Oncology Services [address] [place], [place] [address] Patient: MATY AGUAYO. MR #: : 1940 [...] [facility] GYNECOLOGIC ONCOLOGY [address] [place], [place] [id number] Cyndi De La Rosa APRN [address] [place] [address] documented as of this encounter Visit Diagnoses Not on filedocumented in this encounter Care Teams Photographers' Model Relationship Specialty Start Date End Date Ozzie Garibay MD [address] [facility] [address] [place] [address] PCP - General Internal Medicine 04/02/18 documented as of this encounter
--- OUTSIDE RECORDS SUMMARY | 2025-05-13 13:32 | XMS_ITS | Data Portability ---
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 [id number] Not available 10/13/2016 13:05:25 12/07/2016 12/07/2016 [...] Orders tamoxifen 20 mg tablet 2016 017 [facility], [facility] [address], [address], 7 11:30:53 Patient TargetsNo targets recorded. Patient InstructionsNo instructions recorded. Reason for Referral None Reported. Results Created Date Observation Date Name Description Value Unit Range Abnormal Flag Note LastModifiedBy Organization Detail LastModifiedTime 06/20/20 17 06/20/2017 CBC w/ auto diff white blood cells 7.1 K/uL 3.8-10 .8 normal Not Available [facility] [address] [place] [address], [address], 06/20/2017 10:56:04 06/20/20 17 06/20/2017 CBC w/ auto diff red blood cells 4.26 M/uL 3.80-5 .20 normal Not Available [facility] [address] [place] [address], [address], 06/20/2017 10:56:04 06/20/20 17 06/20/2017 CBC w/ auto diff hemoglobin 11.9 g/dL 12.0-1 6.0 low Not Available [facility] [address] [place] [address], [address], 06/20/2017 10:56:04 06/20/20 17 06/20/2017 CBC w/ auto diff hematocrit 35.6 % 35.0-4 7.0 normal Not Available [facility] [address] [place] [address], [address], 06/20/2017 10:56:04 06/20/20 17 06/20/2017 CBC w/ auto diff MCV 84 fL 80-100 normal Not Available [facility] [address] [place] [address], [address], 06/20/2017 10:56:04 06/20/20 17 06/20/2017 CBC w/ auto diff MCH 28 pg 26-35 normal Not Available [facility] [address] [place] [address], [address], 06/20/2017 10:56:04 06/20/20 17 06/20/2017 CBC w/ auto diff MCHC 33 g/dL 32-36 normal Not Available [facility] [address] [place] [address], [address], 06/20/2017 10:56:04 06/20/20 17 06/20/2017 CBC w/ auto diff RDW 14.8 % 11.0-1 5.0 normal Not Available [facility] [address] [place] [address], [address], 06/20/2017 10:56:04 06/20/20 17 06/20/2017 CBC w/ auto diff MPV 9.2 fL 6.2-10 .5 normal Not Available [facility] [address] [place] [address], [address], 06/20/2017 10:56:04 06/20/20 17 06/20/2017 CBC w/ auto diff platelet count 165 K/uL 130-40 0 normal Not Available [facility] [address] [place] [address], [address], 06/20/2017 10:56:04 06/20/20 17 06/20/2017 CBC w/ auto diff neutrophil,a bsolute 5.2 K/uL 1.6-8. 4 normal Not Available [facility] [address] [place] [address], [address], 06/20/2017 10:56:04 06/20/20 17 06/20/2017 CBC w/ auto diff lymphocyte,a bsolute 0.9 K/uL 0.4-5. 1 normal Not Available [facility] [address] [place] [address], [address], 06/20/2017 10:56:04 06/20/20 17 06/20/2017 CBC w/ auto diff monocyte,abs olute 0.7 K/uL 0.0-1. 2 normal Not Available [facility] [address] [place] [address], [address], 06/20/2017 10:56:04 06/20/20 17 06/20/2017 CBC w/ auto diff eosinophil,a bsolute 0.2 K/uL 0.0-0. 8 normal Not Available [facility] [address] [place] [address], [address], 06/20/2017 10:56:04 06/20/20 17 06/20/2017 CBC w/ auto diff basophil,abs olute 0.1 K/uL 0.0-0. 3 normal Not Available [facility] [address] [place] [address], [address], 06/20/2017 10:56:04 06/20/20 17 06/20/2017 CBC w/ auto diff % neutrophils 72.3 % 42.0-7 8.0 normal Not Available [facility] [address] [place] [address], [address], 06/20/2017 10:56:04 06/20/20 17 06/20/2017 CBC w/ auto diff % lymphocytes 13.2 % 11.0-4 7.0 normal Not Available [facility] [address] [place] [address], [address], 06/20/2017 10:56:04 06/20/20 17 06/20/2017 CBC w/ auto diff % monocytes 10.4 % 0.0-11 .0 normal Not Available [facility] [address] [place] [address], [address], 06/20/2017 10:56:04 06/20/20 17 06/20/2017 CBC w/ auto diff % eosinophils 3.3 % 0.0-7. 0 normal Not Available [facility] [address] [place] [address], [address], 06/20/2017 10:56:04 06/20/20 17 06/20/2017 CBC w/ auto diff % basophils 0.8 % 0.0-3. 0 normal Not Available [facility] [address] [place] [address], [address], 06/20/2017 10:56:04 06/20/20 17 06/20/2017 CBC w/ auto diff nucleated red cells 0.0 % 0.0-0. 9 normal Not Available [facility] [address] [place] [address], [address], 06/20/2017 10:56:04 06/20/20 17 06/20/2017 CBC w/ auto diff nucleated RBCs, absolute 0.00 K/uL not estab. normal Not Available [facility] [address] [place], [address], 06/20/2017 10:56:04 06/20/20 17 06/20/2017 CMP, serum or plasm a glucose 117 mg/dL 74-100 high Not Available [facility] [address] [place] [address], [address], 06/20/2017 11:23:49 06/20/20 17 06/20/2017 CMP, serum or plasm a blood urea nitrogen 18 mg/dL 6-20 normal Not Available [facility] [address] [place] [address], [address], 06/20/2017 11:23:49 06/20/20 17 06/20/2017 CMP, serum or plasm a creatinine 0.79 mg/dL 0.50-0 .95 normal Not Available [facility] [address] [place] [address], [address], 06/20/2017 11:23:49 06/20/20 17 06/20/2017 CMP, serum or plasm a BUN/creatini ne ratio 23 (calc ) 10-20 high Not Available [facility] [address] [place] [address], [address], 06/20/2017 11:23:49 06/20/20 17 06/20/2017 CMP, serum or plasm a GFR 83 >= 60 normal Not Available [facility] [address] [place], [address], 06/20/2017 11:23:49 06/20/20 17 06/20/2017 CMP, serum [...] s or longe r. . Not Available [facility] [address] [place] [address], [address], 06/20/2017 11:23:49 06/20/20 17 06/20/2017 CMP, serum or plasm a sodium 143 mmol/ L 136-14 5 normal Not Available [facility] [address] [place] [address], [address], 06/20/2017 11:23:49 06/20/20 17 06/20/2017 CMP, serum or plasm a potassium 4.0 mmol/ L 3.4-5. 0 normal Not Available [facility] [address] [place] [address], [address], 06/20/2017 11:23:49 06/20/20 17 06/20/2017 CMP, serum or plasm a chloride 103 mmol/ L 98-107 normal Not Available [facility] [address] [place] [address], [address], 06/20/2017 11:23:49 06/20/20 17 06/20/2017 CMP, serum or plasm a carbon dioxide 28 mmol/ L 20-32 normal Not Available [facility] [address] [place] [address], [address], 06/20/2017 11:23:49 06/20/20 17 06/20/2017 CMP, serum or plasm a anion gap 12 (calc ) 7-25 normal Not Available [facility] [address] [place] [address], [address], 06/20/2017 11:23:49 06/20/20 17 06/20/2017 CMP, serum or plasm a calcium 9.5 mg/dL 8.6-10 .2 normal Not Available [facility] [address] [place], [address], 06/20/2017 11:23:49 06/20/20 17 06/20/2017 CMP, serum or plasm a total protein 7.5 g/dL 6.4-8. 3 normal Not Available [facility] [address] [place] [address], [address], 06/20/2017 11:23:49 06/20/20 17 06/20/2017 CMP, serum or plasm a albumin 4.3 g/dL 3.5-5. 2 normal Not Available [facility] [address] [place] [address], [address], 06/20/2017 11:23:49 06/20/20 17 06/20/2017 CMP, serum or plasm a globulin 3.2 g/dL_ (calc ) 1.5-4. 5 normal Not Available [facility] [address] [place] [address], [address], 06/20/2017 11:23:49 06/20/20 17 06/20/2017 CMP, serum or plasm a albumin/glob ulin ratio 1.3 (calc ) 1.1-2. 5 normal Not Available [facility] [address] [place] [address], [address], 06/20/2017 11:23:49 06/20/20 17 06/20/2017 CMP, serum or plasm a bilirubin, total 0.4 mg/dL 0.1-1. 2 normal Not Available [facility] [address] [place] [address], [address], 06/20/2017 11:23:49 06/20/20 17 06/20/2017 CMP, serum or plasm a alkaline phosphatase 65 U/L 35-105 normal Not Available [facility] [address] [place] [address], [address], 06/20/2017 11:23:49 06/20/20 17 06/20/2017 CMP, serum or plasm a AST 27 U/L 0-32 normal Not Available [facility] [address] [place] [address], [address], 06/20/2017 11:23:49 06/20/20 17 06/20/2017 CMP, serum or plasm a ALT 16 U/L 0-33 normal Not Available [facility] [address] [place] [address], [address], 06/20/2017 11:23:49 06/20/20 17 06/20/2017 MAMMO , scree juan, tomos ynthe sis, bilat eral, w/ CAD [facility] [address] [place] [address] Rain saravia Name: MATY saravia : 940 [...] Patrice Mora MD on 2016 10:23 AM [facility] [address] [place] [address], [address], 06/20/2017 10:34:00 06/20/20 17 06/20/2017 MAMMO , scree juan, tomos ynthe sis, bilat eral, w/ CAD [place] [address] [place] [address] Rain saravia Name: MATY saravia : 940 [...] Patrice Mora MD on 2016 10:23 AM [facility] [address], [address], 06/20/2017 10:34:00 06/21/20 18 06/21/2018 MAMMO , scree juan, tomos ynthe sis, bilat eral, w/ CAD [address] [address] Patijason saravia Name: MATY saravia : 940 [...] Patrice Mora MD on 2017 11:20 AM [facility] [address], [place], [address], 06/21/2018 11:42:25 06/27/20 19 06/27/2019 MAMMO , scree juan, tomos ynthe sis, bilat eral, w/ CAD [address] [address] Rain saravia Name: MATY saravia : 940 [...] briscoe MD on 2018 11:11 AM [email or web address] [facility] [address], [address], 11/12/2019 02:38:19 08/25/19 21 08/25/2020 MAMMO , scree juan, tomos ynthe sis, bilat eral, w/ [place] [address] Rain saravia Name: MATY saravia : 940 [...] By: Patrice Mora MD on 11:33 AM [email or web address] [facility] [address] [place] [address], [address], 08/25/2020 11:53:32 11/18/19 22 11/17/2021 MAMMO ariela, tomos ynthe sis, bilat eral, w/ CAD [address] [address] Rain saravia Name: MATY saravia : 89 [...] Patrice Mora MD on 022 1:22 PM [email or web address] [facility] [address], [address], 11/17/2021 13:31:45 12/16/19 23 12/15/2022 MAMMO , scree juan, tomos ynthe sis, bilat eral, w/ CAD [address] [address] Rain saravia Name: MATY saravia : 940 [...] Patrice Mora MD on 023 1:02 PM [email or web address] [facility] [address] [place] [address], [address], 12/15/2022 14:26:37 01/15/20 24 01/15/2024 MAMMO , scree juan, tomos ynthe sis, bilat eral, w/ CAD [place] [facility] [address] [place] [address] Rain saravia Name: MATY saravia : 940 [...] Patrice Mora MD on 024 1:46 PM [email or web address] [facility] [address] [place], [address], 01/15/2024 16:31:21 10/13/20 25 04/13/2025 MAMMO , scree juan, tomos ynthe sis, bilat eral, w/ CAD [facility] [address] [place] [address] [place] [address] Rain saravia Name: MATY saravia : 940 [...] been entere d into an automa scott Managed Methods er system . RECOMM ENDATI ON: Yearly [...] Eunice jiang MD on 2024 2:49 PM [email or web address] [facility] [address], [address], 04/13/2025 15:04:23 Result Notes Documentation Provider Name and Address Organization Details Recorded Time Mammo, Screening, Tomosynthesis, Bilateral, W/ Cad : [address] [address] Patient Name: MATY AGUAYO Patient : 1940 Age: 77 years Patient Ordering Provider: DEEPIKA WATSON EXAM DATE: 06/20/2017 EXAM: MG SCREENING RANDOLPH MAMMOGRAM INDICATION: Screening. History of breast cancer treated with breast conserving therapy. PROCEDURE: Multislice imaging of both breasts was performed in standard projections using [employer] Dimensions tomosynthesis equipment (3D mammography). 2D images [...] By: Patrice Mora MD IKA WATSON MD [address] [place] [address], [address], [facility] 06/20/2017 10:34:00 Mammo, Screening, Tomosynthesis, Bilateral, W/ Cad : [address] [address] Patient Name: MATY AGUAYO Patient : 1940 Age: 77 years Patient Ordering Provider: DEEPIKA WATSON EXAM DATE: 06/20/2017 EXAM: MG SCREENING RANDOLPH MAMMOGRAM INDICATION: Screening. History of breast cancer treated with breast conserving therapy. PROCEDURE: Multislice imaging of both breasts was performed in standard projections using [employer] Dora Dimensions tomosynthesis equipment (3D mammography). 2D [...] By: Patrice Mora MD IKA WATSON MD [address] [place] [address], [address] 06/20/2017 10:34:00 Mammo, Screening, Tomosynthesis, Bilateral, W/ Cad : [address] [address] Patient Name: MATY AGUAYO Patient : 1940 Age: 78 years Patient Ordering Provider: DEEPIKA WATSON EXAM DATE: 06/21/2018 EXAM: MG SCREENING RANDOLPH MAMMOGRAM INDICATION: Screening. History of breast cancer treated with breast conserving therapy. PROCEDURE: Multislice imaging of both breasts was performed in standard projections using [employer] Dora Dimensions tomosynthesis equipment (3D mammography). 2D [...] By: Patrice Mora MD IKA WATSON MD [address] [place] [address], [phone] [place] [address] 06/21/2018 11:42:25 Mammo, Screening, Tomosynthesis, Bilateral, W/ Cad : [place] [address] Patient Name: MATY AGUAYO Patient : 1940 Age: 79 years Patient Ordering Provider: DEEPIKA WATSON EXAM DATE: 06/27/2019 EXAM: MG SCREENING RANDOLPH MAMMOGRAM INDICATION: Screening. History of breast cancer treated with breast conserving therapy. PROCEDURE: Multislice imaging of both breasts was performed in standard projections using [employer] Dimensions tomosynthesis equipment (3D mammography). 2D images [...] Interpreted By: Ayo Crain MD Not Available [facility] 11/12/2019 02:38:24 Mammo, Screening, Tomosynthesis, Bilateral, W/ Cad : [address] [address] Patient Name: MATY AGUAYO Patient : 1940 [...] Interpreted By: Patrice Mora MD Kate Kramer [facility] 08/25/2020 11:53:32 Mammo, Screening, Tomosynthesis, Bilateral, W/ Cad : [facility] [address] [place] [address] Patient Name: MATY AGUAYO Patient : 1940 Age: 81 years Patient Ordering Provider: FAITH MOCK JR EXAM DATE: 11/17/2021 EXAM: SCREENING RANDOLPH MAMMOGRAM INDICATION: Screening. History of breast cancer treated with breast conserving therapy. PROCEDURE: Multislice imaging of both breasts was performed in standard projections using [employer] tomosynthesis equipment (3D mammography). 2D [...] Interpreted By: Patrice Mora MD Kate Kramer [facility] 11/17/2021 13:31:45 Mammo, Screening, Tomosynthesis, Bilateral, W/ Cad : [place] [address] Patient Name: MATY AGUAYO Patient : 1940 Age: 82 years Patient Ordering Provider: FAITH MOCK JR EXAM DATE: 12/15/2022 EXAM: MG SCREENING RANDOLPH MAMMOGRAM INDICATION: Routine screening. PROCEDURE: Multislice imaging of both breasts was performed in standard projections using [employer] Dim[employer] tomosynthesis equipment (3D mammography). 2D images [...] Interpreted By: Patrice Mora MD Huong Emili [facility] 12/15/2022 14:26:37 Mammo, Screening, Tomosynthesis, Bilateral, W/ Cad : [place] [address] Patient Name: MATY AGUAYO Patient : 1940 Age: 83 years Patient Ordering Provider: FAITH MOCK JR EXAM DATE: 01/15/2024 EXAM: MG SCREENING RANDOLPH MAMMOGRAM INDICATION: Screening. History of breast cancer treated with breast conserving therapy. PROCEDURE: Multislice imaging of both breasts was performed in standard projections using [employer] tomosynthesis equipment (3D mammography). 2D [...] Interpreted By: Patrice Mora MD Maral Regalado [facility] 01/15/2024 16:31:21 Mammo, Screening, Tomosynthesis, Bilateral, W/ Cad : [address] [address] Patient Name: MATY AGUAYO Patient : 1940 Age: 85 years Patient Ordering Provider: FAITH MOCK JR EXAM DATE: 04/13/2025 EXAM: SCREENING RANDOLPH MAMMOGRAM INDICATION: Screening. History of breast cancer treated with breast conservation surgery PROCEDURE: 2D and multislice imaging of both breasts was performed in standard projections using [employer]ensions tomosynthesis equipment (3D mammography). 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 Procedures Surgical History Date Name Laterality Status Provider Name and Address Organization Details Recorded Time Breast Surgery completed Iris Faulkner [facility] 07/27/2016 15:10:54 Eye Surgery completed Iris Faulkner [facility] 07/27/2016 15:12:42 Web Mobile Designer Surgery completed Iris Carrillo [facility] 07/27/2016 15:13:04 Imaging Results None recorded. Procedure Notes None recorded. Medical Equipment None Reported. Allergies Allergen ID Allergen Name Allergen Category Reaction Reaction Severity Criticality Documentation Date Start Date Code Code System Note Provider Name and Address Organization Details Recorded Time 596957 Substance with sulfonami de structure and antibacte rial mechanism of action (substanc e) medicatio n Not available Not available Not available 05/26/20162005 09283 8003 SNOMED Comme nt: SHRAVAN ORBIT AL EDEMA ;Crea scott By: Tyrell chavez Date: 2005 1:02: 23 PM; Not Available [facility] 6 04:16:55 Medications Name Sig Start Date [...] Details Last Updated DateTime 7 170.18 cm 73536.4 g 28.7 kg/m2 71 /min 97.1 [degF] 152/63 mm[Hg] [facility] 7 14:15:58 Date Recorded Pain severity - 0-10 verbal numeric rating [Score] - Reported Provider Name and Address Organization Details Last Updated DateTime 10/12/2016 0 Not Available [facility] 8 10:17:46 Date Recorded Body height Body weight Body mass index (BMI) Body temperature Heart rate Systolic And Diastolic Provider Name and Address Organization Details Last Updated DateTime 7 170.18 cm 35172.4 g 28.7 kg/m2 97 [degF] 69 /min 135/68 mm[Hg] [facility] 7 11:12:21 Date Recorded Pain severity - 0-10 verbal numeric rating [Score] - Reported Provider Name and Address Organization Details Last Updated DateTime 12/07/2016 0 Not Available [facility] 8 10:23:06 Date Recorded Body height Body mass index (BMI) Body weight Heart rate Systolic And Diastolic Provider Name and Address Organization Details Last Updated DateTime 12/26/2017 170.18 cm 28.2 kg/m2 51678.33 g 76 /min 169/75 mm[Hg] Simi Heather [facility] 12/26/2017 12:09:00 Date Recorded Body height Body temperature Body mass index (BMI) Body weight Heart rate Systolic And Diastolic Provider Name and Address Organization Details Last Updated DateTime 8 170.18 cm 97.4 [degF] 28 kg/m2 42740.2 4 g 66 /min 158/66 mm[Hg] Esau Drew [facility] 8 11:50:58 Date Recorded Body height Body mass index (BMI) Body weight Body temperature Heart rate Systolic And Diastolic Provider Name and Address Organization Details Last Updated DateTime 7 170.18 cm 28.5 kg/m2 79096.8 1 g 98.2 [degF] 77 /min 162/72 mm[Hg] Stephanie Tammie [facility] 7 11:16:53 Date Recorded Pain severity - 0-10 verbal numeric rating [Score] - Reported Provider Name and Address Organization Details Last Updated DateTime 06/27/2017 0 Not Available [facility] 8 10:43:03 Social History Question Answer Notes LastModified by Organizat ion Details LastModified Time Tobacco Smoking Status Former Smoker quit 1983 Iris Faulkner [facility] 07/27/2016 15:10:34 What Was The Date [...] ICD10 Code Diagnosis IMO Codes Diagnosis Note [id number] DEEPIKA WATSON MD [facility] [address] [place] [id number] 07/27/2016 12:03:02 07/27/2016 12:58:21 Ductal carcinoma in situ of breast 073789743 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 I told her there is a 1% chance of catastroph ic complicati on, 5% chance of positive margin requiring second surgery, less than 5% chance of long-term arm swelling. [id number] PATRICE KANG JR, MD SURGERY SCHEDULE [address] [place] [address] 08/11/2016 09:55:09 08/11/2016 09:57:56 [id number] PATRICE KANG JR, MD GENERAL SURGERY [address] [address] 08/24/2016 11:47:06 08/24/2016 13:26:25 Ductal carcinoma in situ of breast 328974739 D05.12 she will follow-up with Dr. Watson for adjuvant hormonal therapy and radiation therapy. She can follow up with me as needed. [id number] DEEPIKA WATSON MD [facility] [address] 6 09/07/2016 11:50:00 09/07/2016 12:51:55 Ductal carcinoma in situ of breast 755069760 D05.12 [id number] RICK CARBAJAL MD RADIATION THERAPY [place] [address],[facility] [address] [place] [address] 09/07/2016 13:15:18 09/08/2016 12:36:49 [id number] DEEPIKA WATSON MD [facility] [address],[place] [address] 10/12/2016 13:12:42 10/12/2016 14:54:08 Ductal carcinoma in situ of breast 400028814 D05.12 [id number] DEEPIKA WATSON MD [facility] [address] [place] [address] 12/07/2016 10:38:27 12/07/2016 11:38:56 Ductal carcinoma in situ of breast 758244202 D05.12 [id number] DEEPIKA WATSON MD [facility] [address] [place] [address] 06/27/2017 10:59:25 06/27/2017 11:37:54 Ductal carcinoma in situ of breast [id number] D05.12 [id number] DEEPIKA WATSON MD [facility] [address] [place] [address] 12/26/2017 10:48:36 12/26/2017 12:36:29 Ductal carcinoma in situ of breast 239697938 D05.12 [id number] DEEPIKA WATSON MD [facility] [address] [place] [address] 06/21/2018 11:39:38 06/21/2018 12:14:48 Ductal carcinoma in situ of breast [id number] D05.12 [id number] DEEPIKA WATSON MD [facility] [address] [place] [address] 07/03/2019 12:23:13 07/03/2019 13:23:47 Health Concerns Section Related Observation LastModified by Organization Detai ls LastModified Time None Recorded Concern Status LastModified by Organization Details LastModified Time None Recorded Advance Directives Directive None Recorded Payers Insurance Date Sequence Insurance Name Policy Number Policy Carlin Covered Member ID Carlin Member ID Guarantor Name 01/15/2024 2 [employer] (MEDICARE SUPPLEMENT) Maty Aguayo [id number] Maty Aguayo 01/15/2024 2 [employer] (PPO) [id number] Maty Aguayo [id number] Maty Aguayo 04/13/2025 1 [place] Maty Aguayo [id number] Maty Aguayo 01/15/2024 2 [employer]ARP (MEDICARE SUPPLEMENT) Maty Aguayo [id number] Maty Aguayo 04/10/2025 3 [employer] (MEDICARE SUPPLEMENT) Maty Aguayo [id number] Maty Aguayo 04/13/2025 2 [employer] (MEDICARE SUPPLEMENT) [id number] Maty Aguayo [id number] Maty Aguayo 01/15/2024 2 AARP (MEDICARE SUPPLEMENT) PLAN 5 Maty Aguayo [id number] Maty Aguayo 04/13/2025 2 [facility] Maty Aguayo [id number] Maty Aguayo Notes Date Note Type Note [...] of the agent tamoxifen. DEEPIKA WATSON MD [address] [place] [address], [phone], [facility] 10/16/2016 09:44:13 12/07/2016 text/html This is a [...] significant change moving forward. DEEPIKA WATSON MD [address] [place] [address], [phone], [facility] 12/12/2016 14:05:02 06/27/2017 text/html This is a [...] doing well. DEEPIKA WATSON MD [address] [place], [phone], [facility] 06/28/2017 08:17:52 12/26/2017 text/html ROS as noted [...] report today. DEEPIKA WATSON MD [address] [place], [phone], [facility] 12/28/2017 13:42:59 06/21/2018 text/html A 78-year-old female [...] doing well. DEEPIKA WATSON MD [address] [place], [phone], [facility] 07/05/2018 18:27:16 OBGyn Episode No OBEpisode recorded.
[2025-05-13 14:00] VITALS: BP 149/69; PULSE 76; RESP 16
== END 2025-05-13 23:59 | disposition home or self-care (01) ==
LOC: INF 13:12
PROVIDERS: PCP Internal Medicine; Visit Provider Internal Medicine
DX: D50.9 Iron deficiency anemia, unspecified (principal)
CPT/HCPCS: 96365; J1756

== ENCOUNTER 2025-05-15 13:01 | Outpatient (CLI) | payer MEDICARE, OTHER, SELFPAY ==
[2025-05-15] MEDS: IRON SUCROSE COMPLEX 200 MG in 0.9 % SODIUM CHLORIDE 100 ML 220 MG IV (13:15)
[2025-05-15 13:20] VITALS: BP 135/63; PULSE 77; RESP 17; O2SAT 97
[2025-05-15 13:50] VITALS: BP 166/73; PULSE 76; RESP 17; O2SAT 100
== END 2025-05-15 23:59 | disposition home or self-care (01) ==
LOC: INF 13:02
PROVIDERS: PCP Internal Medicine; Visit Provider Internal Medicine
DX: D50.9 Iron deficiency anemia, unspecified (principal)
CPT/HCPCS: 96365; J1756

== ENCOUNTER 2025-05-18 13:07 | Outpatient (CLI) | payer MEDICARE, OTHER, SELFPAY ==
[2025-05-18 13:20] VITALS: BP 149/65; PULSE 78; RESP 18; O2SAT 100
[2025-05-18] MEDS: IRON SUCROSE COMPLEX 200 MG in 0.9 % SODIUM CHLORIDE 100 ML 220 MG IV (13:20)
[2025-05-18 14:10] VITALS: BP 132/68; PULSE 78; RESP 18; O2SAT 100
== END 2025-05-18 23:59 | disposition home or self-care (01) ==
PROVIDERS: PCP Internal Medicine; Visit Provider Internal Medicine
DX: D50.9 Iron deficiency anemia, unspecified (principal)
CPT/HCPCS: 96365; J1756

== ENCOUNTER 2025-05-20 13:08 | Outpatient (CLI) | payer MEDICARE, OTHER, SELFPAY ==
[2025-05-20 13:35] VITALS: BP 126/74; PULSE 75; RESP 18; O2SAT 99
[2025-05-20] MEDS: SODIUM CHLORIDE 0.9% 10ML FLUSH SYRINGE 10 ML IV (13:35)
[2025-05-20] MEDS: IRON SUCROSE COMPLEX 200 MG in 0.9 % SODIUM CHLORIDE 100 ML 220 MG IV (13:35)
[2025-05-20 14:10] VITALS: BP 125/71; PULSE 73
--- OUTSIDE RECORDS SUMMARY | 2025-05-20 14:14 | XMS_ITS | Encounter Summary ---
[facility] [address] [place] [address] Care Team Providers Care Sleeve Wheel Maker Name Role Phone Ozzie Garibay MD Primary Care Provider Encounter Details Date Type Department Care Team (Late st Contact Info) Description 01/10/2013 Conversion Encounter [facility]ISTOR[facility]V [address] [place] [address] Interface, See Report Social History [...] See Report - 2013 12:00 AM EDT [facility] [address] [place], [place] [id number] Patient: MATY AGUAYO. MR #: : 1940 [...] See Report - 01/10/2013 12:00 AM EDT [facility] [address] [place], [place] [id number] Patient: MATY AGUAYO MR #: : 1940 [...] 1:30 PM EDT Office Visit [facility] [address] [place] [address] Cyndi De La Rosa, AUTOMOTIVE PAINTER HELPER [address] [place], [place] [id number] documented as of this encounter Visit Diagnoses Not on filedocumented in this encounter Care Teams Sleeve Wheel Maker Relationship Specialty Start Date End Date Ozzie Garibay MD [address] [facility] [address] [place] [address] PCP - General Internal Medicine 04/02/18 documented as of this encounter
--- OUTSIDE RECORDS SUMMARY | 2025-05-20 14:14 | XMS_ITS | Clinical Summary ---
Author Organization Healthcare Address [address] [place] [address] Care Team Providers Care Shovel Mechanic Name Role Phone Unavailable Primary Care Provider Unavailabl e Encounters Date Type Department Care Team Description 04/13/2025 Ancillary Procedure [facility] at [address] [phone] Ozzie Garibay MD from Last 3 Months [...] Narrative 04/13/2025 2:49 PM EDT [facility] [address] [place] [address] Patient Name: MATY AGUAYO Patient : 1940 Age: 85 years Patient Ordering Provider: OZZIE GARIABY JR EXAM DATE: 04/13/2025 EXAM: MG SCREENING RANDOLPH MAMMOGRAM INDICATION: Screening. History of breast cancer treated with breast conservation surgery PROCEDURE: 2D and multislice imaging of both breasts was performed in standard projections using [employer] tomosynthesis equipment (3D mammography). The study [...] Procedure Note Didi Bautista MD - 04/13/2025 [place] [address] Patient Name: MATY AGUAYO Patient : 1940 Age: 85 years Patient Ordering Provider: OZZIE GARIBAY JR EXAM DATE: 04/13/2025 EXAM: MG SCREENING RANDOLPH MAMMOGRAM INDICATION: Screening. History of breast cancer treated with breast conservation surgery PROCEDURE: 2D and multislice imaging of both breasts was performed in standard projections using [employer] tomosynthesis equipment (3D mammography). The study [...]
--- OUTSIDE RECORDS SUMMARY | 2025-05-20 14:14 | XMS_ITS | Data Portability ---
Author Organization JUVENAL BRITTA C[facility] [facility] Address [address] [facility] [place] [address] Care Team Providers Care Undertaker Assistant Name Role Phone FAITH MOCK Primary Care Provider [phone] DEEPIKA WATSON Hematology/Oncology [phone] Assessment Encounter Date Assessment Date Assessment LastModified [...] difficulty, then I suggest that we stop. [id number] Not available 10/13/2016 13:05:25 12/07/2016 12/07/2016 [...] Orders tamoxifen 20 mg [address] [facility], [facility] [address], [address], 7 11:30:53 Patient TargetsNo targets recorded. Patient InstructionsNo instructions recorded. Reason for Referral None Reported. Results Created Date Observation Date Name Description Value Unit Range Abnormal Flag Note LastModifiedBy Organization Detail LastModifiedTime 06/20/20 17 06/20/2017 CBC w/ auto diff white blood cells 7.1 K/uL 3.8-10 .8 normal Not Available [facility] [address] [place] [address], [address], 06/20/2017 10:56:04 06/20/20 17 06/20/2017 CBC w/ auto diff red blood cells 4.26 M/uL 3.80-5 .20 normal Not Available [facility] [address] [place] [address], [address], 06/20/2017 10:56:04 06/20/20 17 06/20/2017 CBC w/ auto diff hemoglobin 11.9 g/dL 12.0-1 6.0 low Not Available [facility] [address] [place] [address], [address], 06/20/2017 10:56:04 06/20/20 17 06/20/2017 CBC w/ auto diff hematocrit 35.6 % 35.0-4 7.0 normal Not Available [facility] [address] [place] [address], [address], 06/20/2017 10:56:04 06/20/20 17 06/20/2017 CBC w/ auto diff MCV 84 fL 80-100 normal Not Available [facility] [address] [place] [address], [address], 06/20/2017 10:56:04 06/20/20 17 06/20/2017 CBC w/ auto diff MCH 28 pg 26-35 normal Not Available [facility] [address] [place] [address], [address], 06/20/2017 10:56:04 06/20/20 17 06/20/2017 CBC w/ auto diff MCHC 33 g/dL 32-36 normal Not Available [facility] [address] [place] [address], [address], 06/20/2017 10:56:04 06/20/20 17 06/20/2017 CBC w/ auto diff RDW 14.8 % 11.0-1 5.0 normal Not Available [facility] [address] [place] [address], [address], 06/20/2017 10:56:04 06/20/20 17 06/20/2017 CBC w/ auto diff MPV 9.2 fL 6.2-10 .5 normal Not Available [facility] [address] [place] [address], [address], 06/20/2017 10:56:04 06/20/20 17 06/20/2017 CBC w/ auto diff platelet count 165 K/uL 130-40 0 normal Not Available [facility] [address] [place] [address], [address], 06/20/2017 10:56:04 06/20/20 17 06/20/2017 CBC w/ auto diff neutrophil,a bsolute 5.2 K/uL 1.6-8. 4 normal Not Available [facility] [address] [place] [address], [address], 06/20/2017 10:56:04 06/20/20 17 06/20/2017 CBC w/ auto diff lymphocyte,a bsolute 0.9 K/uL 0.4-5. 1 normal Not Available [facility] [address] [place] [address], [address], 06/20/2017 10:56:04 06/20/20 17 06/20/2017 CBC w/ auto diff monocyte,abs olute 0.7 K/uL 0.0-1. 2 normal Not Available [facility] [address] [place] [address], [address], 06/20/2017 10:56:04 06/20/20 17 06/20/2017 CBC w/ auto diff eosinophil,a bsolute 0.2 K/uL 0.0-0. 8 normal Not Available [facility] [address] [place] [address], [address], 06/20/2017 10:56:04 06/20/20 17 06/20/2017 CBC w/ auto diff basophil,abs olute 0.1 K/uL 0.0-0. 3 normal Not Available [facility] [address] [place] [address], [address], 06/20/2017 10:56:04 06/20/20 17 06/20/2017 CBC w/ auto diff % neutrophils 72.3 % 42.0-7 8.0 normal Not Available [facility] [address] [place] [address], [address], 06/20/2017 10:56:04 06/20/20 17 06/20/2017 CBC w/ auto diff % lymphocytes 13.2 % 11.0-4 7.0 normal Not Available [facility] [address] [place] [address], [address], 06/20/2017 10:56:04 06/20/20 17 06/20/2017 CBC w/ auto diff % monocytes 10.4 % 0.0-11 .0 normal Not Available [facility] [address] [place] [address], [address], 06/20/2017 10:56:04 06/20/20 17 06/20/2017 CBC w/ auto diff % eosinophils 3.3 % 0.0-7. 0 normal Not Available [facility] [address] [place] [address], [address], 06/20/2017 10:56:04 06/20/20 17 06/20/2017 CBC w/ auto diff % basophils 0.8 % 0.0-3. 0 normal Not Available [facility] [address] [place] [address], [address], 06/20/2017 10:56:04 06/20/20 17 06/20/2017 CBC w/ auto diff nucleated red cells 0.0 % 0.0-0. 9 normal Not Available [facility] [address] [place] [address], [address], 06/20/2017 10:56:04 06/20/20 17 06/20/2017 CBC w/ auto diff nucleated RBCs, absolute 0.00 K/uL not estab. normal Not Available [facility] [address] [place], [address], 06/20/2017 10:56:04 06/20/20 17 06/20/2017 CMP, serum or plasm a glucose 117 mg/dL 74-100 high Not Available [facility] [address] [place] [address], [address], 06/20/2017 11:23:49 06/20/20 17 06/20/2017 CMP, serum or plasm a blood urea nitrogen 18 mg/dL 6-20 normal Not Available [facility] [address] [place] [address], [address], 06/20/2017 11:23:49 06/20/20 17 06/20/2017 CMP, serum or plasm a creatinine 0.79 mg/dL 0.50-0 .95 normal Not Available [facility] [address] [place] [address], [address], 06/20/2017 11:23:49 06/20/20 17 06/20/2017 CMP, serum or plasm a BUN/creatini ne ratio 23 (calc ) 10-20 high Not Available [facility] [address] [place] [address], [address], 06/20/2017 11:23:49 06/20/20 17 06/20/2017 CMP, serum or plasm a GFR 83 >= 60 normal Not Available [facility] [address] [place], [address], 06/20/2017 11:23:49 06/20/20 17 06/20/2017 CMP, serum [...] s or longe r. . Not Available [facility] [address] [place] [address], [address], 06/20/2017 11:23:49 06/20/20 17 06/20/2017 CMP, serum or plasm a sodium 143 mmol/ L 136-14 5 normal Not Available [facility] [address] [place] [address], [address], 06/20/2017 11:23:49 06/20/20 17 06/20/2017 CMP, serum or plasm a potassium 4.0 mmol/ L 3.4-5. 0 normal Not Available [facility] [address] [place] [address], [address], 06/20/2017 11:23:49 06/20/20 17 06/20/2017 CMP, serum or plasm a chloride 103 mmol/ L 98-107 normal Not Available [facility] [address] [place] [address], [address], 06/20/2017 11:23:49 06/20/20 17 06/20/2017 CMP, serum or plasm a carbon dioxide 28 mmol/ L 20-32 normal Not Available [facility] [address] [place] [address], [address], 06/20/2017 11:23:49 06/20/20 17 06/20/2017 CMP, serum or plasm a anion gap 12 (calc ) 7-25 normal Not Available [facility] [address] [place] [address], [address], 06/20/2017 11:23:49 06/20/20 17 06/20/2017 CMP, serum or plasm a calcium 9.5 mg/dL 8.6-10 .2 normal Not Available [facility] [address] [place], [address], 06/20/2017 11:23:49 06/20/20 17 06/20/2017 CMP, serum or plasm a total protein 7.5 g/dL 6.4-8. 3 normal Not Available [facility] [address] [place] [address], [address], 06/20/2017 11:23:49 06/20/20 17 06/20/2017 CMP, serum or plasm a albumin 4.3 g/dL 3.5-5. 2 normal Not Available [facility] [address] [place] [address], [address], 06/20/2017 11:23:49 06/20/20 17 06/20/2017 CMP, serum or plasm a globulin 3.2 g/dL_ (calc ) 1.5-4. 5 normal Not Available [facility] [address] [place] [address], [address], 06/20/2017 11:23:49 06/20/20 17 06/20/2017 CMP, serum or plasm a albumin/glob ulin ratio 1.3 (calc ) 1.1-2. 5 normal Not Available [facility] [address] [place] [address], [address], 06/20/2017 11:23:49 06/20/20 17 06/20/2017 CMP, serum or plasm a bilirubin, total 0.4 mg/dL 0.1-1. 2 normal Not Available [facility] [address] [place] [address], [address], 06/20/2017 11:23:49 06/20/20 17 06/20/2017 CMP, serum or plasm a alkaline phosphatase 65 U/L 35-105 normal Not Available [facility] [address] [place] [address], [address], 06/20/2017 11:23:49 06/20/20 17 06/20/2017 CMP, serum or plasm a AST 27 U/L 0-32 normal Not Available [facility] [address] [place] [address], [address], 06/20/2017 11:23:49 06/20/20 17 06/20/2017 CMP, serum or plasm a ALT 16 U/L 0-33 normal Not Available [facility] [address] [place] [address], [address], 06/20/2017 11:23:49 06/20/20 17 06/20/2017 MAMMO , scree juan, tomos ynthe sis, bilat eral, w/ CAD Formerly [facility] [address] [place] [address] Rain saravia Name: MATY saravia : 940 [...] Patrice Mora MD on 2016 10:23 AM [facility] [address] [place] [address], [address], 06/20/2017 10:34:00 06/20/20 17 06/20/2017 MAMMO , scree juan, tomos ynthe sis, bilat eral, w/ CAD [place] [address] [place] [address] Rain saravia Name: MATY saravia : 940 [...] Patrice Mora MD on 2016 10:23 AM [facility] [address], [address], 06/20/2017 10:34:00 06/21/20 18 06/21/2018 MAMMO , scree juan, tomos ynthe sis, bilat eral, w/ CAD [address] [address] Patijason saravia Name: MATY saravia : 940 [...] Patrice Mora MD on 2017 11:20 AM [facility] [address], [place], [address], 06/21/2018 11:42:25 06/27/20 19 06/27/2019 MAMMO , scree juan, tomos ynthe sis, bilat eral, w/ CAD [address] [address] Rain saravia Name: MATY saravia : 940 [...] MD on 2018 11:11 AM [email or web address] [facility] [address], [address], 11/12/2019 02:38:19 08/25/19 21 08/25/2020 MAMMO , scree juan, tomos ynthe sis, bilat eral, w/ [place] [address] Rain saravia Name: MATY saravia : 9[birth year] [...] By: Patrice Mora MD on 11:33 AM [email or web address] [facility] [address] [place] [address], [address], 08/25/2020 11:53:32 11/18/19 22 11/17/2021 MAMMO ariela, tomos ynthe sis, bilat eral, w/ CAD [address] [address] Rain saravia Name: MATY saravia : 940 [...] Patrice Mora MD on 022 1:22 PM [email or web address] [facility] [address], [address], 11/17/2021 13:31:45 12/16/19 23 12/15/2022 MAMMO , scree juan, tomos ynthe sis, bilat eral, w/ CAD [address] [address] Rain saravia Name: MATY saravia : 940 [...] Patrice Mora MD on 023 1:02 PM [email or web address] [facility] [address] [place] [address], [address], 12/15/2022 14:26:37 01/15/20 24 01/15/2024 MAMMO , scree juan, tomos ynthe sis, bilat eral, w/ CAD [place] [facility] [address] [facility] [place] [address] Rain saravia Name: MATY saravia : 940 [...] Patrice Mora MD on 024 1:46 PM [email or web address] 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 RECOMM ENDATI ON: Yearly [...] Eunice jiang MD on 2024 2:49 PM [email or web address] [facility] [address], [address], 04/13/2025 15:04:23 Result Notes Documentation Provider Name and Address Organization Details Recorded Time Mammo, Screening, Tomosynthesis, Bilateral, W/ Cad : [address] [address] Patient Name: MATY AGUAYO Patient : 1940 Age: 77 years Patient Ordering Provider: DEEPIKA WATSON EXAM DATE: 06/20/2017 EXAM: MG SCREENING RANDOLPH MAMMOGRAM INDICATION: Screening. History of breast cancer treated with breast conserving therapy. PROCEDURE: Multislice imaging of both breasts was performed in standard projections using [employer] tomosynthesis equipment (3D mammography). 2D images [...] By: Patrice Mora MD IKA WATSON MD [address] [place] [address], [address], [facility] 06/20/2017 10:34:00 Mammo, Screening, Tomosynthesis, Bilateral, W/ Cad : [address] [address] Patient Name: MATY AGUAYO Patient : 1940 Age: 77 years Patient Ordering Provider: DEEPIKA WATSON EXAM DATE: 06/20/2017 EXAM: MG SCREENING RANDOLPH MAMMOGRAM INDICATION: Screening. History of breast cancer treated with breast conserving therapy. PROCEDURE: Multislice imaging of both breasts was performed in standard projections using [employer] tomosynthesis equipment (3D mammography). 2D [...] By: Patrice Mora MD IKA WATSON MD [address] [place] [address], [address] 06/20/2017 10:34:00 Mammo, Screening, Tomosynthesis, Bilateral, W/ Cad : [address] [address] Patient Name: MATY AGUAYO Patient : 1940 Age: 78 years Patient Ordering Provider: DEEPIKA WATSON EXAM DATE: 06/21/2018 EXAM: MG SCREENING RANDOLPH MAMMOGRAM INDICATION: Screening. History of breast cancer treated with breast conserving therapy. PROCEDURE: Multislice imaging of both breasts was performed in standard projections using [employer] tomosynthesis equipment (3D mammography). 2D [...] By: Patrice Mora MD IKA WATSON MD [address] [place] [address], [phone] [place] [address] 06/21/2018 11:42:25 Mammo, Screening, Tomosynthesis, Bilateral, W/ Cad : [place] [address] Patient Name: MATY AGUAYO Patient : 1940 Age: 79 years Patient Ordering Provider: DEEPIKA WATSON EXAM DATE: 06/27/2019 EXAM: MG SCREENING RANDOLPH MAMMOGRAM INDICATION: Screening. History of breast cancer treated with breast conserving therapy. PROCEDURE: Multislice imaging of both breasts was performed in standard projections using [employer] tomosynthesis equipment (3D mammography). 2D images [...] Interpreted By: Ayo Crain MD Not Available [facility] 11/12/2019 02:38:24 Mammo, Screening, Tomosynthesis, Bilateral, W/ Cad : [address] [address] Patient Name: MATY AGUAYO Patient : 1940 [...] By: Patrice Mora MD Kate Kramer [facility] 08/25/2020 11:53:32 Mammo, Screening, Tomosynthesis, Bilateral, W/ Cad : [facility] [address] [place] [address] Patient Name: MATY AGUAYO Patient : 1940 Age: 81 years Patient Ordering Provider: FAITH MOCK JR EXAM DATE: 11/17/2021 EXAM: SCREENING RANDOLPH MAMMOGRAM INDICATION: Screening. History of breast cancer treated with breast conserving therapy. PROCEDURE: Multislice imaging of both breasts was performed in standard projections using [employer] tomosynthesis equipment (3D mammography). 2D [...] By: Patrice Mora MD Kate Kramer [facility] 11/17/2021 13:31:45 Mammo, Screening, Tomosynthesis, Bilateral, W/ Cad : [place] [address] Patient Name: MATY AGUAYO Patient : 1940 Age: 82 years Patient Ordering Provider: FAITH MOCK JR EXAM DATE: 12/15/2022 EXAM: MG SCREENING RANDOLPH MAMMOGRAM INDICATION: Routine screening. PROCEDURE: Multislice imaging of both breasts was performed in standard projections using [employer] tomosynthesis equipment (3D mammography). 2D images [...] By: Patrice Mora MD Huong Emili [facility] 12/15/2022 14:26:37 Mammo, Screening, Tomosynthesis, Bilateral, W/ Cad : [place] [address] Patient Name: MATY AGUAYO Patient : 1940 Age: 83 years Patient Ordering Provider: FAITH MOCK JR EXAM DATE: 01/15/2024 EXAM: MG SCREENING RANDOLPH MAMMOGRAM INDICATION: Screening. History of breast cancer treated with breast conserving therapy. PROCEDURE: Multislice imaging of both breasts was performed in standard projections using [employer] tomosynthesis equipment (3D mammography). 2D [...] By: Patrice Mora MD Maral Regalado [facility] 01/15/2024 16:31:21 Mammo, Screening, Tomosynthesis, Bilateral, W/ Cad : [address] [address] Patient Name: MATY AGUAYO Patient : 1940 Age: 85 years Patient Ordering Provider: FAITH MOCK JR EXAM DATE: 04/13/2025 EXAM: SCREENING RANDOLPH MAMMOGRAM INDICATION: Screening. History of breast cancer treated with breast conservation surgery PROCEDURE: 2D and multislice imaging of both breasts was performed in standard projections using [employer] tomosynthesis equipment (3D mammography). 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 Procedures Surgical History Date Name Laterality Status Provider Name and Address Organization Details Recorded Time Breast Surgery completed Iris Faulkner [facility] 07/27/2016 15:10:54 Eye Surgery completed Iris Faulkner [facility] 07/27/2016 15:12:42 Shaping Machine Operator Surgery completed Iris Carrillo [facility] 07/27/2016 15:13:04 Imaging Results None recorded. Procedure Notes None recorded. Medical Equipment None Reported. Allergies Allergen ID Allergen Name Allergen Category Reaction Reaction Severity Criticality Documentation Date Start Date Code Code System Note Provider Name and Address Organization Details Recorded Time 695306 Substance with sulfonami de structure and antibacte rial mechanism of action (substanc e) medicatio n Not available Not available Not available 05/26/20162005 03277 8003 SNOMED Comme nt: SHRAVAN ORBIT AL EDEMA ;Crea scott By: Tyrell chavez Date: 2005 1:02: 23 PM; Not Available [facility] 04:16:55 Medications Name Sig Start Date [...] Details Last Updated DateTime 7 170.18 cm 81941.4 g 28.7 kg/m2 71 /min 97.1 [degF] 152/63 mm[Hg] [facility] 7 14:15:58 Date Recorded Pain severity - 0-10 verbal numeric rating [Score] - Reported Provider Name and Address Organization Details Last Updated DateTime 10/12/2016 0 Not Available [facility] 8 10:17:46 Date Recorded Body height Body weight Body mass index (BMI) Body temperature Heart rate Systolic And Diastolic Provider Name and Address Organization Details Last Updated DateTime 7 170.18 cm 81281.4 g 28.7 kg/m2 97 [degF] 69 /min 135/68 mm[Hg] [facility] 7 11:12:21 Date Recorded Pain severity - 0-10 verbal numeric rating [Score] - Reported Provider Name and Address Organization Details Last Updated DateTime 12/07/2016 0 Not Available [facility] 8 10:23:06 Date Recorded Body height Body mass index (BMI) Body weight Heart rate Systolic And Diastolic Provider Name and Address Organization Details Last Updated DateTime 12/26/2017 170.18 cm 28.2 kg/m2 76085.33 g 76 /min 169/75 mm[Hg] Simi Heather [facility] 12/26/2017 12:09:00 Date Recorded Body height Body temperature Body mass index (BMI) Body weight Heart rate Systolic And Diastolic Provider Name and Address Organization Details Last Updated DateTime 8 170.18 cm 97.4 [degF] 28 kg/m2 31533.2 4 g 66 /min 158/66 mm[Hg] Esau Drew [facility] 8 11:50:58 Date Recorded Body height Body mass index (BMI) Body weight Body temperature Heart rate Systolic And Diastolic Provider Name and Address Organization Details Last Updated DateTime 7 170.18 cm 28.5 kg/m2 07461.8 1 g 98.2 [degF] 77 /min 162/72 mm[Hg] Stephanie Tammie [facility] 7 11:16:53 Date Recorded Pain severity - 0-10 verbal numeric rating [Score] - Reported Provider Name and Address Organization Details Last Updated DateTime 06/27/2017 0 Not Available [facility] 8 10:43:03 Social History Question Answer Notes LastModified by Organizat ion Details LastModified Time Tobacco Smoking Status Former Smoker quit 1983 Iris Faulkner [facility] 07/27/2016 15:10:34 What Was The Date Of [...] ICD10 Code Diagnosis IMO Codes Diagnosis Note [id number] DEEPIKA WATSON MD H[facility] [address] [place] [id number] 07/27/2016 12:03:02 07/27/2016 12:58:21 Ductal carcinoma in situ of breast 436380585 D05.12 [id number] PATRICE KANG JR, MD GENERAL SURGERY [address] [address] 07/27/2016 13:55:06 07/31/2016 13:11:01 Ductal carcinoma in situ of breast 288983298 D05.12 she chooses left needle localized lumpectomy and sentinel lymph node biopsy. I told her there is a 1% chance of catastroph ic complicati on, 5% chance of positive margin requiring second surgery, less than 5% chance of long-term arm swelling. [id number] PATRICE KANG JR, MD SURGERY SCHEDULE [address] [place] [address] 08/11/2016 09:55:09 08/11/2016 09:57:56 [id number] PATRICE KANG JR, MD GENERAL SURGERY [address] [address] 08/24/2016 11:47:06 08/24/2016 13:26:25 Ductal carcinoma in situ of breast 327366444 D05.12 she will follow-up with Dr. Watson for adjuvant hormonal therapy and radiation therapy. She can follow up with me as needed. [id number] DEEPIKA WATSON MD HEM[facility] [address] 6 09/07/2016 11:50:00 09/07/2016 12:51:55 Ductal carcinoma in situ of breast 313434622 D05.12 [id number] RICK CARBAJAL MD RADIATION THERAPY [place] [address],[facility] [address] [place] [address] 09/07/2016 13:15:18 09/08/2016 12:36:49 [id number] DEEPIKA WATSON MD HEM[facility] [facility] [address],[place] [address] 6 10/12/2016 13:12:42 10/12/2016 14:54:08 Ductal carcinoma in situ of breast 897588464 D05.12 [id number] DEEPIKA WATSON MD HEM[facility] [address] [place] [address] 12/07/2016 10:38:27 12/07/2016 11:38:56 Ductal carcinoma in situ of breast 953280237 D05.12 [id number] DEEPIKA WATSON MD H[facility] [address] [place] [address] 06/27/2017 10:59:25 06/27/2017 11:37:54 Ductal carcinoma in situ of breast 604480163 D05.12 [id number] DEEPIKA WATSON MD HEM[facility] [address] [place] [address] 12/26/2017 10:48:36 12/26/2017 12:36:29 Ductal carcinoma in situ of breast 392695248 D05.12 [id number] DEEPIKA WATSON MD HEM[facility] [address] [place] [address] 06/21/2018 11:39:38 06/21/2018 12:14:48 Ductal carcinoma in situ of breast 555800520 D05.12 [id number] DEEPIKA WATSON MD HEM/[facility]C [facility] [address] [place] [address] 07/03/2019 12:23:13 07/03/2019 13:23:47 Health Concerns Section Related Observation LastModified by Organization Detai ls LastModified Time None Recorded Concern Status LastModified by Organization Details LastModified Time None Recorded Advance Directives Directive None Recorded Payers Insurance Date Sequence Insurance Name Policy Number Policy Carlin Covered Member ID Carlin Member ID Guarantor Name 01/15/2024 2 [employer] (MEDICARE SUPPLEMENT) Maty Aguayo [id number] Maty Aguayo 01/15/2024 2 [employer] (PPO) [id number] Maty Aguayo [id number] Maty Aguayo 04/13/2025 1 [place] Maty Aguayo [id number] Maty Aguayo 01/15/2024 2 [employer] (MEDICARE SUPPLEMENT) Maty Aguayo [id number] Maty Aguayo 04/10/2025 3 [employer] (MEDICARE SUPPLEMENT) Maty Aguayo [id number] Maty Aguayo 04/13/2025 2 [employer] (MEDICARE SUPPLEMENT) [id number] Maty Aguayo [id number] Maty Aguayo 01/15/2024 2 [employer] (MEDICARE SUPPLEMENT) PLAN 5 Maty Aguayo [id number] Maty Aguayo 04/13/2025 2 [facility] [facility] Maty Aguayo [id number] Maty Aguayo Notes Date Note Type Note [...] of the agent tamoxifen. DEEPIKA WATSON MD [address] [place] [address], [phone], [facility] 10/16/2016 09:44:13 12/07/2016 text/html This is [...] significant change moving forward. DEEPIKA WATSON MD [address] [place] [address], [phone], [facility] 12/12/2016 14:05:02 06/27/2017 text/html This is [...] doing well. DEEPIKA WATSON MD [address] [place], [address], [facility] 06/28/2017 08:17:52 12/26/2017 text/html ROS as [...] report today. DEEPIKA WATSON MD [address] [place], [address], [facility] 12/28/2017 13:42:59 06/21/2018 text/html A 78-year-old [...] doing well. DEEPIKA WATSON MD [address] [place], [address], [facility] 07/05/2018 18:27:16 OBGyn Episode No OBEpisode recorded.
--- OUTSIDE RECORDS SUMMARY | 2025-05-20 14:14 | XMS_ITS | Clinical Summary ---
Author Organization [facility] Address [address] [place] [address] Care Team Providers Care Foot Press Operator Name Role Phone Ozzie Garibay MD Primary Care Provider [phone] Allergies Active Allergy Reactions Criticality Noted Date [...] EDT Office Visit [facility] GYNECOLOG[facility]COLOGY [address] [facility] [address] [place] [address] Cyndi De La Rosa, ARCHITECTURAL COATING FINISHER [address] [facility] [address] [place], [place] [address] Health Maintenance Due Date Last Done Comments [...] 1:49 PM EDT) Fecal Occult Blood Normal [facility] Stool 02/09/2016 1:49 PM EDT us Nori Ibanez APRN POINT OF CARE TEST ORDERABLE S Final Result [facility]
[address] [place] [id number], [place] [phone] from Last 3 Months or Most Recently Relevant to Health Maintenance Insurance MEDICARE A & B [employer] [facility] Care Teams Foot Press Operator Relationship Specialty Start Date End Date Ozzie Garibay MD [address] [facility] [address] [place] [address] PCP - General Internal Medicine 04/02/18
--- OUTSIDE RECORDS SUMMARY | 2025-05-20 14:14 | XMS_ITS | Encounter Summary ---
Author Organization Healthcare Address [address] [place] [address] Care Team Providers Care Film Touch Up Inspector Name Role Phone Unavailable Primary Care Provider Unavailabl e Encounter Details Date Type Department Care Team (Late st Contact Info) Description 04/13/2025 Ancillary Procedure [facility] [address] [place] [address] Ozzie Garibay MD [address] [place] [id number] Social History Tobacco Use Types Packs/Day Years [...] AM EDT Narrative 04/13/2025 2:49 PM EDT [facility] [address] [place] [address] Patient Name: MATY AGUAYO Patient : 1940 Age: 85 years Patient Ordering Provider: OZZIE GARIBAY JR EXAM DATE: 04/13/2025 EXAM: MG SCREENING RANDOLPH MAMMOGRAM INDICATION: Screening. History of breast cancer treated with breast conservation surgery PROCEDURE: 2D and multislice imaging of both breasts was performed in standard projections using [employer] Dora Dimensions tomosynthesis equipment (3D mammography). The [...] Procedure Note Didi Bautista MD - 04/13/2025 [place] [id number] Patient Name: MATY AGUAYO Patient : 1940 Age: 85 years Patient Ordering Provider: OZZIE GARIBAY JR EXAM DATE: 04/13/2025 EXAM: MG SCREENING RANDOLPH MAMMOGRAM INDICATION: Screening. History of breast cancer treated with breast conservation surgery PROCEDURE: 2D and multislice imaging of both breasts was performed in standard projections using [employer] tomosynthesis equipment (3D mammography). The [...]
--- OUTSIDE RECORDS SUMMARY | 2025-05-20 14:14 | XMS_ITS | Data Portability ---
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 Procedures Surgical History Date Name Laterality Status Provider Name and Address Organization Details Recorded Time Lumpectomy completed [facility] 09/07/2016 13:16:47 Xcapsl ctrc rmvl cplx wo ecp completed [facility] 09/07/2016 13:17:21 Vulvectomy simple complete completed [facility] 09/07/2016 13:17:55 Unlisted procedure breast completed [facility] 09/07/2016 13:18:49 Imaging Results None recorded. Procedure Notes None recorded. Medical Equipment None Reported. Allergies Allergen ID Allergen Name Allergen Category Reaction Reaction Severity Criticality Documentation Date Start Date Code Code System Note Provider Name and Address Organization Details Recorded Time 240181 Substance with sulfonami de structure and antibacte rial mechanism of action (substanc e) medicatio n Not available Not available Not available 09/07/2016 02826 8003 SNOMED [facility] 13:09:43 Medications Name Sig Start Date Stop [...] Details Last Updated DateTime 7 170.18 cm 13288.8 1 g 28.5 kg/m2 97.4 [degF] 71 /min 98 % 98 % 18 /min 118/64 mm[Hg] Brenda Madrigal [facility] 7 13:37:48 Social History Question Answer Notes LastModified by Organizat ion Details LastModified Time Tobacco Smoking Status Former Smoker Brenda Madrigal [facility] 09/07/2016 13:14:48 When Did You Quit Smoking? 16+yearssin celastcigar ette Quit 1984 [email or web address] Information not available 09/07/2016 How Much Tobacco Do You Smoke? 1 PPD [email or web address] Information not available 09/07/2016 Sex: Unknown Functional Status None recorded. Mental Status None recorded. Family History Relationship Description Onset Age of this Age Resolved Age Notes LastModified by Organization Details LastModified Time Unspecified Relation Malignant neoplasm of breast 2 mat. cousin s [email or web address] Not available 09/07/2016 13:39:34 Unspecified Relation Family history of malignant neoplasm cousin with pancre atic cancer [email or web address] Not available 09/07/2016 13:40:39 Maternal Aunt Family [...] ICD10 Code Diagnosis IMO Codes Diagnosis Note [id number] DEEPIKA WATSON MD HEM/ONC [facility] CLOSED [address],[facility] [address] [place], [place] [address] 6 07/27/2016 12:03:02 07/27/2016 12:58:21 [id number] PATRICE KANG JR, MD GENERAL SURGERY [address] 1 07/27/2016 13:55:06 07/31/2016 13:11:01 [id number] PATRICE KANG JR, MD SURGERY SCHEDULE [address] [place] [address] 08/11/2016 09:55:09 08/11/2016 09:57:56 [id number] PATRICE KANG JR, MD GENERAL SURGERY [address] 1 08/24/2016 11:47:06 08/24/2016 13:26:25 [id number] DEEPIKA WATSON MD HEM/ONC [facility] CLOSED [address],[place] [address] 6 09/07/2016 11:50:00 09/07/2016 12:51:55 [id number] RICK CARBAJAL MD [facility] [place] [address],[facility] [address] [place] [address] 6 09/07/2016 13:15:18 09/08/2016 12:36:49 Ductal carcinoma in situ of left breast 1558303285 683806 D05.12 Estrogen r eceptor positive tumor 391386654 Z17.0 [id number] DEEPIKA WATSON MD HEM/ONC [facility] CLOSED [address],[facility] [address] [place] [address] 6 10/12/2016 13:12:42 10/12/2016 14:54:08 [id number] DEEPIKA WATSON MD HEM/ONC [facility] CLOSED [address],[facility] [address] 6 12/07/2016 10:38:27 12/07/2016 11:38:56 [id number] DEEPIKA WATSON MD HEM/ONC [facility] CLOSED [address] [place] [address] 06/27/2017 10:59:25 06/27/2017 11:37:54 [id number] DEEPIKA WATSON MD HEM/ONC [facility] CLOSED [address] [place] [address] 12/26/2017 10:48:36 12/26/2017 12:36:29 [id number] DEEPIKA WATSON MD HEM/ONC [facility] CLOSED [address] [place] [address] 06/21/2018 11:39:38 06/21/2018 12:14:48 [id number] DEEPIKA WATSON MD HEM/ONC SB CLOSED [address] [place] [address] 07/03/2019 12:23:13 07/03/2019 13:23:47 Health Concerns Section Related Observation LastModified by Organization Detai ls LastModified Time None Recorded Concern Status LastModified by Organization Details LastModified Time None Recorded Advance Directives Directive None Recorded Payers Insurance Date Sequence Insurance Name Policy Number Policy Carlin Covered Member ID Carlin Member ID Guarantor Name 01/15/2024 2 AARP (MEDICARE SUPPLEMENT) Lodi R Olivier [id number] Maty R Olivier 01/15/2024 2 [employer] (PPO) [id number] Lodidelisa Aguayo [id number] Maty R Olivier 04/13/2025 1 [place] Maty R Olivier [id number] Lodi R Olivier 01/15/2024 2 AARP (MEDICARE SUPPLEMENT) Maty R Olivier [id number] Maty R Olivier 04/10/2025 3 AARP (MEDICARE SUPPLEMENT) Maty R Olivier [id number] Lodi R Olivier 04/13/2025 2 [employer] (MEDICARE SUPPLEMENT) [id number] Maty C Olivier [id number] Maty R Olivier 01/15/2024 2 AARP (MEDICARE SUPPLEMENT) PLAN 5 Lodi R Olivier [id number] Maty Aguayo 04/13/2025 2 [facility] Maty Aguayo [id number] Maty Aguayo Notes Date Note Type Note [...] Magnevist intravenous gadolinium contrast according to the pilot boat captain's weight-based algorithm for contrast dosage. 4 cc of contrast from the single-use vial was discarded. Maximum intensity projection images and 3-D reformatted images were created for further evaluation. Additionally dynamic contrast enhancement was evaluated with the help of [employer] postprocessing software. FINDINGS: After administration of intravenous [...] in greater than 90% of tumor cells. -DE: Positive. Strong staining in greater than 90% [...] RT in her care. RICK ONEIL MD [address], [place], [address], [facility] 09/07/2016 14:02:42 OBGyn Episode No OBEpisode recorded.
--- OUTSIDE RECORDS SUMMARY | 2025-05-20 14:14 | XMS_ITS | Encounter Summary ---
[facility] Address [address] [place] [address] Care Team Providers Care Food And Beverage Attendant Name Role Phone Ozzie Garibay MD Primary Care Provider [phone] Encounter Details Date Type Department Care Team (Late st Contact Info) Description 05/19/[address] [facility] HISTORICAL CONV [address] [place] [address] Interface, See Report Social History [...] See Report - 05/19/2013 12:00 AM EST V BELT BUILDER[facility]cology Services [address] [place], [place] [address] Patient: MATY AGUAYO MR #: [id number] : 1940 Date of Visit: 05/19/2013 Referring Physician: NOLVIA COOMBS Dictated By: David Arellano MD 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 PT. DENIES ANY CURRENT V BELT BUILDER PROBLEMS. PT /'S WHAT THE BULGE IS [...] [facility] GYNECOLOGIC ONCOLOGY [address] [facility] [address] [place] [address] Cyndi De La Rosa, HIGH SCHOOL TUTOR [address] [place] [address] documented as of this encounter Visit Diagnoses Not on filedocumented in this encounter Care Teams Food And Beverage Attendant Relationship Specialty Start Date End Date Ozzie Garibay MD [address] [facility] [address] [place] [address] PCP - General Internal Medicine 04/02/18 documented as of this encounter
--- OUTSIDE RECORDS SUMMARY | 2025-05-20 14:14 | XMS_ITS | Encounter Summary ---
Author Organization [facility] Address [address] [place] [address] Care Team Providers Care Interactive Media Marketing Specialist Name Role Phone Ozzie Garibay MD Primary Care Provider [phone] Encounter Details Date Type Department Care Team (Late st Contact Info) Description 12/23/2012 Conversion Encounter [facility] HISTORICAL CONV [address] [place] [address] Interface, See Report Social History [...] See Report - 12/23/2012 12:00 AM EDT WELLNESS ASSISTANT-Oncology Services [address] [place], [place] [address] Patient: MATY AGUAYO. MR #: : 1940 [...] exam: Constitutional: Weight 177 [place] 65 [place] [address] Pulse Temp Neurological/Psychiatric: HEENT: Neck: Respiratory: Cardiovascular: [...] Description 10/28/2025 1:30 PM EDT Office Visit [facility] GYNECOLOGIC ONCOLOGY [address] [facility] [address] [place] [address] Cyndi De La Rosa APRN [address] [facility] [address] [place], [place] [address] documented as of this encounter Visit Diagnoses Not on filedocumented in this encounter Care Teams Interactive Media Marketing Specialist Relationship Specialty Start Date End Date Ozzie Garibay MD [address] [facility] [address] [place] [address] PCP - General Internal Medicine 04/02/18 documented as of this encounter
--- OUTSIDE RECORDS SUMMARY | 2025-05-20 14:14 | XMS_ITS | Encounter Summary ---
[facility] Address [address] [place] [address] Care Team Providers Care Capacity Analyst Name Role Phone Ozzie Garibay MD Primary Care Provider [phone] Encounter Details Date Type Department Care Team (Late st Contact Info) Description 02/07/[address] [facility] HISTORICAL CONV [address] [place] [address] Interface, See Report Social History [...] See Report - 02/07/2013 12:00 AM EDT ETHYLBENZENE CRACKING SUPERVISOR-Oncology Services [address] [place], [place] [address] Patient: MATY AGUAYO. MR #: : 1940 [...] Description 10/28/2025 1:30 PM EDT Office Visit [facility] GYNECOLOGIC ONCOLOGY [address] [place], [place] [address] Cyndi De La Rosa APRN [address] [place] [address] documented as of this encounter Visit Diagnoses Not on filedocumented in this encounter Care Teams Capacity Analyst Relationship Specialty Start Date End Date Ozzie Garibay MD [address] [facility] [address] [place] [address] PCP - General Internal Medicine 04/02/18 documented as of this encounter
--- OUTSIDE RECORDS SUMMARY | 2025-05-20 14:14 | XMS_ITS | Data Portability ---
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 She is on no specific adjuvant therapy. She says that she does not wish to continue to follow with oncology, but she will continue to getting her mammograms done here within the [facility]. I think that is agreeable and we [...] tomos ynthe sis, bilat eral, w/ CAD [address] [address] Rain saravia Name: MATY saravia : [phone] [...] Ayo briscoe MD on 2018 11:[address] Rad[address], [address], 06/30/2019 08:13:51 Result Notes None recorded. Problems Name Problem SNOMED Code Status Onset Date Resolution Date Notes Provider Name and Address Organization Details Recorded Time History of malignant neoplasm of breast 105296888 Active 020 DEEPIKA WATSON MD [address] [place] [address], [address], [facility] 0 13:22:37 Problem Notes None recorded. [...] Address Organization Details Last Updated DateTime 0 39490.6 2 g 29.3 kg/m2 167.64 cm 81 /min 98 % 98 % 98.2 [degF] 142/90 mm[Hg] Senia Nemesio [facility] 0 12:39:03 Social History Question Answer Notes LastModified by [employer] Details LastModified Time Tobacco Smoking Status Former Smoker Senia Batjuan carlos [facility] 07/03/2019 12:37:07 How Much Tobacco [...] Functional Status Question Answer Note LastModified by [employer] Details LastModified Time What is your level [...] quadrivalent, preservative 9 completed Senia Matthewsjuan carlos [facility] 07/03/2019 12:36:42 pneumococcal, unspecified formulation 9 completed Senia Matthewsjuan carlos [facility] 07/03/2019 12:36:50 zoster, unspecified formulation 9 completed Senia Matthewsjuan carlos [facility] 07/03/2019 12:36:59 Past Encounters Encounter ID Performer Location Encounter Start Date Encounter Closed Date Diagnosis/Indication Diagnosis SNOMED-CT Code Diagnosis ICD10 Code Diagnosis IMO Codes Diagnosis Note [id number] DEEPIKA WATSON MD HEM/ONC [facility] CLOSED [address],[facility] [address] [place], [place] [address] 6 07/27/2016 12:03:02 07/27/2016 12:58:21 [id number] PATRICE KANG JR, MD GENERAL SURGERY [address] [place] [address] 07/27/2016 13:55:06 07/31/2016 13:11:01 [id number] PATRICE KANG JR, MD SURGERY SCHEDULE [address] [place], [place] [address] 08/11/2016 09:55:09 08/11/2016 09:57:56 [id number] PATRICE KANG JR, [place] [address] 08/24/2016 11:47:06 08/24/2016 13:26:25 [id number] DEEPIKA WATSON MD HEM/ONC [facility] CLOSED [address],[facility] [address] [place], [place] [address] 6 09/07/2016 11:50:00 09/07/2016 12:51:55 [id number] RICK CARBAJAL MD [facility] [place] [address] [place] [address] 09/07/2016 13:15:18 09/08/2016 12:36:49 [id number] DEEPIKA WATSON MD HEM/ONC [facility] CLOSED [address],[facility] [address] [place], [place] [address] 6 10/12/2016 13:12:42 10/12/2016 14:54:08 [id number] DEEPIKA WATSON MD HEM/ONC [facility] CLOSED [address] [place] [address] 12/07/2016 10:38:27 12/07/2016 11:38:56 [id number] DEEPIKA WATSON MD HEM/ONC [facility] CLOSED [address] [place] [address] 06/27/2017 10:59:25 06/27/2017 11:37:54 [id number] DEEPIKA WATSON MD HEM/ONC [facility] CLOSED [address] [place] [address] 12/26/2017 10:48:36 12/26/2017 12:36:29 [id number] DEEPIKA WATSON MD HEM/ONC [facility] CLOSED [address] [place] [address] 06/21/2018 11:39:38 06/21/2018 12:14:48 [id number] DEEPIKA WATSON MD HEM/ONC SB CLOSED [address] [place] [address] 07/03/2019 12:23:13 07/03/2019 13:23:47 History of malignant neoplasm of breast 818886253 Z85.3 Health Concerns Section Related Observation LastModified by Organization Detai ls LastModified Time None Recorded Concern Status LastModified by Organization Details LastModified Time None Recorded Advance Directives Directive None Recorded Payers Insurance Date Sequence Insurance Name Policy Number Policy Carlin Covered Member ID Carlin Member ID Guarantor Name 01/15/2024 2 AARP (MEDICARE SUPPLEMENT) Maty Aguayo [id number] Maty Aguayo 01/15/2024 2 [employer] (PPO) [id number] Maty Aguayo [id number] Maty Aguayo 04/13/2025 1 [place] Maty Aguayo [id number] Maty Aguayo 01/15/2024 2 AARP (MEDICARE SUPPLEMENT) Maty Aguayo [id number] Maty Aguayo 04/10/2025 3 AARP (MEDICARE SUPPLEMENT) Maty Aguayo [id number] Maty Aguayo 04/13/2025 2 [employer] (MEDICARE SUPPLEMENT) [id number] Maty Aguayo [id number] Maty Aguayo 01/15/2024 2 AARP (MEDICARE SUPPLEMENT) PLAN 5 Maty Aguayo [id number] Maty Aguayo 04/13/2025 2 [employer] Maty Aguayo [id number] Maty Aguayo Notes Date Note Type Note [...] her follow up today. DEEPIKA WATSON MD [address] [place] [address], [phone], [facility] 07/07/2019 08:01:31 OBGyn Episode No OBEpisode recorded.
== END 2025-05-20 23:59 | disposition home or self-care (01) ==
LOC: INF 13:09
PROVIDERS: PCP Internal Medicine; Visit Provider Internal Medicine
DX: D50.9 Iron deficiency anemia, unspecified (principal)
CPT/HCPCS: 96365; J1756

== ENCOUNTER 2025-06-03 08:39 | Outpatient (CLI) | payer MEDICARE, OTHER, SELFPAY ==
[2025-06-03 17:46] LABS: Chloride 100 mmol/L (98-107); Potassium 4.1 mmoL/L (3.5-5.1); Sodium 144 mmol/L (136-145)
[2025-06-03 17:49] LABS: Anion Gap 18.1 mEq/L (5-15); Blood Urea Nitrogen 22 mg/dl (7-17); Carbon Dioxide 30 mmol/L (22.0-30.0); Creatinine,Serum 1.10 mg/dl (0.52-1.04); Estimated Glomerular Filt Rate 47 ml/min (>60); GFR (African American) 57 ML/MIN (>60)
[2025-06-03 17:50] LABS: Calcium 9.6 mg/dl (8.4-10.2); Glucose 102 mg/dl (74-100)
[2025-06-03 17:53] LABS: Hematocrit 35.0 % (37.0-47.0); Hemoglobin 10.8 g/dL (12.2-16.2); Immature Granulocytes % 0.3 %; Mean Corpuscular HGB Conc 30.9 g/dL (31.8-35.4); Mean Corpuscular Hemoglobin 24.1 pg (27.0-31.2); Mean Corpuscular Volume 78.0 fl (81-99); Nucleated Red Blood Cells % 0 %; Platelet Count 179 K/mm3 (142-424); Red Blood Count 4.49 M/mm3 (4.20-5.40); Red Cell Distribution Width-SD 72.9 fL; White Blood Count 7.0 K/mm3 (4.8-10.8)
== END 2025-06-03 23:59 ==
LOC: LAB.DROPOF 06-05 08:40
PROVIDERS: PCP Internal Medicine; Visit Provider Internal Medicine
DX: I11.0 Hypertensive heart disease with heart failure (principal); I50.32 Chronic diastolic (congestive) heart failure; D64.9 Anemia, unspecified
CPT/HCPCS: 80048; 85025